=== PATIENT | male | born 1955 | race Caucasian/White ===

== ENCOUNTER → 2019-11-05 10:25 | Outpatient (CLI) | payer BC, SELFPAY ==
--- NOTE | 2019-11-05 | DI.US.S_ITS ---
PROCEDURE: US RENAL COMPLETE INDICATIONS: CALCULUS OF URETER TECHNIQUE: Real-time scanning was performed of the kidneys and bladder, with image documentation. COMPARISON: Outside Film, CT, CT ABDOMEN WITH/WITHOUT CONTRAST, 09/11/2019, 12:56. FINDINGS: Kidneys: Kidneys are normal in size. Right kidney measures 13.3 cm long; left kidney measures 14.7 cm long. Right renal cortical thickness is 1.6 cm; left renal cortical thickness is 1.4 cm. Renal cortical echotexture is normal. No hydronephrosis or nephrolithiasis. No suspicious solid mass lesions. The right-sided urolithiasis seen on the recent CT is not sonographically identifiable. Bladder: Pre-void bladder volume is 279 mL. Post-void residual is 75 mL. Pre-void images demonstrate no intraluminal masses or stones. On pre-void images, both of the ureteral jets are noted with color Doppler interrogation. (Of note, ureteral jets may not be detectable in up to 25% of cases due to insufficient differences in specific gravity between ureteral and bladder urine). Miscellaneous: No free pelvic fluid. IMPRESSION: No sonographically detectable renal calculi. Suboptimal study sensitivity due to patient body habitus No evidence of urinary obstruction 75 mL post void residual Dictated by: Gilbert Gould M.D. on 11/05/2019 at 15:56 Approved by: Gilbert Gould M.D. on 11/05/2019 at 15:58
== END ==
PROVIDERS: PCP Family Medicine; Referring Provider Urology; Visit Provider Urology
DX: N20.1 Calculus of ureter (principal)
CPT/HCPCS: 76770

== ENCOUNTER → 2020-06-29 09:28 | Outpatient (CLI) | payer BC, SELFPAY ==
--- NOTE | 2020-06-29 09:29 | DI.RAD.S_ITS ---
PROCEDURE: XR CHEST 2V INDICATIONS: dyspnea TECHNIQUE: 2 views of the chest were acquired. COMPARISON: [facility], , CHEST 2 VIEW, 09/05/2013, 11:25. FINDINGS: Surgical changes and devices: None. Lungs and pleura: Lungs are abnormal with a new finding on the right of asymmetric pleural thickening seen posteriorly to measure up to 4.4 cm in thickness and extending over a craniocaudad length of approximately 16.4 cm. On the frontal view increased radiodensity is now present over the right mid and lower lung and right lateral pleural thickening is also present, measuring up to 1.7 cm in thickness. No pleural effusions or pneumothorax. Mediastinum: Mediastinal contours are normal. Heart size is normal. Bones and chest wall: No suspicious bony abnormalities. Soft tissues appear unremarkable. IMPRESSION: There is an abnormal finding within much of the posterior and posterolateral right hemithorax which appears comprised of either a pleural mass with thickening or a peripheral atypical pneumonia appearance abutting the posterior and posterolateral pleural surface. CT scanning is recommended with contrast. Empyema could be present. Malignant neoplasm is considered less likely but potentially present. Dictated by: Jose Reno M.D. on 06/29/2020 at 9:57 Approved by: Jose Reno M.D. on 06/29/2020 at 10:01
[2020-06-29 10:34] LABS: Hemoglobin A1C% w Est Avg Glu 6.8 % (4.0-6.0)
[2020-06-29 10:48] LABS: Add Manual Diff / Slide Review NO; Basophils Absolute Auto 100 /uL (0-100); Basophils Percent Auto 1.2 % (0-2); Eosinophils Absolute Auto 200 /uL (0-450); Eosinophils Percent Auto 2.2 % (2-4); Hematocrit 24.9 % (41-53); Hemoglobin 7.2 g/dL (13.5-17.5); Lymphocytes Absolute Auto 1500 /uL (1100-4500); Lymphocytes Percent Auto 13.7 % (25-40); Monocytes Absolute Auto 1000 /uL (0-900); Monocytes Percent Auto 9.1 % (3-14); Neutrophils Absolute Auto 8000 /uL (1500-7000); Neutrophils Percent Auto 73.8 % (50-75); Platelet Count 310 X10^3/uL (150-400); Red Blood Cell Count 4.02 X10^6/uL (4.5-5.9); Red Cell Distribution Width 19.8 % (11.6-14.8); White Blood Cell Count 10.8 X10^3/uL (4.5-11.0)
[2020-06-29 11:03] LABS: Alanine Aminotransferase 25 IU/L (<50); Albumin Globulin Ratio 1.2 (1.0-2.8); Alkaline Phosphatase 81 U/L (38-126); Aspartate Aminotransferase 31 IU/L (17-59); BUN Creatinine Ratio 28.9 (6-22); Bilirubin Total 0.3 mg/dL (0.2-1.3); Blood Urea Nitrogen 22 mg/dL (9-20); Calcium 9.1 mg/dL (8.4-10.2); Carbon Dioxide 30 mmol/L (22-32); Chloride 102 mmol/L (98-107); Estimated Glomerular Filt Rate > 60.0 mL/min (>60); Globulin 3.4 g/dL (1.7-4.1); Glucose 118 mg/dL (80-110); HEMOLYSIS < 15 (0-50); Potassium 4.4 mmol/L (3.4-5.1); Sodium 142 mmol/L (137-145); Total Protein 7.4 g/dL (6.3-8.2)
[2020-06-29 11:04] LABS: HEMOLYSIS < 15 (0-50); Iron 26 ug/dL (49-181)
[2020-06-29 11:17] LABS: Percent Iron Saturation 5 % (20-50); Total Iron Binding Capacity 478 ug/dL (261-462); Transferrin 392 mg/dL (206-381)
[2020-06-29 11:38] LABS: TSH w/ Reflex to FT4 2.05 uIU/mL (0.47-4.68)
[2020-06-29 11:42] LABS: Anisocytosis 2+; Hypochromasia 3+; Microcytosis 3+; Ovalocytes 2+
[2020-06-29 12:10] LABS: Vitamin B12 545 pg/mL (239-931)
== END ==
PROVIDERS: PCP Internal Medicine; Referring Provider Internal Medicine; Visit Provider Internal Medicine
DX: E11.9 Type 2 diabetes mellitus without complications (principal); E66.01 Morbid (severe) obesity due to excess calories; E78.2 Mixed hyperlipidemia; I10 Essential (primary) hypertension; D64.9 Anemia, unspecified; R06.00 Dyspnea, unspecified
CPT/HCPCS: 36415; 71046; 80053; 82607; 82746; 83036; 83540; 83550; 84443; 85025

== ENCOUNTER → 2020-07-07 09:55 | Outpatient (CLI) | payer BC, SELFPAY ==
[2020-07-07 12:07] LABS: COVID19 -Nasal RAPID Negative (Negative)
== END ==
PROVIDERS: Physician Assistant; PCP Internal Medicine; Visit Provider Internal Medicine
DX: Z11.59 Encounter for screening for other viral diseases (principal)
CPT/HCPCS: 87635

== ENCOUNTER → 2020-07-08 06:35 | Outpatient (CLI) | payer BC, SELFPAY ==
--- NOTE | 2020-07-14 09:23 | PM.PFT.1 ---
Pulmonary Function Test Referral & Results Date Patient Seen: 07/08/20 Requesting provider: Tyler Khan Indication: COPD Results: The spirometry demonstrates an FVC of 2.57 L which is 56% of predicted. The FEV1 was measured at 1.33 L which is 39% of predicted. The FEV1/FVC ratio was 52 which is 68% of predicted. Following the administration of bronchodilator there was a 23% improvement in FEV1 as well as 81% improvement in FEF 25-75%. Lung volumes show an SVC of 2.97 L which is 65% of predicted. The diffusing capacity was measured at 18.01 which is 58% of predicted. No hemoglobin value was provided, so no correction for potential anemia could be made, if appropriate. The maximum voluntary ventilation was reduced Interpretation: This study demonstrates moderately severe obstructive lung disease based on reduction FEV1 as well as FEV1/FVC ratio. There is evidence of significant benefit following bronchodilator as above There is also mild restrictive lung disease present based on reduction SVC There is also [id number] reduction diffusing capacity suggesting disease at the capillary alveolar level Altogether this is consistent with a diagnosis of COPD. Clinical correlation is suggested
== END ==
PROVIDERS: PCP Internal Medicine; Referring Provider Internal Medicine; Visit Provider Internal Medicine
DX: J44.9 Chronic obstructive pulmonary disease, unspecified (principal); Z87.891 Personal history of nicotine dependence
CPT/HCPCS: 94060; 94726; 94729

== ENCOUNTER → 2020-07-15 16:24 | Outpatient (CLI) | payer BC, SELFPAY ==
[2020-07-15 17:11] LABS: BUN Creatinine Ratio 31.3 (6-22); Blood Urea Nitrogen 21 mg/dL (9-20); Estimated Glomerular Filt Rate > 60.0 mL/min (>60)
== END ==
PROVIDERS: PCP Internal Medicine; Referring Provider Internal Medicine; Visit Provider Internal Medicine
DX: Z01.812 Encounter for preprocedural laboratory examination (principal)
CPT/HCPCS: 36415; 82565; 84520

== ENCOUNTER → 2020-07-16 12:21 | Outpatient (CLI) | payer BC, SELFPAY ==
--- NOTE | 2020-07-16 12:24 | DI.CT.S_ITS ---
PROCEDURE: CT CHEST W CON INDICATIONS: Dyspnea, extreme fatigue TECHNIQUE: After the administration of intravenous contrast, 5 mm thick sections acquired from the pulmonary apices to the posterior costophrenic angles. 1 mm axial lung, 5 mm thick coronal and sagittal reformats and 7 mm axial MIP were acquired. For radiation dose reduction, the following was used: automated exposure control, adjustment of mA and/or kV according to patient size. COMPARISON: Outside Film, CT, CT ABDOMEN WITH/WITHOUT CONTRAST, 09/11/2019, 12:56. FINDINGS: Image quality: Excellent. Small right pleural effusion with adjacent atelectasis. There is pleural enhancement suggestive of exudative etiology. This is stable to slightly decreased in size since the prior study. Scattered subsegmental atelectasis and/or scarring. No focal consolidation. Airway thickening in keeping with nonspecific bronchitis and/or reactive airways disease. Mediastinum: Heart size is normal. Coronary artery calcifications are present. No pericardial effusion. No mediastinal or hilar adenopathy by size criteria. Thoracic aorta and central pulmonary arteries are normal in size. Esophagus is normal in caliber. No hiatal hernia. Bones and chest wall: No suspicious bony lesions. No vertebral body compression fractures. No axillary or supraclavicular adenopathy by size criteria. Thyroid gland negative . Abdomen: Partially visualized left nephrolithiasis measuring approximately 3 mm. Cystic lesion involving the upper pole the right kidney is only partially visualized. IMPRESSION: Small right pleural effusion, as detailed above. This is stable to slightly decreased in size since 09/11/19. Adjacent right basilar atelectasis. Airway thickening in keeping with nonspecific bronchitis and/or reactive airways disease. Coronary artery disease. Dictated by: Gilbert Gould M.D. on 07/16/2020 at 12:49 Approved by: Gilbert Gould M.D. on 07/16/2020 at 12:54
== END ==
PROVIDERS: PCP Internal Medicine; Referring Provider Internal Medicine; Visit Provider Internal Medicine
DX: R06.00 Dyspnea, unspecified (principal); R93.89 Abnormal findings on diagnostic imaging of other specified body structures; I25.10 Atherosclerotic heart disease of native coronary artery without angina pectoris; J90 Pleural effusion, not elsewhere classified; R53.83 Other fatigue
CPT/HCPCS: 71260; Q9967

== ENCOUNTER → 2020-07-20 17:06 | Outpatient (CLI) | payer BC, SELFPAY ==
[2020-07-20 17:28] LABS: Add Manual Diff / Slide Review NO; Basophils Absolute Auto 100 /uL (0-100); Basophils Percent Auto 0.8 % (0-2); Eosinophils Absolute Auto 200 /uL (0-450); Eosinophils Percent Auto 2.3 % (2-4); Hematocrit 32.1 % (41-53); Hemoglobin 9.8 g/dL (13.5-17.5); Lymphocytes Absolute Auto 1200 /uL (1100-4500); Lymphocytes Percent Auto 11.8 % (25-40); Mean Corpuscular HGB Conc 30.4 % (30-36); Mean Corpuscular Hemoglobin 21.7 PG (26-34); Mean Corpuscular Volume 71.2 fL (80-100); Monocytes Absolute Auto 800 /uL (0-900); Monocytes Percent Auto 8.1 % (3-14); Neutrophils Absolute Auto 7500 /uL (1500-7000); Platelet Count 336 X10^3/uL (150-400); Red Cell Distribution Width 31.9 % (11.6-14.8); White Blood Cell Count 9.8 X10^3/uL (4.5-11.0)
[2020-07-20 17:50] LABS: HEMOLYSIS < 15 (0-50); Iron 45 ug/dL (49-181)
[2020-07-20 17:54] LABS: C-Reactive Protein Quant 2.9 mg/dL (<1.0)
[2020-07-20 17:56] LABS: Erythrocyte Sedimentation Rate 69 MM/HR (0-15)
[2020-07-20 18:01] LABS: Percent Iron Saturation 10 % (20-50); Total Iron Binding Capacity 450 ug/dL (261-462); Transferrin 361 mg/dL (206-381)
[2020-07-20 18:27] LABS: Anisocytosis 4+; Ovalocytes 2+; Poikilocytosis 2+; Schistocytes 1+
[2020-07-20 18:28] LABS: Hypochromasia 2+; Polychromasia 1+
[2020-07-20 18:29] LABS: Microcytosis 2+
== END ==
PROVIDERS: PCP Internal Medicine; Referring Provider Internal Medicine; Visit Provider Internal Medicine
DX: D64.9 Anemia, unspecified (principal)
CPT/HCPCS: 36415; 83540; 83550; 85025; 85651; 86140

== ENCOUNTER → 2020-07-29 13:57 | Outpatient (CLI) | payer BC, SELFPAY | PROVIDERS: Family Provider Internal Medicine; PCP Internal Medicine; Referring Provider Internal Medicine; Visit Provider Family Medicine | DX: R21 Rash and other nonspecific skin eruption (principal); E66.01 Morbid (severe) obesity due to excess calories; D50.9 Iron deficiency anemia, unspecified | CPT/HCPCS: 87070; 87075; 87077; 87186; 87205; 99203; 99214 ==

== ENCOUNTER → 2020-08-10 15:16 | Outpatient (CLI) | payer BC, SELFPAY | PROVIDERS: Family Provider Internal Medicine; PCP Internal Medicine; Referring Provider Internal Medicine; Visit Provider Family Medicine | DX: R21 Rash and other nonspecific skin eruption (principal); E66.01 Morbid (severe) obesity due to excess calories; R73.03 Prediabetes | CPT/HCPCS: 99213 ==

== ENCOUNTER → 2020-08-18 15:28 | Outpatient (CLI) | payer BC, SELFPAY ==
[2020-08-18 16:02] LABS: Add Manual Diff / Slide Review NO; Basophils Absolute Auto 100 /uL (0-100); Basophils Percent Auto 0.9 % (0-2); Eosinophils Absolute Auto 200 /uL (0-450); Eosinophils Percent Auto 2.1 % (2-4); Hematocrit 33.1 % (41-53); Hemoglobin 10.6 g/dL (13.5-17.5); Lymphocytes Absolute Auto 1000 /uL (1100-4500); Lymphocytes Percent Auto 11.7 % (25-40); Mean Corpuscular HGB Conc 31.9 % (30-36); Mean Corpuscular Volume 75.2 fL (80-100); Monocytes Absolute Auto 800 /uL (0-900); Monocytes Percent Auto 8.8 % (3-14); Neutrophils Absolute Auto 6700 /uL (1500-7000); Neutrophils Percent Auto 76.5 % (50-75); Platelet Count 337 X10^3/uL (150-400); Red Cell Distribution Width 26.3 % (11.6-14.8); White Blood Cell Count 8.8 X10^3/uL (4.5-11.0)
[2020-08-18 16:15] LABS: BUN Creatinine Ratio 29.3 (6-22); Blood Urea Nitrogen 24 mg/dL (9-20); Calcium 9.1 mg/dL (8.4-10.2); Carbon Dioxide 31 mmol/L (22-32); Chloride 103 mmol/L (98-107); Estimated Glomerular Filt Rate > 60.0 mL/min (>60); Glucose 126 mg/dL (80-110); HEMOLYSIS < 15 (0-50); Potassium 4.3 mmol/L (3.4-5.1); Sodium 141 mmol/L (137-145)
[2020-08-18 18:23] LABS: HEMOLYSIS < 15 (0-50); Total Iron Binding Capacity 418 ug/dL (261-462); Transferrin 336 mg/dL (206-381)
[2020-08-18 18:36] LABS: Iron 21 ug/dL (49-181); Percent Iron Saturation 5 % (20-50)
[2020-08-18 19:54] LABS: Anisocytosis 3+; Hypochromasia 1+; Microcytosis 2+; Ovalocytes 2+; Platelet Estimate Adequate on smear
--- NOTE | 2020-08-25 13:05 | ONC.MSW ---
Description: Initial Referral Navigation Reason for Referral: Iron Deficiency Anemia Activity: Reviewed referral for acuity, medical status, and immediate needs. Forwarded to scheduling for next available consult time.
== END ==
PROVIDERS: Family Provider Internal Medicine; PCP Internal Medicine; Referring Provider Internal Medicine; Visit Provider Internal Medicine
DX: D50.0 Iron deficiency anemia secondary to blood loss (chronic) (principal)
CPT/HCPCS: 36415; 80048; 83540; 83550; 85025

== ENCOUNTER → 2020-10-07 08:13 | Outpatient (CLI) | payer BC, SELFPAY ==
--- NOTE | 2020-10-07 09:58 | DI.CT.S_ITS ---
PROCEDURE: CT ABDOMEN PELVIS W CON INDICATIONS: Looking for source of GI blood loss; F/U kidney mass TECHNIQUE: After the administration of oral and intravenous contrast, 5 mm thick sections acquired from the diaphragms to the symphysis. 5 mm thick coronal and sagittal reformats were performed. For radiation dose reduction, the following was used: automated exposure control, adjustment of mA and/or kV according to patient size. COMPARISON: [facility], CT, CT CHEST W CON, 07/16/2020, 12:25. Outside Film, CT, CT ABDOMEN WITH/WITHOUT CONTRAST, 09/11/2019, 12:56. FINDINGS: Image quality: Excellent. ABDOMEN: Lung bases: There is a small, loculated appearing right pleural effusion, as before, with overlying scarring within the right lung base. Heart size is normal. Solid organs: Liver enlarged and demonstrates normal enhancement. Gallbladder is within normal limits. Biliary system is non-dilated. Pancreas enhances normally. Spleen is normal in size and enhancement. No adrenal nodules. There is a cystic focus within the superior pole right kidney which is predominantly exophytic, measuring 25 mm diameter, which is slightly increased compared to 09/11/2019. There is a nonobstructing 4 mm calculus within the inferior pole right kidney, as before. Kidneys are otherwise normal in size and enhancement, without hydronephrosis. Peritoneum and bowel: Stomach, small bowel, and colon loops are normal in caliber and wall thickness. Moderate diffuse colonic stool. No free fluid or air. Nodes and vessels: No retroperitoneal or mesenteric adenopathy. Aorta and inferior vena cava are normal in caliber. Miscellaneous: No ventral hernias. PELVIS: Genitourinary: Bladder wall thickness is normal. Miscellaneous: No inguinal hernias or adenopathy. Bones: No suspicious bony lesions. No vertebral body compression fractures. IMPRESSION: 1. No change in small loculated right pleural effusion. 2. Slight increase in size of right superior pole renal cyst compared to 09/11/2019. 3. Nonobstructing right inferior pole renal calculus. 4. Hepatic steatosis. Dictated by: Minerva Keane M.D. on 10/07/2020 at 10:34 Approved by: Minerva Keane M.D. on 10/07/2020 at 10:38
== END ==
PROVIDERS: Family Provider Internal Medicine; PCP Internal Medicine; Referring Provider Internal Medicine; Visit Provider Internal Medicine
DX: D50.9 Iron deficiency anemia, unspecified (principal); N28.89 Other specified disorders of kidney and ureter; J90 Pleural effusion, not elsewhere classified; N28.1 Cyst of kidney, acquired; N20.0 Calculus of kidney; K76.0 Fatty (change of) liver, not elsewhere classified
CPT/HCPCS: 74177; Q9967

== ENCOUNTER → 2020-11-01 10:47 | Outpatient (CLI) | payer BC, SELFPAY ==
--- NOTE | 2020-11-01 10:48 | DI.CT.S_ITS ---
PROCEDURE: CT ABDOMEN WO/W CON INDICATIONS: Renal protocol to evaluate enlarging renal mass TECHNIQUE: Optional 5 mm thick noncontrast images acquired from the diaphragm to the iliac crests. After the administration of intravenous contrast, 5 mm thick images again acquired from the diaphragm to the iliac crests in the arterial and urographic phases. 5 mm thick coronal and sagittal reformats were then acquired. For radiation dose reduction, the following was used: automated exposure control, adjustment of mA and/or kV according to patient size. COMPARISON: [facility], US, US RENAL COMPLETE, 11/05/2019, 11:09. Outside Film, CT, CT ABDOMEN WITH/WITHOUT CONTRAST, 09/11/2019, 12:56. [facility], CT, CT ABDOMEN PELVIS W CON, 10/07/2020, 9:54. FINDINGS: Image quality: Excellent. Lung bases: The right lung has basilar atelectasis, otherwise the lung bases are clear. Heart size is normal. Genitourinary: The right kidney has a 2.5 x 2.5 x 3.2 cm hypodensity in the mid/superior pole which demonstrates -15 Hounsfield unit density. This mass has no arterial enhancement. The size is unchanged compared to the prior CT on 10/07/2020. Other solid organs: Liver is normal in size and enhancement. The gallbladder has no gallstones, pericholecystic fluid, gallbladder wall thickening, or surrounding inflammatory change. Biliary system is non dilated. Pancreas enhances normally. Spleen is normal in size and enhancement. No adrenal nodules. Peritoneum and bowel: Unenhanced bowel loops are normal in wall thickness and caliber. No free fluid or air. Nodes and vessels: No retroperitoneal or mesenteric adenopathy by size criteria. Aorta and inferior vena cava are normal in caliber. Bones: Degenerative changes with no focal abnormality. No suspicious bony lesions. No vertebral body compression fractures. Miscellaneous: There is rectus diastasis. No hernia. IMPRESSION: Right renal mass is hypodense and demonstrates no arterial enhancement and is therefore likely benign. However given apparent growth over the last year recommend ultrasound in 6 months to ensure stability. Dictated by: Jareth Tellez M.D. on 11/01/2020 at 11:40 Approved by: Jareth Tellez M.D. on 11/01/2020 at 11:52
== END ==
PROVIDERS: Family Provider Internal Medicine; PCP Internal Medicine; Referring Provider Internal Medicine; Visit Provider Internal Medicine
DX: N28.89 Other specified disorders of kidney and ureter (principal)
CPT/HCPCS: 74170

== ENCOUNTER → 2020-12-07 08:18 | Outpatient (CLI) | payer BC, SELFPAY ==
[2020-12-07] MEDS: COVID-19 VACC #1, MRNA(MOD) 100 MCG/0.5 ML VIAL IM (08:26)
== END ==
PROVIDERS: Family Provider Internal Medicine; PCP Internal Medicine; Visit Provider Internal Medicine
DX: Z23 Encounter for immunization (principal)
CPT/HCPCS: 0011A; 91301

== ENCOUNTER → 2020-12-17 14:11 | Outpatient (CLI) | payer BC, SELFPAY | PROVIDERS: Family Provider Internal Medicine; PCP Internal Medicine; Referring Provider Internal Medicine; Visit Provider Nurse Practitioner Family | DX: E11.628 Type 2 diabetes mellitus with other skin complications (principal); L08.9 Local infection of the skin and subcutaneous tissue, unspecified; M79.3 Panniculitis, unspecified; Z87.891 Personal history of nicotine dependence; E66.01 Morbid (severe) obesity due to excess calories; Z68.43 Body mass index [BMI] 50.0-59.9, adult | CPT/HCPCS: 87070; 87075; 87077; 87147; 87186; 87205; 99214 ==

== ENCOUNTER → 2021-01-05 07:40 | Outpatient (CLI) | payer BC, SELFPAY ==
[2021-01-05] MEDS: COVID-19 VACC #2, MRNA(MOD) 100 MCG/0.5 ML VIAL IM (07:55)
== END ==
PROVIDERS: PCP Internal Medicine; Visit Provider Internal Medicine
DX: Z23 Encounter for immunization (principal)
CPT/HCPCS: 0012A; 91301

== ENCOUNTER 2022-06-28 08:35 | Emergency (ER) | payer BC, SELFPAY ==
[2022-06-28] VITALS (7 sets, daily range): BP systolic 104–153; BP diastolic 59–81; PULSE 88–119; RESP 18; TEMP 36.3; O2SAT 91–94; BMI 58.3
--- NOTE | 2022-06-28 09:37 | ED_ITS ---
HPI - Skin/Abscess/Foreign Bdy General Chief complaint: Skin/Abscess/Foreign Body Stated complaint: boil or cyst on right upper leg Time Seen by Provider: 06/28/22 09:29 Source: patient Mode of arrival: Ambulatory Limitations: no limitations History of Present Illness HPI narrative: The patient is morbidly obese, he has greatly enlarged lower extremities. He has extensive varicose veins. In the right posterior thigh region. In years past he is undergone 2 vascular surgeries at this site. He is here now due to a sudden increase in size and dilatation in the area. There is no bleeding. The areas are ecchymotic, consistent with large varicose veins. Fortunately has no bleeding with the sudden increase in size and dilatation. He denies URI symptoms, chest discomfort, cough or dyspnea. He has no fever or chills. He is not anticoagulated. Related Data Home Medications Medication Instructions Recorded Confirmed acetaminophen 500 mg capsule 500 - 1,000 mg PO Q6H PRN Pain 06/29/20 04/13/22 (Scale Score 1-3) buprenorphine 8 mg-naloxone 2 mg 1 tab sublingual DAILY 06/29/20 04/13/22 sublingual tablet ibuprofen 200 mg capsule 200 - 400 mg PO Q6H PRN Pain 06/29/20 04/13/22 (Scale Score 1-3) multivitamin 1 tab PO DAILY 06/29/20 04/13/22 Previous Rx's Medication Instructions Recorded budesonide-formoterol HFA 160 2 inh inhalation BID #10.2 grams 10/28/21 mcg-4.5 mcg/actuation aerosol inhaler tamsulosin 0.4 mg capsule 0.4 mg PO DAILY #90 caps 04/03/22 hydrochlorothiazide 25 mg tablet 25 mg PO DAILY #90 tabs 05/16/22 lisinopril 40 mg tablet 40 mg PO DAILY #90 tabs 06/16/22 pravastatin 20 mg tablet 20 mg PO DAILY #90 tabs 06/16/22 Allergies Allergy/AdvReac Type Severity Reaction Status Date / Time No Known Drug Allergies Allergy Verified 06/28/22 09:08 Review of Systems Constitutional Constitutional: Denies body ache(s), Denies chills, Denies fever(s), Denies headache(s) and Denies weakness Comments: No acute illness ENT Ears, Nose, Mouth, and Throat: Denies headache(s), Denies sinus pressure and Denies sore throat Cardiovascular Cardiovascular: Denies chest pain and Denies dyspnea Respiratory Respiratory: Denies cough and Denies dyspnea Gastrointestinal Gastrointestinal: Denies abdominal pain and Denies nausea Musculoskeletal Comments: Right posterior leg pain. Integumentary/Breasts Comments: Swelling and ecchymosis to the right posterior leg. Neurologic Neurologic: Denies headache(s) and Denies weakness Hematologic/Lymphatic On Anticoagulants: No Patient History Medical History BPH w urinary obs/LUTS Calculus of right kidney Chronic back pain Constipation Diabetes type 2, controlled Enlarged prostate Essential hypertension (~1994) H/O adenomatous polyp of colon Hemorrhoid (~1999) History of bladder stone History of nephrolithiasis (~1999) Iron deficiency anemia Microscopic hematuria Mixed hyperlipidemia Morbid obesity Renal cyst, right Rib fractures (~1974) Sleep apnea Type 2 diabetes mellitus with hyperglycemia Surgical History Anesthesia Bladder stones (~2016) History of knee surgery (~1979) Family History Mother Cancer Father Myocardial infarct Brother Cancer Social History Smoking Status: Former smoker Smoking Status: Former smoker alcohol intake frequency: holidays/special occasions only Substance Use Type: does not use Exam Initial Vital Signs Initial Vital Signs: Vital Signs Temperature 97.3 F L 06/28/22 09:02 Pulse Rate 119 H 06/28/22 09:02 Respiratory Rate 18 06/28/22 09:02 Blood Pressure 153/81 H 06/28/22 09:02 Pulse Oximetry 91 06/28/22 09:02 Oxygen Delivery Method 06/28/22 09:02 Const General: cooperative, No acute distress and other (Uncomfortable) HENMT Head: normocephalic and occipital foramen tenderness Resp Auscultation: clear to auscultation bilaterally Cardio Rate: regular rate Rhythm: regular rhythm Heart Sounds: S1 normal, S2 normal and no murmurs Skin Other: Massive varicose veins on the right posterior, proximal thigh. Significant varicosities on the left leg also. The varicose veins are up to 1 cm in diameter. There is marked protuberant area where the vein is dilated about 2 cm, the site is soft, the skin appears to be quite thin. There is no erythema, no warmth. Neuro General: patient alert, patient awake and patient oriented x3 Extrem General: full ROM and no calf tenderness Other: Varicose veins as discussed above Psych Appearance: grossly normal Course Course Course Narrative: The patient has varicose vein ruptured while here in the ER. There was immediate heavy bleeding, the blood was old, black. There was a significant clot that was expelled. Bleeding persisted until pressure was applied. Initial bandage were soaked. Bleeding eventually minimized. Dr. Novoa, general surgery was consulted. He was not immediately available. Bleeding has ceased. He evaluated the situation, feeling there was no immediate surgical intervention that would benefit the patient. He concurs with my intent to consult with vascular surgery. CT angio was obtained. There are no acute arterial lesions. I discussed the situation with the radiologist. There were no AV malformations associated with the hemorrhage sites. The case was discussed briefly with vascular surgery on-call with [facility]. Patient was given an appointment in 2 days with his partner in clinic. Bandages were changed. Patient is stable at time of discharge. Orders Ordered: ED Orders 06/28/22 09:40 CT angio abd aorta runoff Stat 06/28/22 11:40 BMP [Basic Metabolic Panel] Stat CBC with manual diff [Complete Blood Count MAN DIFF] Stat Prothrombin Time INR Stat 06/28/22 13:45 COVID19 -Nasal RAPID/Pre-Proc Stat Vital Signs Vital signs: Vital Signs - 8 hr 06/28/22 12:23 06/28/22 12:25 06/28/22 12:25 Pulse Rate 99 H 98 H Respiratory Rate Blood Pressure 130/67 Pulse Oximetry 94 93 Oxygen Delivery Method 06/28/22 12:30 06/28/22 12:30 06/28/22 13:38 Pulse Rate 96 H Respiratory Rate Blood Pressure 113/61 113/59 L Pulse Oximetry 91 Oxygen Delivery Method 06/28/22 13:38 06/28/22 14:00 06/28/22 15:46 Pulse Rate 91 H 88 100 H Respiratory Rate 18 Blood Pressure 104/62 Pulse Oximetry 92 94 94 Oxygen Delivery Method Room Air MDM - Skin/Abscess/Foreign Bdy Lab Data Result diagrams: 06/28/22 11:40 06/28/22 11:40 Labs: Lab Results 06/28/22 06/28/22 06/28/22 Range/Units 11:40 11:40 11:40 WBC 12.0 H (4.5-11.0) X10^3/uL RBC 4.08 L (4.5-5.9) X10^6/uL Hgb 11.4 L (13.5-17.5) g/dL Hct 35.4 L (41-53) % MCV 86.9 (80-100) fL MCH 28.0 (26-34) PG MCHC 32.2 (30-36) % RDW 15.5 H (11.6-14.8) % Plt Count 249 (150-400) X10^3/uL Total Counted 100 Seg Neutrophils % 77.0 H (38-70) % Lymphocytes % (Manual) 9.0 L (25-45) % Atypical Lymphs % 5.0 H ( - 0) % Monocytes % (Manual) 9.0 (2-11) % Neutrophils # (Manual) 9240 H (7897-5159) /uL RBC Morphology Not Reportable Anisocytosis 1+ H PT 15.9 H (10.1-12.7) SECONDS INR 1.4 H (0.9-1.3) Sodium 137 (137-145) mmol/L Potassium 4.3 (3.4-5.1) mmol/L Chloride 99 (98-107) mmol/L Carbon Dioxide 29 (22-32) mmol/L BUN 20 (9-20) mg/dL Creatinine 0.73 (0.66-1.25) mg/dL Estimated GFR > 60 (>60) mL/min BUN/Creatinine Ratio 27.4 H (6-22) Glucose 127 H (80-110) mg/dL Calcium 8.7 (8.4-10.2) mg/dL SARS-CoV-2 (PCR) (Negative) 06/28/22 Range/Units 13:45 WBC (4.5-11.0) X10^3/uL RBC (4.5-5.9) X10^6/uL Hgb (13.5-17.5) g/dL Hct (41-53) % MCV (80-100) fL MCH (26-34) PG MCHC (30-36) % RDW (11.6-14.8) % Plt Count (150-400) X10^3/uL Total Counted Seg Neutrophils % (38-70) % Lymphocytes % (Manual) (25-45) % Atypical Lymphs % ( - 0) % Monocytes % (Manual) (2-11) % Neutrophils # (Manual) (9549-0299) /uL RBC Morphology Anisocytosis PT (10.1-12.7) SECONDS INR (0.9-1.3) Sodium (137-145) mmol/L Potassium (3.4-5.1) mmol/L Chloride (98-107) mmol/L Carbon Dioxide (22-32) mmol/L BUN (9-20) mg/dL Creatinine (0.66-1.25) mg/dL Estimated GFR (>60) mL/min BUN/Creatinine Ratio (6-22) Glucose (80-110) mg/dL Calcium (8.4-10.2) mg/dL SARS-CoV-2 (PCR) Negative (Negative) Imaging Data CT angio with runoff.: Radiologist's Impression: 1. Cellulitis involving the posterior medial upper right thigh subcutaneous fat. ? 2. There is mild atherosclerotic disease involving the aorta and runoff.? There is no hemodynamically significant stenosis identified.? There is 3 runoff vessels bilaterally. ? 3. Ventral hernia containing nonobstructed small bowel. ? 4. Small right pleural effusion and associated right basilar atelectasis. ? 5. Hepatomegaly, hepatic steatosis. ? 6. Nephrolithiasis. ? 7. Bladder stones.? ? Discharge Plan Departure Patient Disposition: Home Clinical Impression: Ruptured varicose vein Instructions: DI for Varicocele Activity Restrictions/Additional Instructions: Expect the site who is small amounts of old, black blood. There may be occasional trickles of bright red blood If he develops significant bleeding of bright red blood he should be seen imm ediately. Change bandages as needed. You have an appointment with Dr. Uribe 3:00 pm, SundayJune 30, vascular surgery with [facility] in [place], [place]. Prescriptions: No Action budesonide-formoterol 160-4.5 mcg/actuation HFA aerosol inhaler 2 inh inhalation BID Qty: 10.2 4RF tamsulosin 0.4 mg capsule 0.4 mg PO DAILY Qty: 90 0RF Rx Instructions: APPT DUE W/PCP PRIOR TO END OF RX/FUTURE FILLS. PLEASE CALL TO SCHEDULE APPT. THANK YOU 04/03/22. hydrochlorothiazide 25 mg tablet 25 mg PO DAILY Qty: 90 0RF Rx Instructions: PT WILL NEED TO BE SEEN BEFORE NEXT FILL 05/16/22 pravastatin 20 mg tablet 20 mg PO DAILY Qty: 90 0RF Rx Instructions: APPT DUE NOW/BEFORE ANY FUTURE FILLS. PLEASE CALL TO SCHEDULE APPT. THANK YOU 06/16/22. lisinopril 40 mg tablet 40 mg PO DAILY Qty: 90 0RF Rx Instructions: APPT DUE NOW/BEFORE ANY FUTURE FILLS. PLEASE CALL TO SCHEDULE APPT. THANK YOU 06/16/22. multivitamin Tablet 1 tab PO DAILY buprenorphine-naloxone 8-2 mg tablet, sublingual 1 tab SL DAILY ibuprofen 200 mg capsule 200 - 400 mg PO Q6H PRN (Reason: Pain (Scale Score 1-3)) Label Comments: States he takes more due to being in pain acetaminophen 500 mg capsule 500 - 1,000 mg PO Q6H PRN (Reason: Pain (Scale Score 1-3)) Label Comments: For pain Referrals: Tyler Khan MD [Primary Care Provider] - Visit Report Forms: Patient Portal/API
--- NOTE | 2022-06-28 09:40 | DI.CT.S_ITS ---
PROCEDURE: CT ANGIO ABD AORTA RUNOFF INDICATIONS: Extensive vascular abnormalities, right leg. TECHNIQUE: After the administration of intravenous contrast, 2.5 mm sections acquired from T12 to the feet, with optional delayed image acquisition from the knees to the feet. 3-dimensional maximum intensity projection (MIP) coronal and sagittal reformats, and/or 3-dimensional volume rendering reformatting was then performed. For radiation dose reduction, the following was used: automated exposure control. COMPARISON: None. FINDINGS: Image quality: Excellent. Extravascular tissues: Small right pleural effusion and associated right basilar atelectasis. Heart size is normal. Hepatomegaly. Diffuse hepatic steatosis. Gallbladder is unremarkable without calcified stones. Biliary system is non dilated. Pancreas enhances normally. Spleen is normal in size and enhancement. No adrenal nodules. Kidneys are normal in size and enhancement, without hydronephrosis. There are bilateral small nonobstructing renal stones. Non opacified bowel loops demonstrate normal wall thickness and enhancement. No free fluid or air. No retroperitoneal or mesenteric adenopathy. Periumbilical hernia containing nondilated small bowel. Bladder wall thickness is normal. There are 2 calcified bladder stones. There is mild enlargement of the prostate. No inguinal hernias or adenopathy. No suspicious bony lesions. No vertebral body compression fractures. There is cellulitis involving the upper posterior medial right thigh subcutaneous tissues. Abdominal aorta: Normal caliber. Mild calcifications. Incidental note is made of independent origins of the common hepatic artery and splenic artery off of the abdominal aorta. These vessels are patent, as are the SMA, bilateral renal arteries, and [place]. Right lower extremity: Common iliac, external iliac, a common femoral are widely patent. Mild SFA stenotic disease. Popliteal is patent. The 3 runoff vessels appear to be continuous. Left lower extremity: Common iliac, external iliac, a common femoral are widely patent. Mild SFA stenotic disease. Popliteal is patent. The 3 runoff vessels appear to be continuous. IMPRESSION: 1. Cellulitis involving the posterior medial upper right thigh subcutaneous fat. 2. There is mild atherosclerotic disease involving the aorta and runoff. There is no hemodynamically significant stenosis identified. There is 3 runoff vessels bilaterally. 3. Ventral hernia containing nonobstructed small bowel. 4. Small right pleural effusion and associated right basilar atelectasis. 5. Hepatomegaly, hepatic steatosis. 6. Nephrolithiasis. 7. Bladder stones. Dictated by: Fran Castro M.D. on 06/28/2022 at 13:12 Approved by: Fran Castro M.D. on 06/28/2022 at 13:22
[2022-06-28 12:07] LABS: Hematocrit 35.4 % (41-53); Hemoglobin 11.4 g/dL (13.5-17.5); Mean Corpuscular HGB Conc 32.2 % (30-36); Mean Corpuscular Volume 86.9 fL (80-100); Platelet Count 249 X10^3/uL (150-400); Red Blood Cell Count 4.08 X10^6/uL (4.5-5.9); Red Cell Distribution Width 15.5 % (11.6-14.8)
[2022-06-28 12:17] LABS: INR 1.4 (0.9-1.3); Neutrophils Absolute Manual 9240 /uL (3000-5900); Prothrombin Time 15.9 SECONDS (10.1-12.7); Total Cells Counted 100
[2022-06-28 12:18] LABS: Anisocytosis 1+
[2022-06-28 12:22] LABS: BUN Creatinine Ratio 27.4 (6-22); Blood Urea Nitrogen 20 mg/dL (9-20); Calcium 8.7 mg/dL (8.4-10.2); Carbon Dioxide 29 mmol/L (22-32); Chloride 99 mmol/L (98-107); Estimated Glomerular Filt Rate > 60 mL/min (>60); Glucose 127 mg/dL (80-110); HEMOLYSIS < 15 (0-50); Potassium 4.3 mmol/L (3.4-5.1); Sodium 137 mmol/L (137-145)
[2022-06-28 14:15] LABS: COVID19 -Nasal RAPID Negative (Negative)
--- NOTE | 2022-06-28 14:22 | PC.NURSE ---
Pt has very large varicose veins on his bottom, both butt cheeks and down the inside of his thighs. Pt is obese. Bottom, inner thighs and back of legs are dark purplish in color and very tender to palpate. One of the varicose veins ruptured when he stood up this morning in ED. Pt was lined/labs and went to CT. Physician at the bedside moments after the varicose vein ruptured. Pt has difficulty urinating due to obesity, urine sprays all over the floor and legs of the patient.
== END 2022-06-28 15:49 | disposition home or self-care (01) ==
PROVIDERS: Emergency Provider Emergency Medicine; PCP Internal Medicine
DX: I83.891 Varicose veins of right lower extremity with other complications (principal); Z20.822 Contact with and (suspected) exposure to COVID-19
CPT/HCPCS: 36415; 75635; 80048; 85025; 85610; 87635; 99283; 99284; C9803

== ENCOUNTER → 2022-10-04 08:30 | Outpatient (CLI) | payer BC, OTHER, SELFPAY ==
[2022-10-04 09:33] LABS: Add Manual Diff / Slide Review NO; Basophils Absolute Auto 100 /uL (0-100); Basophils Percent Auto 0.6 % (0-2); Eosinophils Absolute Auto 100 /uL (0-450); Eosinophils Percent Auto 1.6 % (2-4); Hematocrit 34.6 % (41-53); Lymphocytes Absolute Auto 1000 /uL (1100-4500); Lymphocytes Percent Auto 11.9 % (25-40); Mean Corpuscular HGB Conc 31.8 % (30-36); Mean Corpuscular Hemoglobin 27.2 PG (26-34); Mean Corpuscular Volume 85.5 fL (80-100); Monocytes Absolute Auto 700 /uL (0-900); Monocytes Percent Auto 8.2 % (3-14); Neutrophils Absolute Auto 6600 /uL (1500-7000); Neutrophils Percent Auto 77.7 % (50-75); Platelet Count 271 X10^3/uL (150-400); Red Blood Cell Count 4.05 X10^6/uL (4.5-5.9); Red Cell Distribution Width 17.8 % (11.6-14.8); White Blood Cell Count 8.5 X10^3/uL (4.5-11.0)
[2022-10-04 09:41] LABS: Hemoglobin A1C% w Est Avg Glu 5.9 % (4.0-6.0)
[2022-10-04 09:45] LABS: HEMOLYSIS < 15 (0-50); Iron 49 ug/dL (49-181)
[2022-10-04 09:56] LABS: Alanine Aminotransferase 30 IU/L (<50); Albumin 4.1 g/dL (3.5-5.0); Albumin Globulin Ratio 1.1 (1.0-2.8); Alkaline Phosphatase 72 U/L (38-126); Aspartate Aminotransferase 37 IU/L (17-59); Bilirubin Total 0.5 mg/dL (0.2-1.3); Blood Urea Nitrogen 20 mg/dL (9-20); Calcium 8.9 mg/dL (8.4-10.2); Carbon Dioxide 31 mmol/L (22-32); Chloride 100 mmol/L (98-107); Cholesterol 146 mg/dL (140-199); Estimated Glomerular Filt Rate > 60 mL/min (>60); Globulin 3.8 g/dL (1.7-4.1); Glucose 109 mg/dL (80-110); HDL Cholesterol 35 mg/dL (40-60); HEMOLYSIS < 15 (0-50); LDL Cholesterol Calculated 90 mg/dL (<100); Percent Iron Saturation 13 % (20-50); Potassium 4.2 mmol/L (3.4-5.1); Sodium 141 mmol/L (137-145); Total Iron Binding Capacity 374 ug/dL (261-462); Total Protein 7.9 g/dL (6.3-8.2); Transferrin 290 mg/dL (206-381); Triglycerides 106 mg/dL (35-150)
[2022-10-04 10:28] LABS: Ferritin 57 ng/mL (18-464)
== END ==
PROVIDERS: PCP Internal Medicine; Referring Provider Internal Medicine; Visit Provider Internal Medicine
DX: D50.9 Iron deficiency anemia, unspecified (principal); E11.9 Type 2 diabetes mellitus without complications; E78.2 Mixed hyperlipidemia; I10 Essential (primary) hypertension
CPT/HCPCS: 36415; 80053; 80061; 82728; 83036; 83540; 83550; 85025

== ENCOUNTER 2023-05-18 23:25 | Inpatient (IN) | payer BC, OTHER, MEDICARE, SELFPAY ==
[2023-05-18 23:30] VITALS: BP 167/75; PULSE 97; O2SAT 93
--- NOTE | 2023-05-18 23:32 | DI.RAD.S_ITS ---
PROCEDURE: XR CHEST 1V INDICATIONS: Shortness of breath. TECHNIQUE: One view of the chest was acquired. COMPARISON: [facility], CR, XR CHEST 2V, 06/29/2020, 9:46. FINDINGS: Surgical changes and devices: None. Lungs and pleura: There are confluent right perihilar opacities. No pleural effusions or pneumothorax. Mediastinum: Mediastinal contours appear normal. Heart size is normal. Bones and chest wall: No suspicious bony lesions. Overlying soft tissues appear unremarkable. IMPRESSION: 1. Confluent right perihilar opacities consistent with atelectasis or consolidation. Dictated by: Markel Nicole M.D. on 05/19/2023 at 0:54 Approved by: Markel Nicole M.D. on 05/19/2023 at 0:55
--- NOTE | 2023-05-18 23:32 | DI.CT.S_ITS ---
PROCEDURE: CT ABDOMEN PELVIS W CON INDICATIONS: Abdominal pain; constipation. TECHNIQUE: After the administration of IV contrast, axial sections were acquired from the lung bases to the pubic symphysis. Coronal and sagittal reformats were performed. For radiation dose reduction, the following was used: automated exposure control, adjustment of mA and/or kV according to patient size. COMPARISON: CT, CT ABDOMEN WO/W CON, 11/01/2020, 10:55. [facility], CT, CT ABDOMEN PELVIS W CON, 10/07/2020, 9:54. FINDINGS: Image quality: Excellent. Lung bases: A small loculated chronic right pleural effusion is redemonstrated. Associated compressive atelectasis and scarring are again noted in the right lung base. Heart: Heart is normal in size. ABDOMEN: Liver: There is diffuse hypoattenuation of the liver consistent with fatty infiltration. Gallbladder: The gallbladder is distended without calcified gallstones or wall thickening. Biliary ducts: No biliary ductal dilatation. Pancreas: Unremarkable. Spleen: Normal in size. There is a nonspecific cyst within the spleen measuring up to 2.4 cm. Adrenal Glands: No adrenal nodules. Kidneys and Ureters: No hydronephrosis. There are bilateral renal cysts. There are nonobstructing right renal stones measuring up to 0.7 cm with attenuation values of approximately 600-700 Hounsfield units. Stomach and Bowel: There is segmental dilatation of multiple small bowel loops with associated small bowel fecalization extending to a herniated segment within an umbilical hernia. The small bowel is nondistended distal to the hernia. Findings are consistent with a small bowel obstruction. Peritoneum: No abnormal intraperitoneal fluid. No free air. Ventral Wall: As noted above, there is a small umbilical hernia containing a short herniated segment of small bowel. The hernia defect measures approximately 4.0 x 2.9 cm in dimension. There is associated small bowel obstruction upstream of the herniated segment. Mild bowel wall thickening is demonstrated within the hernia sac as well as a small amount of free fluid. The findings may reflect bowel strangulation and correlation is recommended clinically. Abdominal Nodes: No retroperitoneal or mesenteric adenopathy by size criteria. Vessels: Aorta and inferior vena cava are normal in size. PELVIS: Pelvic Organs: Unremarkable. Bladder: There are dependent calcified urinary stones within the right aspect of the bladder posteriorly. Pelvic Nodes: No enlarged lymph nodes. Miscellaneous: No inguinal hernias are seen. Bones: Visualized osseous structures demonstrate no suspicious focal lesions. IMPRESSION: 1. Small umbilical hernia containing a herniated segment of small bowel with associated upstream small bowel obstruction. Mild bowel wall thickening and fluid within the hernia sac may also reflect bowel strangulation and correlation is recommended clinically. Findings discussed with Dr. Chapman on 05/19/23 at 1:24 a.m.. Dictated by: Markel Nicole M.D. on 05/19/2023 at 1:21 Approved by: Markel Nicole M.D. on 05/19/2023 at 1:30
[2023-05-18 23:44] VITALS: BP 167/75; PULSE 93; RESP 22; TEMP 36.8; O2SAT 87; BMI 55.3
[2023-05-18 23:49] VITALS: BP 133/65; PULSE 93; RESP 27; O2SAT 92
[2023-05-18 23:49] LABS: Hematocrit 35.9 % (41-53); Hemoglobin 11.3 g/dL (13.5-17.5); Mean Corpuscular HGB Conc 31.6 % (30-36); Mean Corpuscular Hemoglobin 25.6 PG (26-34); Platelet Count 335 X10^3/uL (150-400); Red Blood Cell Count 4.43 X10^6/uL (4.5-5.9); White Blood Cell Count 16.4 X10^3/uL (4.5-11.0)
[2023-05-18 23:50] LABS: Add Manual Diff / Slide Review YES
[2023-05-18 23:57] LABS: INR 1.3 (0.9-1.3); Prothrombin Time 14.8 SECONDS (10.1-12.7)
[2023-05-18 23:59] LABS: PTT Partial Thromboplastin Tim 31 SECONDS (26-36)
[2023-05-19] VITALS (26 sets, daily range): BP systolic 96–149; BP diastolic 46–70; PULSE 32–90; RESP 17–31; TEMP 36.2–37; O2SAT 87–96; BMI 41.5
[2023-05-19 00:01] LABS: Alanine Aminotransferase 29 IU/L (<50); Albumin 4.1 g/dL (3.5-5.0); Alkaline Phosphatase 75 U/L (38-126); Aspartate Aminotransferase 34 IU/L (17-59); BUN Creatinine Ratio 30.6 (6-22); Bilirubin Total 0.6 mg/dL (0.2-1.3); Blood Urea Nitrogen 34 mg/dL (9-20); Calcium 9.1 mg/dL (8.4-10.2); Carbon Dioxide 36 mmol/L (22-32); Chloride 88 mmol/L (98-107); Creatine Kinase 79 U/L (55-170); Estimated Glomerular Filt Rate > 60 mL/min (>60); Glucose 161 mg/dL (80-110); HEMOLYSIS < 15 (0-50); Lipase 26 U/L (23-300); Potassium 4.1 mmol/L (3.4-5.1); Sodium 135 mmol/L (137-145); Total Protein 8.1 g/dL (6.3-8.2)
[2023-05-19 00:12] LABS: Lactate (Lactic Acid) 2.3 mmol/L (0.7-2.1)
[2023-05-19 00:13] LABS: NT-proBNP (BNP-Adult 18+) 291 pg/mL (<125); Troponin I 0.087 ng/mL (0.01-0.034)
[2023-05-19 00:48] LABS: Total Cells Counted 100
[2023-05-19 00:49] LABS: Anisocytosis 2+; Neutrophils Absolute Manual 14268 /uL (3000-5900)
[2023-05-19 00:50] LABS: Influenza A - CEPHEID Flu A NEGATIVE (NEGATIVE); Influenza B - CEPHEID Flu B NEGATIVE (NEGATIVE); Respiratory Syncytial Virus Negative (Negative)
[2023-05-19 00:51] LABS: COVID-19 CEPHEID 4-PLEX PCR Negative (Negative)
--- NOTE | 2023-05-19 01:28 | ED.ABDPAIN ---
HPI - Abdominal Pain General Chief Complaint: Abdominal Pain Stated Complaint: constipation bleeding avm Time Seen by Provider: 05/18/23 23:32 Source: patient and EMS Mode of arrival: EMS History of Present Illness HPI narrative: Patient is a 67-year-old male history of morbid obesity COPD chronically on 4 L of oxygen, type 2 diabetes hypertension hyperlipidemia anemia multiple skin AVMs presenting today with a variety of complaints. He has had increasing abdominal pain over the last 4-5 days. He reports that he is not had a bowel movement since then. He is not nauseous or vomiting but has had decreased appetite because he is not having bowel movements. He denies any chest pain palpitations or shortness of breath. EMS did not put him on his 4 L of oxygen for the 30 minute transport ride but they report they were able to coax him and have him take deep breaths which would bring his O2 into the 90s. However upon arrival his oxygen is in the high 70s on room air. 1 placed on his 4 L of oxygen it comes up to 93. He denies any fever or chills. He also reports that he has a subcutaneous AVM on the back of his right thigh which has been bleeding off and on. He is not on any antiplatelet or anticoagulation medications. Related Data Home Medications Medication Instructions Recorded Confirmed acetaminophen 500 mg capsule 500 - 1,000 mg PO Q6H PRN Pain 06/29/20 11/02/22 (Scale Score 1-3) buprenorphine 8 mg-naloxone 2 mg 1 tab sublingual DAILY 06/29/20 11/02/22 sublingual tablet ibuprofen 200 mg capsule 200 - 400 mg PO Q6H PRN Pain 06/29/20 11/02/22 (Scale Score 1-3) multivitamin 1 tab PO DAILY 06/29/20 11/02/22 Previous Rx's Medication Instructions Recorded budesonide-formoterol HFA 160 2 inh inhalation BID #10.2 grams 10/02/22 mcg-4.5 mcg/actuation aerosol inhaler hydrochlorothiazide 25 mg tablet 25 mg PO DAILY #90 tabs 10/02/22 lisinopril 40 mg tablet 40 mg PO DAILY #90 tabs 10/02/22 pravastatin 20 mg tablet 20 mg PO DAILY #90 tabs 10/02/22 tamsulosin 0.4 mg capsule 0.4 mg PO DAILY #90 caps 10/02/22 Allergies Allergy/AdvReac Type Severity Reaction Status Date / Time No Known Drug Allergies Allergy Verified 10/02/22 11:36 Review of Systems Review of Systems ROS Unobtainable: All systems reviewed & are unremarkable except as noted in HPI and below Patient History Medical History (Updated 05/19/23 @ 05:56 by Alley Chapman DO) BPH w urinary obs/LUTS Calculus of right kidney Chronic back pain Constipation Diabetes type 2, controlled Enlarged prostate Essential hypertension (~1994) H/O adenomatous polyp of colon Hemorrhoid (~1999) History of bladder stone History of nephrolithiasis (~1999) Iron deficiency anemia Microscopic hematuria Mixed hyperlipidemia Morbid obesity Renal cyst, right Rib fractures (~1974) Sleep apnea Surgical History Anesthesia Bladder stones (~2016) History of knee surgery (~1979) Family History Mother Cancer Father Myocardial infarct Brother Cancer Social History Smoking Status: Former smoker Smoking Status: Former smoker alcohol intake frequency: holidays/special occasions only Substance Use Type: does not use Exam Initial Vital Signs Initial Vital Signs: Vital Signs Pulse Rate 97 H 05/18/23 23:30 Blood Pressure 167/75 H 05/18/23 23:30 Pulse Oximetry 93 05/18/23 23:30 Oxygen Delivery Method Nasal Cannula 05/18/23 23:30 Oxygen Flow Rate 4 05/18/23 23:30 GENERAL: Obese 67-year-old male appears chronically ill and uncomfortable and in no acute distress. HEENT: Head atraumatic,EOMI, pupils reactive, face symmetric, moist mucous membranes CARDIOVASCULAR: Regular rate and rhythm without murmurs, rubs or gallops. RESPIRATORY: Breath sounds equal bilaterally, no wheezes rales or rhonchi. ABDOMEN: Obese tender periumbilical and epigastric area to very soft touch. : No CVA tenderness EXTREMITIES: Normal range of motion, no clubbing or edema. Neurovascularly intact NEUROLOGICAL: Alert and oriented x4.Normal gait and speech. SKIN: Right posterior thigh contusion and AVF noted no active bleeding at this time but he is dried blood on his leg Course Orders Ordered: ED Orders 05/18/23 23:32 CT abdomen pelvis w con Stat XR chest 1V Stat EKG-12 Lead Stat 05/18/23 23:35 Complete Blood Count AUTO DIFF Stat Comprehensive Metabolic Panel Stat Lactate (Lactic Acid) Stat Lipase Stat NT-proBNP (BNP-Adult 18+) Stat PTT Partial Thromboplastin Damian Stat Prothrombin Time INR Stat Troponin & CK Cardiac Panel Stat 05/18/23 23:42 Blood Culture Stat 05/18/23 23:52 Covid-19 + FLU A/B + RSV - PCR Stat 05/19/23 01:58 Troponin & CK Cardiac Panel Stat 05/19/23 03:55 Trop I [Troponin I] Stat 05/19/23 04:21 Consult to General Surgery Stat Acetaminophen (Acetaminophen 325 Mg Tablet) 650 mg PO Q6HR PRN PRN Reason: Fever/Mild Pain (1-3) Sodium Chloride (Normal Saline 0.9%) 1,000 mls @ 150 mls/hr IV CONT [facility] Last Admin: 05/19/23 01:38 Dose: 150 mls/hr Documented By: ES Sodium Chloride (Normal Saline 0.9%) 1,000 mls @ 125 mls/hr IV CONT [facility] Last Admin: 05/19/23 05:38 Dose: Not Given Documented By: SPF Morphine Sulfate (Morphine 2 Mg/Ml Inj) 4 mg IV Q4HR PRN PRN Reason: Pain, Moderate (4-6) Last Admin: 05/19/23 05:36 Dose: 4 mg Documented By: SPF Ondansetron HCl (Ondansetron 4 Mg/2 Ml Inj) 4 mg IV Q4HR PRN PRN Reason: Nausea And Vomiting Discontinued Medications Hydromorphone HCl (Hydromorphone 1 Mg Inj) 1 mg IV NOW ONE Stop: 05/19/23 01:33 Last Admin: 05/19/23 01:38 Dose: 1 mg Documented By: ES Hydromorphone HCl (Hydromorphone 1 Mg Inj) 1 mg IV NOW ONE Stop: 05/19/23 02:28 Last Admin: 05/19/23 02:35 Dose: 1 mg Documented By: ES Hydromorphone HCl (Hydromorphone 1 Mg Inj) 1 mg IV NOW ONE Stop: 05/19/23 03:54 Last Admin: 05/19/23 04:14 Dose: 1 mg Documented By: GC Piperacillin Sod/Tazobactam (Sod 4.5 gm/ Sodium Chloride) 100 mls @ 200 mls/hr IV NOW ONE Stop: 05/19/23 04:24 Last Infusion: 05/19/23 05:29 Dose: 0 mls/hr Documented By: Admin: 05/19/23 04:51 Dose: 200 mls/hr Documented By: DEL Morphine Sulfate (Morphine 4 Mg/Ml Inj) 4 mg IV NOW ONE Stop: 05/19/23 05:21 Last Admin: 05/19/23 06:36 Dose: Not Given Documented By: [email or web address] Pantoprazole Sodium (Pantoprazole 40 Mg Vial) 40 mg IV NOW ONE Stop: 05/19/23 01:33 Last Admin: 05/19/23 01:39 Dose: 40 mg Documented By: DEL Vital Signs Vital signs: Vital Signs - 8 hr 05/18/23 23:44 05/18/23 23:30 05/18/23 23:30 Temperature 98.2 F Pulse Rate 93 H 97 H Respiratory Rate 22 Blood Pressure 167/75 H 167/75 H Pulse Oximetry 87 L 93 Oxygen Delivery Method Nasal Cannula Nasal Cannula Oxygen Flow Rate 4 4 05/18/23 23:49 05/18/23 23:49 05/19/23 00:00 Temperature Pulse Rate 93 H Respiratory Rate 27 H Blood Pressure 133/65 136/59 L Pulse Oximetry 92 Oxygen Delivery Method Oxygen Flow Rate 05/19/23 00:00 05/19/23 00:30 05/19/23 01:00 Temperature Pulse Rate 86 86 79 Respiratory Rate 22 23 22 Blood Pressure Pulse Oximetry 94 94 93 Oxygen Delivery Method Oxygen Flow Rate 05/19/23 01:30 05/19/23 01:58 05/19/23 01:58 Temperature Pulse Rate 80 71 Respiratory Rate 28 H 19 Blood Pressure 125/60 Pulse Oximetry 95 93 Oxygen Delivery Method Oxygen Flow Rate 05/19/23 02:00 05/19/23 02:00 05/19/23 02:15 Temperature Pulse Rate 75 82 Respiratory Rate 17 24 Blood Pressure 122/57 L Pulse Oximetry 91 92 Oxygen Delivery Method Oxygen Flow Rate 05/19/23 02:15 05/19/23 02:30 05/19/23 02:30 Temperature Pulse Rate 77 Respiratory Rate 26 H Blood Pressure 119/57 L 125/57 L Pulse Oximetry 94 Oxygen Delivery Method Oxygen Flow Rate 05/19/23 02:45 05/19/23 02:45 05/19/23 03:00 Temperature Pulse Rate 73 Respiratory Rate 20 Blood Pressure 124/60 116/64 Pulse Oximetry 95 Oxygen Delivery Method Oxygen Flow Rate 05/19/23 03:00 05/19/23 03:15 05/19/23 03:15 Temperature Pulse Rate 86 86 Respiratory Rate 28 H 30 H Blood Pressure 128/66 Pulse Oximetry 93 92 Oxygen Delivery Method Oxygen Flow Rate 05/19/23 03:38 05/19/23 04:00 05/19/23 04:30 Temperature Pulse Rate 32 L 87 80 Respiratory Rate 31 H 25 H Blood Pressure Pulse Oximetry 87 L 94 93 Oxygen Delivery Method Nasal Cannula Oxygen Flow Rate 4 05/19/23 05:25 05/19/23 05:15 05/19/23 05:15 Temperature Pulse Rate 72 81 Respiratory Rate 18 26 H Blood Pressure 144/63 H 144/63 H Pulse Oximetry 94 91 Oxygen Delivery Method Nasal Cannula Oxygen Flow Rate 5 MDM - Abdominal Pain Lab Data 05/18/23 23:35 05/18/23 23:35 Labs: Lab Results 05/18/23 05/18/23 05/18/23 Range/Units 23:35 23:35 23:35 WBC 16.4 H (4.5-11.0) X10^3/uL RBC 4.43 L (4.5-5.9) X10^6/uL Hgb 11.3 L (13.5-17.5) g/dL Hct 35.9 L (41-53) % MCV 81.0 (80-100) fL MCH 25.6 L (26-34) PG MCHC 31.6 (30-36) % RDW 18.0 H (11.6-14.8) % Plt Count 335 (150-400) X10^3/uL Neut % (Auto) Not Reportable Lymph % (Auto) Not Reportable [place] % (Auto) Not Reportable Eos % (Auto) Not Reportable Baso % (Auto) Not Reportable Lymph # (Auto) Not Reportable [place] # (Auto) Not Reportable Baso # (Auto) Not Reportable Total Counted 100 Seg Neutrophils % 85.0 H (38-70) % Band Neutrophils % 2.0 L (3-7) % Lymphocytes % (Manual) 6.0 L (25-45) % Monocytes % (Manual) 6.0 (2-11) % Metamyelocytes % 1.0 H (-0) % Neutrophils # (Manual) 92515 H (3319-8714) /uL RBC Morphology See below Anisocytosis 2+ H PT 14.8 H (10.1-12.7) SECONDS INR 1.3 (0.9-1.3) APTT 31 (26-36) SECONDS Sodium 135 L (137-145) mmol/L Potassium 4.1 (3.4-5.1) mmol/L Chloride 88 L (98-107) mmol/L Carbon Dioxide 36 H (22-32) mmol/L BUN 34 H (9-20) mg/dL Creatinine 1.11 (0.66-1.25) mg/dL Estimated GFR > 60 (>60) mL/min BUN/Creatinine Ratio 30.6 H (6-22) Glucose 161 H (80-110) mg/dL Lactate (0.7-2.1) mmol/L Calcium 9.1 (8.4-10.2) mg/dL Total Bilirubin 0.6 (0.2-1.3) mg/dL AST 34 (17-59) IU/L ALT 29 (<50) IU/L Alkaline Phosphatase 75 (38-126) U/L Total Creatine Kinase 79 (55-170) U/L Troponin I 0.087 H (0.01-0.034) ng/mL NT-Pro-B Natriuret Pep 291 H (<125) pg/mL Total Protein 8.1 (6.3-8.2) g/dL Albumin 4.1 (3.5-5.0) g/dL Globulin 4.0 (1.7-4.1) g/dL Albumin/Globulin Ratio 1.0 (1.0-2.8) Lipase 26 (23-300) U/L SARS-CoV-2 (PCR) (Negative) Influenza A (RT-PCR) (NEGATIVE) Influenza B (RT-PCR) (NEGATIVE) RSV (PCR) (Negative) 05/18/23 05/18/23 05/19/23 Range/Units 23:35 23:52 01:38 WBC (4.5-11.0) X10^3/uL RBC (4.5-5.9) X10^6/uL Hgb (13.5-17.5) g/dL Hct (41-53) % MCV (80-100) fL MCH (26-34) PG MCHC (30-36) % RDW (11.6-14.8) % Plt Count (150-400) X10^3/uL Neut % (Auto) Lymph % (Auto) [place] % (Auto) Eos % (Auto) Baso % (Auto) Lymph # (Auto) [place] # (Auto) Baso # (Auto) Total Counted Seg Neutrophils % (38-70) % Band Neutrophils % (3-7) % Lymphocytes % (Manual) (25-45) % Monocytes % (Manual) (2-11) % Metamyelocytes % (-0) % Neutrophils # (Manual) (6021-0906) /uL RBC Morphology Anisocytosis PT (10.1-12.7) SECONDS INR (0.9-1.3) APTT (26-36) SECONDS Sodium (137-145) mmol/L Potassium (3.4-5.1) mmol/L Chloride (98-107) mmol/L Carbon Dioxide (22-32) mmol/L BUN (9-20) mg/dL Creatinine (0.66-1.25) mg/dL Estimated GFR (>60) mL/min BUN/Creatinine Ratio (6-22) Glucose (80-110) mg/dL Lactate 2.3 H 1.0 (0.7-2.1) mmol/L Calcium (8.4-10.2) mg/dL Total Bilirubin (0.2-1.3) mg/dL AST (17-59) IU/L ALT (<50) IU/L Alkaline Phosphatase (38-126) U/L Total Creatine Kinase (55-170) U/L Troponin I (0.01-0.034) ng/mL NT-Pro-B Natriuret Pep (<125) pg/mL Total Protein (6.3-8.2) g/dL Albumin (3.5-5.0) g/dL Globulin (1.7-4.1) g/dL Albumin/Globulin Ratio (1.0-2.8) Lipase (23-300) U/L SARS-CoV-2 (PCR) Negative (Negative) Influenza A (RT-PCR) Flu a negative (NEGATIVE) Influenza B (RT-PCR) Flu b negative (NEGATIVE) RSV (PCR) Negative (Negative) 05/19/23 05/19/23 Range/Units 01:58 03:55 WBC (4.5-11.0) X10^3/uL RBC (4.5-5.9) X10^6/uL Hgb (13.5-17.5) g/dL Hct (41-53) % MCV (80-100) fL MCH (26-34) PG MCHC (30-36) % RDW (11.6-14.8) % Plt Count (150-400) X10^3/uL Neut % (Auto) Lymph % (Auto) [place] % (Auto) Eos % (Auto) Baso % (Auto) Lymph # (Auto) [place] # (Auto) Baso # (Auto) Total Counted Seg Neutrophils % (38-70) % Band Neutrophils % (3-7) % Lymphocytes % (Manual) (25-45) % Monocytes % (Manual) (2-11) % Metamyelocytes % (-0) % Neutrophils # (Manual) (8366-5878) /uL RBC Morphology Anisocytosis PT (10.1-12.7) SECONDS INR (0.9-1.3) APTT (26-36) SECONDS Sodium (137-145) mmol/L Potassium (3.4-5.1) mmol/L Chloride (98-107) mmol/L Carbon Dioxide (22-32) mmol/L BUN (9-20) mg/dL Creatinine (0.66-1.25) mg/dL Estimated GFR (>60) mL/min BUN/Creatinine Ratio (6-22) Glucose (80-110) mg/dL Lactate (0.7-2.1) mmol/L Calcium (8.4-10.2) mg/dL Total Bilirubin (0.2-1.3) mg/dL AST (17-59) IU/L ALT (<50) IU/L Alkaline Phosphatase (38-126) U/L Total Creatine Kinase 76 (55-170) U/L Troponin I 0.093 H 0.089 H (0.01-0.034) ng/mL NT-Pro-B Natriuret Pep (<125) pg/mL Total Protein (6.3-8.2) g/dL Albumin (3.5-5.0) g/dL Globulin (1.7-4.1) g/dL Albumin/Globulin Ratio (1.0-2.8) Lipase (23-300) U/L SARS-CoV-2 (PCR) (Negative) Influenza A (RT-PCR) (NEGATIVE) Influenza B (RT-PCR) (NEGATIVE) RSV (PCR) (Negative) Imaging Data CT scan - abdomen/pelvis: Radiologist's Impression: PROCEDURE:? CT ABDOMEN PELVIS W CON ? INDICATIONS:? Abdominal pain; constipation. ? TECHNIQUE:? After the administration of IV contrast, axial sections were acquired from the lung bases to the pubic symphysis.? Coronal and sagittal reformats were performed.? For radiation dose reduction, the following was used:? automated exposure control, adjustment of mA and/or kV according to patient size. ? COMPARISON:? CT, CT ABDOMEN WO/W CON, 11/01/2020, 10:55.? [facility], CT, CT ABDOMEN PELVIS W CON, 10/07/2020, 9:54. ? FINDINGS:? Image quality:? Excellent.? ? Lung bases:? A small loculated chronic right pleural effusion is redemonstrated.? Associated compressive atelectasis and scarring are again noted in the right lung base. ? ? Heart:? Heart is normal in size. ? ? ABDOMEN: Liver:? There is diffuse hypoattenuation of the liver consistent with fatty infiltration. Gallbladder:? The gallbladder is distended without calcified gallstones or wall thickening. Biliary ducts:? No biliary ductal dilatation.? ? Pancreas:? Unremarkable.? ? Spleen:? Normal in size.? There is a nonspecific cyst within the spleen measuring up to 2.4 cm. ? Adrenal Glands:? No adrenal nodules.? ? Kidneys and Ureters:? No hydronephrosis.? There are bilateral renal cysts.? There are nonobstructing right renal stones measuring up to 0.7 cm with attenuation values of approximately 600-700 Hounsfield units.? ? Stomach and Bowel:? There is segmental dilatation of multiple small bowel loops with associated small bowel fecalization extending to a herniated segment within an umbilical hernia.? The small bowel is nondistended distal to the hernia.? Findings are consistent with a small bowel obstruction. Peritoneum:? No abnormal intraperitoneal fluid.? No free air.? ? Ventral Wall: ? As noted above, there is a small umbilical hernia containing a short herniated segment of small bowel.? The hernia defect measures approximately 4.0 x 2.9 cm in dimension.? There is associated small bowel obstruction upstream of the herniated segment.? Mild bowel wall thickening is demonstrated within the hernia sac as well as a small amount of free fluid.? The findings may reflect bowel strangulation and correlation is recommended clinically. Abdominal Nodes:? No retroperitoneal or mesenteric adenopathy by size criteria.? Vessels:? Aorta and inferior vena cava are normal in size.? ? PELVIS: Pelvic Organs:? Unremarkable.? ? Bladder:? There are dependent calcified urinary stones within the right aspect of the bladder posteriorly.? Pelvic Nodes: No enlarged lymph nodes.? Miscellaneous: No inguinal hernias are seen. ? ? ? Bones:? Visualized osseous structures demonstrate no suspicious focal lesions. ? IMPRESSION:? ? 1. Small umbilical hernia containing a herniated segment of small bowel with associated upstream small bowel obstruction.? Mild bowel wall thickening and fluid within the hernia sac may also reflect bowel strangulation and correlation is recommended clinically. ? Findings discussed with Dr. Chapman? on 05/19/23 at 1:24 a.m..? ? ? Dictated by: Markel Nicole M.D. on 05/19/2023 at 1:21 ? ? Chest x-ray: Radiologist's Impression: PROCEDURE:? XR CHEST 1V ? INDICATIONS:? Shortness of breath. ? TECHNIQUE:? One view of the chest was acquired.? ? COMPARISON:? [facility], , XR CHEST 2V, 06/29/2020, 9:46. ? FINDINGS:? ? Surgical changes and devices:? None.? ? Lungs and pleura:? There are confluent right perihilar opacities.? No pleural effusions or pneumothorax.? ? Mediastinum:? Mediastinal contours appear normal.? Heart size is normal.? ? Bones and chest wall:? No suspicious bony lesions.? Overlying soft tissues appear unremarkable.? ? ? IMPRESSION:? ? 1. Confluent right perihilar opacities consistent with atelectasis or consolidation.? ? ? Dictated by: Markel Nicole M.D. on 05/19/2023 at 0:54 ? ? Approved by: Markel Nicole M.D. on 05/19/2023 at 0:55 ? ECG Data Interpretation: Sinus rhythm rate 86 NJ interval 176 QRS 72 QTC [address] changes MDM Narrative Medical decision making narrative: Patient morbidly obese 67-year-old male presenting with ready of complaints and abdominal pain under the last 5 days. He is had decreased appetite without nausea or vomiting. Abdomen is quite tender. CT shows small bowel obstruction with a small umbilical hernia possibility of strangulation. We will have leukocytosis and elevated lactate as well. 0145 Dr. Novoa updated patient's symptoms test results CT is read to him. Waiting for repeat troponin at this time recommends admit to medicine. Pain control no need for NG. He is aware of AVMs should not be a complication Vasular note from 05/09/23 reviewed he has recurrent bleeding from large right posterior thigh AVM now 2 weeks status post coil embolization Patient has 3 troponins which are not positive indeterminate and trending downward. He is abdominal pain. Lactate improves food 2.3-1.0. He does have leukocytosis of 16 given [address] Carrasco updated patient's symptoms test results and accepts patient Discharge Plan Departure Patient Disposition: Admitted As Inpatient Clinical Impression: Small bowel obstruction Admit Date/Time: 05/19/23 05:25 Admit Provider: Gilmar Carrasco
[2023-05-19] MEDS: HYDROMORPHONE 1 MG INJ IV ×3 (01:38→04:14)
[2023-05-19] MEDS: SODIUM CHLORIDE 0.9% 1,000 ML 150 ML IV (01:38)
[2023-05-19] MEDS: PANTOPRAZOLE 40 MG VIAL IV (01:39)
[2023-05-19 01:40] LABS: Reflexed Lactate in 2 Hours Y
[2023-05-19 02:15] LABS: Creatine Kinase 76 U/L (55-170)
[2023-05-19 02:28] LABS: Troponin I 0.093 ng/mL (0.01-0.034)
[2023-05-19] MEDS: PIPERACILLIN/TAZO 4.5 GM in SODIUM CHLORIDE 0.9% 100 ML IV (04:51)
[2023-05-19 05:13] LABS: Troponin I 0.089 ng/mL (0.01-0.034)
[2023-05-19] MEDS: MORPHINE 2 MG/ML INJ 4 MG IV ×4 (05:36→21:19)
--- NOTE | 2023-05-19 06:25 | PC.NURSE ---
Pt's states he has not been diagnosed with MERVIN and had a pulmonary function test scheduled last week that they had to cancel. Pt chronically on 4L NC at home, desats to 80's while sleeping. When prompted to take deep breathes patient increases to 95% on 5L NC at rest.
[2023-05-19] MEDS: SODIUM CHLORIDE 0.9% 1,000 ML 125 ML IV ×2 (08:17→11:42)
--- NOTE | 2023-05-19 09:26 | PM.CN ---
History of Present Illness Consult details Date Patient Seen: 05/19/23 Time Patient Seen: 09:26 Chief complaint: constipation bleeding avm Narrative: Kofi is a 67-year-old man who presented to the emergency department overnight because of increasing abdominal discomfort inability to have a bowel movement for the past 4-5 days. He reports that he has been straining to have a bowel movement during this time. He has passed gas. He has been nauseous but has not vomited. A CT scan was performed in the ER which showed an umbilical hernia containing a loop of small bowel. There was fecalization within the loop of small bowel including a segment distal to the hernia. He was unaware he had an umbilical hernia. Meds Home Medications and Allergies Home Medications Medication Instructions Recorded Confirmed Type acetaminophen 500 mg capsule 500 - 1,000 mg PO Q6H PRN Pain 06/29/20 11/02/22 History (Scale Score 1-3) buprenorphine 8 mg-naloxone 2 mg 1 tab sublingual DAILY 06/29/20 11/02/22 History sublingual tablet ibuprofen 200 mg capsule 200 - 400 mg PO Q6H PRN Pain 06/29/20 11/02/22 History (Scale Score 1-3) multivitamin 1 tab PO DAILY 06/29/20 11/02/22 History budesonide-formoterol HFA 160 2 inh inhalation BID #10.2 grams 10/02/22 11/02/22 Rx mcg-4.5 mcg/actuation aerosol inhaler hydrochlorothiazide 25 mg tablet 25 mg PO DAILY #90 tabs 10/02/22 11/02/22 Rx lisinopril 40 mg tablet 40 mg PO DAILY #90 tabs 10/02/22 11/02/22 Rx pravastatin 20 mg tablet 20 mg PO DAILY #90 tabs 10/02/22 11/02/22 Rx tamsulosin 0.4 mg capsule 0.4 mg PO DAILY #90 caps 10/02/22 11/02/22 Rx Allergies Allergy/AdvReac Type Severity Reaction Status Date / Time No Known Drug Allergies Allergy Verified 10/02/22 11:36 Exam Vital Signs (past 8 hours): - 05/19/23 01:30 05/19/23 01:58 05/19/23 01:58 Temperature Pulse Rate 80 71 Respiratory Rate 28 H 19 Blood Pressure 125/60 Pulse Oximetry 95 93 Oxygen Delivery Method Oxygen Flow Rate 05/19/23 02:00 05/19/23 02:00 05/19/23 02:15 Temperature Pulse Rate 75 82 Respiratory Rate 17 24 Blood Pressure 122/57 L Pulse Oximetry 91 92 Oxygen Delivery Method Oxygen Flow Rate 05/19/23 02:15 05/19/23 02:30 05/19/23 02:30 Temperature Pulse Rate 77 Respiratory Rate 26 H Blood Pressure 119/57 L 125/57 L Pulse Oximetry 94 Oxygen Delivery Method Oxygen Flow Rate 05/19/23 02:45 05/19/23 02:45 05/19/23 03:00 Temperature Pulse Rate 73 Respiratory Rate 20 Blood Pressure 124/60 116/64 Pulse Oximetry 95 Oxygen Delivery Method Oxygen Flow Rate 05/19/23 03:00 05/19/23 03:15 05/19/23 03:15 Temperature Pulse Rate 86 86 Respiratory Rate 28 H 30 H Blood Pressure 128/66 Pulse Oximetry 93 92 Oxygen Delivery Method Oxygen Flow Rate 05/19/23 03:38 05/19/23 04:00 05/19/23 04:30 Temperature Pulse Rate 32 L 87 80 Respiratory Rate 31 H 25 H Blood Pressure Pulse Oximetry 87 L 94 93 Oxygen Delivery Method Nasal Cannula Oxygen Flow Rate 4 05/19/23 05:25 05/19/23 05:15 05/19/23 05:15 Temperature Pulse Rate 72 81 Respiratory Rate 18 26 H Blood Pressure 144/63 H 144/63 H Pulse Oximetry 94 91 Oxygen Delivery Method Nasal Cannula Oxygen Flow Rate 5 05/19/23 05:30 05/19/23 05:30 05/19/23 05:45 Temperature Pulse Rate 79 80 Respiratory Rate 26 H 23 Blood Pressure 149/70 H Pulse Oximetry 92 93 Oxygen Delivery Method Nasal Cannula Nasal Cannula Oxygen Flow Rate 5 5 05/19/23 05:45 05/19/23 06:00 05/19/23 06:00 Temperature Pulse Rate 84 Respiratory Rate 22 Blood Pressure 137/57 L 126/59 L Pulse Oximetry 95 Oxygen Delivery Method Nasal Cannula Oxygen Flow Rate 5 05/19/23 06:15 05/19/23 06:15 05/19/23 07:03 Temperature 98.6 F Pulse Rate 67 90 Respiratory Rate 18 20 Blood Pressure 139/63 149/57 H Pulse Oximetry 96 Oxygen Delivery Method Oxygen Flow Rate 5 05/19/23 08:44 Temperature Pulse Rate Respiratory Rate Blood Pressure Pulse Oximetry 95 Oxygen Delivery Method Nasal Cannula Oxygen Flow Rate 5 Oxygen Delivery Method Nasal Cannula Oxygen Flow Rate 5 Narrative Exam Narrative: Obese There is a reducible umbilical hernia No peritoneal findings Objective Labs 05/18/23 23:35 05/18/23 23:35 Labs: Laboratory Results - last 24 hr 05/18/23 05/18/23 05/18/23 23:35 23:35 23:35 WBC 16.4 H RBC 4.43 L Hgb 11.3 L Hct 35.9 L MCV 81.0 MCH 25.6 L MCHC 31.6 RDW 18.0 H Plt Count 335 Neut % (Auto) Not Reportable Lymph % (Auto) Not Reportable [place] % (Auto) Not Reportable Eos % (Auto) Not Reportable Baso % (Auto) Not Reportable Lymph # (Auto) Not Reportable [place] # (Auto) Not Reportable Baso # (Auto) Not Reportable Total Counted 100 Seg Neutrophils % 85.0 H Band Neutrophils % 2.0 L Lymphocytes % (Manual) 6.0 L Monocytes % (Manual) 6.0 Metamyelocytes % 1.0 H Neutrophils # (Manual) 49250 H RBC Morphology See below Anisocytosis 2+ H PT 14.8 H INR 1.3 APTT 31 Sodium 135 L Potassium 4.1 Chloride 88 L Carbon Dioxide 36 H BUN 34 H Creatinine 1.11 Estimated GFR > 60 BUN/Creatinine Ratio 30.6 H Glucose 161 H Lactate Calcium 9.1 Total Bilirubin 0.6 AST 34 ALT 29 Alkaline Phosphatase 75 Total Creatine Kinase 79 Troponin I 0.087 H NT-Pro-B Natriuret Pep 291 H Total Protein 8.1 Albumin 4.1 Globulin 4.0 Albumin/Globulin Ratio 1.0 Lipase 26 SARS-CoV-2 (PCR) Influenza A (RT-PCR) Influenza B (RT-PCR) RSV (PCR) 05/18/23 05/18/23 05/19/23 23:35 23:52 01:38 WBC RBC Hgb Hct MCV MCH MCHC RDW Plt Count Neut % (Auto) Lymph % (Auto) [place] % (Auto) Eos % (Auto) Baso % (Auto) Lymph # (Auto) [place] # (Auto) Baso # (Auto) Total Counted Seg Neutrophils % Band Neutrophils % Lymphocytes % (Manual) Monocytes % (Manual) Metamyelocytes % Neutrophils # (Manual) RBC Morphology Anisocytosis PT INR APTT Sodium Potassium Chloride Carbon Dioxide BUN Creatinine Estimated GFR BUN/Creatinine Ratio Glucose Lactate 2.3 H 1.0 Calcium Total Bilirubin AST ALT Alkaline Phosphatase Total Creatine Kinase Troponin I NT-Pro-B Natriuret Pep Total Protein Albumin Globulin Albumin/Globulin Ratio Lipase SARS-CoV-2 (PCR) Negative Influenza A (RT-PCR) Flu a negative Influenza B (RT-PCR) Flu b negative RSV (PCR) Negative 05/19/23 05/19/23 01:58 03:55 WBC RBC Hgb Hct MCV MCH MCHC RDW Plt Count Neut % (Auto) Lymph % (Auto) [place] % (Auto) Eos % (Auto) Baso % (Auto) Lymph # (Auto) [place] # (Auto) Baso # (Auto) Total Counted Seg Neutrophils % Band Neutrophils % Lymphocytes % (Manual) Monocytes % (Manual) Metamyelocytes % Neutrophils # (Manual) RBC Morphology Anisocytosis PT INR APTT Sodium Potassium Chloride Carbon Dioxide BUN Creatinine Estimated GFR BUN/Creatinine Ratio Glucose Lactate Calcium Total Bilirubin AST ALT Alkaline Phosphatase Total Creatine Kinase 76 Troponin I 0.093 H 0.089 H NT-Pro-B Natriuret Pep Total Protein Albumin Globulin Albumin/Globulin Ratio Lipase SARS-CoV-2 (PCR) Influenza A (RT-PCR) Influenza B (RT-PCR) RSV (PCR) [facility] Medical History (Updated 05/19/23 @ 05:56 by Alley Chapman DO) BPH w urinary obs/LUTS Calculus of right kidney Chronic back pain Constipation Diabetes type 2, controlled Enlarged prostate Essential hypertension (~1994) H/O adenomatous polyp of colon Hemorrhoid (~1999) History of bladder stone History of nephrolithiasis (~1999) Iron deficiency anemia Microscopic hematuria Mixed hyperlipidemia Morbid obesity Renal cyst, right Rib fractures (~1974) Sleep apnea Surgical History Anesthesia Bladder stones (~2016) History of knee surgery (~1979) Family History Mother Cancer Father Myocardial infarct Brother Cancer Tobacco & Substance Use Smoking Status: Former smoker Assessment & Plan Assessment and plan (1) Small bowel obstruction: Status: Acute Plan Since the hernia is soft and reducible is unlikely to be the cause of an acute bowel obstruction. It is possible he is simply constipated. Recommend enemas and observation. If he starts to vomit he should receive an NG tube.
--- NOTE | 2023-05-19 10:13 | PM.HP.1 ---
History of Present Illness History of Present Illness Date Patient Seen: 05/19/23 Time Patient Seen: 10:16 Date of Onset of Symptoms: 05/13/23 Chief complaint: constipation bleeding avm Narrative: Patient is a 67-year-old male patient of Dr. Khan with history of multiple medical problems including hypertension obesity type 2 diabetes and respiratory failure chronic etiology somewhat unclear. Otherwise patient was feeling in his usual state of health until Sunday of last week until patient started having difficulty with bowel movements. Over the course of the week he was having increasing abdominal pain and tried some magnesium citrate which maybe made things worse yesterday. He was having increasing abdominal pain and was brought to the emergency room. He is had no vomiting he is not nauseated. He otherwise feels as if things are going and have been going well. He is had no fevers no chills no cough no shortness a breath. Patient is chronically on oxygen secondary to when he was in surgery for his AVM in March. No definitive diagnosis was given. He apparently has had some inhalers but otherwise has not been treated for this other than oxygen. Does not know exactly why this happened. He otherwise has no other significant change. He is had no blood in his stool no urinary complaints. It is diffuse abdominal pain. He did not know he had an umbilical hernia and is feeling about the same this morning. He has no other significant new changes or complaints. No headaches no visual symptoms numbness tingling or other changes. He is had no chest pain or increase in his shortness of breath. [facility] Medical History (Updated 05/19/23 @ 05:56 by Alley Chapman DO) BPH w urinary obs/LUTS Calculus of right kidney Chronic back pain Constipation Diabetes type 2, controlled Enlarged prostate Essential hypertension (~1994) H/O adenomatous polyp of colon Hemorrhoid (~1999) History of bladder stone History of nephrolithiasis (~1999) Iron deficiency anemia Microscopic hematuria Mixed hyperlipidemia Morbid obesity Renal cyst, right Rib fractures (~1974) Sleep apnea Surgical History Anesthesia Bladder stones (~2016) History of knee surgery (~1979) Family History Mother Cancer Father Myocardial infarct Brother Cancer Social History Smoking Status: Former smoker Meds Home Medications and Allergies Home Medications Medication Instructions Recorded Confirmed Type acetaminophen 500 mg capsule 500 - 1,000 mg PO Q6H PRN Pain 06/29/20 11/02/22 History (Scale Score 1-3) buprenorphine 8 mg-naloxone 2 mg 1 tab sublingual DAILY 06/29/20 11/02/22 History sublingual tablet ibuprofen 200 mg capsule 200 - 400 mg PO Q6H PRN Pain 06/29/20 11/02/22 History (Scale Score 1-3) multivitamin 1 tab PO DAILY 06/29/20 11/02/22 History budesonide-formoterol HFA 160 2 inh inhalation BID #10.2 grams 10/02/22 11/02/22 Rx mcg-4.5 mcg/actuation aerosol inhaler hydrochlorothiazide 25 mg tablet 25 mg PO DAILY #90 tabs 10/02/22 11/02/22 Rx lisinopril 40 mg tablet 40 mg PO DAILY #90 tabs 10/02/22 11/02/22 Rx pravastatin 20 mg tablet 20 mg PO DAILY #90 tabs 10/02/22 11/02/22 Rx tamsulosin 0.4 mg capsule 0.4 mg PO DAILY #90 caps 10/02/22 11/02/22 Rx Allergies Allergy/AdvReac Type Severity Reaction Status Date / Time No Known Drug Allergies Allergy Verified 10/02/22 11:36 Review of Systems Review of Systems Narrative: See history and physical. Exam Vital Signs (past 8 hours): - 05/19/23 02:15 05/19/23 02:15 05/19/23 02:30 Temperature Pulse Rate 82 Respiratory Rate 24 Blood Pressure 119/57 L 125/57 L Pulse Oximetry 92 Oxygen Delivery Method Oxygen Flow Rate 05/19/23 02:30 05/19/23 02:45 05/19/23 02:45 Temperature Pulse Rate 77 73 Respiratory Rate 26 H 20 Blood Pressure 124/60 Pulse Oximetry 94 95 Oxygen Delivery Method Oxygen Flow Rate 05/19/23 03:00 05/19/23 03:00 05/19/23 03:15 Temperature Pulse Rate 86 Respiratory Rate 28 H Blood Pressure 116/64 128/66 Pulse Oximetry 93 Oxygen Delivery Method Oxygen Flow Rate 05/19/23 03:15 05/19/23 03:38 05/19/23 04:00 Temperature Pulse Rate 86 32 L 87 Respiratory Rate 30 H 31 H Blood Pressure Pulse Oximetry 92 87 L 94 Oxygen Delivery Method Oxygen Flow Rate 05/19/23 04:30 05/19/23 05:25 05/19/23 05:15 Temperature Pulse Rate 80 72 81 Respiratory Rate 25 H 18 26 H Blood Pressure 144/63 H Pulse Oximetry 93 94 91 Oxygen Delivery Method Nasal Cannula Nasal Cannula Oxygen Flow Rate 4 5 05/19/23 05:15 05/19/23 05:30 05/19/23 05:30 Temperature Pulse Rate 79 Respiratory Rate 26 H Blood Pressure 144/63 H 149/70 H Pulse Oximetry 92 Oxygen Delivery Method Nasal Cannula Oxygen Flow Rate 5 05/19/23 05:45 05/19/23 05:45 05/19/23 06:00 Temperature Pulse Rate 80 Respiratory Rate 23 Blood Pressure 137/57 L 126/59 L Pulse Oximetry 93 Oxygen Delivery Method Nasal Cannula Oxygen Flow Rate 5 05/19/23 06:00 05/19/23 06:15 05/19/23 06:15 Temperature Pulse Rate 84 67 Respiratory Rate 22 18 Blood Pressure 139/63 Pulse Oximetry 95 Oxygen Delivery Method Nasal Cannula Oxygen Flow Rate 5 05/19/23 07:03 05/19/23 08:44 Temperature 98.6 F Pulse Rate 90 Respiratory Rate 20 Blood Pressure 149/57 H Pulse Oximetry 96 95 Oxygen Delivery Method Nasal Cannula Oxygen Flow Rate 5 5 Oxygen Delivery Method Nasal Cannula Oxygen Flow Rate 5 Narrative Exam Narrative: Alert obese male lying in bed in no obvious distress. Tympanic membranes are normal conjunctivae are clear mucous membranes moist neck supple without adenopathy JVD or bruits lungs are clear heart is regular rate and rhythm without murmurs clicks rubs or gallops abdomen is obese mildly distended soft moderate tenderness he does have more central tenderness does not appear to have rebound or guarding. Extremities without cyanosis clubbing or edema neurologic exam unremarkable Objective Labs 05/18/23 23:35 05/18/23 23:35 Labs: Laboratory Results - last 24 hr 05/18/23 05/18/23 05/18/23 23:35 23:35 23:35 WBC 16.4 H RBC 4.43 L Hgb 11.3 L Hct 35.9 L MCV 81.0 MCH 25.6 L MCHC 31.6 RDW 18.0 H Plt Count 335 Neut % (Auto) Not Reportable Lymph % (Auto) Not Reportable [place] % (Auto) Not Reportable Eos % (Auto) Not Reportable Baso % (Auto) Not Reportable Lymph # (Auto) Not Reportable [place] # (Auto) Not Reportable Baso # (Auto) Not Reportable Total Counted 100 Seg Neutrophils % 85.0 H Band Neutrophils % 2.0 L Lymphocytes % (Manual) 6.0 L Monocytes % (Manual) 6.0 Metamyelocytes % 1.0 H Neutrophils # (Manual) 40269 H RBC Morphology See below Anisocytosis 2+ H PT 14.8 H INR 1.3 APTT 31 Sodium 135 L Potassium 4.1 Chloride 88 L Carbon Dioxide 36 H BUN 34 H Creatinine 1.11 Estimated GFR > 60 BUN/Creatinine Ratio 30.6 H Glucose 161 H Lactate Calcium 9.1 Total Bilirubin 0.6 AST 34 ALT 29 Alkaline Phosphatase 75 Total Creatine Kinase 79 Troponin I 0.087 H NT-Pro-B Natriuret Pep 291 H Total Protein 8.1 Albumin 4.1 Globulin 4.0 Albumin/Globulin Ratio 1.0 Lipase 26 SARS-CoV-2 (PCR) Influenza A (RT-PCR) Influenza B (RT-PCR) RSV (PCR) 05/18/23 05/18/23 05/19/23 23:35 23:52 01:38 WBC RBC Hgb Hct MCV MCH MCHC RDW Plt Count Neut % (Auto) Lymph % (Auto) [place] % (Auto) Eos % (Auto) Baso % (Auto) Lymph # (Auto) [place] # (Auto) Baso # (Auto) Total Counted Seg Neutrophils % Band Neutrophils % Lymphocytes % (Manual) Monocytes % (Manual) Metamyelocytes % Neutrophils # (Manual) RBC Morphology Anisocytosis PT INR APTT Sodium Potassium Chloride Carbon Dioxide BUN Creatinine Estimated GFR BUN/Creatinine Ratio Glucose Lactate 2.3 H 1.0 Calcium Total Bilirubin AST ALT Alkaline Phosphatase Total Creatine Kinase Troponin I NT-Pro-B Natriuret Pep Total Protein Albumin Globulin Albumin/Globulin Ratio Lipase SARS-CoV-2 (PCR) Negative Influenza A (RT-PCR) Flu a negative Influenza B (RT-PCR) Flu b negative RSV (PCR) Negative 05/19/23 05/19/23 01:58 03:55 WBC RBC Hgb Hct MCV MCH MCHC RDW Plt Count Neut % (Auto) Lymph % (Auto) [place] % (Auto) Eos % (Auto) Baso % (Auto) Lymph # (Auto) [place] # (Auto) Baso # (Auto) Total Counted Seg Neutrophils % Band Neutrophils % Lymphocytes % (Manual) Monocytes % (Manual) Metamyelocytes % Neutrophils # (Manual) RBC Morphology Anisocytosis PT INR APTT Sodium Potassium Chloride Carbon Dioxide BUN Creatinine Estimated GFR BUN/Creatinine Ratio Glucose Lactate Calcium Total Bilirubin AST ALT Alkaline Phosphatase Total Creatine Kinase 76 Troponin I 0.093 H 0.089 H NT-Pro-B Natriuret Pep Total Protein Albumin Globulin Albumin/Globulin Ratio Lipase SARS-CoV-2 (PCR) Influenza A (RT-PCR) Influenza B (RT-PCR) RSV (PCR) Assessment & Plan Assessment & Plan narrative: Abdominal pain. Appreciate surgeons evaluation. Currently surgeon feels as if this is secondary to constipation. Does not feel he has not acute abdomen. Feels as if constipation is causing small-bowel obstruction and the hernias is reducible. We discussed this extensively together his plan is for enemas until we see how he does. Will watch clinical exam and white count and will follow. Any change or worsening will need operative therapy. Patient understands Constipation. Probable cause of abdominal pain. Fleets enema and will follow. Small-bowel obstruction. Patient overall seems to be stable question is whether or not CT scan showing possible incarceration is present surgeon feels this is reducible hernia and not requiring at this time surgical intervention but will be followed. Will follow white count. Fever and exam. If improving after bowel movements and stool reduction will continue to follow if not may need to consider surgical intervention Dr. Kaye comfortable with that and will follow along with us. Dehydration. Mild. Will continue fluid hydration and follow. Oral clear liquids at this time. Do not want advanced to far until we know that his abdominal situation is improved and surgically will not be required. Patient understands. BPH. Seems to be tolerating well. Will follow. Hypoxia. Stable at this time. Etiology is unclear. Maybe restrictive disease secondary to his obesity. I do not see any other definitive cause through chart evaluation by do not have [facility] information. Will continue to follow usual meds proceed from there. Type 2 diabetes. Not on current medication. Will follow. Blood sugar mildly elevated today. Will place on sliding scale History of iron-deficiency anemia. Secondary to AVM. Bleeding seems to be improved. Certainly hematocrit looks good today. Will recheck and follow. Watch closely but no other change History of AVM. It seems to be improved status post arterial treatment. Still has venous treatment to evaluate but we will follow from there. No treatment at this time. Will not use Ras hose. Code status full. GI prophylaxis will hold treatment at this time but follow. DVT prophylaxis. On Lovenox. Will have to watch for bleeding discontinue if any develop. Disposition. Unclear at this time. Will have to see how he does there is some risk that he is with small-bowel obstruction from alternative source and constipation and will just have to follow exam. Hope 24 hours but would guess 48. 80 minutes spent with the patient, consultants, nursing, chart review, orders.
--- NOTE | 2023-05-19 10:49 | CM.DANOTE ---
Initial DCP Assessment Note Pt is a 67 yo male, resident of [place], presents with pain and constipation. Surgery consulted, patient will receive enemas today for constipation and will be observed, no surgery scheduled at this time. PCP: Tyler Khan Payer: [facility] Reviewed chart, met w/patient and his Kristine, introduced self and role. Patient is indp at baseline, states he is retiring next week. 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 No barriers identified at this time to patient's safe discharge home w/family to assist; close outpatient f/u recommended. CM team will plan to follow closely in case any DC needs or concerns arise. 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 No History Provided By Patient,Significant Other Prior Living Arrangements House Household Members spouse Type of transporation used prior to Drives own vehicle admit Independent with ADL's Yes Is patient alert and oriented? Yes Barriers to Discharge No Comment Anticipate patient will discharge home w/spouse with close outpatient follow up Discharge Plan Home Transportation Arrangement Spouse Referrals Initiated None needed
[2023-05-19] MEDS: MAG HYDROX/ALUM/SIMETH 30 ML UDC PO ×2 (11:42→21:19)
[2023-05-19] MEDS: ENOXAPARIN 40 MG/0.4 ML SYRINGE SUBCUT ×2 (11:42→21:17)
[2023-05-19] MEDS: ONDANSETRON 4 MG/2 ML INJ IV ×2 (14:25→21:19)
[2023-05-19] MEDS: FLEETS ENEMA 1 EACH PR (18:33)
[2023-05-19] MEDS: ALBUTEROL 2.5 MG/3 ML NEB (ADULT) INH (20:53)
[2023-05-19] MEDS: BUDESONIDE 0.5 MG/2 ML NEB INH (20:57)
[2023-05-20] VITALS (7 sets, daily range): BP systolic 147–158; BP diastolic 76–83; PULSE 83–88; RESP 17–20; TEMP 36.2–36.4; O2SAT 92–96
--- NOTE | 2023-05-20 | DI.RAD.S_ITS ---
PROCEDURE: XR GASTROGRAFIN CHALLENGE COMPARISON: [facility], CT, CT ABDOMEN PELVIS W CON, 05/19/2023, 0:05. INDICATIONS: small bowel obstruction FINDINGS: Multiple views of the abdomen obtained 4 hours after the administration of oral contrast demonstrates passage of contrast through the small bowel into the colon. There is persistent distention of multiple small bowel loops. Residual oral contrast material demonstrated within the stomach and throughout the small bowel. IMPRESSION: 1. Passage of oral contrast material into the colon with persistent dilated small bowel loops. The findings are consistent with a partial small bowel obstruction. Dictated by: Markel Nicole M.D. on 05/21/2023 at 1:46 Approved by: Markel Nicole M.D. on 05/21/2023 at 1:48
[2023-05-20] MEDS: MORPHINE 2 MG/ML INJ 4 MG IV (03:29)
[2023-05-20] MEDS: ONDANSETRON 4 MG/2 ML INJ IV ×3 (03:30→14:24)
[2023-05-20] MEDS: SODIUM CHLORIDE 0.9% 1,000 ML 125 ML IV (06:23)
[2023-05-20 06:42] LABS: Add Manual Diff / Slide Review NO; Basophils Absolute Auto 100 /uL (0-100); Basophils Percent Auto 0.7 % (0-2); Eosinophils Absolute Auto 100 /uL (0-450); Eosinophils Percent Auto 0.9 % (2-4); Hematocrit 34.9 % (41-53); Lymphocytes Absolute Auto 1000 /uL (1100-4500); Lymphocytes Percent Auto 7.1 % (25-40); Mean Corpuscular HGB Conc 31.4 % (30-36); Mean Corpuscular Hemoglobin 25.7 PG (26-34); Mean Corpuscular Volume 81.9 fL (80-100); Monocytes Absolute Auto 1600 /uL (0-900); Monocytes Percent Auto 11.2 % (3-14); Neutrophils Absolute Auto 11200 /uL (1500-7000); Neutrophils Percent Auto 80.1 % (50-75); Platelet Count 282 X10^3/uL (150-400); Red Blood Cell Count 4.26 X10^6/uL (4.5-5.9); White Blood Cell Count 13.9 X10^3/uL (4.5-11.0)
[2023-05-20 07:06] LABS: Hemoglobin A1C% w Est Avg Glu 6.1 % (4.0-6.0)
[2023-05-20 07:07] LABS: Alanine Aminotransferase 34 IU/L (<50); Albumin 3.8 g/dL (3.5-5.0); Alkaline Phosphatase 67 U/L (38-126); Aspartate Aminotransferase 69 IU/L (17-59); BUN Creatinine Ratio 27.7 (6-22); Bilirubin Total 0.4 mg/dL (0.2-1.3); Blood Urea Nitrogen 23 mg/dL (9-20); Calcium 8.5 mg/dL (8.4-10.2); Carbon Dioxide 30 mmol/L (22-32); Chloride 96 mmol/L (98-107); Estimated Glomerular Filt Rate > 60 mL/min (>60); Globulin 3.7 g/dL (1.7-4.1); Glucose 114 mg/dL (80-110); HEMOLYSIS < 15 (0-50); Potassium 4.1 mmol/L (3.4-5.1); Sodium 135 mmol/L (137-145); Total Protein 7.5 g/dL (6.3-8.2)
[2023-05-20] MEDS: ENOXAPARIN 40 MG/0.4 ML SYRINGE SUBCUT (08:18)
[2023-05-20] MEDS: hydroCHLOROthiazide 25 MG TABLET PO (08:18)
[2023-05-20] MEDS: TAMSULOSIN 0.4 MG CAPSULE PO (08:18)
[2023-05-20] MEDS: MAG HYDROX/ALUM/SIMETH 30 ML UDC PO (08:18)
[2023-05-20] MEDS: lisinopriL 20 MG TABLET 40 MG PO (08:18)
--- NOTE | 2023-05-20 09:51 | PM.PN.1 ---
Subjective Subjective Date Patient Seen: 05/20/23 Time Patient Seen: 09:52 Interval history: Patient seen in follow-up small-bowel obstruction dehydration constipation abdominal pain. Otherwise no change. Patient with no response to enema last night. Did get some magnesium which has not helped. Has had no significant new change. Still having abdominal pain. Otherwise no change. Patient without fever or change no nausea or vomiting. Exam Vital Signs (past 8 hours): - 05/20/23 08:18 05/20/23 07:00 05/20/23 08:48 Temperature 97.6 F Pulse Rate 88 86 Respiratory Rate 18 Blood Pressure 147/76 H 147/76 H Pulse Oximetry 92 93 Oxygen Delivery Method Nasal Cannula Oxygen Flow Rate 4 4 05/20/23 07:00 Temperature Pulse Rate Respiratory Rate Blood Pressure Pulse Oximetry Oxygen Delivery Method Nasal Cannula Humidification Oxygen Flow Rate Oxygen Delivery Method Nasal Cannula Oxygen Flow Rate 4 Narrative Exam Narrative: Alert male sitting in chair no acute distress Lungs are clear heart is regular rate and rhythm abdomen obese soft still moderately to pretty impressively tender around the umbilical area. No redness or other change. Extremities normal. Objective Labs 05/20/23 05:35 05/20/23 05:35 Labs: Laboratory Results - last 24 hr 05/20/23 05/20/23 05/20/23 05:35 05:35 05:35 WBC 13.9 H RBC 4.26 L Hgb 11.0 L Hct 34.9 L MCV 81.9 MCH 25.7 L MCHC 31.4 RDW 18.0 H Plt Count 282 Neut % (Auto) 80.1 H Lymph % (Auto) 7.1 L [place] % (Auto) 11.2 Eos % (Auto) 0.9 L Baso % (Auto) 0.7 Neut # (Auto) 16314 H Lymph # (Auto) 1000 L [place] # (Auto) 1600 H Eos # (Auto) 100 Baso # (Auto) 100 Sodium 135 L Potassium 4.1 Chloride 96 L Carbon Dioxide 30 BUN 23 H Creatinine 0.83 Estimated GFR > 60 BUN/Creatinine Ratio 27.7 H Glucose 114 H Hemoglobin A1c 6.1 H Calcium 8.5 Total Bilirubin 0.4 AST 69 H ALT 34 Alkaline Phosphatase 67 Total Protein 7.5 Albumin 3.8 Globulin 3.7 Albumin/Globulin Ratio 1.0 [facility] Medical History (Updated 05/19/23 @ 05:56 by Alley Chapman DO) BPH w urinary obs/LUTS Calculus of right kidney Chronic back pain Constipation Diabetes type 2, controlled Enlarged prostate Essential hypertension (~1994) H/O adenomatous polyp of colon Hemorrhoid (~1999) History of bladder stone History of nephrolithiasis (~1999) Iron deficiency anemia Microscopic hematuria Mixed hyperlipidemia Morbid obesity Renal cyst, right Rib fractures (~1974) Sleep apnea Surgical History Anesthesia Bladder stones (~2016) History of knee surgery (~1979) Family History Mother Cancer Father Myocardial infarct Brother Cancer Social History household members: spouse Smoking Status: Former smoker Assessment & Plan Assessment & Plan narrative: Abdominal pain. Question whether small-bowel is a affected still has significant pain. Has not had a bowel movement. Discussed with surgeon. He is going to take to surgery tomorrow and fixed hernia make sure bowel is normal. We discussed Gastrografin he is reluctant to do that. We are not going to increase his diet. We will continue his current therapy and make NPO after midnight and will be in the OR tomorrow. With no other changes. Patient understands. Questions answered. Appreciate surgeon's input. Small-bowel obstruction. Still unclear. Will see what is found on surgery tomorrow. Continue on clear liquids today. Actually looks a little better today. Will see how things go and will follow from there. White count is slightly improved and at this point unclear whether is definitively infected but he is currently not on antibiotics and I think we continue to follow. Constipation. Question whether this is the cause of all his abdominal pain or whether or not this is related to small-bowel obstruction. This point will continue enemas with discussed with nursing increasing this but at this point we will just continue where we are. We have not improved but will see what surgery finds tomorrow and will go from there. Dehydration mild continue IV hydration until after surgery. BPH. Seems to be doing well. No change. Hypoxia. Stable. No requirement for increase O2 and seems to be doing well. There is no definitive cause that I can see in the chart and will assume it is restrictive disease but no treatment no evidence of pneumonia follow Type 2 diabetes. Continue sliding scale and meds. History of iron deficiency anemia. Seems to be stable. Having no other changes. Will continue to follow. History of AVM. Stable. Code status full. GI prophylaxis I do not think he needs treatment at this time. DVT prophylaxis on Lovenox. Disposition patient going to surgery tomorrow. Certainly not going to go home until at least Sunday or Sunday would be my guess. Hopefully we can be more aggressive with treatment once we know exactly what the issue is and surgery hopefully will figure that out with surgery tomorrow. Patient understands questions answered. 40 minutes spent with consults patient nursing dictation orders Quality VTE Deep Vein Thrombosis/Pulmonary Embolism Present on Admission: No
--- NOTE | 2023-05-20 10:05 | P.PN_ITS ---
Subjective Subjective Date Patient Seen: 05/20/23 Time Patient Seen: 10:05 Interval history: Kofi had some bowel movement after an enema but he continues to feel abdominal pain which seems to come on suddenly. No nausea/vomiting. He has tolerated a clear liquid diet. Exam Vital Signs (past 8 hours): - 05/20/23 08:18 05/20/23 07:00 05/20/23 08:48 Temperature 97.6 F Pulse Rate 88 86 Respiratory Rate 18 Blood Pressure 147/76 H 147/76 H Pulse Oximetry 92 93 Oxygen Delivery Method Nasal Cannula Oxygen Flow Rate 4 4 05/20/23 07:00 Temperature Pulse Rate Respiratory Rate Blood Pressure Pulse Oximetry Oxygen Delivery Method Nasal Cannula Humidification Oxygen Flow Rate Oxygen Delivery Method Nasal Cannula Oxygen Flow Rate 4 Narrative Exam Narrative: The umbilical hernia remains tender to palpation but it is still soft and reduc ible Objective Labs 05/20/23 05:35 05/20/23 05:35 Labs: Laboratory Results - last 24 hr 05/20/23 05/20/23 05/20/23 05:35 05:35 05:35 WBC 13.9 H RBC 4.26 L Hgb 11.0 L Hct 34.9 L MCV 81.9 MCH 25.7 L MCHC 31.4 RDW 18.0 H Plt Count 282 Neut % (Auto) 80.1 H Lymph % (Auto) 7.1 L [place] % (Auto) 11.2 Eos % (Auto) 0.9 L Baso % (Auto) 0.7 Neut # (Auto) 78665 H Lymph # (Auto) 1000 L [place] # (Auto) 1600 H Eos # (Auto) 100 Baso # (Auto) 100 Sodium 135 L Potassium 4.1 Chloride 96 L Carbon Dioxide 30 BUN 23 H Creatinine 0.83 Estimated GFR > 60 BUN/Creatinine Ratio 27.7 H Glucose 114 H Hemoglobin A1c 6.1 H Calcium 8.5 Total Bilirubin 0.4 AST 69 H ALT 34 Alkaline Phosphatase 67 Total Protein 7.5 Albumin 3.8 Globulin 3.7 Albumin/Globulin Ratio 1.0 [facility] Medical History (Updated 05/19/23 @ 05:56 by Alley Chapman DO) BPH w urinary obs/LUTS Calculus of right kidney Chronic back pain Constipation Diabetes type 2, controlled Enlarged prostate Essential hypertension (~1994) H/O adenomatous polyp of colon Hemorrhoid (~1999) History of bladder stone History of nephrolithiasis (~1999) Iron deficiency anemia Microscopic hematuria Mixed hyperlipidemia Morbid obesity Renal cyst, right Rib fractures (~1974) Sleep apnea Surgical History Anesthesia Bladder stones (~2016) History of knee surgery (~1979) Family History Mother Cancer Father Myocardial infarct Brother Cancer Social History household members: spouse Smoking Status: Former smoker Assessment & Plan Assessment and plan (1) Small bowel obstruction: Status: Acute Plan Will perform a gastrograffin challenge and if it does not push the solid adry mesa through his small bowel by tomorrow will proceed to the OR for umbilical hernia repair Quality VTE Deep Vein Thrombosis/Pulmonary Embolism Present on Admission: No
[2023-05-20] MEDS: MORPHINE 2 MG/ML INJ IV (10:42)
[2023-05-20] MEDS: MORPHINE 4 MG/ML INJ IV ×3 (12:18→21:31)
[2023-05-20] MEDS: LORazepam 2 MG/ML INJ 1 MG IV (18:09)
[2023-05-21] VITALS (7 sets, daily range): BP systolic 120–144; BP diastolic 50–70; PULSE 78–88; RESP 16–18; TEMP 36.4–37.1; O2SAT 92–95
[2023-05-21] MEDS: SODIUM CHLORIDE 0.9% 1,000 ML 125 ML IV ×2 (00:06→10:10)
[2023-05-21] MEDS: ONDANSETRON 4 MG/2 ML INJ IV ×2 (06:31→23:29)
[2023-05-21] MEDS: MORPHINE 4 MG/ML INJ IV ×2 (06:31→23:30)
--- NOTE | 2023-05-21 07:50 | PM.PN.1 ---
Subjective Subjective Date Patient Seen: 05/21/23 Time Patient Seen: 07:50 Interval history: 67-year-old patient whom I have only seen rarely, last in September of 2022. Significant issues include his morbid obesity (although his weight is down notably since he was last seen in the clinic), ongoing iron deficiency and bleeding from varicosities/AVMs being managed through the [facility]. Patient with an element of COPD and probably obesity hypoventilation with chronic hypoxia. Also he has type 2 diabetes although pretty adequately controlled. In any event he was admitted with symptoms and findings consistent with at least partial small-bowel obstruction perhaps related to umbilical hernia based on CT imaging. Thus far he is really failed to improve with conservative therapy. Gastrografin study done yesterday showed contrast moving into the colon as expected. Patient did have large bowel movement yesterday after the Gastrografin study. Following this patient reports he feels much, much, much, much better! Says his abdomen is no longer hard and firm soft. He passed a bit more stool just this morning before I see him. Blood sugars have been well controlled Patient with initial leukocytosis, somewhat improved after admission, not repeated today Exam Vital Signs (past 8 hours): - 05/21/23 00:00 05/21/23 06:00 05/21/23 07:15 Temperature 97.9 F 97.6 F Pulse Rate 78 88 Respiratory Rate 18 18 Blood Pressure 134/51 L 144/70 H Pulse Oximetry 94 92 92 Oxygen Delivery Method Nasal Cannula Oxygen Flow Rate 4 4 4 Fraction of Inspired Oxygen 36 Fraction of Inspired Oxygen 36 SaO2/FiO2 Ratio 255 Oxygen Delivery Method Nasal Cannula Oxygen Flow Rate 4 Narrative Exam Narrative: Obese male sitting at the edge of the bed HEENT unremarkable Abdomen-soft nontender nondistended no notable periumbilical hernia or discomfort. Very rare if any bowel tones Objective Labs 05/20/23 05:35 05/20/23 05:35 [facility] Medical History (Updated 05/19/23 @ 05:56 by Alley Chapman DO) BPH w urinary obs/LUTS Calculus of right kidney Chronic back pain Constipation Diabetes type 2, controlled Enlarged prostate Essential hypertension (~1994) H/O adenomatous polyp of colon Hemorrhoid (~1999) History of bladder stone History of nephrolithiasis (~1999) Iron deficiency anemia Microscopic hematuria Mixed hyperlipidemia Morbid obesity Renal cyst, right Rib fractures (~1974) Sleep apnea Surgical History Anesthesia Bladder stones (~2016) History of knee surgery (~1979) Family History Mother Cancer Father Myocardial infarct Brother Cancer Social History household members: spouse Smoking Status: Former smoker Assessment & Plan Assessment & Plan narrative: 1. Small-bowel obstruction-seemingly much better after Gastrografin study. Had large bowel movement etcetera. Difficult to know how much of his symptoms came from possible bowel obstruction verses severe obstipation. The obstipation part seems to have cleared and he is clinically much much improved. At this point given his relatively high risk surgical situation etcetera I would advise continued conservative management. I think he is better enough that we can re-feed him carefully with liquids assuming he does well advance his diet. If he continues to do well he can likely be discharged tomorrow 2. Diabetes type 2-adequate control of numbers. No concern at this time. No change in therapy 3. Hypoxia-chronic and longstanding likely multifactorial including his COPD and an element of obesity hypoventilation. Continue with oxygen replacement therapy which patient requires on ongoing basis at rest and with activity at home 4. Iron deficiency anemia-continue to monitor numbers for now not an active issue at this time. Patient reports he has an appointment with Hematology on the . Will try and obtain iron studies here before that appointment, assuming as above clinically he will be able to attend that appointment given his improvement 5. Lower extremity AVM/varicosities-definitive management as per [facility]. Not an active issue for this hospitalization 6. Disposition-likely in the hospital another 24 hours or so to verify resolution of his abdominal symptoms while re feeding him etcetera. Quality VTE Deep Vein Thrombosis/Pulmonary Embolism Present on Admission: No
[2023-05-21] MEDS: TAMSULOSIN 0.4 MG CAPSULE PO (08:38)
[2023-05-21] MEDS: lisinopriL 20 MG TABLET 40 MG PO (08:39)
[2023-05-21] MEDS: hydroCHLOROthiazide 25 MG TABLET PO (08:39)
--- NOTE | 2023-05-21 09:29 | P.PN_ITS ---
Subjective Subjective Date Patient Seen: 05/21/23 Time Patient Seen: 09:29 Interval history: Feeling much better today after Gastrografin challenge started to come through overnight. Exam Vital Signs (past 8 hours): - 05/21/23 06:00 05/21/23 07:15 05/21/23 08:39 Temperature 97.6 F Pulse Rate 88 88 Respiratory Rate 18 Blood Pressure 144/70 H 140/70 Pulse Oximetry 92 92 Oxygen Delivery Method Nasal Cannula Oxygen Flow Rate 4 4 Fraction of Inspired Oxygen 36 05/21/23 07:45 Temperature 98.2 F Pulse Rate Respiratory Rate 16 Blood Pressure Pulse Oximetry 94 Oxygen Delivery Method Oxygen Flow Rate 4 Fraction of Inspired Oxygen Fraction of Inspired Oxygen 36 SaO2/FiO2 Ratio 255 Oxygen Delivery Method Nasal Cannula Oxygen Flow Rate 4 Narrative Exam Narrative: Abdomen soft, nontender Objective Labs 05/20/23 05:35 05/20/23 05:35 [facility] Medical History (Updated 05/19/23 @ 05:56 by Alley Chapman DO) BPH w urinary obs/LUTS Calculus of right kidney Chronic back pain Constipation Diabetes type 2, controlled Enlarged prostate Essential hypertension (~1994) H/O adenomatous polyp of colon Hemorrhoid (~1999) History of bladder stone History of nephrolithiasis (~1999) Iron deficiency anemia Microscopic hematuria Mixed hyperlipidemia Morbid obesity Renal cyst, right Rib fractures (~1974) Sleep apnea Surgical History Anesthesia Bladder stones (~2016) History of knee surgery (~1979) Family History Mother Cancer Father Myocardial infarct Brother Cancer Social History household members: spouse Smoking Status: Former smoker Assessment & Plan Assessment and plan (1) Small bowel obstruction: Status: Acute Plan Recommend advance diet as tolerates. Recommend elective outpatient umbilical hernia repair once he has lost about 30 more lb. He can follow up at [facility] down the road to arrange for surgery. Quality VTE Deep Vein Thrombosis/Pulmonary Embolism Present on Admission: No
[2023-05-21 11:28] LABS: HEMOLYSIS < 15 (0-50); Iron 40 ug/dL (49-181)
[2023-05-21 11:39] LABS: Percent Iron Saturation 10 % (20-50); Total Iron Binding Capacity 407 ug/dL (261-462); Transferrin 314 mg/dL (206-381)
[2023-05-21] MEDS: MORPHINE 2 MG/ML INJ IV ×2 (13:51→20:56)
--- NOTE | 2023-05-21 14:34 | CM.DPC ---
DCP Cont: Per Surgeon, pt starting to have some bowel movement and recommendation of advance diet as tolerated and outpt hernia repair and no current surgical intervention needed at this time. Pt has been ambulating and could likely d/c home later today but MD might keep pt overnight to confirm he is tolerating diet. Pt remains OBS Status. Plan: SW to follow for d/c to home tomorrow if remains medically stable and outpt f/u after discharge. NOAH Estrada
[2023-05-21] MEDS: LORazepam 2 MG/ML INJ 1 MG IV (23:30)
[2023-05-22] VITALS (18 sets, daily range): BP systolic 114–170; BP diastolic 55–94; PULSE 70–101; RESP 16–22; TEMP 35.8–36.9; O2SAT 92–97; BMI 41.5
[2023-05-22] MEDS: MORPHINE 4 MG/ML INJ IV ×2 (04:17→18:46)
[2023-05-22] MEDS: LORazepam 2 MG/ML INJ 1 MG IV (04:18)
--- NOTE | 2023-05-22 08:10 | PM.PN.1 ---
Subjective Subjective Date Patient Seen: 05/22/23 Time Patient Seen: 08:10 Interval history: Patient was feeling fine doing fine until last evening after dinner. He thinks he ate maybe a third of what was serve to him. Then 45 minutes to an hour later developed severe abdominal discomfort felt like his abdomen got very firm and hard again. He was really quite miserable. Required lots of medication. Then began to have copious runny watery diarrhea that was basically uncontrolled. This persisted through much of the night This morning his abdomen feels better he does not have the pain or the cramping and he is not been up to the bathroom all that recently. Not really looking forward to eating but is hungry still Exam Vital Signs (past 8 hours): - 05/22/23 00:36 05/22/23 05:10 05/22/23 06:00 Temperature 96.5 F L Pulse Rate 94 H 84 75 Respiratory Rate 18 18 19 Blood Pressure 165/73 H 143/76 H Pulse Oximetry 95 Oxygen Flow Rate 6 Fraction of Inspired Oxygen 36 SaO2/FiO2 Ratio 255 Oxygen Delivery Method Room Air Oxygen Flow Rate 6 Narrative Exam Narrative: Abdomen-positive bowel tones that appear normal, no tenderness rebound or guarding. No periumbilical pain discomfort or tenderness, basically normal abdominal exam Objective Labs 05/20/23 05:35 05/20/23 05:35 Labs: Laboratory Results - last 24 hr 05/18/23 23:35 Iron 40 L TIBC 407 % Saturation 10 L Transferrin 314 PFSH Medical History (Updated 05/19/23 @ 05:56 by Alley Chapman DO) BPH w urinary obs/LUTS Calculus of right kidney Chronic back pain Constipation Diabetes type 2, controlled Enlarged prostate Essential hypertension (~1994) H/O adenomatous polyp of colon Hemorrhoid (~1999) History of bladder stone History of nephrolithiasis (~1999) Iron deficiency anemia Microscopic hematuria Mixed hyperlipidemia Morbid obesity Renal cyst, right Rib fractures (~1974) Sleep apnea Surgical History Anesthesia Bladder stones (~2016) History of knee surgery (~1979) Family History Mother Cancer Father Myocardial infarct Brother Cancer Social History household members: spouse Smoking Status: Former smoker Assessment & Plan Assessment & Plan narrative: 1. Small-bowel obstruction-still much better than he was upon admission. His exam this morning is benign. I think he had a bit of a post obstructive process maybe a bit of ?stunned? bowels still regaining full function. Maybe that he was re fed a bit too much bit too quickly. This morning he will try again and again limiting his oral intake a little bit. 2. Diabetes type 2-adequate control of numbers. No concern at this time. Patient requested to discontinue blood sugar checking an insulin yesterday and so I did that given his numbers were normal. 3. Hypoxia-chronic and longstanding likely multifactorial including his COPD and an element of obesity hypoventilation. Continue with oxygen replacement therapy which patient requires on ongoing basis at rest and with activity at home 4. Iron deficiency anemia-continue to monitor numbers for now not an active issue at this time. Plan to repeat numbers this morning 5. Lower extremity AVM/varicosities-definitive management as per [facility]. Not an active issue for this hospitalization 6. Disposition-likely in the hospital another 24 hours or so to verify resolution of his abdominal symptoms while re feeding him etcetera. I hope that he could be discharged today but that is certainly not at all clear that that makes sense today but hopefully by tomorrow if not today. Quality VTE Deep Vein Thrombosis/Pulmonary Embolism Present on Admission: No
[2023-05-22] MEDS: TAMSULOSIN 0.4 MG CAPSULE PO (08:52)
[2023-05-22] MEDS: lisinopriL 20 MG TABLET 40 MG PO (08:52)
[2023-05-22] MEDS: hydroCHLOROthiazide 25 MG TABLET PO (08:53)
[2023-05-22 09:00] LABS: Add Manual Diff / Slide Review NO; Basophils Absolute Auto 100 /uL (0-100); Basophils Percent Auto 0.9 % (0-2); Eosinophils Absolute Auto 100 /uL (0-450); Eosinophils Percent Auto 0.9 % (2-4); Hematocrit 34.4 % (41-53); Hemoglobin 10.9 g/dL (13.5-17.5); Lymphocytes Absolute Auto 1000 /uL (1100-4500); Lymphocytes Percent Auto 10.6 % (25-40); Mean Corpuscular HGB Conc 31.7 % (30-36); Mean Corpuscular Hemoglobin 25.8 PG (26-34); Mean Corpuscular Volume 81.6 fL (80-100); Monocytes Absolute Auto 1000 /uL (0-900); Monocytes Percent Auto 10.7 % (3-14); Neutrophils Absolute Auto 7500 /uL (1500-7000); Neutrophils Percent Auto 76.9 % (50-75); Platelet Count 257 X10^3/uL (150-400); Red Blood Cell Count 4.21 X10^6/uL (4.5-5.9); Red Cell Distribution Width 17.5 % (11.6-14.8); White Blood Cell Count 9.7 X10^3/uL (4.5-11.0)
[2023-05-22 09:04] LABS: HEMOLYSIS < 15 (0-50); Iron 32 ug/dL (49-181)
[2023-05-22 09:05] LABS: Blood Urea Nitrogen 17 mg/dL (9-20); Calcium 8.7 mg/dL (8.4-10.2); Carbon Dioxide 33 mmol/L (22-32); Chloride 97 mmol/L (98-107); Estimated Glomerular Filt Rate > 60 mL/min (>60); Glucose 124 mg/dL (80-110); HEMOLYSIS < 15 (0-50); Sodium 136 mmol/L (137-145)
[2023-05-22 09:15] LABS: Percent Iron Saturation 9 % (20-50); Total Iron Binding Capacity 366 ug/dL (261-462); Transferrin 260 mg/dL (206-381)
--- NOTE | 2023-05-22 09:24 | PM.PN.1 ---
Subjective Subjective Date Patient Seen: 05/22/23 Time Patient Seen: 09:24 Interval history: Kofi had nausea, vomiting and abdominal pain overnight. He has not eaten anything this morning. Exam Vital Signs (past 8 hours): - 05/22/23 05:10 05/22/23 06:00 05/22/23 08:11 Temperature 96.5 F L Pulse Rate 84 75 78 Respiratory Rate 18 19 Blood Pressure 143/76 H Pulse Oximetry 95 96 Oxygen Delivery Method Nasal Cannula Oxygen Flow Rate 6 6 Fraction of Inspired Oxygen 44 05/22/23 08:52 Temperature Pulse Rate 78 Respiratory Rate Blood Pressure 143/76 H Pulse Oximetry Oxygen Delivery Method Oxygen Flow Rate Fraction of Inspired Oxygen Fraction of Inspired Oxygen 44 SaO2/FiO2 Ratio 218 Oxygen Delivery Method Nasal Cannula Oxygen Flow Rate 6 Narrative Exam Narrative: Abdomen is tender to palpation with no peritoneal findings Objective Labs 05/22/23 08:35 05/22/23 08:35 Labs: Laboratory Results - last 24 hr 05/18/23 05/22/23 05/22/23 23:35 08:35 08:35 WBC 9.7 RBC 4.21 L Hgb 10.9 L Hct 34.4 L MCV 81.6 MCH 25.8 L MCHC 31.7 RDW 17.5 H Plt Count 257 Neut % (Auto) 76.9 H Lymph % (Auto) 10.6 L [place] % (Auto) 10.7 Eos % (Auto) 0.9 L Baso % (Auto) 0.9 Neut # (Auto) 7500 H Lymph # (Auto) 1000 L [place] # (Auto) 1000 H Eos # (Auto) 100 Baso # (Auto) 100 Sodium 136 L Potassium 4.0 Chloride 97 L Carbon Dioxide 33 H BUN 17 Creatinine 0.74 Estimated GFR > 60 BUN/Creatinine Ratio 23.0 H Glucose 124 H Calcium 8.7 Iron 40 L TIBC 407 % Saturation 10 L Transferrin 314 05/22/23 08:35 WBC RBC Hgb Hct MCV MCH MCHC RDW Plt Count Neut % (Auto) Lymph % (Auto) [place] % (Auto) Eos % (Auto) Baso % (Auto) Neut # (Auto) Lymph # (Auto) [place] # (Auto) Eos # (Auto) Baso # (Auto) Sodium Potassium Chloride Carbon Dioxide BUN Creatinine Estimated GFR BUN/Creatinine Ratio Glucose Calcium Iron 32 L TIBC 366 % Saturation 9 L Transferrin 260 PFSH Medical History (Updated 05/19/23 @ 05:56 by Alley Chapman DO) BPH w urinary obs/LUTS Calculus of right kidney Chronic back pain Constipation Diabetes type 2, controlled Enlarged prostate Essential hypertension (~1994) H/O adenomatous polyp of colon Hemorrhoid (~1999) History of bladder stone History of nephrolithiasis (~1999) Iron deficiency anemia Microscopic hematuria Mixed hyperlipidemia Morbid obesity Renal cyst, right Rib fractures (~1974) Sleep apnea Surgical History Anesthesia Bladder stones (~2016) History of knee surgery (~1979) Family History Mother Cancer Father Myocardial infarct Brother Cancer Social History household members: spouse Smoking Status: Former smoker Assessment & Plan Assessment and plan (1) Small bowel obstruction: Status: Acute Plan It seems that Kofi is having intermittent obstruction due to the loop bowel in the hernia. We will proceed with an umbilical hernia repair with or without mesh today. He will remain NPO until surgery. Quality VTE Deep Vein Thrombosis/Pulmonary Embolism Present on Admission: No
--- NOTE | 2023-05-22 15:37 | SUR.OPER ---
Supine on padded OR bed, head on pillow, arms secured on padded arm boards at <90 degrees abduction, legs uncrossed, safety belt at thigh, tape over blanket over lower legs.
--- NOTE | 2023-05-22 15:49 | PM.PREOP ---
Pre-operative Note COVID-19 COVID-19 status: Not tested Interval Note History & Physical reviewed/Exam performed by Physician: Yes Changes to H&P: No ASA Class (for procedural sedation): III
[2023-05-22] MEDS: PIPERACILLIN/TAZO 4.5 GM in SODIUM CHLORIDE 0.9% 100 ML IV (16:20)
--- NOTE | 2023-05-22 16:43 | CM.DPC ---
DCP Continued: CORE DRILL OPERATOR reviewed EMR. Per [place], surg for hernia scheduled at 1600 today. CORE DRILL OPERATOR unable to meet with patient due to triaging needs. Plan remains home with spouse when stable. Plan: likely home with spouse when stable. CM team will continue to follow closely. NOAH Burks
[2023-05-22] MEDS: BUPIVACAINE 0.5% (PF) 30 ML, EPINEPHrine 0.15 MG INJ (16:56)
--- NOTE | 2023-05-22 17:09 | P.OP_ITS ---
Operative Date/Time/Diagnoses Date of procedure: 05/22/23 Time of procedure: 17:09 Pre-op diagnosis: Umbilical hernia Post-op diagnosis: same Procedure & Clinicians Procedure: Open umbilical hernia repair with mesh Same procedure as scheduled: Yes Surgeon: Conrad Kaye Museum Attendant: Marcio Snell Anesthesia Type: General Operative Notes Procedure in detail: Zosyn was administered. The patient was brought to the operating room, placed on the table in the supine position and general endotracheal anesthesia was induced. The abdomen was prepped and draped in the usual fashion. A time-out was performed. A 7 cm periumbilical midline incision was made deflecting to the left of the umbilicus. The hernia sac was dissected off of the umbilical skin and from the surrounding subcutaneous adipose tissue. The sac was dissected off the umbilical stalk using a combination of cautery, sharp and blunt dissection. The hernia contents were easily reducible and there was no hard tissue that could be palpated and there was no fluid. The hernia sac was dissected free from the fascial ring and allowed to drop back down into the abdomen. The sac was not opened. The fascia was then closed transversely with multiple interrupted 0 Ethibond sutures. The subcutaneous adipose tissue was cleared off of the anterior sheath circumferentially about 2 cm in each direction. A piece of polypropylene mesh was trimmed to fit over the fascial closure and secured with Tisseel. Once the Tisseel was dried the umbilical skin was tacked down to the mesh with a single 3-0 Vicryl stitch. The skin was closed with multiple interrupted 3-0 Vicryl dermal sutures followed by a running 4 Monocryl subcuticular closure. Steri-Strips were applied and an abdominal binder was applied. Post-operative Condition: stable Disposition: PACU
[2023-05-22] MEDS: ACETAMINOPHEN 325 MG TABLET 650 MG PO (17:40)
[2023-05-23] VITALS (9 sets, daily range): BP systolic 124–171; BP diastolic 55–79; PULSE 68–95; RESP 18–23; TEMP 36.1–36.8; O2SAT 93–98
[2023-05-23] MEDS: MORPHINE 4 MG/ML INJ IV (01:09)
[2023-05-23] MEDS: MORPHINE 2 MG/ML INJ IV (04:48)
[2023-05-23] MEDS: HYDROCODONE/ACET 5/325 TABLET 1 TAB PO (07:57)
[2023-05-23] MEDS: lisinopriL 20 MG TABLET 40 MG PO (08:00)
[2023-05-23] MEDS: TAMSULOSIN 0.4 MG CAPSULE PO (08:01)
[2023-05-23] MEDS: hydroCHLOROthiazide 25 MG TABLET PO (08:08)
--- NOTE | 2023-05-23 08:09 | P.PN_ITS ---
Subjective Subjective Date Patient Seen: 05/23/23 Time Patient Seen: 08:10 Interval history: Patient went for operative repair of his umbilical hernia last evening. Appeared to be relatively straight forward procedure, given his size and comorbidities. Has done okay overnight. Little bit of hypertension Lab work done yesterday demonstrated stability with his labs although his iron is again low probably would benefit from parental iron again Patient this morning is very hungry looking to have breakfast. A bit apprehensive about that. Having some sachi umbilical pain related to his surgical site Exam Vital Signs (past 8 hours): - 05/23/23 04:45 05/23/23 08:00 Temperature 97.4 F L Pulse Rate 95 H 68 Respiratory Rate 18 Blood Pressure 171/79 H 163/64 H Pulse Oximetry 96 Oxygen Flow Rate 4 Fraction of Inspired Oxygen 44 SaO2/FiO2 Ratio 218 Oxygen Delivery Method Nasal Cannula Oxygen Flow Rate 4 Objective Labs 05/22/23 08:35 05/22/23 08:35 Labs: Laboratory Results - last 24 hr 05/22/23 05/22/23 05/22/23 08:35 08:35 08:35 WBC 9.7 RBC 4.21 L Hgb 10.9 L Hct 34.4 L MCV 81.6 MCH 25.8 L MCHC 31.7 RDW 17.5 H Plt Count 257 Neut % (Auto) 76.9 H Lymph % (Auto) 10.6 L [place] % (Auto) 10.7 Eos % (Auto) 0.9 L Baso % (Auto) 0.9 Neut # (Auto) 7500 H Lymph # (Auto) 1000 L [place] # (Auto) 1000 H Eos # (Auto) 100 Baso # (Auto) 100 Sodium 136 L Potassium 4.0 Chloride 97 L Carbon Dioxide 33 H BUN 17 Creatinine 0.74 Estimated GFR > 60 BUN/Creatinine Ratio 23.0 H Glucose 124 H Calcium 8.7 Iron 32 L TIBC 366 % Saturation 9 L Transferrin 260 PFSH Medical History (Updated 05/19/23 @ 05:56 by Alley Chapman DO) BPH w urinary obs/LUTS Calculus of right kidney Chronic back pain Constipation Diabetes type 2, controlled Enlarged prostate Essential hypertension (~1994) H/O adenomatous polyp of colon Hemorrhoid (~1999) History of bladder stone History of nephrolithiasis (~1999) Iron deficiency anemia Microscopic hematuria Mixed hyperlipidemia Morbid obesity Renal cyst, right Rib fractures (~1974) Sleep apnea Surgical History Anesthesia Bladder stones (~2016) History of knee surgery (~1979) Family History Mother Cancer Father Myocardial infarct Brother Cancer Social History household members: spouse Smoking Status: Former smoker Assessment & Plan Assessment & Plan narrative: 1. Small-bowel obstruction-now status post repair of umbilical hernia. Repair was simple and hernia sac fell immediately back into the abdomen. Should be able to eat without any difficulty. Patient will need to demonstrate that before he can be discharged however. 2. Postop day 1 status post umbilical hernia repair-patient with some mild sachi-incisional pain discomfort. Patient has found that oxycodone works better for him and so I switched his pain med to that. I have added some Metamucil in effort to prevent any degree of constipation and straining which has been an issue for patient in the past even without the narcotics 3. Diabetes type 2-adequate control of numbers. No concern at this time. Patient requested to discontinue blood sugar checking an insulin yesterday and so I did that given his numbers were normal. 4. Hypoxia-chronic and longstanding likely multifactorial including his COPD and an element of obesity hypoventilation. Continue with oxygen replacement therapy which patient requires on ongoing basis at rest and with activity at home 5. Iron deficiency anemia-continue to monitor numbers for now not an active issue at this time. Patient not anemic but iron continues to be low. Due for repeat series parental iron infusions as per Oncology. Patient actually had an appointment with his oncologist today which he will miss of course. Will go ahead and give him an initial infusion today and plan for that to happen weekly x5 total, future doses per Hematology 6. Lower extremity AVM/varicosities-definitive management as per [facility]. Not an active issue for this hospitalization 7. Disposition-likely in the hospital another 24 hours or so to verify resolution of his abdominal symptoms while re feeding him etcetera. Quality VTE Deep Vein Thrombosis/Pulmonary Embolism Present on Admission: No
[2023-05-23] MEDS: IRON SUCROSE 200 MG in SODIUM CHLORIDE 0.9% 100 ML 220 MG IV (09:41)
[2023-05-23] MEDS: OXYCODONE/ACETAMINOPHEN 5/325 TABLET 1 TAB PO (10:59)
[2023-05-23] MEDS: PSYLLIUM HUSK 1 PACKET PO (10:59)
[2023-05-23] MEDS: OXYCODONE/ACETAMINOPHEN 5/325 TABLET 2 TAB PO ×3 (14:48→23:58)
--- NOTE | 2023-05-23 15:35 | CM.DPC ---
DCP Continued: BORDER GUARD reviewed EMR. Per Erin note, Erin would like to keep patient another 24 hours to confirm diet is tolerated. Likely d/c in morning. BORDER GUARD entered room and introduced self and role. Patient resting in bed. Patient confirms plan is home with who can transport. Patient reports his diet is currently being tolerated. Confirms no needs. Plan: d/c home when medically stable with in POV. No needs identified at this time. Cm team will continue to follow as needed. NOAH Burks
[2023-05-24] MEDS: OXYCODONE/ACETAMINOPHEN 5/325 TABLET 2 TAB PO ×3 (05:10→13:14)
[2023-05-24 05:12] VITALS: BP 141/88; PULSE 87; RESP 20; TEMP 37.2; O2SAT 94
[2023-05-24 07:00] VITALS: BP 138/82; PULSE 80; RESP 18; TEMP 36.2; O2SAT 96
--- NOTE | 2023-05-24 07:38 | P.PN_ITS ---
Subjective Subjective Date Patient Seen: 05/24/23 Time Patient Seen: 07:38 Interval history: Patient more successful eating yesterday. Also had large bowel movements. Currently this morning he is having some diarrhea Has some sachi-incisional/periumbilical pain discomfort controlled with oxycodone Anxious to go home, feels like indeed he is much better Exam Vital Signs (past 8 hours): - 05/24/23 05:12 05/24/23 07:00 Temperature 99 F 97.2 F L Pulse Rate 87 80 Respiratory Rate 20 18 Blood Pressure 141/88 H 138/82 Pulse Oximetry 94 96 Oxygen Flow Rate 4 Fraction of Inspired Oxygen 44 SaO2/FiO2 Ratio 218 Oxygen Delivery Method Nasal Cannula Oxygen Flow Rate 4 Objective Labs 05/22/23 08:35 05/22/23 08:35 [facility] Medical History (Updated 05/19/23 @ 05:56 by Alley Chapman DO) BPH w urinary obs/LUTS Calculus of right kidney Chronic back pain Constipation Diabetes type 2, controlled Enlarged prostate Essential hypertension (~1994) H/O adenomatous polyp of colon Hemorrhoid (~1999) History of bladder stone History of nephrolithiasis (~1999) Iron deficiency anemia Microscopic hematuria Mixed hyperlipidemia Morbid obesity Renal cyst, right Rib fractures (~1974) Sleep apnea Surgical History Anesthesia Bladder stones (~2016) History of knee surgery (~1979) Family History Mother Cancer Father Myocardial infarct Brother Cancer Social History household members: spouse Smoking Status: Former smoker Assessment & Plan Assessment & Plan narrative: 1. Small-bowel obstruction-now status post repair of umbilical hernia. Repair w as simple and hernia sac fell immediately back into the abdomen. Successfully eating without difficulty. I believe we have solve his bowel obstructive problem with the surgical intervention as per Dr. Kaye. 2. Postop day 2, status post umbilical hernia repair-patient with some mild sachi-incisional pain discomfort. 3. Diabetes type 2-adequate control of numbers. Per patient we have discont inued monitoring 4. Hypoxia-chronic and longstanding likely multifactorial including his COPD and an element of obesity hypoventilation. Continue with oxygen replacement therapy which patient requires on ongoing basis at rest and with activity at home. Patient has refused basically all inhalation therapies including his steroid and albuterol. I have discontinued these for the remainder of his hospitalization as well 5. Iron deficiency anemia-received 1 dose of iron sucrose parenterally. Plan to continue this via Hematology weekly for a total of 5 doses 6. Lower extremity AVM/varicosities-definitive management as per [facility]. Not an active issue for this hospitalization. Planning for upcoming procedure in [place] which will likely be delayed to some degree unfortunately because of his umbilical hernia repair 7. Disposition-probably ready for discharge pending evaluation by General surgery. He appears to be medically ready for discharge in my opinion. Quality VTE Deep Vein Thrombosis/Pulmonary Embolism Present on Admission: No
[2023-05-24 09:03] VITALS: BP 138/82; PULSE 80
[2023-05-24] MEDS: hydroCHLOROthiazide 25 MG TABLET PO (09:03)
[2023-05-24] MEDS: lisinopriL 20 MG TABLET 40 MG PO (09:03)
[2023-05-24] MEDS: TAMSULOSIN 0.4 MG CAPSULE PO (09:04)
[2023-05-24] MEDS: PSYLLIUM HUSK 1 PACKET PO (09:04)
[2023-05-24 11:00] VITALS: BP 148/76; PULSE 72; RESP 16; TEMP 36.4; O2SAT 96
--- NOTE | 2023-05-24 13:34 | PM.DS.1 ---
History of Present Illness History of Present Illness Date Patient Seen: 05/24/23 Time Patient Seen: 13:34 Chief complaint: constipation bleeding avm Narrative: Patient is a 67-year-old male patient of Dr. Khan with history of multiple medical problems including hypertension obesity type 2 diabetes and respiratory failure chronic etiology somewhat unclear.? Otherwise patient was feeling in his usual state of health until Sunday of last week until patient started having difficulty with bowel movements.? Over the course of the week he was having increasing abdominal pain and tried some magnesium citrate which maybe made things worse yesterday.? He was having increasing abdominal pain and was brought to the emergency room.? He is had no vomiting he is not nauseated.? He otherwise feels as if things are going and have been going well.? He is had no fevers no chills no cough no shortness a breath.? Patient is chronically on oxygen secondary to when he was in surgery for his AVM in March.? No definitive diagnosis was given.? He apparently has had some inhalers but otherwise has not been treated for this other than oxygen.? Does not know exactly why this happened.? He otherwise has no other significant change.? He is had no blood in his stool no urinary complaints.? It is diffuse abdominal pain.? He did not know he had an umbilical hernia and is feeling about the same this morning.? He has no other significant new changes or complaints.? No headaches no visual symptoms numbness tingling or other changes.? He is had no chest pain or increase in his shortness of breath. {from Dr. Carrasco's H&P} Discharge Providers Provider Date of admission: 05/22/23 13:44 Discharge Date: 05/24/23 Primary care physician: Tyler Khan MD Discharge provider: Tyler Khan MD Summary Hospital Course Discharge Diagnosis: 1. Umbilical hernia with intermittent bowel obstruction 2. Intermittent small-bowel obstruction secondary to umbilical hernia 3. Morbid obesity 4. Type 2 diabetes not on insulin 5. Mixed hyperlipidemia 6. Iron deficiency 7. Iron deficiency anemia 8. Varicose vein of lower extremity 9. Obesity hypoventilation syndrome 10. Sleep apnea, obstructive 11. Chronic back pain Hospital Course: Patient was admitted to the hospital as above with symptoms of a bowel obstruction and findings on CT suggestive of bowel within an umbilical hernia. Patient's symptoms resolved with conservative therapy. He then was re fed and had recurrent intermittent symptoms. Symptoms resolved and then came back again. Upon evaluation it was felt as though his umbilical hernia was causing intermittent obstruction and needs to be repaired. Given patient's comorbidities including his size initial repair was not felt to be appropriate but given lack of improvement over time he eventually did go to the OR for repair of his umbilical hernia. Repair is very simple and following that patient had no additional symptoms. He had some periumbilical sachi-incisional pain. Had some postobstructive kind of diarrhea prior to discharge Patient was able to be up and eating without difficulty Patient also had his iron levels checked and found to be low again was given a dose of parental iron as per Hematology. He will be receiving more parental iron as an outpatient via Hematology Patient's diabetes was very well controlled during this hospitalization least up until patient declined any further fingersticks Patient's other medical problems including his chronic hypoxia as well as his hypoventilation syndrome were stable. Patient will follow up with General surgery in 2 weeks as well as myself in about 2 weeks' time Patient also was thought to have a possible abnormality within the posterior pharynx upon intubation for his surgical procedure and will likely need ENT follow-up as well Exam Vital Signs (past 8 hours): - 05/24/23 07:00 05/24/23 09:03 05/24/23 08:44 Temperature 97.2 F L Pulse Rate 80 80 Respiratory Rate 18 Blood Pressure 138/82 138/82 Pulse Oximetry 96 Oxygen Delivery Method Nasal Cannula Oxygen Flow Rate 4 4 Fraction of Inspired Oxygen 36 05/24/23 11:00 05/24/23 07:00 05/24/23 11:00 Temperature 97.5 F L Pulse Rate 72 Respiratory Rate 16 Blood Pressure 148/76 H Pulse Oximetry 96 96 Oxygen Delivery Method Nasal Cannula Nasal Cannula Oxygen Flow Rate 4 4 Fraction of Inspired Oxygen Fraction of Inspired Oxygen 36 SaO2/FiO2 Ratio 218 Oxygen Delivery Method Nasal Cannula Oxygen Flow Rate 4 Objective Labs 05/22/23 08:35 05/22/23 08:35 REPLACED BY [facility] Medical History BPH w urinary obs/LUTS Calculus of right kidney Chronic back pain Constipation Diabetes type 2, controlled Enlarged prostate Essential hypertension (~1994) H/O adenomatous polyp of colon Hemorrhoid (~1999) History of bladder stone History of nephrolithiasis (~1999) Iron deficiency anemia Microscopic hematuria Mixed hyperlipidemia Morbid obesity Renal cyst, right Rib fractures (~1974) Sleep apnea Surgical History Anesthesia Bladder stones (~2016) History of knee surgery (~1979) Family History Mother Cancer Father Myocardial infarct Brother Cancer Social History household members: spouse Smoking Status: Former smoker Discharge Plan Discharge Plan Patient Disposition: Home Discharge orders & Medications Prescriptions: New oxycodone-acetaminophen 5-325 mg tablet 1 - 2 tab PO Q4-6H PRN (Reason: pain) Qty: 25 0RF Continued buprenorphine-naloxone 8-2 mg tablet, sublingual 1 tab SL DAILY ibuprofen 200 mg capsule 200 - 400 mg PO Q6H PRN (Reason: Pain (Scale Score 1-3)) Patient Comments: States he takes more due to being in pain acetaminophen 500 mg capsule 500 - 1,000 mg PO Q6H PRN (Reason: Pain (Scale Score 1-3)) Patient Comments: For pain lisinopril 40 mg tablet 40 mg PO DAILY Qty: 90 3RF pravastatin 20 mg tablet 20 mg PO DAILY Qty: 90 3RF budesonide-formoterol 160-4.5 mcg/actuation HFA aerosol inhaler 2 inh inhalation BID Qty: 10.2 7RF hydrochlorothiazide 25 mg tablet 25 mg PO DAILY Qty: 90 3RF tamsulosin 0.4 mg capsule 0.4 mg PO DAILY Qty: 90 3RF Medication counseling provided by Pharmacist: Yes Pharmacist Comment: Counseled by pharmacy laboratory technician Guzman Vo Follow up/Referrals: Conrad Kaye MD [Physician] - 06/06/23 2:30 pm (Appt:06/06 check in 2:[address] Kaye ) Tyler Khan MD [Primary Care Provider] - 06/11/23 10:30 am (Appt:06/11 @ 10:30 w/Dr Khan ) Discharge Health Status Multidrug resistant organism: No MDRO Diet/Activity/Treatments Diet: Diet as Tolerated and Carb-consistent/Diabetic Skin/Wound/Dressing Care Report to your healthcare provider any signs of infection, such as:: increased pain Visit Report/Discharge Packet Instructions: DI for Hernia Repair, DI for Prescription Opioid Use, [facility]: Wound Care Stand Alone Forms: Patient Portal/API, Stroke Signs & Symptoms, Surgery Discharge Discharge Data Primary Care Provider: Tyler Khan VTE Deep Vein Thrombosis/Pulmonary Embolism Present on Admission: No
--- NOTE | 2023-05-24 14:34 | PC.NURSE ---
Patient A&OX4, VSS, afebrile. Patient reports x3 soft BM's. Abdomen Soft and tender over surgical site. Dressing c/d/i. MD Kaye notified for discharge clearance. Follow up appointment scheduled. Patient verbalizes understanding of medications, site care, activity limitations as well as follow up appointment and s/sx of infection.
== END 2023-05-24 14:50 | disposition home or self-care (01) | DRG 354 ==
LOC: ED 05-19 04:39 → AC 05-19 05:56
PROVIDERS: Surgery; Admitting Provider Family Medicine; Emergency Provider Emergency Medicine; PCP Internal Medicine; Referring Provider Emergency Medicine; Visit Provider Internal Medicine
PROC: 0WUF0JZ Supplement Abdominal Wall with Synthetic Substitute, Open Approach (ICD-10-PCS; principal; 2023-05-22 16:00)
DX: K42.0 Umbilical hernia with obstruction, without gangrene (principal); E66.2 Morbid (severe) obesity with alveolar hypoventilation; Z68.41 Body mass index [BMI] 40.0-44.9, adult; K59.00 Constipation, unspecified; E86.0 Dehydration; E11.9 Type 2 diabetes mellitus without complications; J44.9 Chronic obstructive pulmonary disease, unspecified; D50.9 Iron deficiency anemia, unspecified; Q27.32 Arteriovenous malformation of vessel of lower limb; E78.2 Mixed hyperlipidemia; G89.29 Other chronic pain; M54.9 Dorsalgia, unspecified; N40.0 Benign prostatic hyperplasia without lower urinary tract symptoms; Z99.81 Dependence on supplemental oxygen; Z87.891 Personal history of nicotine dependence
CPT/HCPCS: 0241U; 36415; 71045; 74018; 74177; 80048; 80053; 82550; 82962; 83036; 83540; 83550; 83605; 83690; 83880; 84484; 85007; 85025; 85610; 85730; 87040; 93005; 94640; 94760; 94762; 96365; 96375; 96376; 99232; 99238; 99285; G0378; C1781; C9113; J0171; J1170; J1650; J1756; J2060; J2270; J2405; J2543; J2704; J3010; J3490; J7613; Q9967

== ENCOUNTER 2023-09-24 06:51 | Inpatient (IN) | payer OTHER, MEDICARE, SELFPAY ==
[2023-05-19 07:00] VITALS: BMI 41.5
[2023-09-24] VITALS (21 sets, daily range): BP systolic 115–159; BP diastolic 56–92; PULSE 86–106; RESP 14–43; TEMP 35.8–37.1; O2SAT 88–95; BMI 56.7
--- NOTE | 2023-09-24 07:01 | DI.RAD.S_ITS ---
PROCEDURE: XR CHEST 1V INDICATIONS: chest pain TECHNIQUE: One view of the chest was acquired. COMPARISON: [facility], CT, CT ABDOMEN PELVIS W CON, 05/19/2023, 0:05. [facility], CR, XR CHEST 1V, 05/18/2023, 23:39. [facility], CR, XR CHEST 2V, 06/29/2020, 9:46. FINDINGS: Surgical changes and devices: None. Lungs and pleura: Mild scattered patchy opacity bilaterally. No silhouetting. Possible persistent right pleural effusion or thickening. No pneumothorax. Mediastinum: Mediastinal contours appear unchanged. Heart size is normal. Bones and chest wall: No suspicious bony lesions. Overlying soft tissues appear unremarkable. IMPRESSION: Mild scattered patchy opacity bilaterally. This could represent infectious/inflammatory etiology. Probable persistent right pleural effusion or thickening. CT chest could be considered for further evaluation. Dictated by: Gabriel Mcdonough M.D. on 09/24/2023 at 8:33 Approved by: Gabriel Mcdonough M.D. on 09/24/2023 at 8:35
--- NOTE | 2023-09-24 07:15 | ED_ITS ---
HPI - Fall General Chief Complaint: Fall Stated Complaint: GLF w/ bleeding on lower back Time Seen by Provider: 09/24/23 07:00 Source: patient, family (), EMS, RN notes reviewed and old records reviewed Mode of arrival: EMS Limitations: no limitations History of Present Illness HPI Narrative: 67-year-old male with history of morbid obesity, COPD chronically on 4 L O2, hypertension, dyslipidemia, anemia, multiple skin AVMs with interventions. Patient presents today with complaint of increasing generalized weakness although he does note left more than right. Twitching and involuntary movement of his upper extremities, slurred speech that has been present for the last day to 2 days. Patient states he started to notice some changes on Sunday the 22 of September. He did have a fall on Sunday out of his recliner which lifts. He has been unable to walk for the last day. He does have some chronic pain in his left hip and had stopped ibuprofen which is the most helpful which he states is probably contributing but also notes he is just generally weak. Patient denies headache, denies fevers or chills. No cold cough or congestion symptoms. Denies any chest pain, no shortness of breath. Notes he has been using his oxygen more regularly since it was started in the last couple months. Denies any nausea or vomiting. Denies diarrhea or constipation. Denies any urinary issues such as dysuria, urgency or frequency. States no new paresthesias. Patient has a subcutaneous AVF on the back of his right thigh which had intervention around the 11 of September. He states he has had occasional bleeding but nothing new or atypical. He does not take any form of anticoagulation. Presents today as he had a fall and they were unable to get him off the ground. Related Data Home Medications Medication Instructions Recorded Confirmed acetaminophen 500 mg capsule 500 - 1,000 mg PO Q6H PRN Pain 06/29/20 09/24/23 (Scale Score 1-3) buprenorphine 8 mg-naloxone 2 mg 2 tab sublingual DAILY 06/29/20 09/24/23 sublingual tablet Previous Rx's Medication Instructions Recorded hydrochlorothiazide 25 mg tablet 25 mg PO DAILY #90 tabs 10/02/22 lisinopril 40 mg tablet 40 mg PO DAILY #90 tabs 10/02/22 pravastatin 20 mg tablet 20 mg PO DAILY #90 tabs 02/06/23 tamsulosin 0.4 mg capsule 0.4 mg PO DAILY #90 caps 10/02/22 budesonide-formoterol HFA 160 2 inh inhalation BID #10.2 grams 07/27/23 mcg-4.5 mcg/actuation aerosol inhaler Allergies Allergy/AdvReac Type Severity Reaction Status Date / Time No Known Drug Allergies Allergy Verified 06/11/23 10:26 Review of Systems Review of Systems ROS Unobtainable: All systems reviewed & are unremarkable except as noted in HPI and below Patient History Medical History Microscopic hematuria BPH w urinary obs/LUTS History of bladder stone Renal cyst, right Calculus of right kidney Iron deficiency anemia Sleep apnea Rib fractures (~1974) Chronic back pain Enlarged prostate Constipation Hemorrhoid (~1999) Morbid obesity Diabetes type 2, controlled H/O adenomatous polyp of colon History of nephrolithiasis (~1999) Mixed hyperlipidemia Essential hypertension (~1994) Surgical History H/O umbilical hernia repair Anesthesia Bladder stones (~2016) History of knee surgery (~1979) Family History Mother Cancer Father Myocardial infarct Brother Cancer Social History household members: spouse Smoking Status: Former smoker Smoking Status: Former smoker alcohol intake frequency: holidays/special occasions only Substance Use Type: does not use Exam Narrative Exam Narrative: GEN: Obese male, alert and oriented x 3, patient appears to be in mild distress. HEENT: Atraumatic, pupils are equal round reactive to light, extraocular movements are intact, nares are clear, there is no conjunctival pallor. Throat is clear without any exudates, erythema, tonsillar enlargement or uvular deviation, no obvious facial droop but patient does have dysarthria. HEART: Regular rate and rhythm without murmur, clicks, rubs. Pulses are equal in upper and lower extremities LUNGS:Lungs clear to auscultation, no wheezes, rales, crackles, chest moves symmetrically, no tachypnea or accessory muscle use patient 4 L nasal cannula ABD:bowel sounds normal, soft, non-tender, no guarding, rebound, rigidity, no masses noted, no hepatosplenomegaly :No CVA tenderness MSCL: Non-tender, no muscle atrophy, muscles strength 5/5 upper and lower extremities, full range of motion. NEURO:CN 2-12 intact, sensation normal. Patient does have what appears to be some involuntary twitching of his hands upper extremities. Does appear to be occasionally in his lower extremities as well. No obvious clonus. Dysarthria but no aphasia. Patient has appear she she 4 extremities SKIN: Patient has several wounds on his right posterior thigh that are less than 0.5 cm in size tracking in a line. [place] granulation tissue is present no active bleeding at this time. There is some scant amount of dried blood on the sheets. Initial Vital Signs Initial Vital Signs: Vital Signs Temperature 98.8 F 09/24/23 06:50 Pulse Rate 106 H 09/24/23 06:50 Respiratory Rate 20 09/24/23 06:50 Blood Pressure 140/72 09/24/23 06:50 Pulse Oximetry 95 09/24/23 06:50 Oxygen Delivery Method Nasal Cannula 09/24/23 06:50 Oxygen Flow Rate 4 09/24/23 06:50 Course Orders Ordered: Acetaminophen (Acetaminophen 325 Mg Tablet) 650 mg PO Q6H PRN PRN Reason: Pain (Scale Score 1-3) Albuterol (Albuterol 2.5 Mg/3 Ml Neb (Adult)) 2.5 mg INH Q4HRWA [facility] Albuterol (Albuterol 2.5 Mg/3 Ml Neb (Adult)) 2.5 mg INH Q2H PRN PRN Reason: Shortness Of Breath Budesonide (Budesonide 0.5 Mg/2 Ml Neb) 0.5 mg INH RTBID [facility] Buprenorphine/Naloxone (Buprenorphine/Naloxone 8mg/2mg 1 Tab) 2 tab SL DAILY [facility] Last Admin: 09/24/23 14:02 Dose: 2 tab Documented By: KIA Enoxaparin Sodium (Enoxaparin 40 Mg/0.4 Ml Syringe) 40 mg SUBCUT DAILY [facility] Hydrochlorothiazide (Hydrochlorothiazide 25 Mg Tablet) 25 mg PO DAILY [facility] Last Admin: 09/24/23 14:01 Dose: 25 mg Documented By: KIA Ceftriaxone Sodium 1,000 mg/ (Sodium Chloride) 100 mls @ 200 mls/hr IV Q24H [facility] Azithromycin 500 mg/ Dextrose 250 mls @ 250 mls/hr IV Q24H [facility] Lisinopril (Lisinopril 20 Mg Tablet) 40 mg PO DAILY [facility] Last Admin: 09/24/23 14:01 Dose: 40 mg Documented By: KIA Naloxone HCl (Naloxone 0.4 Mg/Ml Vial) 0.2 mg IV Q2MIN PRN PRN Reason: Opiate Reversal Pravastatin Sodium (Pravastatin 20 Mg Tablet) 20 mg PO DAILY [facility] Tamsulosin HCl (Tamsulosin 0.4 Mg Capsule) 0.4 mg PO DAILY [facility] Last Admin: 09/24/23 14:01 Dose: 0.4 mg Documented By: KIA Discontinued Medications Ceftriaxone Sodium 2,000 mg/ (Sodium Chloride) 100 mls @ 200 mls/hr IV NOW ONE Stop: 09/24/23 10:27 Last Infusion: 09/24/23 12:05 Dose: Infused Documented By: Admin: 09/24/23 11:25 Dose: 200 mls/hr Documented By: [email or web address] Azithromycin 500 mg/ Dextrose 250 mls @ 250 mls/hr IV NOW ONE Stop: 09/24/23 10:27 Last Admin: 09/24/23 14:17 Dose: Not Given Documented By: DEAN Vital Signs Vital signs: Vital Signs - 8 hr 09/24/23 06:50 09/24/23 07:11 09/24/23 07:30 Temperature 98.8 F Pulse Rate 106 H 105 H 98 H Respiratory Rate 20 37 H Blood Pressure 140/72 Pulse Oximetry 95 88 L 92 Oxygen Delivery Method Nasal Cannula Nasal Cannula Nasal Cannula Oxygen Flow Rate 4 4 4 09/24/23 07:32 09/24/23 07:32 09/24/23 07:47 Temperature Pulse Rate 100 H 95 H Respiratory Rate 41 H Blood Pressure 145/80 H Pulse Oximetry 93 92 Oxygen Delivery Method Nasal Cannula Nasal Cannula Oxygen Flow Rate 4 4 09/24/23 08:06 09/24/23 08:07 09/24/23 08:07 Temperature Pulse Rate 98 H 97 H Respiratory Rate 14 Blood Pressure 137/67 Pulse Oximetry 91 90 L Oxygen Delivery Method Nasal Cannula Oxygen Flow Rate 4 09/24/23 08:30 09/24/23 08:30 09/24/23 09:00 Temperature Pulse Rate 96 H Respiratory Rate 24 Blood Pressure 133/69 136/69 Pulse Oximetry 92 Oxygen Delivery Method Nasal Cannula Oxygen Flow Rate 4 09/24/23 09:00 09/24/23 09:44 09/24/23 09:45 Temperature Pulse Rate 99 H 97 H Respiratory Rate Blood Pressure 131/68 Pulse Oximetry 92 Oxygen Delivery Method Oxygen Flow Rate 09/24/23 09:45 09/24/23 09:59 09/24/23 10:00 Temperature Pulse Rate 98 H 97 H Respiratory Rate 40 H 24 Blood Pressure 125/56 L Pulse Oximetry 88 L 89 L 91 Oxygen Delivery Method Nasal Cannula Nasal Cannula Nasal Cannula Oxygen Flow Rate 4 4 4 - Fall Lab Data 09/24/23 07:35 09/24/23 07:35 Labs: Lab Results 09/24/23 09/24/23 09/24/23 Range/Units 07:15 07:15 07:20 WBC (4.5-11.0) X10^3/uL RBC (4.5-5.9) X10^6/uL Hgb (13.5-17.5) g/dL Hct (41-53) % MCV (80-100) fL MCH (26-34) PG MCHC (30-36) % RDW (11.6-14.8) % Plt Count (150-400) X10^3/uL Neut % (Auto) (50-75) % Lymph % (Auto) (25-40) % [place] % (Auto) (3-14) % Eos % (Auto) (2-4) % Baso % (Auto) (0-2) % Neut # (Auto) (9974-4784) /uL Lymph # (Auto) (5857-5670) /uL [place] # (Auto) (0-900) /uL Eos # (Auto) (0-450) /uL Baso # (Auto) (0-100) /uL ABG Sample Site ABG pH (7.35-7.45) ABG pCO2 (35-45) mmHg ABG pO2 (80-100) mmHg ABG HCO3 (23-27) mmol/L ABG Total CO2 (23-27) mmol/L ABG O2 Saturation (95-100) % ABG Base Excess (-2-3) mmol/L FiO2 Sodium (137-145) mmol/L Potassium (3.4-5.1) mmol/L Chloride (98-107) mmol/L Carbon Dioxide (22-32) mmol/L BUN (9-20) mg/dL Creatinine (0.66-1.25) mg/dL Estimated GFR (>60) mL/min BUN/Creatinine Ratio (6-22) Glucose (80-110) mg/dL Lactate (0.7-2.1) mmol/L Calcium (8.4-10.2) mg/dL Magnesium (1.6-2.3) mg/dL Total Bilirubin (0.2-1.3) mg/dL AST (17-59) IU/L ALT (<50) IU/L Alkaline Phosphatase (38-126) U/L Total Creatine Kinase (55-170) U/L Troponin I (0.01-0.034) ng/mL NT-Pro-B Natriuret Pep 226 H (<125) pg/mL Total Protein (6.3-8.2) g/dL Albumin (3.5-5.0) g/dL Globulin (1.7-4.1) g/dL Albumin/Globulin Ratio (1.0-2.8) Lipase (23-300) U/L Urine Color Yellow Urine Appearance Clear Urine pH 5.5 Normal (4.5-8.0) Ur Specific [place] >=1.030 H (1.000-1.035) Urine Protein Trace H (Negative) Urine Glucose (UA) Negative (Negative) g/dL Urine Ketones Negative (NEGATIVE) Urine Occult Blood Negative (Negative) Urine Nitrate Negative (Negative) Urine Bilirubin Negative (NEGATIVE) Urine Urobilinogen 1.0 (0.2) E.U./dL Ur Leukocyte Esterase Negative (NEGATIVE) Urine RBC 0-1/hpf (0-5/HPF) Urine WBC 0-1/hpf (0-5/HPF) Ur Squamous Epith Cells 0-1 /hpf (0-5/HPF) Urine Bacteria Occasional (0-1) (None) Urine Mucus 2+ H (Negative) Ur Culture Indicated? Cult not indicated Vol Urine Centrifuged 10ml (spun) U Opiates 300ng/mL cut Negative (Negative) Ur Oxycodone Screen Negative (Negative) Urine Methadone Screen Negative (Negative) Ur Barbiturates Screen Negative (Negative) U Tricyclic Antidepress Negative (Negative) Ur Phencyclidine Scrn Negative (Negative) Ur Amphetamines Screen Negative (Negative) U Methamphetamines Scrn Negative (Negative) Ur MDMA Scrn (Ecstasy) Negative (Negative) U Benzodiazepines Scrn Negative (Negative) Urine Cocaine Screen Negative (Negative) U Marijuana (THC) Screen Negative (Negative) Urine Specific [place] Normal (Normal) Ur Creatinine Normal (Normal) SARS-CoV-2 (PCR) Negative (Negative) Influenza A (RT-PCR) Flu a negative (NEGATIVE) Influenza B (RT-PCR) Flu b negative (NEGATIVE) RSV (PCR) Negative (Negative) 09/24/23 09/24/23 09/24/23 Range/Units 07:35 07:45 09:15 WBC 8.4 (4.5-11.0) X10^3/uL RBC 3.55 L (4.5-5.9) X10^6/uL Hgb 8.2 L (13.5-17.5) g/dL Hct 27.3 L (41-53) % MCV 76.9 L (80-100) fL MCH 23.2 L (26-34) PG MCHC 30.1 (30-36) % RDW 18.8 H (11.6-14.8) % Plt Count 229 (150-400) X10^3/uL Neut % (Auto) 84.3 H (50-75) % Lymph % (Auto) 6.3 L (25-40) % [place] % (Auto) 8.0 (3-14) % Eos % (Auto) 0.7 L (2-4) % Baso % (Auto) 0.7 (0-2) % Neut # (Auto) 7100 H (3438-6800) /uL Lymph # (Auto) 500 L (2202-5687) /uL [place] # (Auto) 700 (0-900) /uL Eos # (Auto) 100 (0-450) /uL Baso # (Auto) 100 (0-100) /uL ABG Sample Site Right brachial ABG pH 7.36 (7.35-7.45) ABG pCO2 56.5 H (35-45) mmHg ABG pO2 68 L (80-100) mmHg ABG HCO3 32 H (23-27) mmol/L ABG Total CO2 34 H (23-27) mmol/L ABG O2 Saturation 92 L (95-100) % ABG Base Excess 7.0 H (-2-3) mmol/L FiO2 36 Sodium 139 (137-145) mmol/L Potassium 4.5 (3.4-5.1) mmol/L Chloride 100 (98-107) mmol/L Carbon Dioxide 38 H (22-32) mmol/L BUN 22 H (9-20) mg/dL Creatinine 0.65 L (0.66-1.25) mg/dL Estimated GFR > 60 (>60) mL/min BUN/Creatinine Ratio 33.8 H (6-22) Glucose 141 H (80-110) mg/dL Lactate 1.5 (0.7-2.1) mmol/L Calcium 8.9 (8.4-10.2) mg/dL Magnesium 1.8 (1.6-2.3) mg/dL Total Bilirubin 0.5 (0.2-1.3) mg/dL AST 30 (17-59) IU/L ALT 26 (<50) IU/L Alkaline Phosphatase 73 (38-126) U/L Total Creatine Kinase 26 L (55-170) U/L Troponin I 0.014 (0.01-0.034) ng/mL NT-Pro-B Natriuret Pep (<125) pg/mL Total Protein 7.7 (6.3-8.2) g/dL Albumin 3.6 (3.5-5.0) g/dL Globulin 4.1 (1.7-4.1) g/dL Albumin/Globulin Ratio 0.9 L (1.0-2.8) Lipase 26 (23-300) U/L Urine Color Urine Appearance Urine pH (4.5-8.0) Ur Specific [place] (1.000-1.035) Urine Protein (Negative) Urine Glucose (UA) (Negative) g/dL Urine Ketones (NEGATIVE) Urine Occult Blood (Negative) Urine Nitrate (Negative) Urine Bilirubin (NEGATIVE) Urine Urobilinogen (0.2) E.U./dL Ur Leukocyte Esterase (NEGATIVE) Urine RBC (0-5/HPF) Urine WBC (0-5/HPF) Ur Squamous Epith Cells (0-5/HPF) Urine Bacteria (None) Urine Mucus (Negative) Ur Culture Indicated? Vol Urine Centrifuged U Opiates 300ng/mL cut (Negative) Ur Oxycodone Screen (Negative) Urine Methadone Screen (Negative) Ur Barbiturates Screen (Negative) U Tricyclic Antidepress (Negative) Ur Phencyclidine Scrn (Negative) Ur Amphetamines Screen (Negative) U Methamphetamines Scrn (Negative) Ur MDMA Scrn (Ecstasy) (Negative) U Benzodiazepines Scrn (Negative) Urine Cocaine Screen (Negative) U Marijuana (THC) Screen (Negative) Urine Specific [place] (Normal) Ur Creatinine (Normal) SARS-CoV-2 (PCR) (Negative) Influenza A (RT-PCR) (NEGATIVE) Influenza B (RT-PCR) (NEGATIVE) RSV (PCR) (Negative) Imaging Data Chest x-ray: Radiologist's Impression: [address] [address] XRay Report Signed Patient: Kofi Vang MR#: [id number] : 1955 Acct:[id number] Age/Sex: 67 / M Date of Service: 09/24/23 Loc: ED Accession Number: [id number] Procedure: XR chest 1V Ordering Provider: Alley Chapman D.O. PROCEDURE: XR CHEST 1V INDICATIONS: chest pain TECHNIQUE: One view of the chest was acquired. COMPARISON: [facility], CT, CT ABDOMEN PELVIS W CON, 05/19/2023, 0:05. [facility], CR, XR CHEST 1V, 05/18/2023, 23:39. [facility], CR, XR CHEST 2V, 06/29/2020, 9:46. FINDINGS: Surgical changes and devices: None. Lungs and pleura: Mild scattered patchy opacity bilaterally. No silhouetting. Possible persistent right pleural effusion or thickening. No pneumothorax. Mediastinum: Mediastinal contours appear unchanged. Heart size is normal. Bones and chest wall: No suspicious bony lesions. Overlying soft tissues appear unremarkable. IMPRESSION: Mild scattered patchy opacity bilaterally. This could represent infectious/inflammatory etiology. Probable persistent right pleural effusion or thickening. CT chest could be considered for further evaluation. Dictated by: Gabriel Mcdonough M.D. on 09/24/2023 at 8:33 Approved by: Gabriel Mcdonough M.D. on 09/24/2023 at 8:35 CT scan - head: Radiologist's Impression: Noemí Hsieh? 73? F? 08/12/1950 ? ?? Allergy/Adv: No Known Drug Allergies [address] [place] [address] XRay Report? Signed Patient: Noemí Hsieh MR#: [id number] : 08/12/1950 Acct:[id number] Age/Sex: 73 / F Date of Service: 09/24/23 Loc: ED Accession Number: [id number]? ? Procedure: XR chest 1V Ordering Provider: Briana Rabago D.O. PROCEDURE:? XR CHEST 1V ? INDICATIONS:? chest pain ? TECHNIQUE:? One view of the chest was acquired.?? ? COMPARISON:? None. ? FINDINGS:?? ? Surgical changes and devices:? None.?? ? Lungs and pleura:? Lungs are clear.? No pleural effusions or pneumothorax.?? ? Mediastinum:? Mediastinal contours appear normal.? Heart size is normal.?? ? Bones and chest wall:? No suspicious bony lesions.? Overlying soft tissues appear? unremarkable.? IMPRESSION:?? ? No acute cardiopulmonary abnormality is seen.? Dictated by: Gabriel Mcdonough M.D. on 09/24/2023 at 7:59? ? ? Approved by: Gabriel Mcdonough M.D. on 09/24/2023 at 8:00? ? CT scan - chest: Radiologist's Impression: Close Chest CTA (Signed) Minerva Keane - 09/24/23 Head/Neck CTA (Signed) Minerva Keane - 09/24/[address] (Signed) Kendra Strauss - 09/24/23 Chest X-Ray (Signed) Gabriel Mcdonough - 09/24/23 Launch?[address] [address] [address] Scan Report Signed Patient: Kofi Vang MR#: [id number] : 1955 Acct:[id number] Age/Sex: 67 / M Date of Service: 09/24/23 Loc: ED Accession Number: [id number] Procedure: CT angio chest PE protocol Ordering Provider: Briana Rabago D.O. PROCEDURE: CT ANGIO CHEST PE PROTOCOL INDICATIONS: ?pna vs pe TECHNIQUE: After the administration of intravenous contrast, 2 mm thick sections acquired from the pulmonary apices to the posterior costophrenic angles. 3-dimensional maximum intensity projection (MIP) coronal and sagittal reformats were then acquired through the thorax. For radiation dose reduction, the following was used: automated exposure control, adjustment of mA and/or kV according to patient size. COMPARISON: [facility], CR, XR CHEST 1V, 09/24/2023, 7:34. FINDINGS: Image quality: There is suboptimal opacification of the pulmonary vasculature. Pulmonary arteries: Pulmonary arteries are normal in size, and demonstrate no definite intraluminal filling defects to suggest central pulmonary embolism. Lower Neck: No enlarged lymph nodes. Thyroid: No thyroid nodules which require sonographic follow up, per consensus guidelines. Axillae: No enlarged lymph nodes. Chest Wall: Unremarkable. Bones: Unremarkable. Lungs and Pleura: No pneumothorax or pleural effusions. There is moderate patchy airspace opacity at the right lung base. Heart: Heart size is enlarged. There is calcification of the coronary vasculature. No pericardial effusion. Thoracic Vessels: No aortic aneurysm. Mediastinum and [place]: No enlarged lymph nodes. Esophagus: No wall thickening. There is moderate patchy airspace opacity within the right lung base. hiatal hernia. Upper Abdomen: Visualized upper abdomen solid organs and bowel loops appear normal. IMPRESSION: 1. Limited examination demonstrating no definite pulmonary embolus. 2. Right basilar pneumonia. 3. Cardiomegaly. Coronary artery disease. Dictated by: Minerva Keane M.D. on 09/24/2023 at 10:08 Approved by: Minerva Keane M.D. on 09/24/2023 at 10:15 CTA - brain/neck: Radiologist's Impression: Kofi Vang??67??M??1955 ? Allergy/Adv: No Known Drug Allergies Close Head/Neck CTA (Signed) Minerva Keane - 09/24/23 Chest CTA (Signed) Minerva Keane - 09/24/[address] (Signed) Kendra Strauss - 09/24/23 Chest X-Ray (Signed) Gabriel Mcdonough - 09/24/23 Telemetry Strips 05/22/23 Gastrografin Study (Signed) NicoleMarkel rader - 05/20/23 Chest X-Ray (Signed) Nicole,Markel - 05/18/23 Abdomen/Pelvis CT (Signed) Nicole,Markel - 05/18/23 Aorta w/Runoff CTA (Signed) Fran Castro - 06/28/[address] (Signed) Jareth Tellez - 11/01/20 Abdomen/Pelvis CT (Signed) Minerva Keane - 10/07/[address] (Signed) Ladarius Gouldie - 07/16/20 PFT Result 07/08/20 Chest X-Ray (Signed) Jose Reno - 06/29/20 Renal Ultrasound (Signed) Gilbert Gould - 11/05/19 Outside DI 05/03/18 Outside DI 04/12/18 Launch?[place] [address] CT Scan Report Signed Patient: Kofi Vang MR#: [id number] : 1955 Acct:[id number] Age/Sex: 67 / M Date of Service: 09/24/23 Loc: ED Accession Number: [id number] Procedure: CT angio head and neck Ordering Provider: Briana Rabago D.O. PROCEDURE: CT ANGIO HEAD AND NECK INDICATIONS: weakness, twitching, dysarthria, increased O2 use at home. TECHNIQUE: After the administration of intravenous contrast, 1 mm thick sections acquired from the aortic arch through the [place]. 3-dimensional kwtidsk-zhdbdhjub-jkoquoqcgd (MIP) and/or volume rendering reformats were acquired of the central intracranial vasculature and neck separately. For radiation dose reduction, the following was used: automated exposure control, adjustment of mA and/or kV according to patient size. COMPARISON: None. FINDINGS: Image quality: Degraded by metallic artifact and contrast bolus timing. BRAIN: CSF spaces: Ventricles are normal in size and shape. Basal cisterns are patent. No extra-axial fluid collections. Brain: No significant abnormality of the brain can be seen. Skull and face: Calvarium and facial bones appear intact, without suspicious lesions. Orbits appear normal. Sinuses: Sinuses and mastoids are clear. HEAD CT ANGIOGRAPHY: Anterior circulation: Mild calcific stenosis of the cavernous segments of the internal carotid arteries bilaterally. The flow within the paired anterior cerebral arteries is normal and symmetric. The flow within the middle cerebral arteries is normal and symmetric. The anterior communicating artery is seen. No aneurysms are seen. Posterior circulation: Visualized portions of the vertebral arteries demonstrate normal caliber, and join to form a normal appearing basilar artery. Flow within the posterior cerebral arteries is normal and symmetric. No aneurysms are seen. NECK CT ANGIOGRAPHY: Carotid system: The great vessels demonstrate a conventional anatomy as they arise from the aortic arch. The origins of the common carotid arteries appear patent. The common carotid arteries demonstrate normal caliber and courses. Roughly 10% calcific origin stenosis of the bilateral internal carotid arteries. Suboptimal visualization of the mid/distal internal carotid arteries secondary to dental artifact. Posterior circulation: The origins of the vertebral arteries are not well seen. The more superior extracranial portions of both vertebral arteries are grossly patent but suboptimally opacified. Soft tissues: Visualized neck soft tissues demonstrate no suspicious abnormalities. Bones: No suspicious bony lesions. Visualized cervical spine appears normally aligned. IMPRESSION: 1. Limited examination demonstrating no definite acute process involving the arterial tree of the head and neck. Any quantitative measurements of stenosis were performed using NASCET criteria. Dictated by: Minerva Keane M.D. on 09/24/2023 at 9:47 Approved by: Minerva Keane M.D. on 09/24/2023 at 10:00 ECG Data Attestation: I personally reviewed and interpreted this ECG as follows: Interpretation: Sinus rhythm rate of 97, W[place] 162, QRS 82 QTC of 401. No acute ST elevation or depression noted. Patient has prior from 05/18/2023 which does have what appears to be some motion artifact but does not appear significantly changed from today's. [facility] Narrative Medical decision making narrative: 67-year-old male with complaint of weakness, dysarthria and involuntary movement of the particularly his upper extremities. Patient has been increasingly weak with falls. Denies headache, denies fevers, no infectious changes appreciated. Does have some speech changes suggesting possible neurologic source although electrolyte abnormality would also be included in differential. Plan for labs, EKG, imaging. Patient does have known AVM follows with [facility] Dr. Link and had intervention around September 11 2023, has a little bit of dried blood but they note has not been bleeding excessively compared to normal. Patient's has picture from before and does appear to have some improvement in terms of discoloration and now appears to have subcutaneous exposure but good pink granulation tissue. Does have known anemia secondary to this or believed to be secondary to this. He is started following with Oncology/Hematology with Dr. Toussaint at [facility]. Patient's labs show hemoglobin of 8.2 hematocrit of 27 was hemoglobin of 10 on 05/22/2023 and was reportedly 9 in the last week. Electrolytes overall are appropriate CO2 is 38 BUN is 22 with a creatinine of 0.65, glucose is 141, lactate is 1.5 with a calcium 8.9 and a Mag of 1.8 and a potassium of 4.5 along with a sodium of 139. Normal LFTs negative troponin. EKG does not show acute change. Head CT is negative for bleed, mass or acute change. Chest x-ray shows possible infection. Attempted to obtain MRI stroke protocol but patient's habitus prevents this. After discussion CT angio was ordered as patient does have AVF history. He does not have a headache today but with his speech changes and twitching felt appropriate. Chest x-ray does show some pneumonia type changes and will obtain CT angio of the chest as well. CT angio of the head and neck does not show any clear change, CT angio of the chest shows right basilar pneumonia, no pulmonary emboli, no obvious vascular changes. No edema. ABG shows CO2 of 56 with a pH of 7.36, PO2 of 68 and a pCO2 of 34. Appears to have little bit of respiratory acidosis secondary metabolic alkalosis. Discussed with Dr. Johnson who is covering for Dr. Khan. Would like to bring patient in for observation. Does not appear to be having acute or subacute stroke changes does have some slurred speech but twitching seems less likely. He is generalized weakness but not clear lateralizing weakness on examination. Unable to obtain MR but was able to obtain a CT angio of the head and neck as well as chest which does show a right basilar pneumonia does have little bit of CO2 retention. Patient has not had a lot of prior ABG so unclear if this is new or old. Discharge Plan Departure Patient Disposition: Admitted as Observation Clinical Impression: Pneumonia, Weakness, Falls Admit Date/Time: 09/24/23 10:35 Admit Provider: Ramya Johnson
--- NOTE | 2023-09-24 07:35 | PC.NURSE ---
Pt passed a stone while using the urinal, approximately 3-6mm in size, dark connors in color. Pt denies pain with this.
[2023-09-24 07:39] LABS: Appearance Urine UA CLEAR; Bilirubin Urine UA NEGATIVE (NEGATIVE); Color Urine UA YELLOW; Glucose Urine UA NEGATIVE (Negative); Ketones Urine UA NEGATIVE (NEGATIVE); Leukocyte Esterase Urine UA NEGATIVE (NEGATIVE); Nitrite Urine UA NEGATIVE (Negative); Occult Blood Urine UA NEGATIVE (Negative); Protein Urine UA TRACE (Negative); Specific Gravity Urine UA >=1.030 (1.000-1.035); pH Urine UA 5.5 (4.5-8.0)
[2023-09-24 07:41] LABS: Ur Creatinine Normal (Normal); Ur Specific Gravity Normal (Normal); Urine pH Normal (Normal)
[2023-09-24 07:42] LABS: UR Morphine/Opiate cutoff 300 Negative (Negative); Urine Amphetamines Negative (Negative); Urine Barbiturates Negative (Negative); Urine Benzodiazepines Negative (Negative); Urine Cocaine Negative (Negative); Urine MDMA Negative (Negative); Urine Methadone Negative (Negative); Urine Methamphetamines Negative (Negative); Urine Oxycodone Negative (Negative); Urine Phencyclidine Negative (Negative); Urine Tetrahydrocannabinol Negative (Negative); Urine Tricyclic Antidepressant Negative (Negative)
[2023-09-24 07:48] LABS: Bacteria Urine Occasional (0-1); Culture Indicated Urine Cult Not Indicated; Mucus Urine 2+ (Negative); RBC Urine 0-1/HPF (0-5/HPF); Squamous Epithelial Cell Urine 0-1 /HPF (0-5/HPF); Urine Volume 10mL (spun); WBC Urine 0-1/HPF (0-5/HPF)
--- NOTE | 2023-09-24 07:50 | PC.NURSE ---
Pt is denying any chest pain, increased SOB, dizziness or lightheaded. He reports feeling increased weakness the past week, sustaining a fall 2 days ago and then another fall this morning. Pt usually walks with a cane at home due to left hip pain. His is present at bedside and states pt has had mumbling for weeks which is normal. Pt describes being unable to cinnamon grinder onto things and dropping things from his hands, having difficulty getting out of bed. His pain feels better when he stands, but he states I cant stand!. Pt has had a chronic right, posterior thigh/calf AVM which is not worse and pt and are not concerned about it currently. There is mild drainage from the area they refer to as the volcano.
--- NOTE | 2023-09-24 07:50 | DI.CT.S_ITS ---
PROCEDURE: CT HEAD/BRAIN WO CON INDICATIONS: slurred speech, twitching, general weakness x 2 days TECHNIQUE: Noncontrast 4.5 mm thick angled axial sections acquired from the foramen magnum to the vertex, with coronal and sagittal reformats. For radiation dose reduction, the following was used: automated exposure control, adjustment of mA and/or kV according to patient size. COMPARISON: None. FINDINGS: Image quality: Dental amalgam resulting in streak artifact partially limits evaluation CSF spaces: Basal cisterns are patent. No extra-axial fluid collections. Ventricles are normal in size and shape. Brain: No midline shift. No intracranial masses or hemorrhage. Becerril-white matter interface is normal. Skull and face: Calvarium and visualized facial bones are intact, without suspicious lesions. Sinuses: Visualized sinuses and mastoids are clear. IMPRESSION: No acute intracranial pathology. Dictated by: Kendra Strauss M.D. on 09/24/2023 at 8:28 Approved by: Kendra Strauss M.D. on 09/24/2023 at 8:31
[2023-09-24 07:59] LABS: Add Manual Diff / Slide Review NO; Basophils Absolute Auto 100 /uL (0-100); Basophils Percent Auto 0.7 % (0-2); Eosinophils Absolute Auto 100 /uL (0-450); Eosinophils Percent Auto 0.7 % (2-4); Hematocrit 27.3 % (41-53); Hemoglobin 8.2 g/dL (13.5-17.5); Lymphocytes Absolute Auto 500 /uL (1100-4500); Lymphocytes Percent Auto 6.3 % (25-40); Mean Corpuscular HGB Conc 30.1 % (30-36); Mean Corpuscular Hemoglobin 23.2 PG (26-34); Mean Corpuscular Volume 76.9 fL (80-100); Monocytes Absolute Auto 700 /uL (0-900); Neutrophils Absolute Auto 7100 /uL (1500-7000); Neutrophils Percent Auto 84.3 % (50-75); Platelet Count 229 X10^3/uL (150-400); Red Blood Cell Count 3.55 X10^6/uL (4.5-5.9); Red Cell Distribution Width 18.8 % (11.6-14.8); White Blood Cell Count 8.4 X10^3/uL (4.5-11.0)
[2023-09-24 08:10] LABS: COVID-19 CEPHEID 4-PLEX PCR Negative (Negative); Influenza A - CEPHEID Flu A NEGATIVE (NEGATIVE); Influenza B - CEPHEID Flu B NEGATIVE (NEGATIVE); Respiratory Syncytial Virus Negative (Negative)
[2023-09-24 08:13] LABS: Alanine Aminotransferase 26 IU/L (<50); Albumin 3.6 g/dL (3.5-5.0); Albumin Globulin Ratio 0.9 (1.0-2.8); Alkaline Phosphatase 73 U/L (38-126); Aspartate Aminotransferase 30 IU/L (17-59); BUN Creatinine Ratio 33.8 (6-22); Bilirubin Total 0.5 mg/dL (0.2-1.3); Blood Urea Nitrogen 22 mg/dL (9-20); Calcium 8.9 mg/dL (8.4-10.2); Carbon Dioxide 38 mmol/L (22-32); Chloride 100 mmol/L (98-107); Creatine Kinase 26 U/L (55-170); Estimated Glomerular Filt Rate > 60 mL/min (>60); Globulin 4.1 g/dL (1.7-4.1); Glucose 141 mg/dL (80-110); HEMOLYSIS < 15 (0-50); Lipase 26 U/L (23-300); Potassium 4.5 mmol/L (3.4-5.1); Sodium 139 mmol/L (137-145); Total Protein 7.7 g/dL (6.3-8.2)
[2023-09-24 08:14] LABS: Magnesium 1.8 mg/dL (1.6-2.3)
[2023-09-24 08:24] LABS: Troponin I 0.014 ng/mL (0.01-0.034)
[2023-09-24 08:26] LABS: Lactate (Lactic Acid) 1.5 mmol/L (0.7-2.1)
[2023-09-24 08:34] LABS: NT-proBNP (BNP-Adult 18+) 226 pg/mL (<125)
--- NOTE | 2023-09-24 08:56 | DI.CT.S_ITS ---
PROCEDURE: CT ANGIO HEAD AND NECK INDICATIONS: weakness, twitching, dysarthria, increased O2 use at home. TECHNIQUE: After the administration of intravenous contrast, 1 mm thick sections acquired from the aortic arch through the [place]. 3-dimensional dsbtrem-odbfrtprf-pezivemzzp (MIP) and/or volume rendering reformats were acquired of the central intracranial vasculature and neck separately. For radiation dose reduction, the following was used: automated exposure control, adjustment of mA and/or kV according to patient size. COMPARISON: None. FINDINGS: Image quality: Degraded by metallic artifact and contrast bolus timing. BRAIN: CSF spaces: Ventricles are normal in size and shape. Basal cisterns are patent. No extra-axial fluid collections. Brain: No significant abnormality of the brain can be seen. Skull and face: Calvarium and facial bones appear intact, without suspicious lesions. Orbits appear normal. Sinuses: Sinuses and mastoids are clear. HEAD CT ANGIOGRAPHY: Anterior circulation: Mild calcific stenosis of the cavernous segments of the internal carotid arteries bilaterally. The flow within the paired anterior cerebral arteries is normal and symmetric. The flow within the middle cerebral arteries is normal and symmetric. The anterior communicating artery is seen. No aneurysms are seen. Posterior circulation: Visualized portions of the vertebral arteries demonstrate normal caliber, and join to form a normal appearing basilar artery. Flow within the posterior cerebral arteries is normal and symmetric. No aneurysms are seen. NECK CT ANGIOGRAPHY: Carotid system: The great vessels demonstrate a conventional anatomy as they arise from the aortic arch. The origins of the common carotid arteries appear patent. The common carotid arteries demonstrate normal caliber and courses. Roughly 10% calcific origin stenosis of the bilateral internal carotid arteries. Suboptimal visualization of the mid/distal internal carotid arteries secondary to dental artifact. Posterior circulation: The origins of the vertebral arteries are not well seen. The more superior extracranial portions of both vertebral arteries are grossly patent but suboptimally opacified. Soft tissues: Visualized neck soft tissues demonstrate no suspicious abnormalities. Bones: No suspicious bony lesions. Visualized cervical spine appears normally aligned. IMPRESSION: 1. Limited examination demonstrating no definite acute process involving the arterial tree of the head and neck. Any quantitative measurements of stenosis were performed using NASCET criteria. Dictated by: Minerva Keane M.D. on 09/24/2023 at 9:47 Approved by: Minerva Keane M.D. on 09/24/2023 at 10:00
--- NOTE | 2023-09-24 08:56 | DI.CT.S_ITS ---
PROCEDURE: CT ANGIO CHEST PE PROTOCOL INDICATIONS: ?pna vs pe TECHNIQUE: After the administration of intravenous contrast, 2 mm thick sections acquired from the pulmonary apices to the posterior costophrenic angles. 3-dimensional maximum intensity projection (MIP) coronal and sagittal reformats were then acquired through the thorax. For radiation dose reduction, the following was used: automated exposure control, adjustment of mA and/or kV according to patient size. COMPARISON: [facility], CR, XR CHEST 1V, 09/24/2023, 7:34. FINDINGS: Image quality: There is suboptimal opacification of the pulmonary vasculature. Pulmonary arteries: Pulmonary arteries are normal in size, and demonstrate no definite intraluminal filling defects to suggest central pulmonary embolism. Lower Neck: No enlarged lymph nodes. Thyroid: No thyroid nodules which require sonographic follow up, per consensus guidelines. Axillae: No enlarged lymph nodes. Chest Wall: Unremarkable. Bones: Unremarkable. Lungs and Pleura: No pneumothorax or pleural effusions. There is moderate patchy airspace opacity at the right lung base. Heart: Heart size is enlarged. There is calcification of the coronary vasculature. No pericardial effusion. Thoracic Vessels: No aortic aneurysm. Mediastinum and Kia: No enlarged lymph nodes. Esophagus: No wall thickening. There is moderate patchy airspace opacity within the right lung base. hiatal hernia. Upper Abdomen: Visualized upper abdomen solid organs and bowel loops appear normal. IMPRESSION: 1. Limited examination demonstrating no definite pulmonary embolus. 2. Right basilar pneumonia. 3. Cardiomegaly. Coronary artery disease. Dictated by: Minerva Keane M.D. on 09/24/2023 at 10:08 Approved by: Minerva Keane M.D. on 09/24/2023 at 10:15
[2023-09-24 09:27] LABS: Blood Gas Collection Site Right Brachial; Fractionated Inspired Oxygen 36; HCO3 ABG 32 mmol/L (23-27); Oxygen Saturation ABG 92 % (95-100); PCO2 ABG 56.5 mmHg (35-45); PO2 ABG 68 mmHg (80-100); TCO2 ABG 34 mmol/L (23-27); pH ABG 7.36 (7.35-7.45)
[2023-09-24] MEDS: cefTRIAXone 2,000 MG in SODIUM CHLORIDE 0.9% 100 ML 200 MG IV (11:25)
--- NOTE | 2023-09-24 12:37 | P.HP_ITS ---
History of Present Illness <Ramya Johnson MD - Last Filed: 09/24/23 20:41> History of Present Illness Date Patient Seen: 09/24/23 Time Patient Seen: 13:00 Chief complaint: GLF w/ bleeding on lower back Narrative: Mr. Vang is a 67 y/o M w h/o iron deficiency anemia, morbid obesity, COPD, presenting with acute weakness and recurrent ground levels falls. Pt was in his usual state of health until last week. Around this time he began noticing some generalized body weakness and fatigue. He had never felt these symptoms before. 2-3 days ago pt also noticed that he just felt sick. He had vision changes as well as shaking, weakness, and myalgias that he had never experienced before. On Sunday morning states that he had an episode where he woke up in his recliner in a position that he could not get himself out of. After this he fell on to the floor and needed to call for help to get assistance getting back up again. states that she had been noticing some involuntary jerking movements in his sleep that had become more pronounced for the last few weeks leading up to the fall. Pt's also states that they decided to increase his at home oxygen from 4L to 6L due to worsening SOB. Pt then had another fall today (09/24/23) around 5 am. He was outside and was walking when his lets suddenly gave out from underneath him causing him to fall on to his sacrum. States that he just felt weak when suddenly his legs gave out. Denies hitting his head, LOC, dizziness, chest pain, dyspnea, or heart palpitations at this time. He was then taken to the emergency department at this time. His does note that his speech has been more slurred for several weeks now, which the pt confirms. Emergency department (full note 09/24/23): -Hemoglobin 8.2, hematocrit of 27. CO2 38, BUN 22 with a creatinine of 0.65, glucose 141, lactate 1.5. Normal LFTs negative troponin. -EKG showed no acute changes. -Head CT negative for bleed, mass or acute change. -Chest x-ray showed possible infection. <Randal Erazo - Last Filed: 09/24/23 14:45> History of Present Illness Narrative: Mr. Vang is a 67 y/o M w h/o BAR, morbid obesity, COPD, presenting with acute weakness and recurrent ground levels falls. Pt was in his usual state of health until last week. Around this time he began noticing some generalized body weakness and fatigue. He had never felt these symptoms before. 2-3 days ago pt also noticed that he just felt sick. He had vision changes as well as shaking, weakness, and myalgias that he had never experienced before. On Sunday morning states that he had an episode where he woke up in his recliner in a position that he could not get himself out of. After this he fell on to the floor and need to call for help to get assistance getting back up again. states that she had been noticing some involuntary jerking movements in his sleep that had become more pronounced for the last few weeks leading up to the fall. Pt's also states that they decided to increase his at home oxygen from Pt then had another fall today (09/24/23) around 5 am. He was outside and was walking when his lets suddenly gave out from underneath him causing him to fall on to his sacrum. States that he just felt weak when suddenly his legs gave out. Denies hitting his head, LOC, dizziness, chest pain, dyspnea, or heart palpitations at this time. He was then taken to the emergency department at this time. Emergency department (full note 09/24/23): -Hemoglobin 8.2, hematocrit of 27. CO2 38, BUN 22 with a creatinine of 0.65, glucose 141, lactate 1.5. Normal LFTs negative troponin. -EKG showed no acute changes. -Head CT negative for bleed, mass or acute change. -Chest x-ray showed possible infection. PFSH <Ramya Johnson MD - Last Filed: 09/24/23 20:41> Medical History Microscopic hematuria BPH w urinary obs/LUTS History of bladder stone Renal cyst, right Calculus of right kidney Iron deficiency anemia Sleep apnea Rib fractures (~1974) Chronic back pain Enlarged prostate Constipation Hemorrhoid (~1999) Morbid obesity Diabetes type 2, controlled H/O adenomatous polyp of colon History of nephrolithiasis (~1999) Mixed hyperlipidemia Essential hypertension (~1994) Surgical History H/O umbilical hernia repair Anesthesia Bladder stones (~2016) History of knee surgery (~1979) Family History Mother Cancer Father Myocardial infarct Brother Cancer Social History household members: spouse Smoking Status: Former smoker Meds <Ramya Johnson MD - Last Filed: 09/24/23 20:41> Home Medications and Allergies Home Medications Medication Instructions Recorded Confirmed Type acetaminophen 500 mg capsule 500 - 1,000 mg PO Q6H PRN Pain 06/29/20 09/24/23 History (Scale Score 1-3) buprenorphine 8 mg-naloxone 2 mg 2 tab sublingual DAILY 06/29/20 09/24/23 History sublingual tablet hydrochlorothiazide 25 mg tablet 25 mg PO DAILY #90 tabs 10/02/22 09/24/23 Rx lisinopril 40 mg tablet 40 mg PO DAILY #90 tabs 10/02/22 09/24/23 Rx pravastatin 20 mg tablet 20 mg PO DAILY #90 tabs 10/02/22 09/24/23 Rx tamsulosin 0.4 mg capsule 0.4 mg PO DAILY #90 caps 10/02/22 09/24/23 Rx budesonide-formoterol HFA 160 2 inh inhalation BID #10.2 grams 07/27/23 09/24/23 Rx mcg-4.5 mcg/actuation aerosol inhaler Allergies Allergy/AdvReac Type Severity Reaction Status Date / Time No Known Drug Allergies Allergy Verified 06/11/23 10:26 Review of Systems <Randal Erazo - Last Filed: 09/24/23 14:45> Review of Systems Narrative: negative unless mentioned in HPI Exam <Ramya Johnson MD - Last Filed: 09/24/23 20:41> Vital Signs (past 8 hours): - 09/24/23 06:50 09/24/23 07:11 09/24/23 07:30 Temperature 98.8 F Pulse Rate 106 H 105 H 98 H Respiratory Rate 20 37 H Blood Pressure 140/72 Pulse Oximetry 95 88 L 92 Oxygen Delivery Method Nasal Cannula Nasal Cannula Nasal Cannula Oxygen Flow Rate 4 4 4 01/29/24 07:32 09/24/23 07:32 09/24/23 07:47 Temperature Pulse Rate 100 H 95 H Respiratory Rate 41 H Blood Pressure 145/80 H Pulse Oximetry 93 92 Oxygen Delivery Method Nasal Cannula Nasal Cannula Oxygen Flow Rate 4 4 09/24/23 08:06 09/24/23 08:07 09/24/23 08:07 Temperature Pulse Rate 98 H 97 H Respiratory Rate 14 Blood Pressure 137/67 Pulse Oximetry 91 90 L Oxygen Delivery Method Nasal Cannula Oxygen Flow Rate 4 09/24/23 08:30 09/24/23 08:30 09/24/23 09:00 Temperature Pulse Rate 96 H Respiratory Rate 24 Blood Pressure 133/69 136/69 Pulse Oximetry 92 Oxygen Delivery Method Nasal Cannula Oxygen Flow Rate 4 09/24/23 09:00 09/24/23 09:44 09/24/23 09:45 Temperature Pulse Rate 99 H 97 H Respiratory Rate Blood Pressure 131/68 Pulse Oximetry 92 Oxygen Delivery Method Oxygen Flow Rate 09/24/23 09:45 09/24/23 09:59 09/24/23 10:00 Temperature Pulse Rate 98 H 97 H Respiratory Rate 40 H 24 Blood Pressure 125/56 L Pulse Oximetry 88 L 89 L 91 Oxygen Delivery Method Nasal Cannula Nasal Cannula Nasal Cannula Oxygen Flow Rate 4 4 4 09/24/23 10:00 09/24/23 10:30 09/24/23 10:30 Temperature Pulse Rate 97 H 95 H Respiratory Rate 37 H 33 H Blood Pressure 126/67 Pulse Oximetry Oxygen Delivery Method Oxygen Flow Rate 09/24/23 11:00 09/24/23 11:00 09/24/23 11:30 Temperature Pulse Rate 98 H 92 H Respiratory Rate 43 H 30 H Blood Pressure 129/67 Pulse Oximetry 92 93 Oxygen Delivery Method Nasal Cannula Oxygen Flow Rate 3.5 09/24/23 11:30 09/24/23 12:00 09/24/23 12:00 Temperature Pulse Rate 86 Respiratory Rate 30 H Blood Pressure 127/60 115/63 Pulse Oximetry 93 Oxygen Delivery Method Nasal Cannula Oxygen Flow Rate 3.5 Oxygen Delivery Method Nasal Cannula Oxygen Flow Rate 3.5 Narrative Exam Narrative: General: Fatigued appearing. HEENT: Moist mucous membranes, no conjunctival injection Neck: enlarged due to body haitus, no LAD, no JVD Respiratory: clear to auscultation bilaterally Chest: No significant point tenderness. Cardiac: Regular rate and rhythm no murmurs no bruits Abdomen: Soft, nontender, no flank pain Skin: Warm and dry, bilateral discoloration on ankles. 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 Neurologic: bilateral hand tremor at rest, 5/5 strength UE and LE, CN II-CXII intact, finger to nose with some finding that appears to be due to muscle jerks/myoclonus Speech: dysarthric, no aphasia Extremities: 2+ pitting edema with chronic venous stasis changes, well perfused Psych: Cooperative, appropriate insight and affect <Randal Cure - Last Filed: 09/24/23 14:45> Narrative Exam Narrative: General: Fatigued appearing. HEENT: Moist mucous membranes, no conjunctival injection Neck: enlarged due to body haitus Respiratory: clear to auscultation bilaterally Chest: No significant point tenderness. Cardiac: Regular rate and rhythm no murmurs no bruits Abdomen: Soft, nontender, no flank pain Skin: Warm and dry, bilateral discoloration on ankles. 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 Neurologic: bilateral hand tremor at rest. Speech: dysarthric, no aphasia Extremities: trace edema, well perfused Psych: Cooperative, appropriate insight and affect Objective <Ramya Johnson MD - Last Filed: 09/24/23 20:41> Labs 09/24/23 07:35 09/24/23 07:35 Labs: Laboratory Results - last 24 hr 09/24/23 09/24/23 09/24/23 07:15 07:15 07:20 WBC RBC Hgb Hct MCV MCH MCHC RDW Plt Count Neut % (Auto) Lymph % (Auto) [place] % (Auto) Eos % (Auto) Baso % (Auto) Neut # (Auto) Lymph # (Auto) [place] # (Auto) Eos # (Auto) Baso # (Auto) ABG Sample Site ABG pH ABG pCO2 ABG pO2 ABG HCO3 ABG Total CO2 ABG O2 Saturation ABG Base Excess FiO2 Sodium Potassium Chloride Carbon Dioxide BUN Creatinine Estimated GFR BUN/Creatinine Ratio Glucose Lactate Calcium Magnesium Total Bilirubin AST ALT Alkaline Phosphatase Total Creatine Kinase Troponin I NT-Pro-B Natriuret Pep 226 H Total Protein Albumin Globulin Albumin/Globulin Ratio Lipase Urine Color Yellow Urine Appearance Clear Urine pH 5.5 Normal Ur Specific [place] >=1.030 H Urine Protein Trace H Urine Glucose (UA) Negative Urine Ketones Negative Urine Occult Blood Negative Urine Nitrate Negative Urine Bilirubin Negative Urine Urobilinogen 1.0 Ur Leukocyte Esterase Negative Urine RBC 0-1/hpf Urine WBC 0-1/hpf Ur Squamous Epith Cells 0-1 /hpf Urine Bacteria Occasional (0-1) Urine Mucus 2+ H Ur Culture Indicated? Cult not indicated Vol Urine Centrifuged 10ml (spun) U Opiates 300ng/mL cut Negative Ur Oxycodone Screen Negative Urine Methadone Screen Negative Ur Barbiturates Screen Negative U Tricyclic Antidepress Negative Ur Phencyclidine Scrn Negative Ur Amphetamines Screen Negative U Methamphetamines Scrn Negative Ur MDMA Scrn (Ecstasy) Negative U Benzodiazepines Scrn Negative Urine Cocaine Screen Negative U Marijuana (THC) Screen Negative Urine Specific [place] Normal Ur Creatinine Normal SARS-CoV-2 (PCR) Negative Influenza A (RT-PCR) Flu a negative Influenza B (RT-PCR) Flu b negative RSV (PCR) Negative 09/24/23 09/24/23 09/24/23 07:35 07:45 09:15 WBC 8.4 RBC 3.55 L Hgb 8.2 L Hct 27.3 L MCV 76.9 L MCH 23.2 L MCHC 30.1 RDW 18.8 H Plt Count 229 Neut % (Auto) 84.3 H Lymph % (Auto) 6.3 L [place] % (Auto) 8.0 Eos % (Auto) 0.7 L Baso % (Auto) 0.7 Neut # (Auto) 7100 H Lymph # (Auto) 500 L [place] # (Auto) 700 Eos # (Auto) 100 Baso # (Auto) 100 ABG Sample Site Right brachial ABG pH 7.36 ABG pCO2 56.5 H ABG pO2 68 L ABG HCO3 32 H ABG Total CO2 34 H ABG O2 Saturation 92 L ABG Base Excess 7.0 H FiO2 36 Sodium 139 Potassium 4.5 Chloride 100 Carbon Dioxide 38 H BUN 22 H Creatinine 0.65 L Estimated GFR > 60 BUN/Creatinine Ratio 33.8 H Glucose 141 H Lactate 1.5 Calcium 8.9 Magnesium 1.8 Total Bilirubin 0.5 AST 30 ALT 26 Alkaline Phosphatase 73 Total Creatine Kinase 26 L Troponin I 0.014 NT-Pro-B Natriuret Pep Total Protein 7.7 Albumin 3.6 Globulin 4.1 Albumin/Globulin Ratio 0.9 L Lipase 26 Urine Color Urine Appearance Urine pH Ur Specific [place] Urine Protein Urine Glucose (UA) Urine Ketones Urine Occult Blood Urine Nitrate Urine Bilirubin Urine Urobilinogen Ur Leukocyte Esterase Urine RBC Urine WBC Ur Squamous Epith Cells Urine Bacteria Urine Mucus Ur Culture Indicated? Vol Urine Centrifuged U Opiates 300ng/mL cut Ur Oxycodone Screen Urine Methadone Screen Ur Barbiturates Screen U Tricyclic Antidepress Ur Phencyclidine Scrn Ur Amphetamines Screen U Methamphetamines Scrn Ur MDMA Scrn (Ecstasy) U Benzodiazepines Scrn Urine Cocaine Screen U Marijuana (THC) Screen Urine Specific [place] Ur Creatinine SARS-CoV-2 (PCR) Influenza A (RT-PCR) Influenza B (RT-PCR) RSV (PCR) Assessment & Plan <Ramya Johnson MD - Last Filed: 09/24/23 20:41> Assessment and plan (1) Falls: Qualifiers: Encounter type: initial encounter Qualified Code(s): W19.XXXA - Unspecified fall, initial encounter Status: Acute (2) Weakness: Status: Acute (3) Pneumonia: Qualifiers: Laterality: bilateral Lung location: lower lobe of lung Pneumonia type: due to unspecified organism Qualified Code(s): J18.9 - Pneumonia, unspecified organism Status: Acute (4) Morbid obesity: Status: Chronic (5) Iron deficiency anemia: Qualifiers: Iron deficiency anemia type: unspecified iron deficiency Qualified Code(s): D50.9 - Iron deficiency anemia, unspecified Status: Chronic Assessment & Plan narrative: Mr. Vang is a 67 y/o M w h/o iron deficiency anemia, morbid obesity, COPD, DM diet controlled presenting with acute weakness and recurrent ground levels falls, noted to have frequent myoclonic jerking motions particularly in his upper extremities, and mildly slurred speech as well. 1) Pneumonia: Weakness likely related to underlying pneumonia in setting of abnormal CXR and chest CT, increased SOB at home (requiring increased oxygen), and extreme fatigue. Currently stable on 3-4L oxygen. No elevation in WBC Count. - Continue Ceftriaxone and Azithromycin - Oxygen support ongoing, titrate as needed - RT consulted - Encourage IS regularly 2) Iron deficiency anemia: Acute on chronic. Pt with 1 point drop in Hgb since Oncologist appt last week. Has been thought to be due to AVM and continuous leaking. Likely also contributing to fatigue/weakness. - Continue to trend - Iron panel in the morning. Consider inpatient iron transfusion. Last received iron transfusion 08/17. Not meeting criteria for PRBC transfusion at this time. 3) Weakness: Relatively acute onset. Likely due to pneumonia and anemia as above. No localizing weakness/neurological symptoms. Pt does have newer onset of slurred speech, however. ED initial work-up for CVA negative. Pt unfortunately cannot have an MRI at this facility due to abdominal circumference. - Echocardiogram tomorrow to evaluate for potential cardiomyopathy/further work- up for potential CVA - Continue telemetry - PT/OT consulted 4) Myoclonus: New finding. Sporadic. Unclear etiology. Pt does not seizure history. No known exposures. - Labs ordered for the AM including thyroid, B12 - If persists will need outpatient MRI, consider Neurology consult 5) DM Type 2, Diet controlled: Historically with excellent control - Pt declines blood sugar checks FEN: General diet Code: Full DVT ppx: Lovenox Dispo: Pending stabilization of respiratory status, improvement in strength or evidence of gradual recovering requiring rehab facility. Pt desires discharge home. Anticipate at least 2 midnights. I verified the medical student?s documentation in the medical record. I personally performed a physical exam and medical decision making. I made appropriate changes to the documentation and the assessment and plan based on my verification, exam and medical decision making. <Randal Kacey - Last Filed: 09/24/23 14:45> Assessment and plan (1) Falls: (2) Weakness: (3) Pneumonia: (4) Morbid obesity: (5) Iron deficiency anemia: Assessment & Plan narrative: #weakness #fatigue #ground level fall Pt's condition likely related to underlying pneumonia in setting of abnormal CXR, increased SOB at home (requiring increased oxygen), and extreme fatigue. Weakness also likely due to to anemia as contributing etiology. Ground level fall less concerning for arrhythmia at this time but cannot be ruled out considering the sudden nature of dropping to the ground suddenly. Cannot entirely rule out cardiomyopathy at this time. -continue ceftriaxone and azithromycin for treatment of pneumonia -labs: continue to trend cbc, cmp, and iron panel -continuous telemetry -Q8 vitals -regular diet -respiratory therapy
[2023-09-24] MEDS: lisinopriL 20 MG TABLET 40 MG PO (14:01)
[2023-09-24] MEDS: TAMSULOSIN 0.4 MG CAPSULE PO (14:01)
[2023-09-24] MEDS: hydroCHLOROthiazide 25 MG TABLET PO (14:01)
[2023-09-24] MEDS: BUPRENORPHINE/NALOXONE 8MG/2MG 1 TAB 2 TAB SL (14:02)
--- NOTE | 2023-09-24 15:14 | OT.IP.EVAL ---
Past Medical History (Last Reviewed 09/24/23 @ 07:55 by Briana Rabago DO) BPH w urinary obs/LUTS Calculus of right kidney Chronic back pain Constipation Diabetes type 2, controlled Enlarged prostate Essential hypertension (~1994) H/O adenomatous polyp of colon Hemorrhoid (~1999) History of bladder stone History of nephrolithiasis (~1999) Iron deficiency anemia Microscopic hematuria Mixed hyperlipidemia Morbid obesity Renal cyst, right Rib fractures (~1974) Sleep apnea Surgical History (Last Reviewed 09/24/23 @ 07:55 by Briana Rabago DO) Anesthesia Bladder stones (~2016) H/O umbilical hernia repair History of knee surgery (~1979) Occupational Therapy Inpatient Evaluation/Re-Eval M1 PT/OT-IP Prior Functional Status Start: 09/24/23 15:09 Freq: NEEDED Status: Active Protocol: Document 09/24/23 15:52 CGR (Rec: 09/24/23 16:14 CGR [id number]) Medical Review Prior Functional Status Medical History Reviewed Yes Communication Pt is an effective verbal communicator, however, he does tend to have his words slur together at times. Mobility and Gait Pt used a SPC for his mobility (for a few years per ). Pt has had falls recently. Activities of Daily Living and IADL's Pt's assist with changing his dressing and often his clothing but pt states he can dress IND except socks. Pt's handles all of the shopping, cooking, cleaning, finances, and laundry. Social History Household Members spouse Living Arrangements House Number of Floors (Floors) One Floor Number of Stairs To Enter/Railing? 1 step to enter with R rail. Home Environment Standard Height Toilet,Walk in Shower,Tub/Shower Home Equipment Straight Cane,Lift Recliner Employment Status Retired Additional Social History Comment Pt sleeps in the lift recliner . 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 M2 OT-IP Current Condition Start: 09/24/23 15:52 Freq: Status: Active Protocol: Document 09/24/23 15:52 CGR (Rec: 09/24/23 16:14 CGR [id number]) Occupational Therapy Current Condition Current Condition Evaluation Date 09/24/23 Treatment Diagnosis GLF Diagnosis Onset Date 09/24/23 M3 OT- IP Subjective and Pain Start: 09/24/23 15:52 Freq: Status: Active Protocol: Document 09/24/23 15:52 CGR (Rec: 09/24/23 16:14 CGR [id number]) OT- Subjective Occupational Therapy Visit Type Type Initial Evaluation Visit Start Time 14:33 Visit Stop Time 15:14 Notes Pt's present throughout session. OT Pain Assessment Pain When Pain Assessed At Rest Pain Present Pain Present Pain Reported Location right posterior thigh/calf Scale Used did not rate Management Techniques Distraction,Elevation, Modification of Treatment M4 OT- IP ADL's Start: 09/24/23 15:52 Freq: Status: Active Protocol: Document 09/24/23 15:52 CGR (Rec: 09/24/23 16:14 CGR [id number]) OT [id number] Comments OT Self-Feeding Comments not meal time OT ADL-Grooming Comments OT Grooming Comments pt declined OT ADL-Oral Care Comments Oral Care Comments pt declined OT ADL-Dressing Comments OT Dressing Comments pt declined, pt wearing shirt but no pants and declined hospital gown stating that he gets tangled in it. OT ADL-Toileting Comments OT Toileting Comments Pt requested to use urinal but requested that this news writer leave the room. Unable to state how much assist he needed from his who was present in the room. OT ADL-Bathing Comments OT Bathing Comments not performed M5 OT- IP IADL's Start: 09/24/23 15:52 Freq: Status: Active Protocol: Document 09/24/23 15:52 CGR (Rec: 09/24/23 16:14 CGR [id number]) OT-Instrumental Activities of Daily Living Deficits IADL Deficits Identified Deficits Home Safety Awareness Awareness of Need for Assistance at Home Good Awareness Ability to Problem Solve Emergency Able to Problem Solve Situations Medication Management Medication Management Caregiver Administers Money Management Money Management Caregiver Provides Assistance Meal Preparation Meal Preparation Caregiver Provides Assist Production Line Operator Production Line Operator Caregiver Provides Assist Driving Driving Comments Pt states he has driven as recently as a few weeks ago. Pt's confirms. M6 OT- IP Functional Cognition Start: 09/24/23 15:52 Freq: Status: Active Protocol: Document 09/24/23 15:52 CGR (Rec: 09/24/23 16:14 CGR [id number]) Cognitive Factors Limiting Selfcare Function Cognitive Ability Level of Alertness Alert Patient Orientation Name,Age,Birthday,Month,Date, Year,Day of Week,Place, Situation Attention Span Ability Capable of Focused Attention, Capable of Sustained Attention Ability to Follow Commands Able to Follow One Step Commands with Increased Time, Able to Follow One Step Commands with Repetition OT- Vision and Hearing OT- Hearing Assessment OT- Hearing Assessment WFL OT- Vision Assessment Visual Acuity Glasses All The Time Visual Attentiveness WFL Occular Pursuits WFL Visual Convergence WFL Vision Assessment Comments Pt states he wears trifocals but they are very old. M7 OT- IP Mobility and Balance Start: 09/24/23 15:52 Freq: Status: Active Protocol: Document 09/24/23 15:52 CGR (Rec: 09/24/23 16:14 CGR [id number]) OT- Bed Mobility Assessment Supine to Sit Supine to Sit Assist Standby Assistance,Head of Bed Elevated,Bedrails Sit to Supine Sit to Supine Assist Standby Assistance,Head of Bed Elevated,Bedrails Scooting Scooting to Edge of Bed Standby Assistance,Head of Bed Elevated,Bedrails Scooting Up and Down in Bed Standby Assistance,Head of Bed Elevated,Bedrails OT-Transfer Assessment Comments Mobility Comments Pt declined to perform, stating that he was concerned about his legs giving out and falling again. OT- Gait Assessment Comments Gait Ability Comments not performed OT- Balance Assessment Sitting Balance and Reactions Static Sitting Balance Ability Normal Dynamic Sitting Balance Ability Normal M8 OT- IP Objective Assessments Start: 09/24/23 15:52 Freq: Status: Active Protocol: Document 09/24/23 15:52 CGR (Rec: 09/24/23 16:14 CGR [id number]) OT Gross Range of Motion Upper Extremity Range of Motion Assessment Within Functional Limits OT Strength Upper Extremity Strength Assessment Within Functional Limits Shoulder 3+/5 Elbow 5/5 Forearm 5/5 Wrist 5/5 Hand 5/5 OT- Coordination Assessment Upper Extremity Finger to Nose Test Within Functional Limits Finger Tapping Test Within Functional Limits OT-Muscle Tone Assessment Comments Muscle Tone Comments myoclonus in UE throughout session. OT Sensation Assessment Comments Summary Comments Pt states that he has numbness and tingling that come and go in BUE. Edema Edema Present Edema Comments Pt's hands both appear to be slightly edemisis M9 OT- IP Assessment and Plan Start: 09/24/23 15:52 Freq: Status: Active Protocol: Document 09/24/23 15:52 CGR (Rec: 09/24/23 16:14 CGR [id number]) OT Summary Assessment and Plan Potential Rehabilitation Potential Good Analytic Complexity at Evaluation Moderate Summary OT Impairments Pain,Strength,Coordination, Sensation,Functional Mobility, Grooming,Dressing,Toileting, Bathing,Toilet Transfers, Shower Transfers,Activity Tolerance Progress Towards Goals Slow Progress due to Medical Issues,Slow Progress due to Activity Tolerance Assessment Summary Pt presents as a moderate complexity evaluation s/p admit for GLF. Pt has noticed myoclonus and UE numbness and tingling that come and go in the last few weeks to months. Pt states that he thinks his legs just gave out and that is why he fell. Pt will benefit from continued therapy services. Pt states that he would like to go home when discharged. Goals Self-Feeding Goal Independent Grooming Goal Independent Dressing Goal Independent Toileting Goal Independent Bathing Goal Independent Toilet Transfer Goal Independent Shower Transfer Goal Independent Days to Meet Goals 15 Frequency of Treatment Frequency Of Treatment Once a Day Treatment Plan OT Treatment Plan ADL Training,Functional Mobility,Patient/Family Education,Discharge Planning Other Treatment Recommendations and Next out of bed assessment if Treatment Focus appropriate. Discharge Recommendations OT Discharge Recommendations Home vs SNF Transportation Needs at Discharge Wheelchair/Cabulance
--- NOTE | 2023-09-24 15:51 | PT-IP ANOTE ---
Received PT orders and completed chart review. Medical work up of anemia and myoclonus continues. Per discussion with attending physician and OT, PT to hold assessment today and follow up 09/25/23 as appropriate.
--- NOTE | 2023-09-24 16:24 | DI.ECHO.S_ITS ---
[place] [facility]---------+ [facility] +---------+ : : [address] : : : : [id number] : : : : Phone: [phone]+ Echocardiogram Report + + :Name: PURNIMA GONZALES Study Date: 09/24/2023 Height: 69 in : :[facility] ReadingLocation: Weight: 384 lb : : Gender: Male BSA: 2.7 m2 : :: 1955 Age: 67 yrs BP: 115/63 mmHg: :Reason For Study: MURMUR, CONCERN FOR CVA : :Ordering Physician: SARAI, : :DANIEL EDWARDS Performed By: Priyanka Biggs : :Referring: DANIEL MOON MD : + + Interpretation Summary Technically difficult study. Mild concentric left ventricular hypertrophy with ejection fraction 65-70%. No significant valvular abnormality. Procedure: A two-dimensional transthoracic echocardiogram with color flow and Doppler was performed. The study quality was technically difficult. There is no prior echocardiogram noted for this patient. A saline contrast injection was performed to assess for cardiac shunting. A contrast injection of Definity was performed to improve assessment of LV function. The patient was in sinus rhythm with heart rates between 85-95 bpm during the exam. Left Ventricle: The left ventricle is normal in size. There is mild concentric left ventricular hypertrophy. The ejection fraction is estimated to be 65-70%. There are no obvious focal wall motion abnormalities noted but poor endocardial definition reduces the sensitivity for the detection of such. Right Ventricle: The right ventricle is not well visualized. The right ventricular systolic function is normal. Atria: The left atrium grossly appears normal in size. Right atrial size is normal. There is no Doppler evidence for an interatrial shunt. Mitral Valve: The mitral valve is normal in structure and function. There is trace mitral regurgitation. Aortic Valve: The aortic valve is mildly calcified. The aortic valve is trileaflet. There is mild aortic valve sclerosis. There is no aortic valve stenosis. No aortic regurgitation is present. Tricuspid Valve: The tricuspid valve is normal in structure and function. There is trace tricuspid regurgitation. Pulmonary artery pressures cannot be estimated because of the lack of a measurable TR jet velocity. Pulmonic Valve: The pulmonic valve is not well seen, but is grossly normal. There is trace pulmonic regurgitation. Great Vessels: The aortic root is normal size. The dimensions of the ascending aorta are normal. The IVC is dilated (diameter is greater than 2.1 cm) yet it collapses greater than 50% with a sniff. This suggests a right atrial pressure of 8 mm Hg. Pericardium/ Pleura There is no pericardial effusion. There is no pleural effusion. MMode/2D Measurements & Calculations LVIDd: 5.8 cm LVOT diam: 2.0 cm LVIDs: 3.5 cm Ao root diam: 3.1 cm FS: 39.3 % asc Aorta Diam: 3.1 cm IVSd: 1.3 cm LVPWd: 1.1 cm LV davis. diameter/BSA (cm/m^2): 2.1 LV sys. diameter/BSA (cm/m^2): 1.3 LA A4 area: 25.5 cm2 RA long axis: 5.1 cm LA length (vol): 6.2 cm RA area: 23.3 cm2 RA vol: 90.4 ml RA : 33.2 ml/m2 IVC diam: 2.8 cm TAPSE: 3.2 cm Doppler Measurements & Calculations Ao V2 max: 175.0 cm/sec LVOT Max Richard: 103.6 cm/sec Ao V2 mean: 117.2 cm/sec LV V1 max P.3 mmHg Ao max P.2 mmHg LV V1 VTI: 22.0 cm Ao mean P.1 mmHg JOVAN(I,D): 2.1 cm2 Ao V2 VTI: 32.8 cm JOVAN(V,D): 1.8 cm2 sev ratio: 0.67 JOVAN indexed to BSA (cm^2/m^2): 0.75 MV E max richard: 108.1 cm/sec PA V2 max: 120.2 cm/sec MV A max richard: 95.8 cm/sec PA V2 mean: 86.6 cm/sec MV E/A: 1.1 PA mean P.3 mmHg Med Peak E' Richard: 10.6 cm/sec E/E' med: 10.2 Lat Peak E' Richard: 9.7 cm/sec E/E' lat: 11.1 E/e' average: 10.6 MV dec time: 0.24 sec MVA(VTI): 2.0 cm2 MV V2 mean: 84.1 cm/sec SV(LVOT): 67.3 ml MV mean P.0 mmHg MV V2 VTI: 33.9 cm Electronically signed by: Jake Zee on Reading Physician:09/24/2023 05:51 PM
--- NOTE | 2023-09-24 18:22 | PC.WOUNDPHOT ---
Chronic wound to back of right and left thighs, greater on right:
[2023-09-24] MEDS: ACETAMINOPHEN 325 MG TABLET 650 MG PO (20:10)
[2023-09-24] MEDS: ALBUTEROL 2.5 MG/3 ML NEB (ADULT) INH (21:14)
[2023-09-24] MEDS: BUDESONIDE 0.5 MG/2 ML NEB INH (21:15)
[2023-09-25] VITALS (12 sets, daily range): BP systolic 124–144; BP diastolic 55–78; PULSE 88–101; RESP 18–22; TEMP 35.7–36.1; O2SAT 91–98
--- NOTE | 2023-09-25 01:46 | PC.NURSE ---
Patient continues to take off nasal cannula or it falls off nose, switched to oximask. RT increased O2 to 6L. Patient continues to take off oximask in sleep, patient SaO2 will drop to 60% during this. Continuing to wake patient up, replace oximask on face, educate patient to take deep breaths when awake. SaO2 will increase to 90s after a few deep breaths with oxygen on. Patient falls back asleep during this. Continuous pulse ox on ear.
[2023-09-25 05:10] LABS: Add Manual Diff / Slide Review NO; Basophils Absolute Auto 100 /uL (0-100); Eosinophils Absolute Auto 100 /uL (0-450); Eosinophils Percent Auto 1.9 % (2-4); Hematocrit 27.1 % (41-53); Hemoglobin 8.2 g/dL (13.5-17.5); Lymphocytes Absolute Auto 700 /uL (1100-4500); Lymphocytes Percent Auto 11.3 % (25-40); Mean Corpuscular HGB Conc 30.3 % (30-36); Mean Corpuscular Hemoglobin 22.7 PG (26-34); Mean Corpuscular Volume 74.9 fL (80-100); Monocytes Absolute Auto 600 /uL (0-900); Monocytes Percent Auto 9.7 % (3-14); Neutrophils Absolute Auto 4900 /uL (1500-7000); Neutrophils Percent Auto 76.1 % (50-75); Platelet Count 197 X10^3/uL (150-400); Red Blood Cell Count 3.61 X10^6/uL (4.5-5.9); Red Cell Distribution Width 18.9 % (11.6-14.8); White Blood Cell Count 6.4 X10^3/uL (4.5-11.0)
[2023-09-25 05:27] LABS: Magnesium 1.9 mg/dL (1.6-2.3)
[2023-09-25 05:29] LABS: Alanine Aminotransferase 27 IU/L (<50); Albumin 3.4 g/dL (3.5-5.0); Albumin Globulin Ratio 0.9 (1.0-2.8); Alkaline Phosphatase 68 U/L (38-126); Aspartate Aminotransferase 37 IU/L (17-59); BUN Creatinine Ratio 36.4 (6-22); Bilirubin Total 0.5 mg/dL (0.2-1.3); Blood Urea Nitrogen 20 mg/dL (9-20); Calcium 8.7 mg/dL (8.4-10.2); Carbon Dioxide 38 mmol/L (22-32); Chloride 97 mmol/L (98-107); Estimated Glomerular Filt Rate > 60 mL/min (>60); Glucose 132 mg/dL (80-110); HEMOLYSIS < 15 (0-50); Potassium 3.9 mmol/L (3.4-5.1); Sodium 138 mmol/L (137-145); Total Protein 7.4 g/dL (6.3-8.2)
[2023-09-25 05:39] LABS: HEMOLYSIS < 15 (0-50); Iron 25 ug/dL (49-181)
[2023-09-25 05:50] LABS: Percent Iron Saturation 7 % (20-50); Total Iron Binding Capacity 351 ug/dL (261-462); Transferrin 308 mg/dL (206-381)
[2023-09-25 06:17] LABS: Vitamin B12 432 pg/mL (239-931)
[2023-09-25] MEDS: ACETAMINOPHEN 325 MG TABLET 650 MG PO (07:41)
[2023-09-25] MEDS: lisinopriL 20 MG TABLET 40 MG PO (08:21)
[2023-09-25] MEDS: PRAVASTATIN 20 MG TABLET PO (08:21)
[2023-09-25] MEDS: BUPRENORPHINE/NALOXONE 8MG/2MG 1 TAB 2 TAB SL (08:21)
[2023-09-25] MEDS: hydroCHLOROthiazide 25 MG TABLET PO (08:21)
[2023-09-25] MEDS: TAMSULOSIN 0.4 MG CAPSULE PO (08:22)
[2023-09-25] MEDS: ENOXAPARIN 40 MG/0.4 ML SYRINGE SUBCUT ×2 (08:22→21:39)
[2023-09-25] MEDS: cefTRIAXone 1,000 MG in SODIUM CHLORIDE 0.9% 100 ML 200 MG IV (10:33)
--- NOTE | 2023-09-25 10:55 | P.PN_ITS ---
Subjective <Ramya Johnson MD - Last Filed: 09/25/23 20:26> Subjective Interval history: Pt appears more fatigued and tired than yesterday. States that he had a poor night's rest with a lot of interruptions with staff coming in and waking him up. He had a difficult time keeping on his NC overnight, and it was transitioned to oxymask, which the pt continued to find challenges with. States that he is mostly concerned with his involuntary upper extremities jerking that he continues to experience. Reports that he does not feel overly short of breath and mostly just feels fatigued and weak. 24 hr events: -sat up a the side of the bed with OT. States that it felt good. -Iron was low this morning -SpO2 to mid 70s's during the night and at times during speech. -continues IV ceftriaxone and azithromycin -TTE pending <Randal Cure - Last Filed: 09/25/23 14:18> Subjective Date Patient Seen: 09/25/23 Time Patient Seen: 08:00 Interval history: Pt appears more fatigued and tired than yesterday. States that he had a poor night's rest with a lot of interruptions with staff coming in and waking him up. States that he is mostly concerned with his involuntary upper extremities jerking that he continues to experience. Reports that he does not feel overly short of breath and mostly just feels fatigued and weak. 24 hr events: -sat up a the side of the bed with OT. States that it felt good. -Iron was low this morning -SpO2 to mid 70s's during the night and at times during speech. -continues IV ceftriaxone and azithromycin -TTE pending Exam <Ramya Johnson MD - Last Filed: 09/25/23 20:26> Vital Signs (past 8 hours): - 09/25/23 04:20 09/25/23 08:00 09/25/23 08:21 Temperature 96.5 F L 97 F L Pulse Rate 89 88 Respiratory Rate 20 Blood Pressure 137/78 144/78 H Pulse Oximetry 97 92 Oxygen Delivery Method Oxygen Flow Rate 10 10 Fraction of Inspired Oxygen 09/25/23 09:44 Temperature Pulse Rate Respiratory Rate Blood Pressure Pulse Oximetry 94 Oxygen Delivery Method Nasal Cannula Oxygen Flow Rate 3.5 Fraction of Inspired Oxygen 34 Fraction of Inspired Oxygen 34 SaO2/FiO2 Ratio 276 Oxygen Delivery Method Nasal Cannula Oxygen Flow Rate 3.5 <Randal Kacey - Last Filed: 09/25/23 14:18> Narrative Exam Narrative: General: Fatigued appearing. HEENT: Moist mucous membranes, no conjunctival injection Neck: enlarged due to body haitus, no LAD, no JVD Respiratory: clear to auscultation bilaterally Chest: No significant point tenderness. Cardiac: Regular rate and rhythm no murmurs no bruits Abdomen: Soft, nontender, no flank pain Skin: Warm and dry, bilateral discoloration on ankles. 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 Neurologic: Only opens eyes when asked to. bilateral hand tremor at rest, 5/5 strength UE and LE, abnormal finger to nose findings due to muscle jerks/myoclonus Speech: dysarthric, no aphasia Extremities: 2+ pitting edema with chronic venous stasis changes, well perfused Psych: Cooperative, appropriate insight and affect Objective <Ramya Johnson MD - Last Filed: 09/25/23 20:26> Labs 09/25/23 04:51 09/25/23 04:51 Labs: Laboratory Results - last 24 hr 09/25/23 04:51 WBC 6.4 RBC 3.61 L Hgb 8.2 L Hct 27.1 L MCV 74.9 L MCH 22.7 L MCHC 30.3 RDW 18.9 H Plt Count 197 Neut % (Auto) 76.1 H Lymph % (Auto) 11.3 L [place] % (Auto) 9.7 Eos % (Auto) 1.9 L Baso % (Auto) 1.0 Neut # (Auto) 4900 Lymph # (Auto) 700 L [place] # (Auto) 600 Eos # (Auto) 100 Baso # (Auto) 100 Sodium 138 Potassium 3.9 Chloride 97 L Carbon Dioxide 38 H BUN 20 Creatinine 0.55 L Estimated GFR > 60 BUN/Creatinine Ratio 36.4 H Glucose 132 H Calcium 8.7 Magnesium 1.9 Iron 25 L TIBC 351 % Saturation 7 L Transferrin 308 Total Bilirubin 0.5 AST 37 ALT 27 Alkaline Phosphatase 68 Total Protein 7.4 Albumin 3.4 L Globulin 4.0 Albumin/Globulin Ratio 0.9 L Vitamin B12 432 TSH 0.570 PFSH <Ramya Johnson MD - Last Filed: 09/25/23 20:26> Medical History Microscopic hematuria BPH w urinary obs/LUTS History of bladder stone Renal cyst, right Calculus of right kidney Iron deficiency anemia Sleep apnea Rib fractures (~1974) Chronic back pain Enlarged prostate Constipation Hemorrhoid (~1999) Morbid obesity Diabetes type 2, controlled H/O adenomatous polyp of colon History of nephrolithiasis (~1999) Mixed hyperlipidemia Essential hypertension (~1994) Surgical History H/O umbilical hernia repair Anesthesia Bladder stones (~2016) History of knee surgery (~1979) Family History Mother Cancer Father Myocardial infarct Brother Cancer Social History household members: spouse Smoking Status: Former smoker Assessment & Plan <Ramya Johnson MD - Last Filed: 09/25/23 20:26> Assessment and plan (1) Falls: Qualifiers: Encounter type: initial encounter Qualified Code(s): W19.XXXA - Unspecified fall, initial encounter Status: Acute (2) Weakness: Status: Acute (3) Pneumonia: Qualifiers: Laterality: bilateral Lung location: lower lobe of lung Pneumonia type: due to unspecified organism Qualified Code(s): J18.9 - Pneumonia, unspecified organism Status: Acute (4) Morbid obesity: Status: Chronic (5) Iron deficiency anemia: Qualifiers: Iron deficiency anemia type: unspecified iron deficiency Qualified Code(s): D50.9 - Iron deficiency anemia, unspecified Status: Chronic Assessment & Plan narrative: Mr. Vang is a 67 y/o M w h/o iron deficiency anemia, morbid obesity, COPD, DM diet controlled, HTN, and chronic pain initially presenting with acute weakness and recurrent ground levels falls. Now noted to have frequent myoclonic jerking motions particularly in his upper extremities. #Pneumonia With acute on chronic respiratory failure. Pneumonia likely in setting of abnormal CXR and chest CT, increased SOB at home (requiring increased home O2), and extreme fatigue. Remains stable on 3-4L oxygen. - Continue Ceftriaxone and Azithromycin - Oxygen support ongoing, titrate as needed - RT consulted - Continue to encourage IS #BAR Iron panel showed low iron levels. - IV Iron infusion today - Continue to trend #weakness #myoclonus Acute onset of weakness likely due to pneumonia and BAR. Myoclonus remains a new finding with unclear etiology at this time. B12 and thyroid levels came back wnl today. Pt cannot have an MRI at this facility due to abdominal circumference. - Echocardiogram pending - Continue telemetry - PT/OT consulted - schedule outpatient MRI and neurology consult chronic/ongoing #T2DM Diet controlled. Historically with excellent control - Pt declines blood sugar checks #HTN BP overall in good range - Continue home antihypertensives #Chronic pain Stable - Continue home Suboxone FEN: General diet Code: Full DVT ppx: Lovenox Dispo: Pending stabilization of respiratory status, improvement in strength or evidence of gradual recovering requiring rehab facility. Pt desires discharge home. I verified the medical student?s documentation in the medical record. I personally performed a physical exam and medical decision making. I made appropriate changes to the documentation and the assessment and plan based on my verification, exam and medical decision making. <Randal Erazo - Last Filed: 09/25/23 14:18> Assessment and plan (1) Falls: (2) Weakness: (3) Pneumonia: (4) Morbid obesity: (5) Iron deficiency anemia: Assessment & Plan narrative: Mr. Vang is a 67 y/o M w h/o iron deficiency anemia, morbid obesity, COPD, DM diet controlled initially presenting with acute weakness and recurrent ground levels falls. Now noted to have frequent myoclonic jerking motions particularly in his upper extremities. #Pneumonia Pneumonia likely in setting of abnormal CXR and chest CT, increased SOB at home (requiring increased home O2), and extreme fatigue. Remains stable on 3-4L oxygen. - Continue Ceftriaxone and Azithromycin - Oxygen support ongoing, titrate as needed - RT consulted - Continue to encourage IS #BAR Iron panel showed low iron levels. - Start iron infusion - Continue to trend #weakness #myoclonus Acute onset of weakness likely due to pneumonia and BAR. Myoclonus remains a new finding with unclear etiology at this time. B12 and thyroid levels came back wnl today. Pt cannot have an MRI at this facility due to abdominal circumference. - Echocardiogram pending - Continue telemetry - PT/OT consulted -schedule outpatient MRI and neurology consult chronic/ongoing #T2DM Diet controlled. Historically with excellent control - Pt declines blood sugar checks FEN: General diet Code: Full DVT ppx: Lovenox Dispo: Pending stabilization of respiratory status, improvement in strength or evidence of gradual recovering requiring rehab facility. Pt desires discharge home. Anticipate at least 2 midnights.
--- NOTE | 2023-09-25 11:15 | PT.IIE ---
Current Diagnoses Iron deficiency anemia, unspecified (09/24/23) Morbid (severe) obesity due to excess calories (09/24/23) Pneumonia, unspecified organism (09/24/23) Weakness (09/24/23) Unspecified fall, initial encounter (09/24/23) Surgical History (Last Reviewed 09/24/23 @ 07:55 by Briana Rabago DO) Anesthesia Bladder stones (~2016) H/O umbilical hernia repair History of knee surgery (~1979) Medical History (Last Reviewed 09/24/23 @ 07:55 by Briana Rabago DO) BPH w urinary obs/LUTS Calculus of right kidney Chronic back pain Constipation Diabetes type 2, controlled Enlarged prostate Essential hypertension (~1994) H/O adenomatous polyp of colon Hemorrhoid (~1999) History of bladder stone History of nephrolithiasis (~1999) Iron deficiency anemia Microscopic hematuria Mixed hyperlipidemia Morbid obesity Renal cyst, right Rib fractures (~1974) Sleep apnea Physical Therapy Inpatient Evaluation/Re-Eval M1 PT/OT-IP Prior Functional Status Start: 09/24/23 15:09 Freq: NEEDED Status: Active Protocol: Document 09/24/23 15:52 CGR (Rec: 09/24/23 16:14 CGR [id number]) Medical Review Prior Functional Status Medical History Reviewed Yes Communication Pt is an effective verbal communicator, however, he does tend to have his words slur together at times. Mobility and Gait Pt used a SPC for his mobility (for a few years per ). Pt has had falls recently. Activities of Daily Living and IADL's Pt's assist with changing his dressing and often his clothing but pt states he can dress IND except socks. Pt's handles all of the shopping, cooking, cleaning, finances, and laundry. Social History Household Members spouse Living Arrangements House Number of Floors (Floors) One Floor Number of Stairs To Enter/Railing? 1 step to enter with R rail. Home Environment Standard Height Toilet,Walk in Shower,Tub/Shower Home Equipment Straight Cane,Lift Recliner Employment Status Retired Additional Social History Comment Pt sleeps in the lift recliner . 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 M1 PT/OT-IP Prior Functional Status Start: 09/24/23 15:52 Freq: NEEDED Status: Active Protocol: Document 09/25/23 11:15 AB (Rec: 09/25/23 13:20 AB [id number]) Medical Review Prior Functional Status Medical History Reviewed Yes Communication able to make needs known Mobility and Gait spouse provided PLOF and home set up: stated that pt was modified independent with all mobilities and ambulation using a SPC; pt has been sleeping on his lift chair and uses the lift chair to help him stand up; pt stated that he does not do much at home and the most walking is usually just walking to the toilet pt has 3 falls for this month Activities of Daily Living and IADL's per OT's note: Pt's assist with changing his dressing and often his clothing but pt states he can dress IND except socks. Pt's handles all of the shopping, cooking, cleaning, finances, and laundry. Social History Household Members spouse Living Arrangements House Number of Floors (Floors) One Floor Number of Stairs To Enter/Railing? 2 platform steps to enter the house Home Environment Standard Height Toilet,Walk in Shower,Tub/Shower Home Equipment Straight Cane,Lift Recliner Employment Status Retired Additional Social History Comment spouse stated that she works and will not be able to assist pt at home M2 PT-IP Current Condition Start: 09/24/23 15:09 Freq: NEEDED Status: Active Protocol: Document 09/25/23 11:15 AB (Rec: 09/25/23 13:20 AB [id number]) Physical Therapy Current Condition Current Condition Evaluation Date 09/25/23 Treatment Diagnosis PNA; difficulty in walking Onset Date 09/24/23 M3 PT-IP Subjective Start: 09/24/23 15:09 Freq: NEEDED Status: Active Protocol: Document 09/25/23 11:15 AB (Rec: 09/25/23 13:20 AB [id number]) Subjective Physical Therapy Visit Type Type Initial Evaluation Visit Start Time 11:15 Visit Stop Time 12:05 Number of QUILL MACHINE OPERATOR Visits 50 Physical Therapy Visit Comments Patient Comments agreeable to do PT M4 PT-IP Mobility and Gait Start: 09/24/23 15:09 Freq: NEEDED Status: Active Protocol: Document 09/25/23 11:15 AB (Rec: 09/25/23 13:20 AB [id number]) PT-Bed Mobility Assessment Supine to Sit Supine to Sit Standby Assistance,Head of Bed Elevated,Bedrails PT-Transfer Assessment Sit to and From Stand Sit to and from Stand Contact Guard Assistance,1 Person Assistance,Use of Upper Extremities Equipment Transfer Assistive Device Gait Belt,Front Wheeled Walker Orthotic/Prosthetic Devices or Brace: No Transfers Transfer Destination Toilet Transfer Technique ambulated Transfer Ability Level of Assist Minimal Assistance,1 Person Assistance,Use of Upper Extremities Comments Mobility Comments pt supine in bed asleep and spouse in room. obtained pt's PLOF and home set up from the spouse. pt woke up and agreed to do PT. completed supine to sit SBA with HOB elevated ~ 40 deg. with with O2 on 3 1/ 2L/min. O2 sat: 97%. pt requesting to use the toilet. completed is to stand CGA and ambulated using FWW to the toilet min A and cues for safety. Pt is impulsive. pt presents with shuffling gait with heavy UE lean onto the FWW for support. pt completed toileting CGA using fWW for support. ambulated out from the toilet using FWW min A and ambulated in room ~ 30 ft. pt agreed to sit up on the chair. (+) SOB and O2 sat: 93- 94%. call light and table placed within reach. educated pt regarding PLB and to do PLB in between activities and pt understood. Left pt with spouse in room. Gait Assessment Gait Gait Assistance Required: Minimum Assistance Distance (Feet) 30 Able to Maintain Weight Bearing Status Yes During Gait Assistive Devices Assistive Device Gait Belt,Front Wheeled Walker Gait Deviations General Gait Pattern Decreased Stride Length, Decreased Feet Clearance,Step- to Gait,Wide Based Gait Factors Limiting Gait Function Factors Limiting Gait Function Decreased Activity Tolerance, Decreased Strength,Limited Range of Motion,Pain,Poor Balance,Poor Safety Awareness, Respiratory Distress PT-Balance Assessment Sitting Balance and Reactions Static Sitting Balance Ability Good Dynamic Sitting Balance Ability Good Standing Balance and Reactions Static Standing Balance Ability Fair Dynamic Standing Balance Ability Fair Device Used FWW M5 PT-IP Objective Assessments Start: 09/24/23 15:09 Freq: NEEDED Status: Active Protocol: Document 09/25/23 11:15 AB (Rec: 09/25/23 13:20 AB [id number]) Orientation Orientation/Cognition Level of Alertness Alert Orientation Name,Situation Language Function Ability No Deficits Noted Safety Awareness Decreased Safety Awareness Memory Description No Deficits Noted Gross Range of Motion Lower Extremity ROM Assessment Within Functional Limits Strength Lower Extremity Strength Hip 4-/5 Knee 3+/5 Muscle Tone Muscle Tone WNL Yes M6 PT-IP Treatment Start: 09/24/23 15:09 Freq: NEEDED Status: Active Protocol: Document 09/25/23 11:15 AB (Rec: 09/25/23 13:20 AB [id number]) Physical Therapy Treatment Education Education Provided Safety M7 PT-IP Assessment and Plan Start: 09/24/23 15:09 Freq: NEEDED Status: Active Protocol: Document 09/25/23 11:15 AB (Rec: 09/25/23 13:20 AB [id number]) PT Summary Assessment and Plan Potential Rehabilitation Potential Fair Status of Condition at Evaluation Evolving Summary Impairments Pain,ROM,Strength,Balance, Coordination,Sensation,Tone, Cognition,Bed Mobility, Transfers,Gait,Activity Tolerance Assessment Summary pt is a 67 y/o M who presented to the ED due to falls and weakness and also has myoclonus. pt admitted for PNA. pt has COPD has has been using home O2. pt with 3 falls for the year and spouse stated that pt just feels weak on his legs. pt requiring min A with mobility using FWW with heavy UE use on FWW and pt is impulsive. Pt has been limited in mobility even prior to admission and pt stated that the most walking he does at home is when he has to use the toilet. pt will need assistance at home and spouse stated that she works and will not be able to provide assistance to pt while at work . d/c plan depending on progress: SNF vs home with assistance and HHPT. Goals Transfer Goal Independent,Front Wheeled Walker Gait Goal Independent,Front Wheel Walker Gait Distance 50 Other Goals improve transfers and ambulation using LRAD 150 ft mod I up/down 2 platform stteps using LRAD SBA Days to Meet Goals 10 Frequency of Treatment Frequency Of Treatment Once a Day Treatment Plan Physical Therapy Treatment Plan Bed Mobility Training,Transfer Training,Gait Training, Therapeutic Exercise,Balance Retraining,Discharge Planning, Hot or Cold Pack,Neuromuscular Re-ed,Coordination Retraining Precautions Other Precautions O2 sat; falls Recommendations To Nursing Amount of Assist Needed 1 Person Assist Discharge Recommendations PT Discharge Recommendations Home with 19/03 Assist Available,Home Health,Home vs SNF Transportation Needs at Discharge Private Vehicle,Wheelchair/ Cabulance
[2023-09-25] MEDS: ALBUTEROL 2.5 MG/3 ML NEB (ADULT) INH ×3 (11:56→20:18)
[2023-09-25] MEDS: AZITHROMYCIN 500 MG in DEXTROSE 5% IN WATER 250 ML 250 MG IV (12:03)
--- NOTE | 2023-09-25 12:58 | OT.IP.TRT ---
Current Diagnoses Iron deficiency anemia, unspecified (09/24/23) Morbid (severe) obesity due to excess calories (09/24/23) Pneumonia, unspecified organism (09/24/23) Weakness (09/24/23) Unspecified fall, initial encounter (09/24/23) Occupational Therapy Treatment Note M2 OT-IP Current Condition Start: 09/24/23 15:52 Freq: Status: Active Protocol: Document 09/24/23 15:52 CGR (Rec: 09/24/23 16:14 CGR [id number]) Occupational Therapy Current Condition Current Condition Evaluation Date 09/24/23 Treatment Diagnosis GLF Diagnosis Onset Date 09/24/23 M3 OT- IP Subjective and Pain Start: 09/24/23 15:52 Freq: Status: Active Protocol: Document 09/25/23 14:01 CCC (Rec: 09/25/23 14:08 [facility] [id number]) OT- Subjective Occupational Therapy Visit Type Type Treatment Note Visit Start Time 12:50 Visit Stop Time 12:58 Occupational Therapy Visit Comments Patient Comments Pt too tired to get up at this time but agreed to talk to OT along with his . Patient/Caregiver Goals TO get better M4 OT- IP ADL's Start: 09/24/23 15:52 Freq: Status: Active Protocol: Document 09/25/23 14:01 CCC (Rec: 09/25/23 14:08 [facility] [id number]) OT ADL-Bathing Comments OT Bathing Comments Suggested pt get a shower chair for home use. M5 OT- IP IADL's Start: 09/24/23 15:52 Freq: Status: Active Protocol: Document 09/24/23 15:52 CGR (Rec: 09/24/23 16:14 CGR [id number]) OT-Instrumental Activities of Daily Living Deficits IADL Deficits Identified Deficits Home Safety Awareness Awareness of Need for Assistance at Home Good Awareness Ability to Problem Solve Emergency Able to Problem Solve Situations Medication Management Medication Management Caregiver Administers Money Management Money Management Caregiver Provides Assistance Meal Preparation Meal Preparation Caregiver Provides Assist Turf And Grounds Supervisor Turf And Grounds Supervisor Caregiver Provides Assist Driving Driving Comments Pt states he has driven as recently as a few weeks ago. Pt's confirms. M6 OT- IP Functional Cognition Start: 09/24/23 15:52 Freq: Status: Active Protocol: Document 09/24/23 15:52 CGR (Rec: 09/24/23 16:14 CGR [id number]) Cognitive Factors Limiting Selfcare Function Cognitive Ability Level of Alertness Alert Patient Orientation Name,Age,Birthday,Month,Date, Year,Day of Week,Place, Situation Attention Span Ability Capable of Focused Attention, Capable of Sustained Attention Ability to Follow Commands Able to Follow One Step Commands with Increased Time, Able to Follow One Step Commands with Repetition OT- Vision and Hearing OT- Hearing Assessment OT- Hearing Assessment WFL OT- Vision Assessment Visual Acuity Glasses All The Time Visual Attentiveness WFL Occular Pursuits WFL Visual Convergence WFL Vision Assessment Comments Pt states he wears trifocals but they are very old. M9 OT- IP Assessment and Plan Start: 09/24/23 15:52 Freq: Status: Active Protocol: Document 09/25/23 14:01 [facility] (Rec: 09/25/23 14:08 [facility] [id number]) OT Summary Assessment and Plan Potential Rehabilitation Potential Good Analytic Complexity at Evaluation Moderate Summary OT Impairments Pain,Strength,Coordination, Sensation,Functional Mobility, Grooming,Dressing,Toileting, Bathing,Toilet Transfers, Shower Transfers,Activity Tolerance Progress Towards Goals Slow Progress due to Medical Issues,Slow Progress due to Activity Tolerance Assessment Summary Pt not wanting to get up as too tired and did not sleep well last night. Per pt still feeling weak. Pt's states she works and will not be able to help care for him if help is needed. Spoke to pt and his about skilled rehab and case management came into the room. At this time pt would benefit from short skilled rehab. Goals Self-Feeding Goal Independent Grooming Goal Independent Dressing Goal Independent Toileting Goal Independent Bathing Goal Independent Toilet Transfer Goal Independent Shower Transfer Goal Independent Days to Meet Goals 15 Frequency of Treatment Frequency Of Treatment Once a Day Treatment Plan OT Treatment Plan ADL Training,Functional Mobility,Patient/Family Education,Discharge Planning Discharge Recommendations OT Discharge Recommendations SNF Rehab,Home vs SNF Other Discharge Recommendations Home if doing much better and able to care for himself as his works. Transportation Needs at Discharge Wheelchair/Cabulance
[2023-09-25] MEDS: ferumoxytoL 1,020 MG in SODIUM CHLORIDE 0.9% 250 ML 568 MG IV (13:55)
--- NOTE | 2023-09-25 16:44 | CM.DANOTE ---
DCP Assessment Note Pt is a 67yo M here following GLF/SOB under INPT status and the care of Dr. Johnson. PCP Erin Payantony Goel and self pay [employer] reviewed EMR. Per provider note, likely here 2-3 days. Per chart review, O2 oscillates through the day from 3.5-10ltrs. Home O2 at baseline is 4ltrs but spouse had it up to 6ltrs prior to bringing him in. Per PT/OT, rec SNF vs home with 24/7 assistance. Per PT, would need bariatric walker if dc home from here. [employer] B[employer]ER entered room and introduced self and role. Pt accompanied by spouse Kristine ([phone]) at bedside. Pt lives with spouse in [place]. Pt uses a cane at baseline, 2 steps into home. Per Pt, open to SNF or HH. Pt/spouse preference is closest to [place] as possible for SNF placement. Pt/spouse spoke at length of issues with pt's secondary insurance ([employer]?) not being active? Unclear what that rehab benefit could be at this time. Spouse and pt agreeable to home if unable to find SNF placement. [employer]ER reviewed barriers to SNF placement, including finding a facility contracted with his insurance. Pt reports no preference for HH agency. Marco- Griselda reports does not take [facility]. Nelda Murphy reports they can only get one time agreement if there is no accepting facility within 60 miles. [facility]- contracted and Cathy agreed to review. ANGELITA Castle kindly agreed to email clinicals. Acceptance pending. Due to triaging needs, [employer] did not place HH referral today. Will continue with referral process tomorrow. Plan: 1) SNF placement, [facility] pending. Cathy agreed to start insurance auth if can accept. 2) Home with spouse and HH. referral needed. CM team will follow closely. NOAH Burks Discharge Planning/Care Management CM Discharge Assessment Start: 09/25/23 16:38 Freq: Status: Active Protocol: Document 09/25/23 16:38 SL (Rec: 09/25/23 16:44 SL [id number]) Discharge Planning Assessment Assigned Fluid Power Mechanic NOAH Veag DPOA/Assigned Designee Name Kristine Vang (spouse) Contact Information [phone] Advance Directives? No History Provided By Patient,Significant Other, Medical Record Prior Living Arrangements House Household Members spouse Independent with ADL's No Is patient alert and oriented? Yes Needs Assistance With Grooming,Meal Prep,Home Chores / Shopping Comment home O2 at baseline- 4ltrs DME Already Rented / Owned Cane Comment Per PT, need Bariatric walker if dc home Patient/Family Preference Residential Facility,Home with Home Health Comment Pt open to SNF placement. If unable, pt open to HH Barriers to Discharge Yes Comment Barrier: finding an accepting facility that takes his insurance that meets his needs Discharge Plan Residential Facility Referrals Initiated Residential If patient plan is SNF: Has PASSR been No completed? SNF/HH Preference Closest to [place] as possible Has Agency SNF been contacted Yes Comment [facility] cannot accept. [facility] could get single case agreement if no accepting facility within 60 miles. [facility] reviewing Whiteboard Updated in Patient Room with Yes name and ext. # of Fluid Power Mechanic Review Status In Process Next Review Type Continued Stay Review
[2023-09-25] MEDS: BUDESONIDE 0.5 MG/2 ML NEB INH (20:18)
[2023-09-26] VITALS (17 sets, daily range): BP systolic 129–158; BP diastolic 54–80; PULSE 75–101; RESP 18–22; TEMP 36.1–36.4; O2SAT 92–95
--- NOTE | 2023-09-26 00:22 | RT ---
Pt requested to be off Hospital CPAP at 0022 this morning and was placed on 4L oxygen via oxymask. Noting SpO2 WNLs while on 4L.
[2023-09-26] MEDS: LORazepam 2 MG/ML INJ 1 MG IV (01:07)
--- NOTE | 2023-09-26 02:00 | PC.NURSE ---
Patient verbalizing lots of anxiety and frustration. Patient's called this RN stating that patient texted [phone] come now. This RN had extensive phone call with explaining patients anxiety and frustrations, transferred phone call to patients room. This RN called dr. carrillo and received order for ativan. Patient agreeable to ativan. patient is continuously at Sa02 70% and needing to be woken up for deep breaths with oximask. Patient agreeable to CPAP being placed again for the night. RT shaved graff for better fit on CPAP. now on CPAP with 6L SaO2 90%.
--- NOTE | 2023-09-26 02:25 | RT ---
Pt back on Hospital CPAP unit with 6L O2 bleed in. SpO2 WNLs, device plugged into red outlet. RT discussed with the pt how to remove the mask if needed. Pt tolerating well. RN aware.
[2023-09-26 05:11] LABS: Add Manual Diff / Slide Review NO; Basophils Absolute Auto 100 /uL (0-100); Basophils Percent Auto 0.8 % (0-2); Eosinophils Absolute Auto 200 /uL (0-450); Eosinophils Percent Auto 2.3 % (2-4); Hematocrit 25.2 % (41-53); Hemoglobin 7.7 g/dL (13.5-17.5); Lymphocytes Absolute Auto 900 /uL (1100-4500); Lymphocytes Percent Auto 13.3 % (25-40); Mean Corpuscular HGB Conc 30.6 % (30-36); Mean Corpuscular Hemoglobin 22.7 PG (26-34); Mean Corpuscular Volume 74.2 fL (80-100); Monocytes Absolute Auto 800 /uL (0-900); Monocytes Percent Auto 11.2 % (3-14); Neutrophils Absolute Auto 4900 /uL (1500-7000); Neutrophils Percent Auto 72.4 % (50-75); Platelet Count 208 X10^3/uL (150-400); Red Blood Cell Count 3.39 X10^6/uL (4.5-5.9); Red Cell Distribution Width 19.1 % (11.6-14.8); White Blood Cell Count 6.7 X10^3/uL (4.5-11.0)
[2023-09-26 05:48] LABS: Blood Urea Nitrogen 21 mg/dL (9-20); Calcium 8.8 mg/dL (8.4-10.2); Carbon Dioxide 38 mmol/L (22-32); Chloride 97 mmol/L (98-107); Estimated Glomerular Filt Rate > 60 mL/min (>60); Glucose 104 mg/dL (80-110); HEMOLYSIS < 15 (0-50); Potassium 3.7 mmol/L (3.4-5.1); Sodium 137 mmol/L (137-145)
--- NOTE | 2023-09-26 08:37 | DI.RAD.S_ITS ---
PROCEDURE: XR CHEST 1V INDICATIONS: worsening hypoxia TECHNIQUE: One view of the chest was acquired. COMPARISON: [facility], CR, XR CHEST 1V, 09/24/2023, 7:34. [facility], CR, XR CHEST 1V, 05/18/2023, 23:39. [facility], CT, CT ANGIO CHEST PE PROTOCOL, 09/24/2023, 9:42. FINDINGS: Surgical changes and devices: None. Lungs and pleura: Low lung volumes. Bibasilar opacities again seen, particularly on the right. Mediastinum: Cardiomegaly. Bones and chest wall: Degenerative changes. IMPRESSION: Limited single view radiograph with low lung volumes. Bibasilar opacities, greater on the right, likely infection and atelectasis. Consider future imaging surveillance to assess for resolution. Cardiomegaly. Dictated by: Karson Burgos M.D. on 09/26/2023 at 10:58 Approved by: Karson Burgos M.D. on 09/26/2023 at 11:00
[2023-09-26] MEDS: BUPRENORPHINE/NALOXONE 8MG/2MG 1 TAB 2 TAB SL (09:01)
[2023-09-26] MEDS: lisinopriL 20 MG TABLET 40 MG PO (09:01)
[2023-09-26] MEDS: PRAVASTATIN 20 MG TABLET PO (09:01)
[2023-09-26] MEDS: hydroCHLOROthiazide 25 MG TABLET PO (09:01)
[2023-09-26] MEDS: ENOXAPARIN 40 MG/0.4 ML SYRINGE SUBCUT ×2 (09:01→20:30)
[2023-09-26] MEDS: TAMSULOSIN 0.4 MG CAPSULE PO (09:01)
[2023-09-26] MEDS: polyethylene glycoL 3350 17 GM POWD.PACK PO (09:02)
[2023-09-26] MEDS: cefTRIAXone 1,000 MG in SODIUM CHLORIDE 0.9% 100 ML 200 MG IV (09:09)
[2023-09-26] MEDS: ALBUTEROL 2.5 MG/3 ML NEB (ADULT) INH ×4 (09:26→20:37)
[2023-09-26] MEDS: BUDESONIDE 0.5 MG/2 ML NEB INH ×2 (09:26→20:37)
--- NOTE | 2023-09-26 10:14 | P.PN_ITS ---
Subjective <Randal Erazo - Last Filed: 09/26/23 13:29> Subjective Date Patient Seen: 09/26/23 Time Patient Seen: 08:00 Interval history: Pt again appears more fatigued and tired than yesterday and the day prior. States that he had another poor night's rest with a lot of interruptions with staff coming in and waking him up. Did require Ativan for some agitation during the night. Was unable to tolerate the CPAP. Again required increases in oxygen up to 10L with valve mask. States that he believes that his involuntary muscle jerking may be getting better. Reports that he is now feeling short of breath in addition to his worsening fatigue and weakness. 24 hr events: -Iron transfusion -TTE showed mild concentric left ventricular hypertrophy with EF 65-70%. No significant valvular abnormality. -Ativan given for agitation during the night -up with PT to commode in room -Could not tolerate CPAP -continues to increase oxygen needs now up to 10L -continues IV ceftriaxone and azithromycin Exam <Ramya Johnson MD - Last Filed: 09/26/23 14:16> Vital Signs (past 8 hours): - 09/26/23 03:26 09/26/23 08:10 09/26/23 08:10 Temperature 97.1 F L Pulse Rate 85 85 Respiratory Rate 20 22 Blood Pressure 129/66 158/80 H Pulse Oximetry 94 92 Oxygen Delivery Method Nasal Cannula Oxygen Flow Rate 7 09/26/23 09:01 09/26/23 09:27 Temperature Pulse Rate 85 87 Respiratory Rate 20 Blood Pressure 158/80 H Pulse Oximetry 92 Oxygen Delivery Method Oximask Oxygen Flow Rate 8 Fraction of Inspired Oxygen 36 SaO2/FiO2 Ratio 252 Oxygen Delivery Method Oximask Oxygen Flow Rate 8 <Randal Kacey - Last Filed: 09/26/23 13:29> Narrative Exam Narrative: General: Fatigued appearing. morbidly obese. HEENT: Moist mucous membranes, no conjunctival injection Neck: enlarged due to body haitus, no LAD, no JVD Respiratory: clear to auscultation bilaterally Chest: No significant point tenderness. Cardiac: Regular rate and rhythm no murmurs no bruits Abdomen: Soft, nontender, no flank pain Skin: Warm and dry, bilateral discoloration on ankles. 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 Neurologic: Often falls asleep mid conversation. Only opens eyes when asked to. bilateral hand tremor at rest, 5/5 strength UE and LE, abnormal finger to nose findings due to muscle jerks/myoclonus Speech: dysarthric, no aphasia Extremities: 2+ pitting edema with chronic venous stasis changes, well perfused Psych: Cooperative, appropriate insight and affect Objective <Ramya Johnson MD - Last Filed: 09/26/23 14:16> Labs 09/26/23 04:49 09/26/23 04:49 Labs: Laboratory Results - last 24 hr 09/26/23 04:49 WBC 6.7 RBC 3.39 L Hgb 7.7 L Hct 25.2 L MCV 74.2 L MCH 22.7 L MCHC 30.6 RDW 19.1 H Plt Count 208 Neut % (Auto) 72.4 Lymph % (Auto) 13.3 L [place] % (Auto) 11.2 Eos % (Auto) 2.3 Baso % (Auto) 0.8 Neut # (Auto) 4900 Lymph # (Auto) 900 L [place] # (Auto) 800 Eos # (Auto) 200 Baso # (Auto) 100 Sodium 137 Potassium 3.7 Chloride 97 L Carbon Dioxide 38 H BUN 21 H Creatinine 0.60 L Estimated GFR > 60 BUN/Creatinine Ratio 35.0 H Glucose 104 Calcium 8.8 PFSH <Ramya Johnson MD - Last Filed: 09/26/23 14:16> Medical History Microscopic hematuria BPH w urinary obs/LUTS History of bladder stone Renal cyst, right Calculus of right kidney Iron deficiency anemia Sleep apnea Rib fractures (~1974) Chronic back pain Enlarged prostate Constipation Hemorrhoid (~1999) Morbid obesity Diabetes type 2, controlled H/O adenomatous polyp of colon History of nephrolithiasis (~1999) Mixed hyperlipidemia Essential hypertension (~1994) Surgical History H/O umbilical hernia repair Anesthesia Bladder stones (~2016) History of knee surgery (~1979) Family History Mother Cancer Father Myocardial infarct Brother Cancer Social History household members: spouse Smoking Status: Former smoker Assessment & Plan <Ramya Johnson MD - Last Filed: 09/26/23 14:16> Assessment and plan (1) Falls: Qualifiers: Encounter type: initial encounter Qualified Code(s): W19.XXXA - Unspecified fall, initial encounter Status: Acute (2) Weakness: Status: Acute (3) Pneumonia: Qualifiers: Laterality: bilateral Lung location: lower lobe of lung Pneumonia type: due to unspecified organism Qualified Code(s): J18.9 - Pneumonia, unspecified organism Status: Acute (4) Morbid obesity: Status: Chronic (5) Iron deficiency anemia: Qualifiers: Iron deficiency anemia type: unspecified iron deficiency Qualified Code(s): D50.9 - Iron deficiency anemia, unspecified Status: Chronic Assessment & Plan narrative: Mr. Vang is a 67 y/o M w h/o iron deficiency anemia, morbid obesity, COPD, DM diet controlled, HTN, and chronic pain initially presenting with acute weakness and recurrent ground levels falls. Now noted to have frequent myoclonic jerking motions particularly in his upper extremities and new onset of SOB. #Pneumonia #SOB With acute on chronic respiratory failure. Pneumonia likely in setting of abnormal CXR and chest CT, increased SOB at home (requiring increased home O2), and extreme fatigue. New onset of SOB now requring 8-10L oxygen. - Repeat CXR this morning - Continue Ceftriaxone and Azithromycin - Oxygen support ongoing, titrate as needed - RT consulted - Continue to encourage IS #BAR Anemia worsened. Continued to trend down after iron transfusion. Now borderline for transfusion criteria. Consulted with pt's pest management supervisor/oncologist, Dr Toussaint. Appreciate recs below. - Transfuse 2 units of packed red blood cells - Continue to trend - Recommend eval for alternative causes of blood loss. Discussed with Dr Novoa, surgery. Due to pts pneumonia, as long as H/H stabilizes, will not pursue colonoscopy/endoscopy until outpatient - Start Pantoprazole IV #weakness #myoclonus Acute onset of weakness likely due to pneumonia and BAR. Myoclonus has moderately become more pronounced today and remains a new finding with unclear etiology at this time. Pt cannot have an MRI at this facility due to abdominal circumference. TTE results reassurance for non cardiac related etiology at this time. - Continue telemetry - PT/OT consulted - schedule outpatient MRI and neurology consult chronic/ongoing #T2DM Diet controlled. Historically with excellent control - Pt declines blood sugar checks #HTN BP overall in good range - Continue home antihypertensives #Chronic pain Stable - Continue home Suboxone FEN: General diet Code: Full DVT ppx: Lovenox Dispo: Pending stabilization of respiratory status, H/H stability, improvement in strength or evidence of gradual recovering requiring rehab facility. Pt desires discharge home. I verified the medical student?s documentation in the medical record. I personally performed a physical exam and medical decision making. I made appropriate changes to the documentation and the assessment and plan based on my verification, exam and medical decision making. <Randal Erazo - Last Filed: 09/26/23 13:29> Assessment and plan (1) Falls: (2) Weakness: (3) Pneumonia: (4) Morbid obesity: (5) Iron deficiency anemia: Assessment & Plan narrative: Mr. Vang is a 67 y/o M w h/o iron deficiency anemia, morbid obesity, COPD, DM diet controlled, HTN, and chronic pain initially presenting with acute weakness and recurrent ground levels falls. Now noted to have frequent myoclonic jerking motions particularly in his upper extremities and new onset of SOB. #Pneumonia #SOB With acute on chronic respiratory failure. Pneumonia likely in setting of abnormal CXR and chest CT, increased SOB at home (requiring increased home O2), and extreme fatigue. New onset of SOB now requring 8-10L oxygen. - Continue Ceftriaxone and Azithromycin - Oxygen support ongoing, titrate as needed - RT consulted - Continue to encourage IS #BAR Anemia worsened. Continued to trend down after iron transfusion. Now borderline for transfusion criteria. Consult with pt's oncologist. Appreciate recs below. - transfuse 2 units of packed red blood cells - Continue to trend #weakness #myoclonus Acute onset of weakness likely due to pneumonia and BAR. Myoclonus has moderately become more pronounced today and remains a new finding with unclear etiology at this time. Pt cannot have an MRI at this facility due to abdominal circumference. TTE results reassurance for non cardiac related etiology at this time. - Continue telemetry - PT/OT consulted - schedule outpatient MRI and neurology consult chronic/ongoing #T2DM Diet controlled. Historically with excellent control - Pt declines blood sugar checks #HTN BP overall in good range - Continue home antihypertensives #Chronic pain Stable - Continue home Suboxone FEN: General diet Code: Full DVT ppx: Lovenox Dispo: Pending stabilization of respiratory status, improvement in strength or evidence of gradual recovering requiring rehab facility. Pt desires discharge home.
[2023-09-26] MEDS: PANTOPRAZOLE 40 MG VIAL 20 MG IV (10:29)
[2023-09-26] MEDS: AZITHROMYCIN 500 MG in DEXTROSE 5% IN WATER 250 ML 250 MG IV (10:30)
[2023-09-26] MEDS: ACETAMINOPHEN 325 MG TABLET 650 MG PO ×2 (10:52→20:31)
--- NOTE | 2023-09-26 12:40 | OT.IPNOTE ---
Pt now on 8L of O2 and to be receiving more blood today. To check on pt later or tomorrow as medically appropriate.
--- NOTE | 2023-09-26 14:24 | PT-IP ANOTE ---
Pt receiving blood transfusion at this time. PT on hold. will f/u.
--- NOTE | 2023-09-26 16:49 | CM.DPNOTE ---
DCP Note HUNTER SKIN DIVER reviewed EMR. Per provider, pt not medically stable until likely Sunday/Sunday. Per chart review, pt on 7-8ltrs O2 today. HUNTER SKIN DIVER coordinated frequently with Cathy at [facility] throughout day. Cathy reports not currently having an appropriate nathalia. bed but working on getting appropriate equipment. Cathy reports being concerned about pt's Suboxone- Cathy will investigate exactly what she needs but essentially, the original prescriber would have to coordinate directly with their pharmacy. Cathy reports not starting [facility] auth at this time. Per provider, pt cannot switch to an alternative for Suboxone and she will coordinate with pt's primary care Erin to come up with plan for him to coordinate with [facility] pharmacy. HUNTER SKIN DIVER spoke with Veronica at [facility], agreed to review. Confirms pt would have wound care need due to chronic wound on back of thighs. ANGELITA Castle kindly agreed to email initial referral information. Acceptance pending. HUNTER SKIN DIVER met with pt and spouse in room. HUNTER SKIN DIVER reviewed the current barriers to SNF placement. Spouse reports pt's original Suboxone prescriber is someone from [facility] in [place], she said she would get name of person for this team tomorrow and understands it is needed to coordinate for SNF placement. Spouse reports hesitancy of caring for pt at home in his current state if SNF placement not able to be secured. DCP conversation interrupted by pt's blood infusion. Plan: 1) SNF placement, [facility] continues to review. Barriers: bariatric bed, suboxone, [facility] auth. 2) [facility], acceptance pending. CM team will continue to follow closely. NOAH Burks
[2023-09-26 21:17] LABS: Add Manual Diff / Slide Review NO; Basophils Absolute Auto 100 /uL (0-100); Eosinophils Absolute Auto 200 /uL (0-450); Eosinophils Percent Auto 3.3 % (2-4); Hematocrit 29.7 % (41-53); Hemoglobin 9.3 g/dL (13.5-17.5); Lymphocytes Absolute Auto 800 /uL (1100-4500); Lymphocytes Percent Auto 12.1 % (25-40); Mean Corpuscular HGB Conc 31.3 % (30-36); Mean Corpuscular Hemoglobin 23.5 PG (26-34); Mean Corpuscular Volume 74.9 fL (80-100); Monocytes Absolute Auto 600 /uL (0-900); Monocytes Percent Auto 9.2 % (3-14); Neutrophils Absolute Auto 5000 /uL (1500-7000); Neutrophils Percent Auto 74.4 % (50-75); Platelet Count 224 X10^3/uL (150-400); Red Blood Cell Count 3.96 X10^6/uL (4.5-5.9); White Blood Cell Count 6.7 X10^3/uL (4.5-11.0)
[2023-09-27] VITALS (10 sets, daily range): BP systolic 114–172; BP diastolic 44–77; PULSE 82–102; RESP 18–21; TEMP 35.9–36.6; O2SAT 92–96
[2023-09-27 05:09] LABS: Add Manual Diff / Slide Review NO; Basophils Absolute Auto 100 /uL (0-100); Basophils Percent Auto 1.3 % (0-2); Eosinophils Absolute Auto 200 /uL (0-450); Eosinophils Percent Auto 3.3 % (2-4); Hematocrit 30.3 % (41-53); Hemoglobin 9.4 g/dL (13.5-17.5); Lymphocytes Absolute Auto 800 /uL (1100-4500); Lymphocytes Percent Auto 11.6 % (25-40); Mean Corpuscular Hemoglobin 23.3 PG (26-34); Mean Corpuscular Volume 75.2 fL (80-100); Monocytes Absolute Auto 600 /uL (0-900); Monocytes Percent Auto 9.6 % (3-14); Neutrophils Absolute Auto 5000 /uL (1500-7000); Neutrophils Percent Auto 74.2 % (50-75); Platelet Count 231 X10^3/uL (150-400); Red Blood Cell Count 4.02 X10^6/uL (4.5-5.9); Red Cell Distribution Width 19.7 % (11.6-14.8); White Blood Cell Count 6.7 X10^3/uL (4.5-11.0)
[2023-09-27 05:20] LABS: BUN Creatinine Ratio 26.2 (6-22); Blood Urea Nitrogen 16 mg/dL (9-20); Carbon Dioxide 38 mmol/L (22-32); Chloride 98 mmol/L (98-107); Estimated Glomerular Filt Rate > 60 mL/min (>60); Glucose 109 mg/dL (80-110); HEMOLYSIS < 15 (0-50); Sodium 139 mmol/L (137-145)
--- NOTE | 2023-09-27 08:14 | PM.PN.1 ---
Subjective Subjective Date Patient Seen: 09/27/23 Time Patient Seen: 08:15 Interval history: Patient seen and evaluated this morning. Sitting up in the chair eating breakfast says last night was a little bit better he is feeling better after the blood transfusion strength is better. He is gaining anxious to get in the shower. Still requiring high levels of oxygen did tolerate CPAP for few hours last night. He is on oxygen at home supposed to use CPAP at home he does not use this. Myoclonic tremors much better. Overall he is improving.. Exam Vital Signs (past 8 hours): - 09/27/23 04:18 Temperature 98 F Pulse Rate 94 H Respiratory Rate 20 Blood Pressure 143/77 H Pulse Oximetry 94 Oxygen Flow Rate 6 Fraction of Inspired Oxygen 36 SaO2/FiO2 Ratio 252 Oxygen Delivery Method Humidification,Simple Mask Oxygen Flow Rate 6 Narrative Exam Narrative: Gen.: Alert good historian HEENT: Pupils equal round and reactive or mucosa is moist neck is supple Cardio: S1-S2 regular rate and rhythm heart sounds distant Respiratory: Lungs mild increased work of breathing. Some scant decreased breath sounds at the bases. Abdomen: Soft obese Extremities: Significant lower extremity edema with lower extremity chronic venous changes Objective Labs 09/27/23 04:48 09/27/23 04:48 Labs: Laboratory Results - last 24 hr 09/26/23 09/26/23 09/27/23 10:20 21:07 04:48 WBC 6.7 6.7 RBC 3.96 L 4.02 L Hgb 9.3 L 9.4 L Hct 29.7 L 30.3 L MCV 74.9 L 75.2 L MCH 23.5 L 23.3 L MCHC 31.3 31.0 RDW 19.0 H 19.7 H Plt Count 224 231 Neut % (Auto) 74.4 74.2 Lymph % (Auto) 12.1 L 11.6 L [place] % (Auto) 9.2 9.6 Eos % (Auto) 3.3 3.3 Baso % (Auto) 1.0 1.3 Neut # (Auto) 5000 5000 Lymph # (Auto) 800 L 800 L [place] # (Auto) 600 600 Eos # (Auto) 200 200 Baso # (Auto) 100 100 Sodium 139 Potassium 4.0 Chloride 98 Carbon Dioxide 38 H BUN 16 Creatinine 0.61 L Estimated GFR > 60 BUN/Creatinine Ratio 26.2 H Glucose 109 Calcium 9.0 Blood Type A Positive Antibody Screen Negative Crossmatch See Detail [facility] Medical History Microscopic hematuria BPH w urinary obs/LUTS History of bladder stone Renal cyst, right Calculus of right kidney Iron deficiency anemia Sleep apnea Rib fractures (~1974) Chronic back pain Enlarged prostate Constipation Hemorrhoid (~1999) Morbid obesity Diabetes type 2, controlled H/O adenomatous polyp of colon History of nephrolithiasis (~1999) Mixed hyperlipidemia Essential hypertension (~1994) Surgical History H/O umbilical hernia repair Anesthesia Bladder stones (~2016) History of knee surgery (~1979) Family History Mother Cancer Father Myocardial infarct Brother Cancer Social History household members: spouse Smoking Status: Former smoker Assessment & Plan Assessment and plan (1) Pneumonia: Qualifiers: Laterality: bilateral Lung location: lower lobe of lung Pneumonia type: due to unspecified organism Qualified Code(s): J18.9 - Pneumonia, unspecified organism Status: Acute Plan Pneumonia community-acquired antibiotic choices covering Gram-negative and g positives. Patient being treated with appropriate community acquired pneumonia antibiotics with ceftriaxone and Zithromax. White blood cell count is stable. Patient continues to improve from a standpoint of clinical symptoms no fever no elevation of white blood cell count no significant hypotension. Acute on chronic respiratory failure pneumonia based on chest x-ray and CT scan. Negative for PE. Patient on higher levels of oxygen at home and requiring CPAP. Continue with oxygen. Continue with RT support. Incentive spirometry ambulating today. Her respiratory distress symptoms alleviated somewhat with a blast transfusion yesterday. Obstructive sleep apnea. Patient has obstructive sleep apnea based on oxygen levels dropping significantly at night. Continue to work with him with CPAP. And encouraged CPAP use at home. Morbid obesity with BMI 56.7. Certainly compounding his care difficulty with nursing care sleep Iron deficiency anemia history of transfusions and iron. Acute decompensation of chronic anemia requiring blood transfusion of 2 units. Patient improved from a symptomatic standpoint. Hemoglobin hematocrit improved Comorbid condition of chronic blood loss. Thought due to AVMs and lower extremities. Discussion about ongoing GI evaluation for blood loss which can be done as outpatient. Diabetes type 2. History of this. Patient not on current medication watches his diet. Hypertension. Blood pressure stable at this point. Continue with the hydrochlorothiazide and lisinopril Hypercholesterolemia continue with pravastatin BPH use of Flomax this will be continued. Prophylaxis continue with Lovenox and proton pump inhibitor. Disposition plan. Additional another few days of IV antibiotics. Respiratory support ambulation.
[2023-09-27] MEDS: PANTOPRAZOLE 40 MG VIAL 20 MG IV (08:54)
[2023-09-27] MEDS: ENOXAPARIN 40 MG/0.4 ML SYRINGE SUBCUT ×2 (08:54→20:47)
[2023-09-27] MEDS: ACETAMINOPHEN 325 MG TABLET 650 MG PO ×2 (08:54→18:27)
[2023-09-27] MEDS: TAMSULOSIN 0.4 MG CAPSULE PO (08:55)
[2023-09-27] MEDS: hydroCHLOROthiazide 25 MG TABLET PO (08:55)
[2023-09-27] MEDS: lisinopriL 20 MG TABLET 40 MG PO (08:55)
[2023-09-27] MEDS: PRAVASTATIN 20 MG TABLET PO (08:56)
[2023-09-27] MEDS: cefTRIAXone 1,000 MG in SODIUM CHLORIDE 0.9% 100 ML 200 MG IV (09:02)
[2023-09-27] MEDS: BUPRENORPHINE/NALOXONE 8MG/2MG 1 TAB 2 TAB SL (09:13)
[2023-09-27] MEDS: ALBUTEROL 2.5 MG/3 ML NEB (ADULT) INH ×3 (09:38→20:21)
[2023-09-27] MEDS: BUDESONIDE 0.5 MG/2 ML NEB INH ×2 (09:39→20:21)
[2023-09-27] MEDS: AZITHROMYCIN 500 MG in DEXTROSE 5% IN WATER 250 ML 250 MG IV (10:20)
--- NOTE | 2023-09-27 11:29 | PT-IP ANOTE ---
PT clears with nsg who reports pt is doing better. Upon arrival, pt states that he really doesn't want to get up and he is supposed to keep his right arm straight. Checked in with nsg again and pt has IV running and best to keep arm straight for now. Will check back if able for mobility today. Pt states that he really wants to eat lunch. PT may be unable to check back again today, recommend ongoing OOB with nsg.
--- NOTE | 2023-09-27 13:53 | CM.DPNOTE ---
Addendum entered by NOAH Griffith 09/28/23 12:33: ADD: According to Dr Johnson, patient will likely be medically stable to discharge tomorrow w/ HH. Updated Veronica at [facility]. Dr Johnson connecting with RT re referral for [facility]. This CM team will plan to follow clinical course closely. Original Note: DCP Cont According to review of the chart, patient like has another 48 hrs before medical discharge. Met w/patient and spouse to review discharge plan. Patient explains he is feeling much better today and was able to shower with one person assist- stand by assist this morning. Patient feels he can safely discharge home in another few days and will be able to get to the , cook on his own with spouse not present. Spouse expresses hesitation, says she works and has a colonoscopy scheduled next week. Discussed alternative care options, patient and spouse agree to schedule friends and family for shifts to help assist and look after patient upon discharge. Patient will have HH services through [facility]. Updated Cathy at [facility] that patient will likely progress towards home. Cathy had not started the [facility] auth, still unsure if [facility] can accommodate patient's needs. Cathy agreed to keep this referral in case patient does not progress over the next 24-48 hrs towards home w/ HH services. Plan: Anticipate discharge home w/spouse, friends, [facility]. CM team following patient's clinical course closely. HERSON
--- NOTE | 2023-09-27 14:55 | OT.IP.TRT ---
Current Diagnoses Iron deficiency anemia, unspecified (09/24/23) Morbid (severe) obesity due to excess calories (09/24/23) Pneumonia, unspecified organism (09/24/23) Weakness (09/24/23) Unspecified fall, initial encounter (09/24/23) Occupational Therapy Treatment Note M2 OT-IP Current Condition Start: 09/24/23 15:52 Freq: Status: Active Protocol: Document 09/24/23 15:52 CGR (Rec: 09/24/23 16:14 CGR [id number]) Occupational Therapy Current Condition Current Condition Evaluation Date 09/24/23 Treatment Diagnosis GLF Diagnosis Onset Date 09/24/23 M3 OT- IP Subjective and Pain Start: 09/24/23 15:52 Freq: Status: Active Protocol: Document 09/27/23 14:57 CCC (Rec: 09/27/23 15:06 [facility] [id number]) OT- Subjective Occupational Therapy Visit Type Type Treatment Note Visit Start Time 14:25 Visit Stop Time 14:55 Occupational Therapy Visit Comments Patient Comments Pt wanting to use the bathroom . Patient/Caregiver Goals To go home. OT Pain Assessment Pain When Pain Assessed During Mobility Pain Present Pain Present Pain Reported M4 OT- IP ADL's Start: 09/24/23 15:52 Freq: Status: Active Protocol: Document 09/27/23 14:57 CCC (Rec: 09/27/23 15:06 CCC [id number]) OT [id number] Comments OT Self-Feeding Comments Not at meal time OT ADL-Grooming Comments OT Grooming Comments Not performed OT ADL-Oral Care Comments Oral Care Comments NOt performed OT ADL-Dressing General Eval Upper Body Dressing Ability Minimal Assistance Comments OT Dressing Comments Assist to help with gown management at this time. OT ADL-Toileting General Evaluation Toileting Ability Maximum Assistance Areas Needing Assistance Perform Perineal Hygiene Comments OT Toileting Comments Pt not able to appropriately reach to wipe and suggested pt get a bidet or toilet paper aid to use at home. Pt states at home just takes a shower after having a bowel movement. OT ADL-Bathing Comments OT Bathing Comments Nursing aid having to assist to help wash and dry perineal area while needing CGA to standards analyst the shower with use of the grab bar. M5 OT- IP IADL's Start: 09/24/23 15:52 Freq: Status: Active Protocol: Document 09/24/23 15:52 CGR (Rec: 09/24/23 16:14 CGR [id number]) OT-Instrumental Activities of Daily Living Deficits IADL Deficits Identified Deficits Home Safety Awareness Awareness of Need for Assistance at Home Good Awareness Ability to Problem Solve Emergency Able to Problem Solve Situations Medication Management Medication Management Caregiver Administers Money Management Money Management Caregiver Provides Assistance Meal Preparation Meal Preparation Caregiver Provides Assist Emergency Medical Technician/Driver Emergency Medical Technician/Driver Caregiver Provides Assist Driving Driving Comments Pt states he has driven as recently as a few weeks ago. Pt's confirms. M6 OT- IP Functional Cognition Start: 09/24/23 15:52 Freq: Status: Active Protocol: Document 09/27/23 14:57 CCC (Rec: 09/27/23 15:06 CCC [id number]) Cognitive Factors Limiting Selfcare Function Cognitive Comments Cognitive Assessment Comments Pt aware that he needs assist at home but insistent that his can assist. Pt does realize that he is weaker and would benefit to go to skilled rehab prior to going home. Pt is far from his baseline as prior did not use a FWW. M7 OT- IP Mobility and Balance Start: 09/24/23 15:52 Freq: Status: Active Protocol: Document 09/27/23 14:57 [facility] (Rec: 09/27/23 15:06 [facility] [id number]) OT- Bed Mobility Assessment Supine to Sit Supine to Sit Assist Contact Guard Assistance,Head of Bed Elevated Sit to Supine Sit to Supine Assist Standby Assistance,Head of Bed Elevated OT-Transfer Assessment Sit to and From Stand Sit to and from Stand Contact Guard Assistance Transfers Transfer Ability Contact Guard Assistance, Minimal Assistance Technique Transfer Destination Shower Stall,Toilet Transfer Technique Stand Pivot Devices Transfer Assistive Devices None Comments Mobility Comments SOPHY to help step over the threshold of the shower. Pt having difficulty with his depth perception and having loss of balance at times. OT- Balance Assessment Sitting Balance and Reactions Static Sitting Balance Ability Normal Dynamic Sitting Balance Ability Good Standing Balance and Reactions Static Standing Balance Ability Good Dynamic Standing Balance Ability Fair M8 OT- IP Objective Assessments Start: 09/24/23 15:52 Freq: Status: Active Protocol: M9 OT- IP Assessment and Plan Start: 09/24/23 15:52 Freq: Status: Active Protocol: Document 09/27/23 14:57 CCC (Rec: 09/27/23 15:06 [facility] [id number]) OT Summary Assessment and Plan Potential Rehabilitation Potential Good Analytic Complexity at Evaluation Moderate Summary OT Impairments Pain,Strength,Coordination, Sensation,Functional Mobility, Grooming,Dressing,Toileting, Bathing,Toilet Transfers, Shower Transfers,Activity Tolerance Progress Towards Goals Slow Progress due to Medical Issues,Slow Progress due to Activity Tolerance Assessment Summary Pt still on 6L of O2 and would benefit if going home to have 19/03 available assist and home health. Otherwise pt would benefit from skilled rehab to help increase his activity tolerance and safety for ADL and mobility needs. Pt prior did not use a FWW and now needing the FWW for mobility needs.Pt would benefit from hospital bed,toilet paper aid/bidet and shower chair for home use. Goals Self-Feeding Goal Independent Grooming Goal Independent Dressing Goal Independent Toileting Goal Independent Bathing Goal Independent Toilet Transfer Goal Independent Shower Transfer Goal Independent Days to Meet Goals 14 Frequency of Treatment Frequency Of Treatment Once a Day Treatment Plan OT Treatment Plan ADL Training,Functional Mobility,Patient/Family Education,Discharge Planning Discharge Recommendations OT Discharge Recommendations SNF Rehab,Home vs SNF Other Discharge Recommendations Home if doing much better and able to care for himself as his works. Transportation Needs at Discharge Wheelchair/Cabulance
[2023-09-28] VITALS (11 sets, daily range): BP systolic 129–154; BP diastolic 54–74; PULSE 62–94; RESP 17–22; TEMP 35.9–36.5; O2SAT 90–95
[2023-09-28] MEDS: PANTOPRAZOLE 40 MG VIAL 20 MG IV (09:04)
[2023-09-28] MEDS: BUPRENORPHINE/NALOXONE 8MG/2MG 1 TAB 2 TAB SL (09:05)
[2023-09-28] MEDS: polyethylene glycoL 3350 17 GM POWD.PACK PO (09:05)
[2023-09-28] MEDS: hydroCHLOROthiazide 25 MG TABLET PO (09:06)
[2023-09-28] MEDS: TAMSULOSIN 0.4 MG CAPSULE PO (09:06)
[2023-09-28] MEDS: PRAVASTATIN 20 MG TABLET PO (09:06)
[2023-09-28] MEDS: lisinopriL 20 MG TABLET 40 MG PO (09:06)
[2023-09-28] MEDS: AZITHROMYCIN 250 MG TABLET 500 MG PO (09:06)
[2023-09-28] MEDS: ENOXAPARIN 40 MG/0.4 ML SYRINGE SUBCUT ×2 (09:06→20:10)
[2023-09-28] MEDS: cefTRIAXone 1,000 MG in SODIUM CHLORIDE 0.9% 100 ML 200 MG IV (09:10)
--- NOTE | 2023-09-28 10:33 | PT.IPTN ---
Current Diagnoses Iron deficiency anemia, unspecified (09/24/23) Morbid (severe) obesity due to excess calories (09/24/23) Pneumonia, unspecified organism (09/24/23) Weakness (09/24/23) Unspecified fall, initial encounter (09/24/23) Physical Therapy Treatment Note M2 PT-IP Current Condition Start: 09/24/23 15:09 Freq: NEEDED Status: Active Protocol: Document 09/25/23 11:15 AB (Rec: 09/25/23 13:20 AB [id number]) Physical Therapy Current Condition Current Condition Evaluation Date 09/25/23 Treatment Diagnosis PNA; difficulty in walking Onset Date 09/24/23 M3 PT-IP Subjective Start: 09/24/23 15:09 Freq: NEEDED Status: Active Protocol: Document 09/28/23 11:37 ZF (Rec: 09/28/23 11:49 ZF [id number]) Subjective Physical Therapy Visit Type Type Treatment Note Visit Start Time 10:33 Visit Stop Time 11:10 Number of MINING SUPPORT WORKER Visits 1 Physical Therapy Visit Comments Patient Comments Pt agreeable to therapy. M4 PT-IP Mobility and Gait Start: 09/24/23 15:09 Freq: NEEDED Status: Active Protocol: Document 09/28/23 11:37 ZF (Rec: 09/28/23 11:49 ZF [id number]) PT-Transfer Assessment Sit to and From Stand Sit to and from Stand Contact Guard Assistance,1 Person Assistance,Use of Upper Extremities Equipment Transfer Assistive Device None Orthotic/Prosthetic Devices or Brace: No Transfers Transfer Destination Chair,Toilet Transfer Technique Ambulated Transfer Ability Level of Assist Contact Guard Assistance,1 Person Assistance,Use of Upper Extremities Comments Mobility Comments Pt up in WC when approached for therapy, just finishing with respiratory therapy. Pt on 4L sup O2. O 2sat monitored throughout session and remained above 92%. STS from recliner, window seat w/2ww, CGA. Pt amb x60' in room w/2ww , CGA including to and from toilet where he stands to urinate. Pt dems reduced step length, forward trunk flexion. Pt reports that he has one step to get into his house, and that he leans against the wall on the right and uses his cane on the left. Simulated this environment in his room and patient asc/leeanna x1 step, CGA, using his prefered method . Pt educated that this doesn' t look particularly safe, but he states that is how he does it. Gait Assessment Gait Gait Assistance Required: Contact Guard Assist Distance (Feet) 60 Able to Maintain Weight Bearing Status Yes During Gait Assistive Devices Assistive Device Gait Belt,Front Wheeled Walker Orthotic/Prosthetic Devices or Brace: No Gait Deviations General Gait Pattern Decreased Stride Length, Decreased Feet Clearance,Step- to Gait,Wide Based Gait Factors Limiting Gait Function Factors Limiting Gait Function Decreased Activity Tolerance, Decreased Strength,Limited Range of Motion,Pain,Poor Balance,Poor Safety Awareness, Respiratory Distress PT-Balance Assessment Sitting Balance and Reactions Static Sitting Balance Ability Good Dynamic Sitting Balance Ability Good Standing Balance and Reactions Static Standing Balance Ability Good Dynamic Standing Balance Ability Fair Device Used FWW M5 PT-IP Objective Assessments Start: 09/24/23 15:09 Freq: NEEDED Status: Active Protocol: Document 09/25/23 11:15 AB (Rec: 09/25/23 13:20 AB [id number]) Orientation Orientation/Cognition Level of Alertness Alert Orientation Name,Situation Language Function Ability No Deficits Noted Safety Awareness Decreased Safety Awareness Memory Description No Deficits Noted Gross Range of Motion Lower Extremity ROM Assessment Within Functional Limits Strength Lower Extremity Strength Hip 4-/5 Knee 3+/5 Muscle Tone Muscle Tone WNL Yes M6 PT-IP Treatment Start: 09/24/23 15:09 Freq: NEEDED Status: Active Protocol: Document 09/28/23 11:37 ZF (Rec: 09/28/23 11:49 [id number]) Physical Therapy Treatment Education Education Provided Safety M7 PT-IP Assessment and Plan Start: 09/24/23 15:09 Freq: NEEDED Status: Active Protocol: Document 09/28/23 11:37 ZF (Rec: 09/28/23 11:49 [id number]) PT Summary Assessment and Plan Potential Rehabilitation Potential Fair Summary Impairments Pain,ROM,Strength,Balance, Coordination,Sensation,Tone, Cognition,Bed Mobility, Transfers,Gait,Activity Tolerance Assessment Summary Pt able to participate in therapy today w/o significant SOB. He reports that the SOB was his main concern and now that is much better. Pt completes transfers and ambulates room distances, with extended standing periods, w/ CGA. provides his personal cane to use while stair training. Goals Transfer Goal Independent,Front Wheeled Walker Gait Goal Independent,Front Wheel Walker Gait Distance 50 Other Goals improve transfers and ambulation using LRAD 150 ft mod I up/down 2 platform stteps using LRAD SBA Days to Meet Goals 10 Frequency of Treatment Frequency Of Treatment Once a Day Treatment Plan Physical Therapy Treatment Plan Bed Mobility Training,Transfer Training,Gait Training, Therapeutic Exercise,Balance Retraining,Discharge Planning, Hot or Cold Pack,Neuromuscular Re-ed,Coordination Retraining Recommendations To Nursing Amount of Assist Needed Standby Assistance Discharge Recommendations PT Discharge Recommendations Home with 19/03 Assist Available,Home Health,Home vs SNF Transportation Needs at Discharge Private Vehicle,Wheelchair/ Cabulance
[2023-09-28] MEDS: ALBUTEROL 2.5 MG/3 ML NEB (ADULT) INH ×3 (10:37→17:29)
[2023-09-28] MEDS: BUDESONIDE 0.5 MG/2 ML NEB INH (10:37)
--- NOTE | 2023-09-28 11:43 | OT.IP.TRT ---
Current Diagnoses Iron deficiency anemia, unspecified (09/24/23) Morbid (severe) obesity due to excess calories (09/24/23) Pneumonia, unspecified organism (09/24/23) Weakness (09/24/23) Unspecified fall, initial encounter (09/24/23) Occupational Therapy Treatment Note M2 OT-IP Current Condition Start: 09/24/23 15:52 Freq: Status: Active Protocol: Document 09/24/23 15:52 CGR (Rec: 09/24/23 16:14 CGR [id number]) Occupational Therapy Current Condition Current Condition Evaluation Date 09/24/23 Treatment Diagnosis GLF Diagnosis Onset Date 09/24/23 M3 OT- IP Subjective and Pain Start: 09/24/23 15:52 Freq: Status: Active Protocol: Document 09/28/23 12:24 CCC (Rec: 09/28/23 12:49 CCC [id number]) OT- Subjective Occupational Therapy Visit Type Type Treatment Note Visit Start Time 11:05 Visit Stop Time 11:43 Occupational Therapy Visit Comments Patient Comments Pt's wanting pt to do cognitive assessments and also to go over OT needs. Patient/Caregiver Goals TO go home. OT Pain Assessment Pain When Pain Assessed At Rest Pain Present Pain Present Denied Pain M4 OT- IP ADL's Start: 09/24/23 15:52 Freq: Status: Active Protocol: Document 09/27/23 14:57 CCC (Rec: 09/27/23 15:06 [facility] [id number]) OT [id number] Comments OT Self-Feeding Comments Not at meal time OT ADL-Grooming Comments OT Grooming Comments Not performed OT ADL-Oral Care Comments Oral Care Comments NOt performed OT ADL-Dressing General Eval Upper Body Dressing Ability Minimal Assistance Comments OT Dressing Comments Assist to help with gown management at this time. OT ADL-Toileting General Evaluation Toileting Ability Maximum Assistance Areas Needing Assistance Perform Perineal Hygiene Comments OT Toileting Comments Pt not able to appropriately reach to wipe and suggested pt get a bidet or toilet paper aid to use at home. Pt states at home just takes a shower after having a bowel movement. OT ADL-Bathing Comments OT Bathing Comments Nursing aid having to assist to help wash and dry perineal area while needing CGA to stand up comedian the shower with use of the grab bar. M5 OT- IP IADL's Start: 09/24/23 15:52 Freq: Status: Active Protocol: Document 09/24/23 15:52 CGR (Rec: 09/24/23 16:14 CGR [id number]) OT-Instrumental Activities of Daily Living Deficits IADL Deficits Identified Deficits Home Safety Awareness Awareness of Need for Assistance at Home Good Awareness Ability to Problem Solve Emergency Able to Problem Solve Situations Medication Management Medication Management Caregiver Administers Money Management Money Management Caregiver Provides Assistance Meal Preparation Meal Preparation Caregiver Provides Assist Butcher Fish Butcher Fish Caregiver Provides Assist Driving Driving Comments Pt states he has driven as recently as a few weeks ago. Pt's confirms. M6 OT- IP Functional Cognition Start: 09/24/23 15:52 Freq: Status: Active Protocol: Document 09/28/23 12:24 [facility] (Rec: 09/28/23 12:49 [facility] [id number]) Cognitive Factors Limiting Selfcare Function Cognitive Ability Level of Alertness Alert Patient Orientation Name,Age,Birthday,Month,Date, Year,Day of Week,Place, Situation Attention Span Ability Capable of Focused Attention Ability to Follow Commands Able to Follow Multi-Step Commands Memory Description Short Term Impaired Cognitive Tests SLUMS Pt scored 26/30 and able to recall 3/5 objects after time passed and able to answer 3/4 questions right after paragraph read. Pt needing increased time to answer questions. Pt's score implies mild cognitive deficits. Cognitive Comments Cognitive Assessment Comments Pt agreed that he has not been able to think as well since he has been sick. Pt's and therapist encouraging pt to do brain games, read and work on his memory. Pt scored 112 seconds on [place] Making Part B which implies below 20 percentile for his age group. Pt score implies mild to moderate impairments for visual attention, speed of processing, mental flexibility , executive functioning, and task switching. Pt states will not be driving for now. M7 OT- IP Mobility and Balance Start: 09/24/23 15:52 Freq: Status: Active Protocol: Document 09/27/23 14:57 [facility] (Rec: 09/27/23 15:06 [facility] [id number]) OT- Bed Mobility Assessment Supine to Sit Supine to Sit Assist Contact Guard Assistance,Head of Bed Elevated Sit to Supine Sit to Supine Assist Standby Assistance,Head of Bed Elevated OT-Transfer Assessment Sit to and From Stand Sit to and from Stand Contact Guard Assistance Transfers Transfer Ability Contact Guard Assistance, Minimal Assistance Technique Transfer Destination Shower Stall,Toilet Transfer Technique Stand Pivot Devices Transfer Assistive Devices None Comments Mobility Comments SOPHY to help step over the threshold of the shower. Pt having difficulty with his depth perception and having loss of balance at times. OT- Balance Assessment Sitting Balance and Reactions Static Sitting Balance Ability Normal Dynamic Sitting Balance Ability Good Standing Balance and Reactions Static Standing Balance Ability Good Dynamic Standing Balance Ability Fair M8 OT- IP Objective Assessments Start: 09/24/23 15:52 Freq: Status: Active Protocol: Document 09/24/23 15:52 CGR (Rec: 09/24/23 16:14 CGR [id number]) OT Gross Range of Motion Upper Extremity Range of Motion Assessment Within Functional Limits OT Strength Upper Extremity Strength Assessment Within Functional Limits Shoulder 3+/5 Elbow 5/5 Forearm 5/5 Wrist 5/5 Hand 5/5 OT- Coordination Assessment Upper Extremity Finger to Nose Test Within Functional Limits Finger Tapping Test Within Functional Limits OT-Muscle Tone Assessment Comments Muscle Tone Comments myoclonus in UE throughout session. OT Sensation Assessment Comments Summary Comments Pt states that he has numbness and tingling that come and go in BUE. Edema Edema Present Edema Comments Pt's hands both appear to be slightly edemisis M9 OT- IP Assessment and Plan Start: 09/24/23 15:52 Freq: Status: Active Protocol: Document 09/28/23 12:24 [facility] (Rec: 09/28/23 12:49 [facility] [id number]) OT Summary Assessment and Plan Potential Rehabilitation Potential Good Analytic Complexity at Evaluation Moderate Summary OT Impairments Pain,Strength,Coordination, Sensation,Functional Mobility, Grooming,Dressing,Toileting, Bathing,Toilet Transfers, Shower Transfers,Activity Tolerance Progress Towards Goals Progressing Toward Goals Assessment Summary Pt now on 4L of O2 and agrees with his now best to go home with home health and supervision. Pt to look into getting shower chair with arms and hospital bed. Able to get an order for bariatric FWW for the pt. Goals Self-Feeding Goal Independent Grooming Goal Independent Dressing Goal Independent Toileting Goal Independent Bathing Goal Independent Toilet Transfer Goal Independent Shower Transfer Goal Independent Days to Meet Goals 10 Frequency of Treatment Frequency Of Treatment Once a Day Treatment Plan OT Treatment Plan ADL Training,Functional Mobility,Patient/Family Education,Discharge Planning Discharge Recommendations OT Discharge Recommendations Home with Assistance,Home Health Transportation Needs at Discharge Private Vehicle
--- NOTE | 2023-09-28 12:30 | P.PN_ITS ---
Subjective Subjective Date Patient Seen: 09/28/23 Interval history: The pt reports that he is feeling significantly improved today. He was able to work with PT and OT more than previously, and able to ambulate in the room more. He feels his SOB is dramatically improved. He denies any chest pain. He is looking forwarding to discharging soon. He is concerned about not having CPAP at home when discharging. He is interested in a Trilogy machine until he is able to see sleep medicine. The pt feels that the muscle jerking continues to improve, now primarily only present when the pt is in certain positions. Exam Vital Signs (past 8 hours): - 09/28/23 07:35 09/28/23 08:00 09/28/23 10:38 Temperature 96.6 F L Pulse Rate 62 84 Respiratory Rate 17 18 Blood Pressure 129/64 Pulse Oximetry 92 94 94 Oxygen Delivery Method Nasal Cannula Oximask Oxygen Flow Rate 4 4 4 09/28/23 12:00 Temperature Pulse Rate 94 H Respiratory Rate Blood Pressure 131/74 Pulse Oximetry Oxygen Delivery Method Oxygen Flow Rate Fraction of Inspired Oxygen 36 SaO2/FiO2 Ratio 252 Oxygen Delivery Method Oximask Oxygen Flow Rate 4 Narrative Exam Narrative: Gen: NAD, sitting comfortably in chair, speaking more easily in complete sentences, color improved CV: RRR, grade 3/6 systolic murmur Resp: clear to auscultation bilaterally, no significant wheezes or crackles, improved air movement Ext: 3+ pitting edema bilaterally, stable from prior Neuro: No significant myoclonus noted Objective Labs 09/27/23 04:48 09/27/23 04:48 [facility] Medical History Microscopic hematuria BPH w urinary obs/LUTS History of bladder stone Renal cyst, right Calculus of right kidney Iron deficiency anemia Sleep apnea Rib fractures (~1974) Chronic back pain Enlarged prostate Constipation Hemorrhoid (~1999) Morbid obesity Diabetes type 2, controlled H/O adenomatous polyp of colon History of nephrolithiasis (~1999) Mixed hyperlipidemia Essential hypertension (~1994) Surgical History H/O umbilical hernia repair Anesthesia Bladder stones (~2016) History of knee surgery (~1979) Family History Mother Cancer Father Myocardial infarct Brother Cancer Social History household members: spouse Smoking Status: Former smoker Assessment & Plan Assessment & Plan narrative: Mr. Vang is a 67 y/o M w h/o iron deficiency anemia, morbid obesity, COPD, DM diet controlled, HTN, and chronic pain initially presenting with acute weakness and recurrent ground levels falls. Now noted to have frequent myoclonic jerking motions particularly in his upper extremities and new onset of SOB. #Pneumonia, Community-acquired #SOB With acute on chronic respiratory failure. Pneumonia likely in setting of abnormal CXR and chest CT, increased SOB at home (requiring increased home O2), and extreme fatigue. New onset of SOB now requiring up to 8-10L oxygen. Hypoxia now improving, back to baseline 4L O2. - Continue Ceftriaxone and Azithromycin - Oxygen support ongoing, titrate as needed - RT consulted - Continue to encourage IS - Will work on getting Trilogy unit for home. Agree appropriate with likely delay in getting CPAP established with sleep therapy, pts significant oxygen requirement, and ongoing increased oxygen need due to frequent desaturations at night #BAR Stable yesterday, awaiting today's level. s/p 2 units PRBCs. - Continue to trend #weakness #myoclonus Acute onset of weakness likely due to pneumonia and BAR. Myoclonus has moderately become more pronounced today and remains a new finding with unclear etiology at this time. Pt cannot have an MRI at this facility due to abdominal circumference. TTE results reassurance for non cardiac related etiology at this time. Improving significantly. - Continue telemetry - PT/OT consulted - schedule outpatient MRI and neurology consult if not continuing to resolve #MERVIN Untreated at home - Outpatient sleep referral - Trilogy unit as above #T2DM Diet controlled. Historically with excellent control - Pt declines blood sugar checks #HTN BP overall in good range - Continue home antihypertensives #Chronic pain Stable - Continue home Suboxone #Morbid obesity Complicating ongoing care, nursing care, etc #Hypercholesterolemia - Continue Pravastatin #BPH - Continue home Flomax FEN: General diet Code: Full DVT ppx: Lovenox Dispo: Pending stabilization of respiratory status, improvement in strength or evidence of gradual recovering requiring rehab facility. Pt desires discharge home.
[2023-09-28 14:18] LABS: Add Manual Diff / Slide Review NO; Basophils Absolute Auto 100 /uL (0-100); Basophils Percent Auto 0.9 % (0-2); Eosinophils Absolute Auto 100 /uL (0-450); Eosinophils Percent Auto 1.8 % (2-4); Hematocrit 31.3 % (41-53); Hemoglobin 9.7 g/dL (13.5-17.5); Lymphocytes Absolute Auto 700 /uL (1100-4500); Lymphocytes Percent Auto 8.1 % (25-40); Mean Corpuscular HGB Conc 30.9 % (30-36); Mean Corpuscular Hemoglobin 23.6 PG (26-34); Mean Corpuscular Volume 76.5 fL (80-100); Monocytes Absolute Auto 800 /uL (0-900); Monocytes Percent Auto 9.6 % (3-14); Neutrophils Absolute Auto 6500 /uL (1500-7000); Neutrophils Percent Auto 79.6 % (50-75); Platelet Count 251 X10^3/uL (150-400); Red Cell Distribution Width 19.4 % (11.6-14.8); White Blood Cell Count 8.1 X10^3/uL (4.5-11.0)
--- NOTE | 2023-09-28 16:51 | PC.NURSE ---
Resp: Pt reports he is doing better today. At rest RR 18, P 82. Sat on 4L is 92-94%. Moving from the bed to the chair, breathing became quite labored, using accessory muscles, RR up to 32-36 P 108 Sat on 4L is down to 84%. Does have a soft audible wheezy heard. It took patient 7-10 mins to fully recover at his baseline parameters. SSee, it's not so bad. Lungs are very diminished but can hear them, does have soft wheeze in the rt upper lung field, exp. Has an occ cough. Once he got into the chair, recovered, he was puttering around, likes to be indep.
[2023-09-28] MEDS: ACETAMINOPHEN 325 MG TABLET 650 MG PO (17:03)
[2023-09-29 00:21] VITALS: BP 144/77; PULSE 78; RESP 16; TEMP 36; O2SAT 94
[2023-09-29 03:50] VITALS: BP 135/75; PULSE 91; RESP 20; TEMP 36.1; O2SAT 93
[2023-09-29] MEDS: ACETAMINOPHEN 325 MG TABLET 650 MG PO ×2 (04:03→09:38)
[2023-09-29 04:56] LABS: Add Manual Diff / Slide Review NO; Basophils Absolute Auto 100 /uL (0-100); Eosinophils Absolute Auto 200 /uL (0-450); Eosinophils Percent Auto 3.1 % (2-4); Hematocrit 30.5 % (41-53); Hemoglobin 9.4 g/dL (13.5-17.5); Lymphocytes Absolute Auto 800 /uL (1100-4500); Lymphocytes Percent Auto 10.9 % (25-40); Mean Corpuscular HGB Conc 30.6 % (30-36); Mean Corpuscular Hemoglobin 23.5 PG (26-34); Mean Corpuscular Volume 76.8 fL (80-100); Monocytes Absolute Auto 800 /uL (0-900); Neutrophils Absolute Auto 5200 /uL (1500-7000); Platelet Count 240 X10^3/uL (150-400); Red Blood Cell Count 3.98 X10^6/uL (4.5-5.9); Red Cell Distribution Width 19.8 % (11.6-14.8)
[2023-09-29 05:03] LABS: BUN Creatinine Ratio 26.2 (6-22); Blood Urea Nitrogen 16 mg/dL (9-20); Calcium 8.8 mg/dL (8.4-10.2); Chloride 98 mmol/L (98-107); Estimated Glomerular Filt Rate > 60 mL/min (>60); Glucose 115 mg/dL (80-110); HEMOLYSIS < 15 (0-50); Potassium 3.9 mmol/L (3.4-5.1); Sodium 138 mmol/L (137-145)
[2023-09-29 05:10] LABS: Carbon Dioxide 37 mmol/L (22-32)
[2023-09-29 08:00] VITALS: BP 129/59; PULSE 77; RESP 18; TEMP 35.9; O2SAT 91
[2023-09-29 09:11] VITALS: PULSE 84; RESP 18; O2SAT 94
[2023-09-29] MEDS: ALBUTEROL 2.5 MG/3 ML NEB (ADULT) INH (09:11)
[2023-09-29] MEDS: BUDESONIDE 0.5 MG/2 ML NEB INH (09:12)
[2023-09-29] MEDS: cefTRIAXone 1,000 MG in SODIUM CHLORIDE 0.9% 100 ML 200 MG IV (09:38)
[2023-09-29] MEDS: PANTOPRAZOLE 40 MG VIAL 20 MG IV (09:38)
[2023-09-29] MEDS: polyethylene glycoL 3350 17 GM POWD.PACK PO (09:38)
[2023-09-29] MEDS: lisinopriL 20 MG TABLET 40 MG PO (09:39)
[2023-09-29] MEDS: TAMSULOSIN 0.4 MG CAPSULE PO (09:39)
[2023-09-29] MEDS: ENOXAPARIN 40 MG/0.4 ML SYRINGE SUBCUT (09:39)
[2023-09-29] MEDS: AZITHROMYCIN 250 MG TABLET 500 MG PO (09:39)
[2023-09-29] MEDS: PRAVASTATIN 20 MG TABLET PO (09:39)
[2023-09-29] MEDS: BUPRENORPHINE/NALOXONE 8MG/2MG 1 TAB 2 TAB SL (09:39)
[2023-09-29] MEDS: hydroCHLOROthiazide 25 MG TABLET PO (09:39)
--- NOTE | 2023-09-29 09:45 | PT.IPTN ---
Current Diagnoses Iron deficiency anemia, unspecified (09/24/23) Morbid (severe) obesity due to excess calories (09/24/23) Pneumonia, unspecified organism (09/24/23) Weakness (09/24/23) Unspecified fall, initial encounter (09/24/23) Physical Therapy Treatment Note M2 PT-IP Current Condition Start: 09/24/23 15:09 Freq: NEEDED Status: Active Protocol: Document 09/25/23 11:15 AB (Rec: 09/25/23 13:20 AB [id number]) Physical Therapy Current Condition Current Condition Evaluation Date 09/25/23 Treatment Diagnosis PNA; difficulty in walking Onset Date 09/24/23 M3 PT-IP Subjective Start: 09/24/23 15:09 Freq: NEEDED Status: Active Protocol: Document 09/29/23 11:20 ZF (Rec: 09/29/23 11:31 ZF [id number]) Subjective Physical Therapy Visit Type Type Treatment Note Visit Start Time 09:45 Visit Stop Time 10:13 Number of WARP DRESSER Visits 2 Physical Therapy Visit Comments Patient Comments Pt agreeable to therapy. M4 PT-IP Mobility and Gait Start: 09/24/23 15:09 Freq: NEEDED Status: Active Protocol: Document 09/29/23 11:20 ZF (Rec: 09/29/23 11:31 ZF [id number]) PT-Transfer Assessment Sit to and From Stand Sit to and from Stand Contact Guard Assistance,1 Person Assistance,Use of Upper Extremities Equipment Transfer Assistive Device Gait Belt,Front Wheeled Walker Orthotic/Prosthetic Devices or Brace: No Transfers Transfer Destination Chair Transfer Technique Ambulated Transfer Ability Level of Assist Contact Guard Assistance,1 Person Assistance,Use of Upper Extremities Comments Mobility Comments Pt up in recliner when approached for therapy. present. Issued pt barriatric walker for home use. Adjusted for pt's height. STS from recliner and window seat requires CGA. Pt amb in room x50' w/FWW, SBA/CGA. Pt on 4 L sup O2, O 2sat remains above 93% w/activity. Gait Assessment Gait Gait Assistance Required: Contact Guard Assist Distance (Feet) 50 Able to Maintain Weight Bearing Status Yes During Gait Assistive Devices Assistive Device Gait Belt,Front Wheeled Walker Gait Deviations General Gait Pattern Decreased Stride Length, Decreased Feet Clearance,Step- to Gait,Wide Based Gait Factors Limiting Gait Function Factors Limiting Gait Function Decreased Activity Tolerance, Decreased Strength,Limited Range of Motion,Pain,Poor Balance,Poor Safety Awareness Comments Gait Comments See mobility comments. M5 PT-IP Objective Assessments Start: 09/24/23 15:09 Freq: NEEDED Status: Active Protocol: Document 09/25/23 11:15 AB (Rec: 09/25/23 13:20 AB [id number]) Orientation Orientation/Cognition Level of Alertness Alert Orientation Name,Situation Language Function Ability No Deficits Noted Safety Awareness Decreased Safety Awareness Memory Description No Deficits Noted Gross Range of Motion Lower Extremity ROM Assessment Within Functional Limits Strength Lower Extremity Strength Hip 4-/5 Knee 3+/5 Muscle Tone Muscle Tone WNL Yes M6 PT-IP Treatment Start: 09/24/23 15:09 Freq: NEEDED Status: Active Protocol: Document 09/29/23 11:20 ZF (Rec: 09/29/23 11:31 ZF [id number]) Physical Therapy Treatment Education Education Provided Safety M7 PT-IP Assessment and Plan Start: 09/24/23 15:09 Freq: NEEDED Status: Active Protocol: Document 09/29/23 11:20 ZF (Rec: 09/29/23 11:31 ZF [id number]) PT Summary Assessment and Plan Potential Rehabilitation Potential Fair Summary Impairments Pain,ROM,Strength,Balance, Coordination,Sensation,Tone, Cognition,Bed Mobility, Transfers,Gait,Activity Tolerance Assessment Summary Pt able to amb in room w/o significant SOB. Reports feeling much better, and states he's ready to go home. present and in agreement. Pt issued barriatric walker for home use. Discussed importance of activity at home to increase strength and tolerance for activity. Encouraged standing every hour , using FWW, to improve strength. Recommending DC home with assist and HHPT. Goals Transfer Goal Independent,Front Wheeled Walker Gait Goal Independent,Front Wheel Walker Gait Distance 50 Other Goals improve transfers and ambulation using LRAD 150 ft mod I up/down 2 platform stteps using LRAD SBA Days to Meet Goals 10 Frequency of Treatment Frequency Of Treatment Once a Day Treatment Plan Physical Therapy Treatment Plan Bed Mobility Training,Transfer Training,Gait Training, Therapeutic Exercise,Balance Retraining,Discharge Planning, Hot or Cold Pack,Neuromuscular Re-ed,Coordination Retraining Precautions Other Precautions O2 sat; falls Recommendations To Nursing Amount of Assist Needed Standby Assistance Discharge Recommendations PT Discharge Recommendations Home with Assistance,Home Health Transportation Needs at Discharge Private Vehicle
--- NOTE | 2023-09-29 11:04 | PM.DS.1 ---
History of Present Illness History of Present Illness Date Patient Seen: 09/29/23 Chief complaint: GLF w/ bleeding on lower back Narrative: Mr. Vang is a 67 y/o M w h/o iron deficiency anemia, morbid obesity, COPD, presenting with acute weakness and recurrent ground levels falls. Pt was in his usual state of health until last week. Around this time he began noticing some generalized body weakness and fatigue. He had never felt these symptoms before. 2-3 days ago pt also noticed that he just felt sick. He had vision changes as well as shaking, weakness, and myalgias that he had never experienced before. On Sunday morning states that he had an episode where he woke up in his recliner in a position that he could not get himself out of. After this he fell on to the floor and needed to call for help to get assistance getting back up again. states that she had been noticing some involuntary jerking movements in his sleep that had become more pronounced for the last few weeks leading up to the fall. Pt's also states that they decided to increase his at home oxygen from 4L to 6L due to worsening SOB. Pt then had another fall today (09/24/23) around 5 am. He was outside and was walking when his lets suddenly gave out from underneath him causing him to fall on to his sacrum. States that he just felt weak when suddenly his legs gave out. Denies hitting his head, LOC, dizziness, chest pain, dyspnea, or heart palpitations at this time. He was then taken to the emergency department at this time. His does note that his speech has been more slurred for several weeks now, which the pt confirms. Emergency department (full note 09/24/23): -Hemoglobin 8.2, hematocrit of 27. CO2 38, BUN 22 with a creatinine of 0.65, glucose 141, lactate 1.5. Normal LFTs negative troponin. -EKG showed no acute changes. -Head CT negative for bleed, mass or acute change. -Chest x-ray showed possible infection. Discharge Providers Provider Date of admission: 09/24/23 10:35 Discharge Date: 09/29/23 Primary care physician: Tyler Khan MD Consults: 09/24/23 13:37 Consult to Occupational Therapy Evaluate & Treat Comment: Physician Instructions: Evaluate and treat Consult to Physical Therapy Evaluate & Treat Comment: Physician Instructions: Evaluate and Treat 09/28/23 11:44 Consult to Physical Therapy Evaluate & Treat Comment: Physician Instructions: Bariatric FWW for home use 09/28/23 12:39 Consult to Home Health Routine Comment: Reason For Exam: Home health services upon discharge Discharge provider: Ramya Johnson MD Summary Hospital Course Discharge Diagnosis: Pneumonia, Community-acquired Acute on chronic respiratory failure Iron deficiency anemia Myoclonus Obstructive sleep apnea DM Type 2 HTN Chronic pain Morbid obesity Hypercholesterolemia BPH Hospital Course: The pt presented with SOB and evidence of community-acquired pneumonia with acute respiratory failure, worsening anemia, and new myoclonus. He continued on Ceftriaxone and Azithromycin throughout his hospitalization. His oxygen requirement reached 10L at the highest, but was weaned back to his normal baseline of 4L at the time of discharge. The pt was noted to have recurrent hypoxic episodes at night, and will need an outpatient sleep study to evaluate further. He is willing to use CPAP at home now. The pts H/H was noted to be trending down, despite IV iron transfusion. Oncology was consulted, and recommended PRBC transfusion, and the pt received 2 units. They also recommended evaluation for potential alternative cause of his anemia. Surgery was consulted, who recommended outpatient scopes. The pt was placed on IV Pantoprazole in the hospital, and will continue with Omeprazole as an outpatient. His H/H remained stable after transfusion. The pt was noted to have significant myoclonus at admission. This gradually improved throughout his hospitalization. The pt now notes it is only present with particular motions/positions. This can be worked-up as an outpatient further. The pt could not have an MRI while at this facility due to body habitus. Status at Discharge Cognitive/behavioral status at discharge: oriented Functional status at discharge: uses cane/walker Overall status at discharge: patient is progressing back to baseline Exam Vital Signs (past 8 hours): - 09/29/23 03:50 09/29/23 07:40 09/29/23 08:00 Temperature 96.9 F L 96.7 F L Pulse Rate 91 H 77 Respiratory Rate 20 18 Blood Pressure 135/75 129/59 L Pulse Oximetry 93 91 Oxygen Delivery Method Nasal Cannula Oxygen Flow Rate 4 09/29/23 09:11 Temperature Pulse Rate 84 Respiratory Rate 18 Blood Pressure Pulse Oximetry 94 Oxygen Delivery Method Oximask Oxygen Flow Rate 5 Fraction of Inspired Oxygen 36 SaO2/FiO2 Ratio 252 Oxygen Delivery Method Oximask Oxygen Flow Rate 5 Narrative Exam Narrative: Gen: NAD, sitting comfortably in chair CV: RRR, grade 3/6 systolic murmur Resp: clear to auscultation bilaterally, no significant wheezes or crackles Ext: 3+ pitting edema bilaterally, stable from prior Neuro: No significant myoclonus noted Objective Labs 09/29/23 04:35 09/29/23 04:35 Labs: Laboratory Results - last 24 hr 09/28/23 09/29/23 14:11 04:35 WBC 8.1 7.0 RBC 4.10 L 3.98 L Hgb 9.7 L 9.4 L Hct 31.3 L 30.5 L MCV 76.5 L 76.8 L MCH 23.6 L 23.5 L MCHC 30.9 30.6 RDW 19.4 H 19.8 H Plt Count 251 240 Neut % (Auto) 79.6 H 74.0 Lymph % (Auto) 8.1 L 10.9 L [place] % (Auto) 9.6 11.0 Eos % (Auto) 1.8 L 3.1 Baso % (Auto) 0.9 1.0 Neut # (Auto) 6500 5200 Lymph # (Auto) 700 L 800 L [place] # (Auto) 800 800 Eos # (Auto) 100 200 Baso # (Auto) 100 100 Sodium 138 Potassium 3.9 Chloride 98 Carbon Dioxide 37 H BUN 16 Creatinine 0.61 L Estimated GFR > 60 BUN/Creatinine Ratio 26.2 H Glucose 115 H Calcium 8.8 PFSH Medical History Microscopic hematuria BPH w urinary obs/LUTS History of bladder stone Renal cyst, right Calculus of right kidney Iron deficiency anemia Sleep apnea Rib fractures (~1974) Chronic back pain Enlarged prostate Constipation Hemorrhoid (~1999) Morbid obesity Diabetes type 2, controlled H/O adenomatous polyp of colon History of nephrolithiasis (~1999) Mixed hyperlipidemia Essential hypertension (~1994) Surgical History H/O umbilical hernia repair Anesthesia Bladder stones (~2016) History of knee surgery (~1979) Family History Mother Cancer Father Myocardial infarct Brother Cancer Social History household members: spouse Smoking Status: Former smoker Discharge Plan Discharge Plan Patient Disposition: Home Discharge orders & Medications Prescriptions: New omeprazole 20 mg capsule,delayed release(DR/EC) 20 mg PO DAILY Qty: 30 0RF cefpodoxime 200 mg tablet 200 mg PO BID Qty: 18 0RF Rx Instructions: must administer with a meal/food Continued budesonide-formoterol 160-4.5 mcg/actuation HFA aerosol inhaler 2 inh inhalation BID Qty: 10.2 7RF Rx Instructions: DO NOT DISPENSE BRAND NAME, NOT COVERED BY INSURANCE buprenorphine-naloxone 8-2 mg tablet, sublingual 2 tab SL DAILY acetaminophen 500 mg capsule 500 - 1,000 mg PO Q6H PRN (Reason: Pain (Scale Score 1-3)) Patient Comments: For pain lisinopril 40 mg tablet 40 mg PO DAILY Qty: 90 3RF pravastatin 20 mg tablet 20 mg PO DAILY Qty: 90 3RF hydrochlorothiazide 25 mg tablet 25 mg PO DAILY Qty: 90 3RF tamsulosin 0.4 mg capsule 0.4 mg PO DAILY Qty: 90 3RF Follow up/Referrals: Tyler Khan MD [Primary Care Provider] - 2 Weeks Diet/Activity/Treatments Diet: Diet as Tolerated and Regular Skin/Wound/Dressing Care Report to your healthcare provider any signs of infection, such as:: chills, fever Visit Report/Discharge Packet Instructions: DI for Pneumonia -- Adult, How to Measure Oxygen Saturation via Pulse Oximetry, How to Perform Oxygen Therapy via Mask, How to Prevent Falls, DI for Muscle Weakness, Traveling When You Need Oxygen Therapy Stand Alone Forms: Patient Portal/API, Stroke Signs & Symptoms Discharge Data Primary Care Provider: Tyler Khan
--- NOTE | 2023-09-29 13:38 | CM.DPNOTE ---
DC Note Discharge home today w/spouse to assist, updated [facility] of patient's discharge. IMM provided at 0900. Brochure for [facility] provided. plan: Discharge home w/spouse, YAKELIN dorado, close outpatient follow up recommended - sleep study etc, spouse to transport. HERSON
--- NOTE | 2023-09-29 15:39 | PC.NURSE ---
Discharge: Pt feels he is ready to d/c to home. Dr. Marks here and she spoke with patient and RT for a long time. Pt needs a sleep study to have a cpap provided under insurance. reviewed information with pt and his spouse. They had many questions. They are to call the office on sunday to make an appt w/Dr. Khan and make him aware they need a sleep study. He maybe willing to start the referral process since the patient is a residential client. Pt given extra face max and his O2 supplies used at hospital until he can get his own. Pt does have home O2 supplies at home but they are for a NC, not the mask. Reviewed discharge packet. Questions answered. Seen by RT/PT and they all gave d/c instructions. Pt d/c to home via auto w/spouse. No concerns voiced.
== END 2023-09-29 15:20 | disposition home health service (06) | DRG 193 ==
LOC: ED 08:48 → AC 10:35
PROVIDERS: Emergency Medicine; Admitting Provider Family Medicine; Emergency Provider Emergency Medicine; PCP Internal Medicine; Visit Provider Family Medicine
DX: J18.9 Pneumonia, unspecified organism (principal); J96.21 Acute and chronic respiratory failure with hypoxia; Z68.43 Body mass index [BMI] 50.0-59.9, adult; J44.0 Chronic obstructive pulmonary disease with (acute) lower respiratory infection; E66.01 Morbid (severe) obesity due to excess calories; D50.9 Iron deficiency anemia, unspecified; R47.81 Slurred speech; G25.3 Myoclonus; E11.9 Type 2 diabetes mellitus without complications; I10 Essential (primary) hypertension; G89.29 Other chronic pain; G47.33 Obstructive sleep apnea (adult) (pediatric); E78.00 Pure hypercholesterolemia, unspecified; R29.6 Repeated falls; N40.0 Benign prostatic hyperplasia without lower urinary tract symptoms; Z99.81 Dependence on supplemental oxygen; Z87.891 Personal history of nicotine dependence
CPT/HCPCS: 0241U; 36415; 36430; 36600; 70450; 70496; 70498; 71045; 71275; 80048; 80053; 80305; 81001; 82550; 82607; 82805; 83540; 83550; 83605; 83690; 83735; 83880; 84443; 84484; 85025; 86850; 86900; 86901; 87040; 93005; 94640; 94660; 94760; 94762; 96365; 97116; 97129; 97130; 97162; 97166; 97530; 97535; 99223; 99232; 99233; 99238; 99285; P9016; C8929; C9113; J0696; J1650; J2060; J7613; Q0138; Q9957; Q9967

== ENCOUNTER → 2023-10-08 11:42 | Outpatient (CLI) | payer OTHER, SELFPAY ==
[2023-09-24 10:38] VITALS: BMI 56.7
[2023-10-08 13:46] LABS: Add Manual Diff / Slide Review NO; Basophils Absolute Auto 100 /uL (0-100); Basophils Percent Auto 0.8 % (0-2); Eosinophils Absolute Auto 100 /uL (0-450); Eosinophils Percent Auto 1.4 % (2-4); Hematocrit 33.2 % (41-53); Hemoglobin 10.5 g/dL (13.5-17.5); Lymphocytes Absolute Auto 800 /uL (1100-4500); Lymphocytes Percent Auto 8.4 % (25-40); Mean Corpuscular HGB Conc 31.6 % (30-36); Mean Corpuscular Volume 79.1 fL (80-100); Monocytes Absolute Auto 900 /uL (0-900); Monocytes Percent Auto 9.7 % (3-14); Neutrophils Absolute Auto 7200 /uL (1500-7000); Neutrophils Percent Auto 79.7 % (50-75); Platelet Count 274 X10^3/uL (150-400); Red Blood Cell Count 4.19 X10^6/uL (4.5-5.9); Red Cell Distribution Width 23.2 % (11.6-14.8); White Blood Cell Count 9.1 X10^3/uL (4.5-11.0)
[2023-10-08 14:13] LABS: Anisocytosis 3+
[2023-10-08 14:14] LABS: Erythrocyte Sedimentation Rate 76 MM/HR (0-15)
[2023-10-08 14:24] LABS: HEMOLYSIS < 15 (0-50); Iron 47 ug/dL (49-181)
[2023-10-08 14:28] LABS: Alanine Aminotransferase 26 IU/L (<50); Albumin 3.8 g/dL (3.5-5.0); Alkaline Phosphatase 75 U/L (38-126); Aspartate Aminotransferase 31 IU/L (17-59); BUN Creatinine Ratio 35.7 (6-22); Bilirubin Total 0.4 mg/dL (0.2-1.3); Blood Urea Nitrogen 25 mg/dL (9-20); C-Reactive Protein Quant 3.5 mg/dL (<1.0); Carbon Dioxide 35 mmol/L (22-32); Chloride 97 mmol/L (98-107); Creatine Kinase 25 U/L (55-170); Estimated Glomerular Filt Rate > 60 mL/min (>60); Glucose 117 mg/dL (80-110); HEMOLYSIS < 15 (0-50); Potassium 4.1 mmol/L (3.4-5.1); Sodium 139 mmol/L (137-145); Total Protein 7.8 g/dL (6.3-8.2)
[2023-10-08 14:35] LABS: Percent Iron Saturation 15 % (20-50); Total Iron Binding Capacity 319 ug/dL (261-462); Transferrin 255 mg/dL (206-381)
[2023-10-08 14:41] LABS: Free T4, Direct Thyroxine 1.31 ng/dL (0.78-2.19)
[2023-10-08 14:55] LABS: Thyroid Stimulating Hormone 1.22 uIU/mL (0.47-4.68)
[2023-10-09 06:20] LABS: x Labcorp Estim. Avg Glu (eAG) 126 mg/dL (.)
== END ==
LOC: LAB 11:44
PROVIDERS: PCP Internal Medicine; Referring Provider Internal Medicine; Visit Provider Internal Medicine
DX: E66.01 Morbid (severe) obesity due to excess calories (principal); I10 Essential (primary) hypertension; E78.2 Mixed hyperlipidemia; M79.10 Myalgia, unspecified site; J44.9 Chronic obstructive pulmonary disease, unspecified; D50.9 Iron deficiency anemia, unspecified
CPT/HCPCS: 36415; 80053; 82550; 83036; 83540; 83550; 84439; 84443; 85025; 85651; 86140

== ENCOUNTER → 2024-04-04 12:39 | Outpatient (CLI) | payer OTHER, SELFPAY ==
[2023-09-24 10:38] VITALS: BMI 56.7
== END ==
LOC: WC 12:41
PROVIDERS: PCP Internal Medicine; Visit Provider Physician Assistant
DX: L89.893 Pressure ulcer of other site, stage 3 (principal); E11.628 Type 2 diabetes mellitus with other skin complications; I10 Essential (primary) hypertension; D64.9 Anemia, unspecified; E66.01 Morbid (severe) obesity due to excess calories; Z99.3 Dependence on wheelchair; Z68.43 Body mass index [BMI] 50.0-59.9, adult; M79.651 Pain in right thigh; M79.652 Pain in left thigh
CPT/HCPCS: 11042; 87070; 87075; 87077; 87147; 87186; 87205; 99204; 99213

== ENCOUNTER → 2024-04-11 14:38 | Outpatient (CLI) | payer OTHER, SELFPAY ==
[2023-09-24 10:38] VITALS: BMI 56.7
== END ==
LOC: WC 14:38
PROVIDERS: PCP Internal Medicine; Referring Provider Surgery Vascular Surgery; Visit Provider Physician Assistant
DX: Q27.32 Arteriovenous malformation of vessel of lower limb (principal); L89.893 Pressure ulcer of other site, stage 3; E66.01 Morbid (severe) obesity due to excess calories; Z68.43 Body mass index [BMI] 50.0-59.9, adult
CPT/HCPCS: 11042; 99213

== ENCOUNTER → 2024-04-25 08:05 | Outpatient (CLI) | payer OTHER, SELFPAY ==
[2023-09-24 10:38] VITALS: BMI 56.7
== END ==
PROVIDERS: PCP Internal Medicine; Referring Provider Surgery Vascular Surgery; Visit Provider Physician Assistant
DX: L89.893 Pressure ulcer of other site, stage 3 (principal); E11.628 Type 2 diabetes mellitus with other skin complications; I10 Essential (primary) hypertension; D64.9 Anemia, unspecified; Q27.32 Arteriovenous malformation of vessel of lower limb; E66.01 Morbid (severe) obesity due to excess calories; Z68.43 Body mass index [BMI] 50.0-59.9, adult
CPT/HCPCS: 11042; 99214

== ENCOUNTER → 2024-05-09 13:47 | Outpatient (CLI) | payer OTHER, SELFPAY ==
[2023-09-24 10:38] VITALS: BMI 56.7
== END ==
LOC: WC 13:47
PROVIDERS: PCP Internal Medicine; Referring Provider Surgery Vascular Surgery; Visit Provider Physician Assistant
DX: L89.893 Pressure ulcer of other site, stage 3 (principal); E11.628 Type 2 diabetes mellitus with other skin complications; Q27.32 Arteriovenous malformation of vessel of lower limb; E66.01 Morbid (severe) obesity due to excess calories; Z68.43 Body mass index [BMI] 50.0-59.9, adult; Z99.3 Dependence on wheelchair
CPT/HCPCS: 11042; 99213

== ENCOUNTER → 2024-05-26 13:24 | Outpatient (CLI) | payer OTHER, SELFPAY ==
[2023-09-24 10:38] VITALS: BMI 56.7
== END ==
LOC: WC 13:25
PROVIDERS: PCP Internal Medicine; Referring Provider Surgery Vascular Surgery; Visit Provider Surgery
DX: E11.621 Type 2 diabetes mellitus with foot ulcer (principal); L97.512 Non-pressure chronic ulcer of other part of right foot with fat layer exposed; E11.622 Type 2 diabetes mellitus with other skin ulcer; L97.822 Non-pressure chronic ulcer of other part of left lower leg with fat layer exposed; R60.0 Localized edema; I73.9 Peripheral vascular disease, unspecified; N18.6 End stage renal disease; Z99.2 Dependence on renal dialysis; I25.10 Atherosclerotic heart disease of native coronary artery without angina pectoris
CPT/HCPCS: 11042; 99213

== ENCOUNTER → 2024-06-20 13:37 | Outpatient (CLI) | payer OTHER, SELFPAY ==
[2023-09-24 10:38] VITALS: BMI 56.7
== END ==
LOC: WC 13:38
PROVIDERS: PCP Internal Medicine; Referring Provider Surgery Vascular Surgery; Visit Provider Physician Assistant
DX: L89.893 Pressure ulcer of other site, stage 3 (principal); R60.0 Localized edema; E11.628 Type 2 diabetes mellitus with other skin complications; D64.9 Anemia, unspecified; I10 Essential (primary) hypertension; E78.5 Hyperlipidemia, unspecified; Q27.32 Arteriovenous malformation of vessel of lower limb
CPT/HCPCS: 87070; 87075; 87077; 87147; 87186; 87205; 97597; 99214

== ENCOUNTER 2024-06-25 01:36 | Inpatient (IN) | payer OTHER, MEDICARE, SELFPAY ==
[2023-09-24 10:38] VITALS: BMI 56.7
[2024-06-25] VITALS (20 sets, daily range): BP systolic 94–127; BP diastolic 51–74; PULSE 70–105; RESP 17–32; TEMP 36.1–36.7; O2SAT 90–94; BMI 53.1
--- NOTE | 2024-06-25 01:55 | DI.RAD.S_ITS ---
PROCEDURE: XR CHEST 1V INDICATIONS: Eval for pneumonia TECHNIQUE: One view of the chest was acquired. COMPARISON: [facility], CR, XR CHEST 1V, 09/26/2023, 8:42. FINDINGS: Surgical changes and devices: None. Lungs and pleura: Ill-defined airspace opacities are seen scattered in bilateral perihilar and infrahilar regions . Blunting of right costophrenic angle is also noted concerning for small right pleural effusion. No pneumothorax. Mediastinum: Mediastinal contours appear normal. Heart size is normal. Bones and chest wall: No suspicious bony lesions. Overlying soft tissues appear unremarkable. IMPRESSION: Suggestion of bilateral patchy infiltrates in mid to lower lung christie and small right pleural effusion versus thickening. No pneumothorax. No significant discrepancies from preliminary reading. Dictated by: Prieto Quintana M.D. on 06/25/2024 at 8:52 Approved by: Prieto Quintana M.D. on 06/25/2024 at 8:54
--- NOTE | 2024-06-25 01:56 | EKG_ITS ---
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
[2024-06-25 02:06] LABS: Add Manual Diff / Slide Review NO; Basophils Absolute Auto 0 /uL (0-100); Basophils Percent Auto 0.4 % (0-2); Eosinophils Absolute Auto 100 /uL (0-450); Eosinophils Percent Auto 1.6 % (2-4); Hematocrit 32.1 % (41-53); Hemoglobin 9.7 g/dL (13.5-17.5); Lymphocytes Absolute Auto 700 /uL (1100-4500); Lymphocytes Percent Auto 7.4 % (25-40); Mean Corpuscular HGB Conc 30.3 % (30-36); Mean Corpuscular Hemoglobin 24.2 PG (26-34); Mean Corpuscular Volume 79.7 fL (80-100); Monocytes Absolute Auto 700 /uL (0-900); Monocytes Percent Auto 7.7 % (3-14); Neutrophils Absolute Auto 7700 /uL (1500-7000); Neutrophils Percent Auto 82.9 % (50-75); Platelet Count 222 X10^3/uL (150-400); Red Blood Cell Count 4.03 X10^6/uL (4.5-5.9); Red Cell Distribution Width 17.2 % (11.6-14.8); White Blood Cell Count 9.2 X10^3/uL (4.5-11.0)
--- NOTE | 2024-06-25 02:06 | PC.NURSE ---
Patient states he has a CPAP at home but does not use it.
[2024-06-25 02:12] LABS: Creatine Kinase 27 U/L (55-170)
[2024-06-25 02:13] LABS: Alanine Aminotransferase 17 IU/L (<50); Albumin 3.7 g/dL (3.5-5.0); Albumin Globulin Ratio 1.1 (1.0-2.8); Alkaline Phosphatase 69 U/L (38-126); Aspartate Aminotransferase 21 IU/L (17-59); BUN Creatinine Ratio 30.3 (6-22); Bilirubin Total 0.4 mg/dL (0.2-1.3); Blood Urea Nitrogen 20 mg/dL (9-20); Calcium 8.6 mg/dL (8.4-10.2); Chloride 88 mmol/L (98-107); Estimated Glomerular Filt Rate > 60 mL/min (>60); Ethanol (ETOH) < 10 mg/dL; Globulin 3.5 g/dL (1.7-4.1); Glucose 120 mg/dL (80-110); HEMOLYSIS < 15 (0-50); Lactate (Lactic Acid) 1.1 mmol/L (0.7-2.1); Lipase 22 U/L (23-300); Magnesium 1.8 mg/dL (1.6-2.3); Potassium 4.3 mmol/L (3.4-5.1); Sodium 135 mmol/L (137-145); Total Protein 7.2 g/dL (6.3-8.2)
[2024-06-25 02:20] LABS: Carbon Dioxide 43 mmol/L (22-32)
[2024-06-25 02:21] LABS: NT-proBNP (BNP-Adult 18+) 79 pg/mL (<125)
[2024-06-25 02:25] LABS: Troponin I < 0.012 ng/mL (0.01-0.034)
[2024-06-25 02:29] LABS: Procalcitonin 0.167 ng/mL (<0.5)
[2024-06-25 02:31] LABS: Allen Test for ABG Passed? Positive; Base Excess ABG 15.7 mmol/L (-2-3); Blood Gas Collection Site Left Radial; Delivery System Cannula; HCO3 ABG 44 mmol/L (23-27); Oxygen Saturation ABG 94 % (95-100); PCO2 ABG 78.5 mmHg (35-45); PO2 ABG 77 mmHg (80-100); TCO2 ABG 46 mmol/L (23-27); pH ABG 7.36 (7.35-7.45)
--- NOTE | 2024-06-25 02:32 | DI.CT.S_ITS ---
PROCEDURE: CT HEAD/BRAIN WO CON INDICATIONS: Confusion, hallucinations TECHNIQUE: Noncontrast 4.5 mm thick angled axial sections acquired from the foramen magnum to the vertex, with coronal and sagittal reformats. For radiation dose reduction, the following was used: automated exposure control, adjustment of mA and/or kV according to patient size. COMPARISON: [facility], CT, CT HEAD/BRAIN WO CON, 09/24/2023, 8:00. FINDINGS: Image quality: Diagnostic. CSF spaces: Basal cisterns are patent. No extra-axial fluid collections. The ventricles are symmetric in size and shape. Brain: No intracranial bleeds or masses. There is cerebral volume loss for age, with resultant ventricular and sulcal prominence. There are periventricular and deep white matter chronic small vessel ischemic changes. There is intracranial internal carotid artery atherosclerosis. Skull and face: Calvarium and visualized facial bones appear intact, without suspicious lesions. Sinuses: Visualized sinuses and mastoids are clear. IMPRESSION: No evidence acute intracranial process. Comment: Final report is concordant with preliminary interpretation provided by [facility]. Dictated by: Fran Castro M.D. on 06/25/2024 at 7:53 Approved by: Fran Castro M.D. on 06/25/2024 at 7:54
--- NOTE | 2024-06-25 02:32 | ED.GENADULT ---
HPI - General Adult General Chief complaint: Weakness Stated complaint: weakness Time Seen by Provider: 06/25/24 01:53 Source: patient, family and EMS Mode of arrival: EMS Limitations: no limitations History of Present Illness HPI narrative: Patient is a 68-year-old male who with a history of COPD. Is on home oxygen normally at 2-3 L. also has a history of hypertension, hyperlipidemia, iron deficiency anemia who is here for evaluation of weakness, involuntary movements of his upper extremities, hallucinations, shortness of breath, cough. Patient is here with his . He states he was really had symptoms for the past month but things seemed to get very worse over the past couple days. They have had to increase his oxygen use at home at times up to 6 L. he did have a productive cough yesterday but nothing today. Denies chest pain. He states that he was having involuntary movements of his upper extremities. He states that sometimes specifically in the morning he seems to see things that are not actually there. His seems to think that this is just related to him waking up. She stated that he does seem to be somewhat more confused and somnolent at home. No change in bowel habits. No fevers. states this is how he acted earlier this year when he was diagnosed with pneumonia. Related Data Home Medications Medication Instructions Recorded Confirmed acetaminophen 500 mg capsule 500 - 1,000 mg PO Q6H PRN Pain 06/29/20 01/18/24 (Scale Score 1-3) buprenorphine 8 mg-naloxone 2 mg 2 film buccal Q24H 10/08/23 01/18/24 sublingual film Previous Rx's Medication Instructions Recorded fluticasone 500 mcg-salmeterol 50 1 inh inhalation BID #60 ea 10/01/23 mcg/dose blistr powdr for inhalation ([facility]) Disabled Parking #1 ea 10/08/23 tamsulosin 0.4 mg capsule 0.4 mg PO DAILY #90 caps 10/11/23 hydrochlorothiazide 25 mg tablet 25 mg PO DAILY #90 tabs 10/15/23 lisinopril 40 mg tablet 40 mg PO DAILY #90 tabs 10/15/23 pravastatin 20 mg tablet 20 mg PO DAILY #90 tabs 10/22/23 semaglutide 0.25 mg or 0.5 mg (2 0.25 mg (0.368 mL) SUBCUT QWEEK #3 01/28/24 mg/3 mL) subcutaneous pen injector mL Allergies Allergy/AdvReac Type Severity Reaction Status Date / Time No Known Drug Allergies Allergy Verified 01/18/24 11:42 Review of Systems Review of Systems ROS Unobtainable: All systems reviewed & are unremarkable except as noted in HPI and below Patient History Medical History Microscopic hematuria BPH w urinary obs/LUTS History of bladder stone Renal cyst, right Calculus of right kidney Iron deficiency anemia Sleep apnea Rib fractures (~1974) Chronic back pain Enlarged prostate Constipation Hemorrhoid (~1999) Morbid obesity Diabetes type 2, controlled H/O adenomatous polyp of colon History of nephrolithiasis (~1999) Mixed hyperlipidemia Essential hypertension (~1994) Surgical History H/O umbilical hernia repair Anesthesia Bladder stones (~2016) History of knee surgery (~1979) Family History Mother Cancer Father Myocardial infarct Brother Cancer Social History household members: spouse Smoking Status: Former smoker Smoking Status: Former smoker alcohol intake frequency: holidays/special occasions only Substance Use Type: does not use Exam Initial Vital Signs Initial Vital Signs: Vital Signs Pulse Rate 105 H 06/25/24 01:40 Blood Pressure 115/58 L 06/25/24 01:40 Pulse Oximetry 93 06/25/24 01:40 Oxygen Delivery Method Nasal Cannula 06/25/24 01:40 Oxygen Flow Rate 4 06/25/24 01:40 Const General: ill appearing (Chronically ill-appearing) HENMT Head: normal to inspection and normocephalic Resp Effort & Inspection: cough, not labored, no retractions and tachypneic Auscultation: rhonchi Cardio Rate: tachycardic Rhythm: regular rhythm GI Inspection: normal to inspection Neuro General: patient alert, patient awake, patient oriented x3 and moves all extremities Extrem General: edema Scores GCS [place] coma scale eye opening: Spontaneous [place] coma scale verbal response: Orientated [place] coma scale motor response: Obey commands [place] coma scale total score: 15 Course Orders Ordered: ED Orders 06/25/24 01:48 BNP [NT-proBNP (BNP-Adult 18+)] Stat Complete Blood Count AUTO DIFF Stat Comprehensive Metabolic Panel Stat Ethanol (ETOH) Stat Lactate (Lactic Acid) Stat Lipase Stat Magnesium Stat Procalcitonin Stat Troponin & CK Cardiac Panel Stat 06/25/24 01:55 XR chest 1V Stat 06/25/24 01:56 EKG-12 Lead Stat 06/25/24 01:58 ABG [Arterial Blood Gas] STAT 06/25/24 02:00 Covid-19 + FLU A/B + RSV - PCR Stat 06/25/24 02:32 CT head/brain wo con Stat 06/25/24 03:00 Blood Culture Stat 06/25/24 03:25 Urine Culture Stat Urine Drug Screen, Rapid Stat Urine Microscopic Stat 06/25/24 04:08 Consult to Physician Stat 06/25/24 04:10 Consult to Physician Stat Morphine Sulfate (Morphine 2 Mg/Ml Inj) 2 mg IV Q4HR PRN PRN Reason: Pain, Moderate (4-6) Ondansetron HCl (Ondansetron 4 Mg/2 Ml Inj) 4 mg IV Q4HR PRN PRN Reason: Nausea And Vomiting Discontinued Medications Ceftriaxone Sodium 1,000 mg/ (Sodium Chloride) 100 mls @ 200 mls/hr IV NOW ONE Stop: 06/25/24 02:33 Last Infusion: 06/25/24 03:46 Dose: Infused Documented By: Admin: 06/25/24 03:11 Dose: 200 mls/hr Documented By: ALCON Azithromycin 500 mg/ Dextrose 250 mls @ 250 mls/hr IV NOW ONE Stop: 06/25/24 04:08 Vital Signs Vital signs: Vital Signs - 8 hr 06/25/24 01:40 06/25/24 01:40 06/25/24 01:45 Temperature 97.9 F Pulse Rate 105 H 102 H Respiratory Rate 22 Blood Pressure 115/58 L 115/58 L Pulse Oximetry 93 91 Oxygen Delivery Method Nasal Cannula Nasal Cannula Oxygen Flow Rate 4 4 06/25/24 02:00 06/25/24 02:00 06/25/24 02:30 Temperature Pulse Rate 103 H 95 H Respiratory Rate 30 H 26 H Blood Pressure 127/62 Pulse Oximetry 92 94 Oxygen Delivery Method Nasal Cannula Nasal Cannula Oxygen Flow Rate 4 4 06/25/24 02:31 06/25/24 02:31 06/25/24 02:58 Temperature Pulse Rate 96 H Respiratory Rate 24 24 Blood Pressure 120/61 105/74 Pulse Oximetry 94 Oxygen Delivery Method Nasal Cannula Oxygen Flow Rate 4 06/25/24 02:58 06/25/24 03:00 Temperature Pulse Rate 101 H 102 H Respiratory Rate 23 Blood Pressure Pulse Oximetry 92 93 Oxygen Delivery Method Nasal Cannula Nasal Cannula Oxygen Flow Rate 4 4 Medical Decision Making Medical Records Medical records reviewed: Yes I reviewed the patient's medical records. Lab Data Lab results reviewed: Yes I reviewed the patient's lab results. 06/25/24 01:48 06/25/24 01:48 Labs: Lab Results 06/25/24 06/25/24 06/25/24 Range/Units 01:48 02:00 02:19 WBC 9.2 (4.5-11.0) X10^3/uL RBC 4.03 L (4.5-5.9) X10^6/uL Hgb 9.7 L (13.5-17.5) g/dL Hct 32.1 L (41-53) % MCV 79.7 L (80-100) fL MCH 24.2 L (26-34) PG MCHC 30.3 (30-36) % RDW 17.2 H (11.6-14.8) % Plt Count 222 (150-400) X10^3/uL Neut % (Auto) 82.9 H (50-75) % Lymph % (Auto) 7.4 L (25-40) % [place] % (Auto) 7.7 (3-14) % Eos % (Auto) 1.6 L (2-4) % Baso % (Auto) 0.4 (0-2) % Neut # (Auto) 7700 H (9376-7399) /uL Lymph # (Auto) 700 L (8155-7460) /uL [place] # (Auto) 700 (0-900) /uL Eos # (Auto) 100 (0-450) /uL Baso # (Auto) 0 (0-100) /uL ABG Sample Site Left radial ABG pH 7.36 (7.35-7.45) ABG pCO2 78.5 H* (35-45) mmHg ABG pO2 77 L (80-100) mmHg ABG HCO3 44 H (23-27) mmol/L ABG Total CO2 46 H (23-27) mmol/L ABG O2 Saturation 94 L (95-100) % ABG Base Excess 15.7 H (-2-3) mmol/L Rangel Test Positive O2 Delivery Device Cannula Sodium 135 L (137-145) mmol/L Potassium 4.3 (3.4-5.1) mmol/L Chloride 88 L (98-107) mmol/L Carbon Dioxide 43 H* (22-32) mmol/L BUN 20 (9-20) mg/dL Creatinine 0.66 (0.66-1.25) mg/dL Estimated GFR > 60 (>60) mL/min BUN/Creatinine Ratio 30.3 H (6-22) Glucose 120 H (80-110) mg/dL Lactate 1.1 (0.7-2.1) mmol/L Calcium 8.6 (8.4-10.2) mg/dL Magnesium 1.8 (1.6-2.3) mg/dL Total Bilirubin 0.4 (0.2-1.3) mg/dL AST 21 (17-59) IU/L ALT 17 (<50) IU/L Alkaline Phosphatase 69 (38-126) U/L Total Creatine Kinase 27 L (55-170) U/L Troponin I < 0.012 (0.01-0.034) ng/mL NT-Pro-B Natriuret Pep 79 (<125) pg/mL Total Protein 7.2 (6.3-8.2) g/dL Albumin 3.7 (3.5-5.0) g/dL Globulin 3.5 (1.7-4.1) g/dL Albumin/Globulin Ratio 1.1 (1.0-2.8) Lipase 22 L (23-300) U/L Procalcitonin 0.167 (<0.5) ng/mL Urine RBC (0-5/HPF) Urine WBC (0-5/HPF) Ur Squamous Epith Cells (0-5/HPF) Urine Bacteria (None) Hyaline Casts (None) Urine Mucus (Negative) Vol Urine Centrifuged U Opiates 300ng/mL cut (Negative) Ur Oxycodone Screen (Negative) Urine Methadone Screen (Negative) Ur Barbiturates Screen (Negative) U Tricyclic Antidepress (Negative) Ur Phencyclidine Scrn (Negative) Ur Amphetamines Screen (Negative) U Methamphetamines Scrn (Negative) Ur MDMA Scrn (Ecstasy) (Negative) U Benzodiazepines Scrn (Negative) Urine Cocaine Screen (Negative) U Marijuana (THC) Screen (Negative) Urine pH (Normal) Urine Specific [place] (Normal) Ethyl Alcohol < 10 ( - 10) mg/dL Ur Creatinine (Normal) SARS-CoV-2 (PCR) Negative (Negative) Influenza A (RT-PCR) Flu a negative (NEGATIVE) Influenza B (RT-PCR) Flu b negative (NEGATIVE) RSV (PCR) Negative (Negative) 06/25/24 Range/Units 03:25 WBC (4.5-11.0) X10^3/uL RBC (4.5-5.9) X10^6/uL Hgb (13.5-17.5) g/dL Hct (41-53) % MCV (80-100) fL MCH (26-34) PG MCHC (30-36) % RDW (11.6-14.8) % Plt Count (150-400) X10^3/uL Neut % (Auto) (50-75) % Lymph % (Auto) (25-40) % [place] % (Auto) (3-14) % Eos % (Auto) (2-4) % Baso % (Auto) (0-2) % Neut # (Auto) (7555-1945) /uL Lymph # (Auto) (6637-4894) /uL [place] # (Auto) (0-900) /uL Eos # (Auto) (0-450) /uL Baso # (Auto) (0-100) /uL ABG Sample Site ABG pH (7.35-7.45) ABG pCO2 (35-45) mmHg ABG pO2 (80-100) mmHg ABG HCO3 (23-27) mmol/L ABG Total CO2 (23-27) mmol/L ABG O2 Saturation (95-100) % ABG Base Excess (-2-3) mmol/L Rangel Test O2 Delivery Device Sodium (137-145) mmol/L Potassium (3.4-5.1) mmol/L Chloride (98-107) mmol/L Carbon Dioxide (22-32) mmol/L BUN (9-20) mg/dL Creatinine (0.66-1.25) mg/dL Estimated GFR (>60) mL/min BUN/Creatinine Ratio (6-22) Glucose (80-110) mg/dL Lactate (0.7-2.1) mmol/L Calcium (8.4-10.2) mg/dL Magnesium (1.6-2.3) mg/dL Total Bilirubin (0.2-1.3) mg/dL AST (17-59) IU/L ALT (<50) IU/L Alkaline Phosphatase (38-126) U/L Total Creatine Kinase (55-170) U/L Troponin I (0.01-0.034) ng/mL NT-Pro-B Natriuret Pep (<125) pg/mL Total Protein (6.3-8.2) g/dL Albumin (3.5-5.0) g/dL Globulin (1.7-4.1) g/dL Albumin/Globulin Ratio (1.0-2.8) Lipase (23-300) U/L Procalcitonin (<0.5) ng/mL Urine RBC 0-1/hpf (0-5/HPF) Urine WBC 0-1/hpf (0-5/HPF) Ur Squamous Epith Cells 0-1 /hpf (0-5/HPF) Urine Bacteria None seen (None) Hyaline Casts 0-1/lpf (None) Urine Mucus 2+ H (Negative) Vol Urine Centrifuged 10ml (spun) U Opiates 300ng/mL cut Negative (Negative) Ur Oxycodone Screen Negative (Negative) Urine Methadone Screen Negative (Negative) Ur Barbiturates Screen Negative (Negative) U Tricyclic Antidepress Negative (Negative) Ur Phencyclidine Scrn Negative (Negative) Ur Amphetamines Screen Negative (Negative) U Methamphetamines Scrn Negative (Negative) Ur MDMA Scrn (Ecstasy) Negative (Negative) U Benzodiazepines Scrn Negative (Negative) Urine Cocaine Screen Negative (Negative) U Marijuana (THC) Screen Negative (Negative) Urine pH Normal (Normal) Urine Specific [place] Normal (Normal) Ethyl Alcohol ( - 10) mg/dL Ur Creatinine Normal (Normal) SARS-CoV-2 (PCR) (Negative) Influenza A (RT-PCR) (NEGATIVE) Influenza B (RT-PCR) (NEGATIVE) RSV (PCR) (Negative) Urine Dip Bedside Urine Glucose Negative Bedside Urine Bilirubin - Negative Bedside Urine Ketone - Negative Urine Specific [place] 1.025 Bedside Urine Occult Blood - Negative Bedside Urine pH 6.0 Bedside Urine Protein - Negative Bedside Urine Urobilinogen - Negative Bedside Urine Nitrite - Negative Bedside Urine Leukocytes - Negative Esterase Point of care testing: Urine Dip Bedside Urine Glucose Negative Bedside Urine Bilirubin - Negative Bedside Urine Ketone - Negative Urine Specific [place] 1.025 Bedside Urine Occult Blood - Negative Bedside Urine pH 6.0 Bedside Urine Protein - Negative Bedside Urine Urobilinogen - Negative Bedside Urine Nitrite - Negative Bedside Urine Leukocytes - Negative Esterase Imaging Data Chest x-ray: Radiologist's Impression: Multifocal bilateral pulmonary infiltrates. CT scan - head: Radiologist's Impression: No acute intracranial process Subcortical periventricular white matter hypoattenuation statistically representing changes of chronic microvascular ischemia ECG Data Attestation: I personally reviewed and interpreted this ECG as follows: Interpretation: Sinus tachycardia Ventricular rate 103 Occasional PVC Normal QRS No ST T wave changes MDM Narrative Medical decision making narrative: Patient has a history of COPD and is on oxygen at home. He was coarse breath sounds. Afebrile. Is tachycardic. No leukocytosis. Chest x-ray has multifocal pneumonia. COVID and flu test negative. Was given Rocephin and azithromycin. Blood cultures were obtained. Lactate unremarkable. Not hypotensive. Head CT is unremarkable. He was alert and oriented x3 but does seem to be slow at answering questions. He was had to increase his oxygen use at home. Physical exam is consistent with pneumonia. Patient is hypercarbic with a CO2 of 78. He had a CO2 of 56 when he was here earlier this year. He was a hard time tolerating CPAP/BiPAP because of claustrophobia issues although he does report feeling somewhat better when he uses these devices in the past. I did discuss the case with Dr. Lew hospitalist on-call for the patient's primary doctor who will admit. Discussed the need for admission with the patient. He expressed understanding and agreement with plan. Discharge Plan Departure Patient Disposition: Admitted As Inpatient Clinical Impression: COPD (chronic obstructive pulmonary disease), Pneumonia Admit Date/Time: 06/25/24 04:11 Admit Provider: Tyler Khan
[2024-06-25 02:44] LABS: Influenza A - CEPHEID Flu A NEGATIVE (NEGATIVE); Influenza B - CEPHEID Flu B NEGATIVE (NEGATIVE); Respiratory Syncytial Virus Negative (Negative)
[2024-06-25 02:49] LABS: COVID-19 CEPHEID 4-PLEX PCR Negative (Negative)
[2024-06-25] MEDS: cefTRIAXone 1,000 MG in SODIUM CHLORIDE 0.9% 100 ML 200 MG IV (03:11)
[2024-06-25 03:44] LABS: Ur Creatinine Normal (Normal); Ur Specific Gravity Normal (Normal); Urine Amphetamines Negative (Negative); Urine Barbiturates Negative (Negative); Urine Benzodiazepines Negative (Negative); Urine Cocaine Negative (Negative); Urine MDMA Negative (Negative); Urine Methadone Negative (Negative); Urine Methamphetamines Negative (Negative); Urine Opiates Negative (Negative); Urine Oxycodone Negative (Negative); Urine Phencyclidine Negative (Negative); Urine THC Negative (Negative); Urine Tricyclic Antidepressant Negative (Negative); Urine pH Normal (Normal)
[2024-06-25 03:46] LABS: Bacteria Urine None Seen; RBC Urine 0-1/HPF (0-5/HPF); Squamous Epithelial Cell Urine 0-1 /HPF (0-5/HPF); Urine Volume 10mL (spun); WBC Urine 0-1/HPF (0-5/HPF)
[2024-06-25 03:47] LABS: Hyaline Casts Urine 0-1/LPF; Mucus Urine 2+ (Negative)
[2024-06-25] MEDS: AZITHROMYCIN 500 MG in DEXTROSE 5% IN WATER 250 ML 250 MG IV (04:25)
--- NOTE | 2024-06-25 05:30 | PC.NURSE ---
Addendum entered by Adri Negron R.N. 06/25/24 07:05: Pt reported visual hallucinations, described seeing a sonya standing over by the sink in a nurse's uniform that was not visible to this RN. Pt expressed that he is sometimes aware that a hallucination is not real, but sometimes they are very vivid and it is hard to tell. Original Note: NOC: Assumed care of patient @ 0500, pt A&Ox4, VS WNL, LS diminished throughout w/crackles in lower posterior bases BL, 4L O2 NC, 500mg azithromycin infusing. Call light within reach, bed low/locked, care continues.
--- NOTE | 2024-06-25 05:44 | PC.WOUNDPHOT ---
1) buttocks 2) mid back, L side 3) R inner thigh
--- NOTE | 2024-06-25 07:47 | P.HP_ITS ---
History of Present Illness History of Present Illness Date Patient Seen: 06/25/24 Time Patient Seen: 07:48 Chief complaint: weakness Narrative: 68-year-old morbidly obese male well known to me although he was canceled or failed to show for his last for appointments in the clinic he was admitted via emergency department with pneumonia Patient normally has oxygen requirement at home but has been noticing his need to increase his oxygen level to maintain oxygen saturation over the last several days/weeks including at times up to 6 liters/minute. Had a bit of a cough day before admission. Having some increased shortness of breath and cough often on for several weeks prior to this. Spouse thinks patient has been more somnolent and confused at times off and on. Denies any fevers. Overall brought to the ER because this is how he has presented with pneumonia in the past, spouse. In the ER found to be somewhat more hypoxic than usual, somewhat more hypercapnic than usual (clearly he is chronically hypercapnic based on his ABG), and a multifocal pneumonia on portable chest x-ray imaging in the emergency department. He had a normal white count and essentially normal chemistries except for the elevation of his bicarbonate related to his acute and chronic respiratory acidosis He was given a dose of ceftriaxone and azithromycin in the emergency department and admitted [facility] Medical History (Updated 06/25/24 @ 07:55 by Tyler Khan MD) Vascular malformation of lower extremity Microscopic hematuria BPH w urinary obs/LUTS History of bladder stone Renal cyst, right Calculus of right kidney Iron deficiency anemia Sleep apnea Rib fractures (~1974) Chronic back pain Enlarged prostate Constipation Hemorrhoid (~1999) Morbid obesity Diabetes type 2, controlled H/O adenomatous polyp of colon History of nephrolithiasis (~1999) Mixed hyperlipidemia Essential hypertension (~1994) Surgical History H/O umbilical hernia repair Anesthesia Bladder stones (~2016) History of knee surgery (~1979) Family History Mother Cancer Father Myocardial infarct Brother Cancer Social History household members: spouse Smoking Status: Former smoker alcohol intake: former Meds Home Medications and Allergies Home Medications Medication Instructions Recorded Confirmed Type acetaminophen 500 mg capsule 500 - 1,000 mg PO Q6H PRN Pain 06/29/20 06/25/24 History (Scale Score 1-3) fluticasone 500 mcg-salmeterol 50 1 inh inhalation BID #60 ea 10/01/23 06/25/24 Rx mcg/dose blistr powdr for inhalation ([facility]) Disabled Parking #1 ea 10/08/23 06/25/24 Rx buprenorphine 8 mg-naloxone 2 mg 2 film buccal Q24H 10/08/23 06/25/24 History sublingual film tamsulosin 0.4 mg capsule 0.4 mg PO DAILY #90 caps 10/11/23 06/25/24 Rx hydrochlorothiazide 25 mg tablet 25 mg PO DAILY #90 tabs 10/15/23 06/25/24 Rx lisinopril 40 mg tablet 40 mg PO DAILY #90 tabs 10/15/23 06/25/24 Rx pravastatin 20 mg tablet 20 mg PO DAILY #90 tabs 10/22/23 06/25/24 Rx semaglutide 0.25 mg or 0.5 mg (2 0.25 mg (0.368 mL) SUBCUT QWEEK #3 01/28/24 06/25/24 Rx mg/3 mL) subcutaneous pen injector mL Allergies Allergy/AdvReac Type Severity Reaction Status Date / Time No Known Drug Allergies Allergy Verified 01/18/24 11:42 Review of Systems Review of Systems ROS: Yes All systems reviewed with the patient and are negative except as otherwise documented Exam Vital Signs (past 8 hours): - 06/25/24 01:40 06/25/24 01:40 06/25/24 01:45 Temperature 97.9 F Pulse Rate 105 H 102 H Respiratory Rate 22 Blood Pressure 115/58 L 115/58 L Pulse Oximetry 93 91 Oxygen Delivery Method Nasal Cannula Nasal Cannula Oxygen Flow Rate 4 4 06/25/24 02:00 06/25/24 02:00 06/25/24 02:30 Temperature Pulse Rate 103 H 95 H Respiratory Rate 30 H 26 H Blood Pressure 127/62 Pulse Oximetry 92 94 Oxygen Delivery Method Nasal Cannula Nasal Cannula Oxygen Flow Rate 4 4 06/25/24 02:31 06/25/24 02:31 06/25/24 02:58 Temperature Pulse Rate 96 H Respiratory Rate 24 24 Blood Pressure 120/61 105/74 Pulse Oximetry 94 Oxygen Delivery Method Nasal Cannula Oxygen Flow Rate 4 06/25/24 02:58 06/25/24 03:00 06/25/24 03:30 Temperature Pulse Rate 101 H 102 H 91 H Respiratory Rate 23 28 H Blood Pressure Pulse Oximetry 92 93 93 Oxygen Delivery Method Nasal Cannula Nasal Cannula Nasal Cannula Oxygen Flow Rate 4 4 4 06/25/24 03:31 06/25/24 03:31 06/25/24 04:00 Temperature Pulse Rate 92 H 97 H Respiratory Rate 25 H 32 H Blood Pressure 126/69 Pulse Oximetry 92 92 Oxygen Delivery Method Nasal Cannula Nasal Cannula Oxygen Flow Rate 4 4 06/25/24 04:01 06/25/24 04:01 06/25/24 04:22 Temperature Pulse Rate 98 H Respiratory Rate 25 H Blood Pressure 94/51 L Pulse Oximetry 93 Oxygen Delivery Method Nasal Cannula Nasal Cannula Oxygen Flow Rate 4 06/25/24 04:30 06/25/24 04:32 06/25/24 04:32 Temperature Pulse Rate 96 H 94 H Respiratory Rate 25 H 26 H Blood Pressure 108/56 L Pulse Oximetry 92 91 Oxygen Delivery Method Nasal Cannula Nasal Cannula Oxygen Flow Rate 4 4 06/25/24 05:00 Temperature 97.5 F L Pulse Rate 97 H Respiratory Rate 24 Blood Pressure 108/69 Pulse Oximetry 93 Oxygen Delivery Method Oxygen Flow Rate 4 Oxygen Delivery Method Nasal Cannula Oxygen Flow Rate 4 Narrative Exam Narrative: Middle-aged male in no obvious distress who is somewhat somnolent but easily arousable. Does slur his words at times as he is falling asleep as we tried to interact HEENT-unremarkable Lungs-diminished breath sounds throughout, but I can not hear any wheezes or crackles Heart-regular rate and rhythm pansystolic murmur across the entire precordium without particular radiation Abdomen-obese but positive bowel tones Extremities-no cyanosis clubbing and does have appearance of chronic edema Objective Labs 06/26/24 05:05 06/26/24 05:05 Labs: Laboratory Results - last 24 hr 06/25/24 06/25/24 06/25/24 01:48 02:00 02:19 WBC 9.2 RBC 4.03 L Hgb 9.7 L Hct 32.1 L MCV 79.7 L MCH 24.2 L MCHC 30.3 RDW 17.2 H Plt Count 222 Neut % (Auto) 82.9 H Lymph % (Auto) 7.4 L [place] % (Auto) 7.7 Eos % (Auto) 1.6 L Baso % (Auto) 0.4 Neut # (Auto) 7700 H Lymph # (Auto) 700 L [place] # (Auto) 700 Eos # (Auto) 100 Baso # (Auto) 0 ABG Sample Site Left radial ABG pH 7.36 ABG pCO2 78.5 H* ABG pO2 77 L ABG HCO3 44 H ABG Total CO2 46 H ABG O2 Saturation 94 L ABG Base Excess 15.7 H Rangel Test Positive O2 Delivery Device Cannula Sodium 135 L Potassium 4.3 Chloride 88 L Carbon Dioxide 43 H* BUN 20 Creatinine 0.66 Estimated GFR > 60 BUN/Creatinine Ratio 30.3 H Glucose 120 H Lactate 1.1 Calcium 8.6 Magnesium 1.8 Total Bilirubin 0.4 AST 21 ALT 17 Alkaline Phosphatase 69 Total Creatine Kinase 27 L Troponin I < 0.012 NT-Pro-B Natriuret Pep 79 Total Protein 7.2 Albumin 3.7 Globulin 3.5 Albumin/Globulin Ratio 1.1 Lipase 22 L Procalcitonin 0.167 Urine RBC Urine WBC Ur Squamous Epith Cells Urine Bacteria Hyaline Casts Urine Mucus Vol Urine Centrifuged U Opiates 300ng/mL cut Ur Oxycodone Screen Urine Methadone Screen Ur Barbiturates Screen U Tricyclic Antidepress Ur Phencyclidine Scrn Ur Amphetamines Screen U Methamphetamines Scrn Ur MDMA Scrn (Ecstasy) U Benzodiazepines Scrn Urine Cocaine Screen U Marijuana (THC) Screen Urine pH Urine Specific [place] Ethyl Alcohol < 10 Ur Creatinine SARS-CoV-2 (PCR) Negative Influenza A (RT-PCR) Flu a negative Influenza B (RT-PCR) Flu b negative RSV (PCR) Negative 06/25/24 03:25 WBC RBC Hgb Hct MCV MCH MCHC RDW Plt Count Neut % (Auto) Lymph % (Auto) [place] % (Auto) Eos % (Auto) Baso % (Auto) Neut # (Auto) Lymph # (Auto) [place] # (Auto) Eos # (Auto) Baso # (Auto) ABG Sample Site ABG pH ABG pCO2 ABG pO2 ABG HCO3 ABG Total CO2 ABG O2 Saturation ABG Base Excess [place]angel Test O2 Delivery Device Sodium Potassium Chloride Carbon Dioxide BUN Creatinine Estimated GFR BUN/Creatinine Ratio Glucose Lactate Calcium Magnesium Total Bilirubin AST ALT Alkaline Phosphatase Total Creatine Kinase Troponin I NT-Pro-B Natriuret Pep Total Protein Albumin Globulin Albumin/Globulin Ratio Lipase Procalcitonin Urine RBC 0-1/hpf Urine WBC 0-1/hpf Ur Squamous Epith Cells 0-1 /hpf Urine Bacteria None seen Hyaline Casts 0-1/lpf Urine Mucus 2+ H Vol Urine Centrifuged 10ml (spun) U Opiates 300ng/mL cut Negative Ur Oxycodone Screen Negative Urine Methadone Screen Negative Ur Barbiturates Screen Negative U Tricyclic Antidepress Negative Ur Phencyclidine Scrn Negative Ur Amphetamines Screen Negative U Methamphetamines Scrn Negative Ur MDMA Scrn (Ecstasy) Negative U Benzodiazepines Scrn Negative Urine Cocaine Screen Negative U Marijuana (THC) Screen Negative Urine pH Normal Urine Specific [place] Normal Ethyl Alcohol Ur Creatinine Normal SARS-CoV-2 (PCR) Influenza A (RT-PCR) Influenza B (RT-PCR) RSV (PCR) Assessment & Plan Assessment & Plan narrative: 1. Acute on chronic respiratory failure with hypoxia-will treat underlying conditions as noted below. Continue with cautious oxygen supplementation and encourage patient to use BiPAP/CPAP overnight, which apparently is not occurring on a regular basis. Patient with chronic respiratory failure as demonstrated by relatively normal pH despite significantly elevated pCO2 on arterial blood gas as well as elevated bicarbonate level over time on his basic chemistries (BMP). Patient at risk for respiratory failure if his oxygenation is too high given his chronic hypercapnia. Etiology of his hypercapnia is likely related to his morbid obesity more than anything else was an element of obesity hypoventilation but patient also has an underlying history of COPD has a contributing factor. 2. Multifocal pneumonia-patient with presumably a community-acquired pneumonia. Will treat with azithromycin and ceftriaxone given the serious nature of his illness. 3. Arterial venous malformation lower extremity-patient has had multiple bloody procedures which is resulted in some open wounds. Also he was had chronic bleeding which he was resulting in iron-deficiency anemia. Will ask for wound care evaluation here. Patient has been getting his care mostly at the [facility], most recently it appears reviewing their records. 4. COPD-continue patient's usual inhaler add albuterol. I am also going to give him some IV corticosteroids in an effort to improve his respiratory function in the setting of the acute pneumonia 5. Diabetes-patient was type 2 diabetes normally well controlled with diet. However he will be on steroids will need to monitor his numbers and give him insulin coverage as necessary. I suspect he will have a modestly high insulin requirement given his obesity 6. Hyperlipidemia-continue patient's usual medications 7. Morbid obesity-this is a contributing factor to his presentation resulting in of course as above the chronic respiratory failure. In addition he was basically wheelchair bound because of his size which is limited his activity maybe a contributing factor to the pneumonia overall. It will certainly complicate our ability to care for him here in the hospital due to his size etcetera. Patient had recently been prescribed semaglutide in effort to assist with weight loss as his goal is to lose enough weight to be eligible for hip replacement surgery. However he failed to follow-up with his weight loss management physician and status of his semaglutide is unknown 8. VTE prophylaxis-given patient's ongoing issues with bleeding from his lower extremities anticoagulation with Lovenox is contraindicated. Limited SCDs as appropriate 9. Code status-patient requests full code in the event of a sudden cardiac or respiratory arrest, which he was not anticipated at this time 10. BPH with lower urinary tract symptoms-continue patient's home medication. Monitor for issues and place Cerda catheter if necessary given his relative immobility and hypoxia as above 11. Sleep apnea-patient should have CPAP at night as noted above 12. Uncomplicated opiate dependency-patient chronically on Suboxone. Will prescribe here in the hospital his usual dose. 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 13. Murmur-patient with a [place] systolic murmur heard across the entire precordium probably more of a functional murmur than anything else. However I can not see that this has been heard before. Patient did have an echo done in August 27 of the indications for the echo was murmur and no abnormality of valve function or left ventricular function was noted at that time. However given his acute illness I think we need to repeat echocardiography at this time Time-Based Coding :: [TOTAL MINUTES] spent with patient and on the chart (including review of chart, obtaining history, exam, reviewing outside data, placing orders, documenting exam and treatment plan, and counseling patient) on [DATE]. PROFEE Charge Codes Initial inpatient/observation care: 00288
[2024-06-25] MEDS: BUPRENORPHINE/NALOXONE 8MG/2MG 1 TAB 2 TAB SL (08:38)
[2024-06-25] MEDS: TAMSULOSIN 0.4 MG CAPSULE PO (08:39)
[2024-06-25] MEDS: PRAVASTATIN 20 MG TABLET PO (08:39)
[2024-06-25] MEDS: lisinopriL 20 MG TABLET 40 MG PO (08:39)
[2024-06-25] MEDS: methylPREDNISolone 125 MG/2 ML VIAL 60 MG IV ×2 (08:41→21:05)
--- NOTE | 2024-06-25 08:49 | DI.ECHO.S_ITS ---
[facility] : : [address] : : [place] : : [address] : : Phone: [phone] Echocardiogram Report + + :Name: PURNIMA GONZALES Study Date: 06/26/2024 Height: 69 in : :[facility] ReadingLocation: Weight: 360 lb : : Gender: Male BSA: 2.7 m2 : :: 1955 Age: 68 yrs BP: 160/78 mmHg: :Reason For Study: PANSYSTOLIC MURMUR, SHORTNESS OF BREATH : :Ordering Physician: ASHUTOSH, : :NATHANAEL Lazo Performed By: Priyanka Biggs : :Referring: NATHANAEL BOYKIN : + + Interpretation Summary Normal sinus rhythm. Normal LV size and wall thickness; normal wall motion and LV systolic function. EF is 60-65%. Stage I diastolic dysfunction. Mildly dilated RV; otherwise normal chamber sizes. Mild aortic stenosis; otherwise no significant valvular abnormalities. Unable to estimate PA systolic pressure due to lack of significant TR jet. Compared to prior echo 09/24/2023 aortic stenosis progressed from sclerosis only to mild aortic stenosis. Procedure: A two-dimensional transthoracic echocardiogram with color flow and Doppler was performed. The study quality was technically difficult. A contrast injection of Definity was performed to improve assessment of LV function. Comparison is made with the echocardiogram of 09/24/2023. The patient was in sinus rhythm with heart rates between 62-80 bpm during the exam. Left Ventricle: The left ventricle is normal in size and wall thickness. The ejection fraction is estimated to be 60-65%. Right Ventricle: The right ventricle is mildly dilated. The right ventricular systolic function is normal. Atria: The left atrial size is normal. Right atrial size is normal. There is no Doppler evidence for an interatrial shunt. Mitral Valve: The mitral valve is normal in structure and function. There is mild mitral regurgitation. Aortic Valve: The aortic valve is mildly calcified. The aortic valve is trileaflet. There is mildly reduced leaflet mobility. There is mild aortic stenosis. The peak aortic velocity is 2.4 m/sec. The aortic valve mean gradient is 13 mmHg. The calculated aortic valve area is 1.9 cm2. Tricuspid Valve: The tricuspid valve is normal in structure and function. There is trace tricuspid regurgitation. Pulmonary artery pressures cannot be estimated because of the lack of a measurable TR jet velocity. Pulmonic Valve: The pulmonic valve is not well seen, but is grossly normal. There is no pulmonic valvular regurgitation. Great Vessels: The aortic root is normal size. The ascending aorta could not be visualized. The IVC is dilated (diameter is greater than 2.1 cm) and it collapses less than 50% with a sniff. This suggests a high right atrial pressure of 15 mm Hg. Pericardium/ Pleura There is no pericardial effusion. There is no pleural effusion. MMode/2D Measurements & Calculations LVIDd: 4.8 cm LVOT diam: 2.5 cm LVIDs: 3.5 cm Ao root diam: 3.1 cm FS: 26.0 % asc Aorta Diam: 3.4 cm EPSS: 0.82 cm IVSd: 0.89 cm LVPWd: 1.1 cm LV davis. diameter/BSA (cm/m^2): 1.8 LV sys. diameter/BSA (cm/m^2): 1.3 LA A2 area: 19.4 cm2 RA long axis: 5.6 cm LA A4 area: 28.3 cm2 RA area: 22.1 cm2 LA length (vol): 6.4 cm RA vol: 74.1 ml LA vol: 73.0 ml RA : 28.0 ml/m2 LA vol index: 27.5 ml/m2 IVC diam: 3.1 cm RVD1 (basal): 4.2 cm RVD2 (mid): 3.3 cm TAPSE: 2.1 cm Doppler Measurements & Calculations Ao V2 max: 237.0 cm/sec LVOT Max Richard: 96.5 cm/sec Ao V2 mean: 169.6 cm/sec LV V1 max P.7 mmHg Ao max P.2 mmHg LV V1 VTI: 23.2 cm Ao mean P.1 mmHg JOVAN(I,D): 2.0 cm2 Ao V2 VTI: 54.9 cm JOVAN(V,D): 1.9 cm2 sev ratio: 0.42 JOVAN indexed to BSA (cm^2/m^2): 0.76 MV E max richard: 89.9 cm/sec PA V2 max: 104.0 cm/sec MV A max richard: 98.9 cm/sec PA V2 mean: 72.9 cm/sec MV E/A: 0.91 PA mean P.3 mmHg Med Peak E' Richard: 6.9 cm/sec PA pr(Accel): 43.0 mmHg E/E' med: 13.1 Lat Peak E' Richard: 8.3 cm/sec E/E' lat: 10.8 E/e' average: 11.9 MV dec time: 0.19 sec SV(LVOT): 110.4 ml Electronically signed by: Ghada Holguin M.D. on [facility] Physician:06/26/2024 07:14 PM
--- NOTE | 2024-06-25 10:49 | DIET.CONS ---
Dietary Consultation Note Admission Date: 06/25/2024 04:11 Assessment: 68 y M presenting to ED for eval of weakness, found to have pneumonia. RD consulted for weight loss. Met w/ pt at bedside who reports started taking medication for weight loss. PCP note reviewed - in December pt was Rx mike for weight loss to be able to have left hip replaced. PMH of DM, A1c of 6.0 on 10/08/23. No nutritional interventions needed at this time. Will monitor PO intakes (pt stated he thinks he had breakfast this morning and was eating sudanese yogurt and applesauce at visit). Outpatient dietitian visits available as desired by pt regarding medical nutrition therapy for intentional weight loss. Ht: 175.26 cm Wt: 163.5 kg BMI: 53.1 UBW: 168.736 kg on 01/18/24 (-3% loss in 5 months, non-severe) Last BM: 06/23/24 (06/25/24 04:22) MNA: 9 Toby Score: 16 Diet: 06/25/24 Breakfast Carbohydrate Consistent Diet Diet Modifications: Carbohydrate level: Medium (3 CHO) Bedtime snack: No Reflex DM orders: No Food Texture: Level 7 - Regular Liquid Consistency: Level 0 - Thin Labs: RBC 4.03 X10^6/uL (4.5-5.9) L 06/25/24 01:48 Hgb 9.7 g/dL (13.5-17.5) L 06/25/24 01:48 Hct 32.1 % (41-53) L 06/25/24 01:48 Creatinine 0.66 mg/dL (0.66-1.25) 06/25/24 01:48 Lactate 1.1 mmol/L (0.7-2.1) 06/25/24 01:48 NT-Pro-B Natriuret Pep 79 pg/mL (<125) 06/25/24 01:48 Electronically Signed by: Khushbu Diehl 06/25/24 10:49 [address] [id number]
--- NOTE | 2024-06-25 11:45 | PT.IIE ---
Surgical History (Last Reviewed 09/24/23 @ 07:55 by Briana Rabago DO) Anesthesia Bladder stones (~2016) H/O umbilical hernia repair History of knee surgery (~1979) Medical History (Last Updated 06/25/24 @ 07:55 by Tyler Khan MD) BPH w urinary obs/LUTS Calculus of right kidney Chronic back pain Constipation Diabetes type 2, controlled Enlarged prostate Essential hypertension (~1994) H/O adenomatous polyp of colon Hemorrhoid (~1999) History of bladder stone History of nephrolithiasis (~1999) Iron deficiency anemia Microscopic hematuria Mixed hyperlipidemia Morbid obesity Renal cyst, right Rib fractures (~1974) Sleep apnea Vascular malformation of lower extremity Physical Therapy Inpatient Evaluation/Re-Eval M1 PT/OT-IP Prior Functional Status Start: 06/25/24 12:59 Freq: NEEDED Status: Active Protocol: Document 06/25/24 11:45 AB (Rec: 06/25/24 13:19 AB [id number]) Medical Review Prior Functional Status Medical History Reviewed Yes Communication able to answer question but occasionally with incoherent speech Mobility and Gait pt stated that he has not walked for at least 2 months and spends most of his time on his lift chair where he sleeps; uses the urinal for toileting needs; stated that spouse assists him with everything; pt stated that he sits on a 4WW and spouse pushes him when he has to go out of the house Social History Household Members spouse Living Arrangements House Number of Floors (Floors) One Floor Number of Stairs To Enter/Railing? 2 steps R rail to enter Home Environment High Toilet,Walk in Shower Home Equipment Front Wheel Walker,Four Wheel Walker,Straight Cane M2 PT-IP Current Condition Start: 06/25/24 12:59 Freq: NEEDED Status: Active Protocol: Document 06/25/24 11:45 AB (Rec: 06/25/24 13:19 AB [id number]) Physical Therapy Current Condition Current Condition Evaluation Date 06/25/24 Treatment Diagnosis COPD; PNA; difficulty in walking Onset Date 06/25/24 M3 PT-IP Subjective Start: 06/25/24 12:59 Freq: NEEDED Status: Active Protocol: Document 06/25/24 11:45 AB (Rec: 06/25/24 13:19 AB [id number]) Subjective Physical Therapy Visit Type Type Initial Evaluation Visit Start Time 11:45 Visit Stop Time 12:[address] TESTER Visits 0 Physical Therapy Visit Comments Patient Comments initially refusing but after educating, agreed to get up Therapy Pain Assessment Pain When Pain Assessed At Rest Location Buttock Scale Used pain scale not stated Pain Management Techniques Distraction,Modification of Treatment,Re-positioning, Timing of Activity with Medications M4 PT-IP Mobility and Gait Start: 06/25/24 12:59 Freq: NEEDED Status: Active Protocol: Document 06/25/24 11:45 AB (Rec: 06/25/24 13:19 AB [id number]) PT-Bed Mobility Assessment Supine to Sit Supine to Sit Maximum Assistance,2 Person Assistance,Head of Bed Elevated,Bedrails Sit to Supine Sit to Supine Maximum Assistance,2 Person Assistance,Head of Bed Elevated,Bedrails PT-Transfer Assessment Sit to and From Stand Sit to and from Stand Maximum Assistance,1 Person Assistance,Use of Upper Extremities Equipment Transfer Assistive Device Gait Belt,Front Wheeled Walker Orthotic/Prosthetic Devices or Brace: No Comments Mobility Comments pt supine in bed. initially refusing PT but then agreed to get up after educating pt on importance of mobility. obtained PLOF and home setup. pt inconsistent with answering questing and requiring repetitions to respond. O2 sat with 4L/min O2: 86-90%. completed supine to sit max A x 2 and max cues. HOB elevated. pt is very impulsive and needing constant cues for safety. upon sitting on EOB pt holding on to PT and suddently stood up without warning needing max A for steadiness and safety. directed pt to sit back on EOB but stated that he can and that he has to stand up. positioned FWW in front of pt and pt requiring max A x 2 for standing balance. pt with (+ ) jerking movement and unable to steady RUE on FWW. pt stated that LE feeling like it going to give out. instructed pt to sit down max A x 2 for controlled descent. sit to supine max A x 2 and max cues. max A x 2 for repositioning in bed. call light and table placed within reach. Gait Assessment Comments Gait Comments unable at this time PT-Balance Assessment Sitting Balance and Reactions Static Sitting Balance Ability Fair Dynamic Sitting Balance Ability Fair Standing Balance and Reactions Static Standing Balance Ability Poor Dynamic Standing Balance Ability Poor Device Used FWW M5 PT-IP Objective Assessments Start: 06/25/24 12:59 Freq: NEEDED Status: Active Protocol: Document 06/25/24 11:45 AB (Rec: 06/25/24 13:19 AB [id number]) Orientation Orientation/Cognition Level of Alertness Confusional State Orientation Name Language Function Ability Garbled Speech Safety Awareness Decreased Safety Awareness Memory Description Short Term Impaired,Spool Salvager Impaired Gross Range of Motion Lower Extremity ROM Impairments limited due to pt's body habitus Strength Lower Extremity Strength Hip 4-/5 Knee 4-/5 Muscle Tone Muscle Tone WNL Yes Other Assessments Other Other Assessments pt presents with involuntary body jerking even at rest M6 PT-IP Treatment Start: 06/25/24 12:59 Freq: NEEDED Status: Active Protocol: Document 06/25/24 11:45 AB (Rec: 06/25/24 13:19 AB [id number]) Physical Therapy Treatment Education Education Provided Safety M7 PT-IP Assessment and Plan Start: 06/25/24 12:59 Freq: NEEDED Status: Active Protocol: Document 06/25/24 11:45 AB (Rec: 06/25/24 13:19 AB [id number]) PT Summary Assessment and Plan Potential Rehabilitation Potential Fair Status of Condition at Evaluation Unstable Summary Impairments Pain,ROM,Strength,Balance, Coordination,Sensation,Tone, Cognition,Bed Mobility, Transfers,Gait,Activity Tolerance Assessment Summary pt is a 68 y/o M who is admitted for COPD and PNA. pt with confusion and very impulsive. pt requires max A x 2 with mobility and unable to transfer and ambulate at this time with decrease activity tolerance and decrease safety awareness. will continue to assess progress but pt will require SNF rehab at this time. Goals Bed Mobility Goal Minimal Assistance Transfer Goal Minimal Assistance,Front Wheeled Walker Gait Goal Minimal Assistance,Front Wheel Walker Gait Distance 25 Other Goals improve bed mobility, transfers, ambulation using FWW ~ 50 ft SBA Days to Meet Goals 10 Frequency of Treatment Frequency Of Treatment Once a Day Treatment Plan Physical Therapy Treatment Plan Bed Mobility Training,Transfer Training,Gait Training, Therapeutic Exercise,Balance Retraining,Discharge Planning, Hot or Cold Pack,Neuromuscular Re-ed,Coordination Retraining ,Manual Therapy Precautions Other Precautions O2 sat, falls Recommendations To Nursing Amount of Assist Needed Mechanical Lift Discharge Recommendations PT Discharge Recommendations SNF Rehab Transportation Needs at Discharge Wheelchair/Cabulance,Stretcher /Ambulance
[2024-06-25] MEDS: INSULIN LISPRO 100 UNIT/ML 3ML VIAL SUBCUT ×2 (12:10→16:56)
--- NOTE | 2024-06-25 12:15 | OT.IP.EVAL ---
Past Medical History (Last Updated 06/25/24 @ 07:55 by Tyler Khan MD) BPH w urinary obs/LUTS Calculus of right kidney Chronic back pain Constipation Diabetes type 2, controlled Enlarged prostate Essential hypertension (~1994) H/O adenomatous polyp of colon Hemorrhoid (~1999) History of bladder stone History of nephrolithiasis (~1999) Iron deficiency anemia Microscopic hematuria Mixed hyperlipidemia Morbid obesity Renal cyst, right Rib fractures (~1974) Sleep apnea Vascular malformation of lower extremity Surgical History (Last Reviewed 09/24/23 @ 07:55 by Briana Rabago DO) Anesthesia Bladder stones (~2016) H/O umbilical hernia repair History of knee surgery (~1979) Occupational Therapy Inpatient Evaluation/Re-Eval M1 PT/OT-IP Prior Functional Status Start: 06/25/24 12:59 Freq: NEEDED Status: Active Protocol: Document 06/25/24 11:45 AB (Rec: 06/25/24 13:19 AB [id number]) Medical Review Prior Functional Status Medical History Reviewed Yes Communication able to answer question but occasionally with incoherent speech Mobility and Gait pt stated that he has not walked for at least 2 months and spends most of his time on his lift chair where he sleeps; uses the urinal for toileting needs; stated that spouse assists him with everything; pt stated that he sits on a 4WW and spouse pushes him when he has to go out of the house Social History Household Members spouse Living Arrangements House Number of Floors (Floors) One Floor Number of Stairs To Enter/Railing? 2 steps R rail to enter Home Environment High Toilet,Walk in Shower Home Equipment Front Wheel Walker,Four Wheel Walker,Straight Cane M1 PT/OT-IP Prior Functional Status Start: 06/25/24 13:15 Freq: NEEDED Status: Active Protocol: Document 06/25/24 13:16 [facility] (Rec: 06/25/24 13:35 [facility] [id number]) Medical Review Prior Functional Status Communication I Mobility and Gait Pt states mostly used a SPC, but later states uses a 4ww at times and has a fww in his vehicle. Activities of Daily Living and IADL's Pt states lately his has been having to assist with his needs. Prior Functional Level (Other details) Pt sleeps in his lift chair and uses a urinal at night. Social History Household Members spouse Living Arrangements House Number of Floors (Floors) One Floor Number of Stairs To Enter/Railing? 2 steps with right rail to enter. Pt has a step from the bedroom to kitchen with no rails. Home Environment High Toilet,Walk in Shower Home Equipment Front Wheel Walker,Four Wheel Walker,Straight Cane,Hand Held Shower,Lift Recliner M2 OT-IP Current Condition Start: 06/25/24 13:15 Freq: Status: Active Protocol: Document 06/25/24 13:16 [facility] (Rec: 06/25/24 13:35 [facility] [id number]) Occupational Therapy Current Condition Current Condition Evaluation Date 06/25/24 Treatment Diagnosis PNA,COPD Diagnosis Onset Date 06/25/24 M3 OT- IP Subjective and Pain Start: 06/25/24 13:15 Freq: Status: Active Protocol: Document 06/25/24 13:16 [facility] (Rec: 06/25/24 13:35 [facility] [id number]) OT- Subjective Occupational Therapy Visit Type Type Initial Evaluation Visit Start Time 11:45 Visit Stop Time 12:15 Occupational Therapy Visit Comments Patient Comments Pt agreed to get up. Patient/Caregiver Goals To get better. OT Pain Assessment Pain When Pain Assessed At Rest Pain Present Pain Present Denied Pain M4 OT- IP ADL's Start: 06/25/24 13:15 Freq: Status: Active Protocol: Document 06/25/24 13:16 [facility] (Rec: 06/25/24 13:35 [facility] [id number]) OT [id number] Comments OT Self-Feeding Comments Not at meal time. OT ADL-Grooming Comments OT Grooming Comments Not performed. OT ADL-Oral Care Comments Oral Care Comments Not performed. OT ADL-Dressing General Eval Upper Body Dressing Ability Moderate Assistance Comments OT Dressing Comments Assist with gown. OT ADL-Toileting Comments OT Toileting Comments Not performed. OT ADL-Bathing Comments OT Bathing Comments Not performed. M5 OT- IP IADL's Start: 06/25/24 13:15 Freq: Status: Active Protocol: Document 06/25/24 13:16 [facility] (Rec: 06/25/24 13:35 [facility] [id number]) OT-Instrumental Activities of Daily Living Home Safety Awareness Awareness of Need for Assistance at Home Good Awareness Home Safety Comments Pt very drowsy and having difficulty to follow commands. Medication Management Medication Management Caregiver Administers Money Management Money Management Caregiver Provides Assistance Meal Preparation Meal Preparation Caregiver Provides Assist Diamond Sizer And Sorter Diamond Sizer And Sorter Caregiver Provides Assist M6 OT- IP Functional Cognition Start: 06/25/24 13:15 Freq: Status: Active Protocol: Document 06/25/24 13:16 [facility] (Rec: 06/25/24 13:35 [facility] [id number]) Cognitive Factors Limiting Selfcare Function Cognitive Ability Level of Alertness Confusional State,Drowsy Patient Orientation Name,Place Attention Span Ability Capable of Focused Attention, Unable to Sustain Attention Ability to Follow Commands Able to Follow One Step Commands with Increased Time, Able to Follow One Step Commands with Repetition Cognitive Comments Cognitive Assessment Comments Pt very drowsy and falling asleep and needing step by step commands to follow. Pt is also impulsive and has decreased safety awareness. OT- Vision and Hearing OT- Hearing Assessment OT- Hearing Assessment WFL OT- Vision Assessment Visual Acuity Glasses All The Time Visual Attentiveness WFL Occular Pursuits WFL Visual Jeffery WFL Diplopia Present Vision Assessment Comments Pt complaining of blurred vision intermittently. M7 OT- IP Mobility and Balance Start: 06/25/24 13:15 Freq: Status: Active Protocol: Document 06/25/24 13:16 [facility] (Rec: 06/25/24 13:35 [facility] [id number]) OT- Bed Mobility Assessment Supine to Sit Supine to Sit Assist Maximum Assistance,2 Person Assistance Sit to Supine Sit to Supine Assist Maximum Assistance,2 Person Assistance OT-Transfer Assessment Sit to and From Stand Sit to and from Stand Maximum Assistance,1 Person Assistance Comments Mobility Comments MAX AX 2 to sit upright assist to pull on the PT and assist to help get his trunk upright. Pt standing with MAXA x1 and getting weak and assist to help get him back into bed with MAXA x2. OT- Balance Assessment Sitting Balance and Reactions Static Sitting Balance Ability Fair Dynamic Sitting Balance Ability Fair Standing Balance and Reactions Static Standing Balance Ability Poor M8 OT- IP Objective Assessments Start: 06/25/24 13:15 Freq: Status: Active Protocol: Document 06/25/24 13:16 [facility] (Rec: 06/25/24 13:35 [facility] [id number]) OT Gross Range of Motion Upper Extremity Range of Motion Assessment Bilaterally Impaired ROM Impairments RUE grossly WFL, LUE decreaed at shoulder 0-90 shoulder flexion. OT Strength Upper Extremity Strength Assessment Bilaterally Impaired Comments Strength Comments LUE 3-/5 to 5/5 distally, RUE 4- to 5/5 from proximal to distal. OT- Coordination Assessment Upper Extremity Finger to Nose Test Right UE Impaired Comments Coordination Comments Increased time for RUE. CLonus movement at times. OT Sensation Assessment Comments Summary Comments Intact light touch, pt states has numbness/tingling that comes and goes in his BUE. M9 OT- IP Assessment and Plan Start: 06/25/24 13:15 Freq: Status: Active Protocol: Document 06/25/24 13:16 [facility] (Rec: 06/25/24 13:35 [facility] [id number]) OT Summary Assessment and Plan Potential Rehabilitation Potential Fair Analytic Complexity at Evaluation Moderate Summary OT Impairments Range of Motion,Strength, Balance,Coordination, Functional Cognition, Functional Mobility,Self- Feeding,Grooming,Dressing, Toileting,Bathing,Toilet Transfers,Shower Transfers, Activity Tolerance Progress Towards Goals Slow Progress due to Pain,Slow Progress due to Medical Issues,Slow Progress due to Activity Tolerance Assessment Summary Pt MODA complexity and main barriers are pain, steps, decreased activity tolerance as now on 4L of O2. Pt will benefit from skilled rehab when medically stable. Goals Self-Feeding Goal Independent Grooming Goal Independent Dressing Goal Minimal Assistance Toileting Goal Minimal Assistance Bathing Goal Minimal Assistance Toilet Transfer Goal Minimal Assistance Shower Transfer Goal Minimal Assistance Days to Meet Goals 25 Frequency of Treatment Other frequency 5x/week Treatment Plan Other Treatment Recommendations and Next Transfer to [facility] with MODA X 2 Treatment Focus with FWW. Discharge Recommendations OT Discharge Recommendations SNF Rehab Transportation Needs at Discharge Wheelchair/Cabulance
[2024-06-25] MEDS: BUDESONIDE 0.5 MG/2 ML NEB INH ×2 (13:35→19:17)
[2024-06-25] MEDS: ALBUTEROL 2.5 MG/3 ML NEB (ADULT) INH ×2 (13:36→19:17)
--- NOTE | 2024-06-25 13:44 | CM.DANOTE ---
Initial DCP Assessment Visit Note Reviewed EMR and team rounds for status updates. 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 Pt lives with his in their own home in [place], he is completely dependent on his for all mobility, home management, IADL's, and care coordination needs. He spends most of his time in his recliner, his pushes him in his 4WW to get him out of the house when needed. PT/OT have evaluation and are recommending SNF Rehab at time of discharge. Will discuss his preference of which facility with him once he's more cognitively clear and can make decisions. Payor: [facility] PCP: Dr. Khan Pt is a 68 year-old M with a hx of COPD, hypertension, hyperlipidemia, and chronic iron deficiency anemia. He uses 2-3LO2 at home at baseline. He presented to the ED via EMS yesterday afternoon with c/o increased weakness, involuntary movements of his arms and head, hallucinations, SOB, and a cough. His shared that he began to experience symptoms about a month ago, but they have worsened significantly over the last few days, and that he had the same symptoms and behaviors about a year ago last time he had pneumonia. In the ED, he was found to be tachycardic, and chest x-ray showed multi-focal pneumonia. He was started on IV ABO's, breathing treatments, and admitted to the floor for continued tx and monitoring. DCP will continue to monitor and assist with final d/c needs. Discharge Planning/Care Management CM Discharge Assessment Start: 06/25/24 13:40 Freq: Status: Active Protocol: Document 06/25/24 13:40 [facility] (Rec: 06/25/24 13:44 [facility] [id number]) Discharge Planning Assessment Assigned Reviewer Sales NOAH Martin Advance Directives? No History Provided By Patient,Medical Record Has Patient been admitted in last 30 No days? Prior Living Arrangements House Household Members spouse Type of transporation used prior to Relies on Others admit Independent with ADL's No: Dependent on for all assistance and mobility needs. Is patient alert and oriented? No: Partially, oriented to self, place. Needs Assistance With Bathing,Grooming,Meal Prep, Managing Medications,Home Chores / Shopping Comment Pt has not walked in 2-months, he is dependent on his to help him with most everything, spends most of his time in his recliner. Caregiver for Another No Community Services used prior to Oxygen Therapy admission: Comment Per PT, need Bariatric walker if dc home Patient/Family Preference [facility] Facility,Home with Home Health Discharge Plan [facility] Community Services Oxygen Therapy Transportation Arrangement Spouse Referrals Initiated [facility] If patient plan is SNF: Has PASSR been No completed? Medicare Choice List Provided No Has Agency SNF been contacted No Comment Pending medical improvement, will discuss once he's stable. Whiteboard Updated in Patient Room with Yes name and ext. # of Reviewer Sales Review Status In Process Please Provide Date Initial DC 06/25/24 Assessment Was Performed
--- NOTE | 2024-06-25 23:30 | PC.NURSE ---
Pt noncompliant with CPAP; Oximask at 5L place, but patient o2 dropping to 70s-80s. Increased to 15L to recover back to 90-92%. ABG done by RT. CO2-74.9, PO2 70.5 Dr Lew notified on result. RT recommended heated high flow vs Bipap, but patient more than lorenzoley will not be compliant with bipap unless on precedex. Pt currently on heated high flow at 55L. Pt complaining of wanting a mask vs the heated high flow, keeps going back and forth but will not keep oxygen on. Dr aware and is okay with continuous bipap if needed/precedex. Provided Dr Lew with eICU number. ICU bed pending.
[2024-06-25 23:35] LABS: Allen Test for ABG Passed? Positive; Base Excess ABG 21.4 mmol/L (-2-3); Blood Gas Collection Site Right Radial; Delivery System AeroMask; HCO3 ABG 49 mmol/L (23-27); Oxygen Saturation ABG 93 % (95-100); PCO2 ABG 74.9 mmHg (35-45); PO2 ABG 71 mmHg (80-100); TCO2 ABG > 50 mmol/L (23-27); pH ABG 7.43 (7.35-7.45)
[2024-06-26] VITALS (58 sets, daily range): BP systolic 107–166; BP diastolic 57–88; PULSE 53–112; RESP 18–52; TEMP 36.2; O2SAT 82–96
[2024-06-26] MEDS: cefTRIAXone 1,000 MG in SODIUM CHLORIDE 0.9% 100 ML 200 MG IV (01:37)
--- NOTE | 2024-06-26 02:53 | PC.NURSE ---
Report given to Jaden HACKETT. Pt transferred to [facility].
--- NOTE | 2024-06-26 02:54 | PM.CN.EICU ---
History of Present Illness Consult details IF CAMERA ACTIVATED, patient seen via real-time interactive audiovisual communication: Camera activated Chief complaint: weakness Consent obtained for tele-contact printer dry film care: Yes Patient Location: ICU Provider location (State): [place] Other participants/roles: rn Narrative: 68 year old amn with morbid ovesitry and COPD on home o2 with chronic hypercapenic resp failure - trasnferred to the ICu this evening for worsening delirium and sob was non compliant with cpap and reuqired precedex and bipap PFSH Medical History (Updated 06/25/24 @ 07:55 by Tyler Khan MD) Vascular malformation of lower extremity Microscopic hematuria BPH w urinary obs/LUTS History of bladder stone Renal cyst, right Calculus of right kidney Iron deficiency anemia Sleep apnea Rib fractures (~1974) Chronic back pain Enlarged prostate Constipation Hemorrhoid (~1999) Morbid obesity Diabetes type 2, controlled H/O adenomatous polyp of colon History of nephrolithiasis (~1999) Mixed hyperlipidemia Essential hypertension (~1994) Surgical History H/O umbilical hernia repair Anesthesia Bladder stones (~2016) History of knee surgery (~1979) Family History Mother Cancer Father Myocardial infarct Brother Cancer Social History household members: spouse Smoking Status: Former smoker alcohol intake: former Current Medications Current Medications Medications: Home Medications acetaminophen 500 mg capsule 500 - 1,000 mg PO Q6H PRN Pain (Scale Score 1-3) 06/29/20 [History Confirmed 06/25/24] fluticasone 500 mcg-salmeterol 50 mcg/dose blistr powdr for inhalation ([facility]ix[facility] Inhub) 1 inh inhalation BID #60 ea 10/01/23 [Rx Confirmed 06/25/24] Disabled Parking #1 ea 10/08/23 [Rx Confirmed 06/25/24] buprenorphine 8 mg-naloxone 2 mg sublingual film 2 film buccal Q24H 10/08/23 [History Confirmed 06/25/24] tamsulosin 0.4 mg capsule 0.4 mg PO DAILY #90 caps 10/11/23 [Rx Confirmed 06/25/24] hydrochlorothiazide 25 mg tablet 25 mg PO DAILY #90 tabs 10/15/23 [Rx Confirmed 06/25/24] lisinopril 40 mg tablet 40 mg PO DAILY #90 tabs 10/15/23 [Rx Confirmed 06/25/24] pravastatin 20 mg tablet 20 mg PO DAILY #90 tabs 10/22/23 [Rx Confirmed 06/25/24] semaglutide 0.25 mg or 0.5 mg (2 mg/3 mL) subcutaneous pen injector 0.25 mg (0.368 mL) SUBCUT QWEEK #3 mL 01/28/24 [Rx Confirmed 06/25/24] Visit Medications (administered) Generic Name Dose Route Start Last Admin Trade Name Freq PRN Reason Stop Dose Admin Albuterol 2.5 mg 06/25/24 11:00 06/25/24 19:17 Albuterol 2.5 Mg/3 Ml Neb (Adult) INH 2.5 mg [id number] DONATO Administration Budesonide 0.5 mg 06/25/24 08:00 06/25/24 19:17 Budesonide 0.5 Mg/2 Ml Neb INH 0.5 mg RTBID DONATO Administration Buprenorphine/Naloxone 2 tab 06/25/24 09:00 06/25/24 08:38 Buprenorphine/Naloxone 8mg/2mg 1 Tab SL 2 tab DAILY DONATO Administration Ceftriaxone Sodium 1,000 mg/ 100 mls @ 200 mls/hr 06/26/24 02:00 06/26/24 01:37 Sodium Chloride IV 07/01/24 01:59 200 mls/hr Q24H DONATO Administration Insulin Human Lispro 0 unit 06/25/24 07:45 06/25/24 21:04 Insulin Lispro 100 Unit/Ml 3ml Vial SUBCUT Not Given ACHS DONATO Protocol Lisinopril 40 mg 06/25/24 09:00 06/25/24 08:39 Lisinopril 20 Mg Tablet PO 40 mg DAILY DONATO Administration Methylprednisolone 60 mg 06/25/24 07:45 06/25/24 21:05 Methylprednisolone 125 Mg/2 Ml Vial IV 06/30/24 07:44 60 mg Q12H DONATO Administration Pravastatin Sodium 20 mg 06/25/24 09:00 06/25/24 08:39 Pravastatin 20 Mg Tablet PO 20 mg DAILY DONATO Administration Tamsulosin HCl 0.4 mg 06/25/24 09:00 06/25/24 08:39 Tamsulosin 0.4 Mg Capsule PO 0.4 mg DAILY DONATO Administration Exam Vital Signs (past 8 hours): - 06/25/24 19:22 06/25/24 19:55 06/25/24 19:55 Temperature Pulse Rate Respiratory Rate Blood Pressure Pulse Oximetry 90 L Oxygen Delivery Method Nasal Cannula Nasal Cannula Nasal Cannula Oxygen Flow Rate 4 4 06/25/24 20:50 06/26/24 00:00 Temperature 98.0 F Pulse Rate 102 H 84 Respiratory Rate 18 20 Blood Pressure 110/59 L 131/75 Pulse Oximetry 94 93 Oxygen Delivery Method Oxygen Flow Rate 0 55 Oxygen Delivery Method Nasal Cannula Oxygen Flow Rate 55 Narrative Exam Narrative: ill appearing agitated symmetic chest rise rate controlled Objective Labs 06/25/24 01:48 06/25/24 01:48 Labs: Laboratory Results - last 24 hr 06/25/24 06/25/24 03:25 23:31 ABG Sample Site Right radial ABG pH 7.43 ABG pCO2 74.9 H* ABG pO2 71 L ABG HCO3 49 H ABG Total CO2 > 50 H ABG O2 Saturation 93 L ABG Base Excess 21.4 H Rangel Test Positive O2 Delivery Device Aeromask Urine RBC 0-1/hpf Urine WBC 0-1/hpf Ur Squamous Epith Cells 0-1 /hpf Urine Bacteria None seen Hyaline Casts 0-1/lpf Urine Mucus 2+ H Vol Urine Centrifuged 10ml (spun) U Opiates 300ng/mL cut Negative Ur Oxycodone Screen Negative Urine Methadone Screen Negative Ur Barbiturates Screen Negative U Tricyclic Antidepress Negative Ur Phencyclidine Scrn Negative Ur Amphetamines Screen Negative U Methamphetamines Scrn Negative Ur MDMA Scrn (Ecstasy) Negative U Benzodiazepines Scrn Negative Urine Cocaine Screen Negative U Marijuana (THC) Screen Negative Urine pH Normal Urine Specific [place] Normal Ur Creatinine Normal Assessment & Plan Assessment & Plan narrative: acute issues acute on chronic resp failure with hypercpanea and hypoxemia ( likely from copd and letha/ohs) acute metabolic ecenphalopathy pna cont precedex bipap qhs and prn trend labs and gasses npo on bipap trend labs monitor UO empric abx f/.u cx dvt ppx will follow total critical car time = 31 min Time-Based Coding :: [TOTAL MINUTES] spent with patient and on the chart (including review of chart, obtaining history, exam, reviewing outside data, placing orders, documenting exam and treatment plan, and counseling patient) on [DATE].
[2024-06-26] MEDS: dexmedeTOMIDine in 0.9 % NaCL 400 MCG/100 ML PLAST..BAG 8.175 MCG IV (03:01)
[2024-06-26] MEDS: AZITHROMYCIN 500 MG in DEXTROSE 5% IN WATER 250 ML 250 MG IV (04:53)
[2024-06-26 05:38] LABS: Blood Urea Nitrogen 24 mg/dL (9-20); Calcium 8.6 mg/dL (8.4-10.2); Chloride 90 mmol/L (98-107); Estimated Glomerular Filt Rate > 60 mL/min (>60); Glucose 171 mg/dL (80-110); HEMOLYSIS 32 (0-50); Magnesium 1.9 mg/dL (1.6-2.3); Sodium 135 mmol/L (137-145)
[2024-06-26 05:41] LABS: Add Manual Diff / Slide Review NO; Basophils Absolute Auto 0 /uL (0-100); Basophils Percent Auto 0.1 % (0-2); Eosinophils Absolute Auto 0 /uL (0-450); Hematocrit 29.2 % (41-53); Hemoglobin 9.1 g/dL (13.5-17.5); Lymphocytes Absolute Auto 400 /uL (1100-4500); Lymphocytes Percent Auto 5.4 % (25-40); Mean Corpuscular HGB Conc 31.1 % (30-36); Mean Corpuscular Hemoglobin 24.6 PG (26-34); Mean Corpuscular Volume 79.2 fL (80-100); Monocytes Absolute Auto 200 /uL (0-900); Monocytes Percent Auto 3.5 % (3-14); Neutrophils Absolute Auto 5900 /uL (1500-7000); Platelet Count 201 X10^3/uL (150-400); Red Blood Cell Count 3.69 X10^6/uL (4.5-5.9); Red Cell Distribution Width 17.4 % (11.6-14.8); White Blood Cell Count 6.5 X10^3/uL (4.5-11.0)
[2024-06-26 05:48] LABS: Carbon Dioxide 41 mmol/L (22-32)
[2024-06-26] MEDS: dexmedeTOMIDine in 0.9 % NaCL 400 MCG/100 ML PLAST..BAG 49.05 MCG IV (06:46)
--- NOTE | 2024-06-26 07:27 | PM.PN.1 ---
Subjective Subjective Date Patient Seen: 06/26/24 Time Patient Seen: 07:27 Interval history: Patient transferred to ICU overnight because of persistent hypoxia while sleeping. Patient was unable to tolerate wearing traditional CPAP, was placed on BiPAP with Precedex for sedation since he was noncompliant and increasingly agitated prior to this White count this morning is still normal. Chemistries unchanged, minimal improvement in bicarb Blood sugars have been acceptable, although on the somewhat higher than expected side This morning patient is somnolent, on heated high-flow oxygen with oxygen saturation at 96% as I see him. Vital signs are okay. I really could not arouse him but per nursing staff was much more awake earlier requesting his glasses etcetera. Continues on the Precedex as well Exam Vital Signs (past 8 hours): - 06/26/24 00:00 06/26/24 03:00 06/26/24 03:00 Temperature Pulse Rate 84 112 H Respiratory Rate 20 52 H Blood Pressure 131/75 150/81 H Pulse Oximetry 93 91 Oxygen Flow Rate 55 06/26/24 03:23 06/26/24 03:23 06/26/24 03:30 Temperature Pulse Rate 95 H 88 Respiratory Rate 39 H 26 H Blood Pressure 144/82 H Pulse Oximetry 88 L 93 Oxygen Flow Rate 06/26/24 03:30 06/26/24 04:00 06/26/24 04:00 Temperature 97.1 F L Pulse Rate 71 Respiratory Rate 20 Blood Pressure 134/73 107/57 L Pulse Oximetry 93 Oxygen Flow Rate 55 06/26/24 04:30 06/26/24 04:30 06/26/24 05:00 Temperature Pulse Rate 69 69 Respiratory Rate 25 H 26 H Blood Pressure 111/60 Pulse Oximetry 93 92 Oxygen Flow Rate 55 06/26/24 05:00 06/26/24 05:30 06/26/24 05:30 Temperature Pulse Rate 67 Respiratory Rate 23 Blood Pressure 115/62 119/64 Pulse Oximetry 93 Oxygen Flow Rate 06/26/24 06:00 06/26/24 06:00 06/26/24 06:30 Temperature Pulse Rate 67 84 Respiratory Rate 25 H 34 H Blood Pressure 126/66 Pulse Oximetry 92 91 Oxygen Flow Rate 06/26/24 06:31 06/26/24 06:31 Temperature Pulse Rate 83 Respiratory Rate 43 H Blood Pressure 166/78 H Pulse Oximetry 89 L Oxygen Flow Rate 55 Oxygen Delivery Method Nasal Cannula Oxygen Flow Rate 55 Narrative Exam Narrative: Improved breath sounds on exam, with end expiratory wheezing Objective Labs 06/26/24 05:05 06/26/24 05:05 Labs: Laboratory Results - last 24 hr 06/25/24 06/26/24 23:31 05:05 WBC 6.5 RBC 3.69 L Hgb 9.1 L Hct 29.2 L MCV 79.2 L MCH 24.6 L MCHC 31.1 RDW 17.4 H Plt Count 201 Neut % (Auto) 91.0 H Lymph % (Auto) 5.4 L [place] % (Auto) 3.5 Eos % (Auto) 0.0 L Baso % (Auto) 0.1 Neut # (Auto) 5900 Lymph # (Auto) 400 L [place] # (Auto) 200 Eos # (Auto) 0 Baso # (Auto) 0 ABG Sample Site Right radial ABG pH 7.43 ABG pCO2 74.9 H* ABG pO2 71 L ABG HCO3 49 H ABG Total CO2 > 50 H ABG O2 Saturation 93 L ABG Base Excess 21.4 H Rangel Test Positive O2 Delivery Device Aeromask Sodium 135 L Potassium 5.0 Chloride 90 L Carbon Dioxide 41 H* BUN 24 H Creatinine 0.60 L Estimated GFR > 60 BUN/Creatinine Ratio 40.0 H Glucose 171 H Calcium 8.6 Magnesium 1.9 PFSH Medical History (Updated 06/25/24 @ 07:55 by Tyler Khan MD) Vascular malformation of lower extremity Microscopic hematuria BPH w urinary obs/LUTS History of bladder stone Renal cyst, right Calculus of right kidney Iron deficiency anemia Sleep apnea Rib fractures (~1974) Chronic back pain Enlarged prostate Constipation Hemorrhoid (~1999) Morbid obesity Diabetes type 2, controlled H/O adenomatous polyp of colon History of nephrolithiasis (~1999) Mixed hyperlipidemia Essential hypertension (~1994) Surgical History H/O umbilical hernia repair Anesthesia Bladder stones (~2016) History of knee surgery (~1979) Family History Mother Cancer Father Myocardial infarct Brother Cancer Social History household members: spouse Smoking Status: Former smoker alcohol intake: former Assessment & Plan Assessment & Plan narrative: 1. Acute on chronic respiratory failure-patient required BiPAP to maintain his ventilation and this required use of Precedex. Continue with current noninvasive ventilation and sedation as per tele ICU. Hopefully as pneumonia improves he can be weaned etcetera. If we can get away with heated high-flow oxygen and maybe only BiPAP at night that would be fantastic come but if he needs more BiPAP that is certainly would be appropriate 2. Community-acquired pneumonia with multifocal findings on imaging-continue with current antibiotic therapy which is ceftriaxone plus azithromycin 3. COPD-continue with nebulizer treatments and parental corticosteroids 4. Diabetes-continue current insulin coverage. Blood sugars up because of corticosteroids 5. Morbid obesity-a contributing factor to his respiratory failure. Also makes ventilating him more difficult etcetera. 6. VTE prophylaxis-continue with SCDs. Chemo prophylaxis contraindicated due to bleeding AVMs in lower extremities Time-Based Coding :: [TOTAL MINUTES] spent with patient and on the chart (including review of chart, obtaining history, exam, reviewing outside data, placing orders, documenting exam and treatment plan, and counseling patient) on [DATE]. PROFEE Charge codes Subsequent inpatient/observation care: 10187
[2024-06-26] MEDS: methylPREDNISolone 125 MG/2 ML VIAL 60 MG IV (08:10)
[2024-06-26] MEDS: INSULIN LISPRO 100 UNIT/ML 3ML VIAL SUBCUT ×3 (08:10→17:24)
[2024-06-26] MEDS: BUDESONIDE 0.5 MG/2 ML NEB INH ×2 (08:16→18:46)
[2024-06-26] MEDS: ALBUTEROL 2.5 MG/3 ML NEB (ADULT) INH ×3 (08:17→18:46)
[2024-06-26] MEDS: dexmedeTOMIDine in 0.9 % NaCL 400 MCG/100 ML PLAST..BAG 57.225 MCG IV (08:47)
[2024-06-26] MEDS: BUPRENORPHINE/NALOXONE 8MG/2MG 1 TAB 2 TAB SL (09:55)
[2024-06-26] MEDS: lisinopriL 20 MG TABLET 40 MG PO (09:56)
[2024-06-26] MEDS: PRAVASTATIN 20 MG TABLET PO (09:56)
[2024-06-26] MEDS: TAMSULOSIN 0.4 MG CAPSULE PO (09:57)
--- NOTE | 2024-06-26 10:15 | PM.EICU.INT ---
Teleintensivist Intervention Date/Time Was camera activated?: Yes Issue(s) Addressed Issue(s): Pain, Agitation, Sedation, Delirium Other:: Pt mental status and agitation improving, oriented to self, place and people, weaning off precedex , currently at 0.6, HFNC 50.44%, pending ABG. Intervention(s) Plan discussed with: Nurse
[2024-06-26] MEDS: BUMETANIDE 1 MG/4 ML VIAL 2 MG IV ×2 (10:41→21:45)
[2024-06-26 11:08] LABS: Allen Test for ABG Passed? Positive; Base Excess ABG 16.3 mmol/L (-2-3); Blood Gas Collection Site Left Radial; Delivery System 55l; HCO3 ABG 44 mmol/L (23-27); Oxygen Saturation ABG 91 % (95-100); PCO2 ABG 67.9 mmHg (35-45); PO2 ABG 63 mmHg (80-100); TCO2 ABG 45 mmol/L (23-27); pH ABG 7.42 (7.35-7.45)
--- NOTE | 2024-06-26 12:29 | OT.IPNOTE ---
Pt not medically appropriate for OT today, to check on the pt tomorrow. Pt on heated high flow now.
[2024-06-26] MEDS: SODIUM CHLORIDE 0.9% IV ×2 (12:50→22:43)
[2024-06-26] MEDS: DEXMEDETOMIDINE HCL IV ×2 (12:50→22:43)
--- NOTE | 2024-06-26 16:53 | DI.RAD.S_ITS ---
PROCEDURE: XR CHEST FOR PICC 1V INDICATIONS: PICC line placement COMPARISON: [facility], CT, CT ANGIO CHEST PE PROTOCOL, 09/24/2023, 9:42. [facility], CR, XR CHEST 1V, 06/25/2024, 1:58. [facility], CR, XR CHEST 1V, 09/26/2023, 8:42. [facility], CR, XR CHEST 1V, 09/24/2023, 7:34. [facility], CR, XR CHEST 1V, 05/18/2023, 23:39. FINDINGS: A supine chest x-ray demonstrates a left central venous catheter distal tip at the level of the left medial clavicle. IMPRESSION: Tip of PICC projects to the area of left medial clavicle. Arterial versus venous positioning cannot be clearly identified on this examination. Please correlate with ABGs Dictated by: Manpreet Valdez M.D. on 06/26/2024 at 17:16 Approved by: Manpreet Valdez M.D. on 06/26/2024 at 17:19
--- NOTE | 2024-06-26 17:44 | PM.EVENT ---
Event Note Date Patient Seen: 06/26/24 Time Patient Seen: 17:44 Event Note (Rapid Response, Code, or fall): Patient had PICC line placed today. Unable to place via left arm. Clavicular approach was used. I discussed this with the nurse who placed the line. There was no difficulty placing the line from this approach. Follow-up chest x-ray however interpreted by radiology suggested it could be arterial or venous could not tell the difference. I agree given the termination at the end of the catheter it does not clearly cross the midline to the right side which would confirm venous placement, but based on discussion with nurse who placed this there, was no bright red blood at any time it was venous blood it was easy to pass and there is no return from the line to allow for checking an ABG verses venous gas to help determine whether not this is truly venous. Given all of the above I believe this to be venous not arterial, having accidentally punctured a subclavian artery myself, this does not act like an arterial puncture and therefore is in my opinion okay to use as a PICC line for venous access. This is communicated to the ICU staff
--- NOTE | 2024-06-26 19:25 | PC.NURSE ---
pt had an echo this morning; has remained on heated high flow all shift; left arm double lumen midline inserted; ok to use per Dr Khan; precedex at 0.6mcg/kg/hr; has been at bedside most of the shift, assisting pt
--- NOTE | 2024-06-26 20:33 | PM.ICURNDS ---
- :: This patient was seen via real time interactive two-way audiovisual telecommunication. Note: Pt comfortble in bed, sleeping, on HFNC 55 L & 44%, Precedex at 0.6. Continue to wean off precedex as tolerated.
[2024-06-27] VITALS (60 sets, daily range): BP systolic 95–170; BP diastolic 52–80; PULSE 52–114; RESP 20–60; TEMP 35.9–37.3; O2SAT 87–97
[2024-06-27] MEDS: methylPREDNISolone 125 MG/2 ML VIAL 60 MG IV ×3 (00:07→19:40)
[2024-06-27] MEDS: ALBUTEROL 2.5 MG/3 ML NEB (ADULT) INH ×4 (00:10→19:04)
[2024-06-27] MEDS: cefTRIAXone 1,000 MG in SODIUM CHLORIDE 0.9% 100 ML 200 MG IV (02:56)
[2024-06-27] MEDS: AZITHROMYCIN 500 MG in DEXTROSE 5% IN WATER 250 ML 250 MG IV (04:12)
[2024-06-27 05:27] LABS: Add Manual Diff / Slide Review NO; Basophils Absolute Auto 0 /uL (0-100); Basophils Percent Auto 0.4 % (0-2); Eosinophils Absolute Auto 0 /uL (0-450); Eosinophils Percent Auto 0.1 % (2-4); Hematocrit 30.7 % (41-53); Hemoglobin 9.4 g/dL (13.5-17.5); Lymphocytes Absolute Auto 1100 /uL (1100-4500); Lymphocytes Percent Auto 12.7 % (25-40); Mean Corpuscular HGB Conc 30.6 % (30-36); Mean Corpuscular Hemoglobin 24.4 PG (26-34); Mean Corpuscular Volume 79.6 fL (80-100); Monocytes Absolute Auto 800 /uL (0-900); Monocytes Percent Auto 9.1 % (3-14); Neutrophils Absolute Auto 6500 /uL (1500-7000); Neutrophils Percent Auto 77.7 % (50-75); Platelet Count 215 X10^3/uL (150-400); Red Blood Cell Count 3.86 X10^6/uL (4.5-5.9); Red Cell Distribution Width 17.4 % (11.6-14.8); White Blood Cell Count 8.4 X10^3/uL (4.5-11.0)
[2024-06-27 05:29] LABS: BUN Creatinine Ratio 46.4 (6-22); Blood Urea Nitrogen 32 mg/dL (9-20); Calcium 8.7 mg/dL (8.4-10.2); Chloride 89 mmol/L (98-107); Estimated Glomerular Filt Rate > 60 mL/min (>60); Glucose 175 mg/dL (80-110); Potassium 4.1 mmol/L (3.4-5.1); Sodium 135 mmol/L (137-145)
[2024-06-27 05:36] LABS: HEMOLYSIS 15 (0-50)
[2024-06-27 05:39] LABS: Carbon Dioxide 41 mmol/L (22-32)
--- NOTE | 2024-06-27 08:14 | P.PN_ITS ---
Subjective Subjective Date Patient Seen: 06/27/24 Time Patient Seen: 08:14 Interval history: The pt reports feeling improved today. He was able to ambulate to the chair with a walker, which was very exciting. He feels his breathing is easier than prior days. He denies any chest pain. He is primarily concerned about the wound on his leg that has been bothering him. Exam Vital Signs (past 8 hours): - 06/27/24 00:30 06/27/24 00:31 06/27/24 00:31 Temperature Pulse Rate 58 L 59 L Respiratory Rate 25 H 29 H Blood Pressure 164/72 H Pulse Oximetry 94 94 06/27/24 01:00 06/27/24 01:00 06/27/24 01:30 Temperature Pulse Rate 60 Respiratory Rate 26 H Blood Pressure 142/65 H 151/67 H Pulse Oximetry 95 06/27/24 01:30 06/27/24 02:00 06/27/24 02:00 Temperature Pulse Rate 54 L 53 L Respiratory Rate 35 H 43 H Blood Pressure 151/67 H Pulse Oximetry 96 95 06/27/24 02:30 06/27/24 02:30 06/27/24 03:00 Temperature Pulse Rate 56 L Respiratory Rate 31 H Blood Pressure 153/70 H 155/70 H Pulse Oximetry 95 06/27/24 03:00 06/27/24 03:30 06/27/24 03:31 Temperature Pulse Rate 57 L 59 L Respiratory Rate 31 H 27 H Blood Pressure 153/74 H Pulse Oximetry 95 96 06/27/24 03:31 06/27/24 04:00 06/27/24 04:01 Temperature Pulse Rate 58 L 60 Respiratory Rate 25 H 34 H Blood Pressure 155/67 H Pulse Oximetry 95 96 06/27/24 04:01 06/27/24 04:30 06/27/24 04:30 Temperature Pulse Rate 60 60 Respiratory Rate 28 H 26 H Blood Pressure 158/77 H Pulse Oximetry 95 97 06/27/24 05:04 06/27/24 07:00 06/27/24 07:01 Temperature 96.7 F L Pulse Rate 64 Respiratory Rate 26 H Blood Pressure 102/56 L Pulse Oximetry 95 06/27/24 07:01 06/27/24 07:30 06/27/24 07:30 Temperature Pulse Rate 63 59 L Respiratory Rate 34 H 33 H Blood Pressure 100/54 L Pulse Oximetry 95 94 Fraction of Inspired Oxygen 0.45 SaO2/FiO2 Ratio 65312 Oxygen Delivery Method Heated High Flow Oxygen Flow Rate 50 Narrative Exam Narrative: Gen: NAD, sitting comfortably in chair, speaking in couple word sentences CV: RRR, grade 2/6 systolic murmur Resp: minimal air movement throughout, no bia wheezing or crackles Abd: soft, nontender, obese Ext: 1+ pitting edema bilaterally Objective Labs 06/27/24 05:15 06/27/24 05:15 Labs: Laboratory Results - last 24 hr 06/26/24 06/27/24 11:05 05:15 WBC 8.4 RBC 3.86 L Hgb 9.4 L Hct 30.7 L MCV 79.6 L MCH 24.4 L MCHC 30.6 RDW 17.4 H Plt Count 215 Neut % (Auto) 77.7 H Lymph % (Auto) 12.7 L [place] % (Auto) 9.1 Eos % (Auto) 0.1 L Baso % (Auto) 0.4 Neut # (Auto) 6500 Lymph # (Auto) 1100 [place] # (Auto) 800 Eos # (Auto) 0 Baso # (Auto) 0 ABG Sample Site Left radial ABG pH 7.42 ABG pCO2 67.9 H* ABG pO2 63 L ABG HCO3 44 H ABG Total CO2 45 H ABG O2 Saturation 91 L ABG Base Excess 16.3 H Rangel Test Positive O2 Delivery Device 55l FiO2 % 45.0 % Sodium 135 L Potassium 4.1 Chloride 89 L Carbon Dioxide 41 H* BUN 32 H Creatinine 0.69 Estimated GFR > 60 BUN/Creatinine Ratio 46.4 H Glucose 175 H Calcium 8.7 PFSH Medical History (Updated 06/25/24 @ 07:55 by Tyler Khan MD) Vascular malformation of lower extremity Microscopic hematuria BPH w urinary obs/LUTS History of bladder stone Renal cyst, right Calculus of right kidney Iron deficiency anemia Sleep apnea Rib fractures (~1974) Chronic back pain Enlarged prostate Constipation Hemorrhoid (~1999) Morbid obesity Diabetes type 2, controlled H/O adenomatous polyp of colon History of nephrolithiasis (~1999) Mixed hyperlipidemia Essential hypertension (~1994) Surgical History H/O umbilical hernia repair Anesthesia Bladder stones (~2016) History of knee surgery (~1979) Family History Mother Cancer Father Myocardial infarct Brother Cancer Social History household members: spouse Smoking Status: Former smoker alcohol intake: former Assessment & Plan Assessment & Plan narrative: 1. Acute on chronic respiratory failure- Pt previously on BiPAP, now weaned to heated high flow oxygen. Currently on 50L at 44%. CO2 trending down yesterday. Significant improvement in mobility today. - Continue management as per tele-ICU - Continue weaning from Precedex, nearly off now - Start incentive spirometry 2. Community-acquired pneumonia with multifocal findings on imaging: - Continue Ceftriaxone, Azithromycin (Currently Day 2) 3. COPD: - Continue nebulizer treatments - Continue Methylprednisolone 60mg q12hrs 4. Diabetes: Blood sugars elevated due to steroids - Continue insulin coverage - ACHS blood sugar checks 5. Morbid obesity: Significantly affecting respiratory failure with CO2 retention, etc. - PT consulted 6. Pressure ulcers: - Wound care consulted DVT PPx: SCDs. Chemoprophylaxis contraindicated due to bleeding AVMs in lower extremities Code: Full Diet: Carb consistent Dispo: Pending improvement in respiratory status, back to near baseline O2 requirements Time-Based Coding :: [TOTAL MINUTES] spent with patient and on the chart (including review of chart, obtaining history, exam, reviewing outside data, placing orders, documenting exam and treatment plan, and counseling patient) on [DATE].
[2024-06-27] MEDS: dexmedeTOMIDine in 0.9 % NaCL 400 MCG/100 ML PLAST..BAG 8.175 MCG IV ×2 (08:27→12:28)
[2024-06-27] MEDS: lisinopriL 20 MG TABLET 40 MG PO (08:31)
[2024-06-27] MEDS: INSULIN LISPRO 100 UNIT/ML 3ML VIAL SUBCUT ×3 (09:02→17:10)
[2024-06-27] MEDS: TAMSULOSIN 0.4 MG CAPSULE PO (09:09)
[2024-06-27] MEDS: PRAVASTATIN 20 MG TABLET PO (09:09)
[2024-06-27] MEDS: BUDESONIDE 0.5 MG/2 ML NEB INH ×2 (09:16→19:04)
--- NOTE | 2024-06-27 09:45 | P.TELICUPN_ITS ---
Subjective Subjective IF CAMERA ACTIVATED, patient seen via real-time interactive audiovisual communication: Camera activated Consent obtained for tele-poison information specialist care: Yes Patient Location: ICU Provider location (State): Other participants/roles: RN & pharmacist Interval history: Doing better today, mental status improved, weaning off prcedex , now at0.6, weaning off HFNC , currently at 50 L & 34% acute on chronic resp failure with hypercpanea and hypoxemia ( likely from copd and letha/ohs) acute metabolic ecenphalopathy pna cont to wean off precedex Continue to wean off HFNC bipap qhs and prn trend labs daily and gasses as needed monitor UO, keep neg balance empric abx & steroid f/.u cx dvt ppx total critical car time = 20 min Current Medications Current Medications Medications: Home Medications acetaminophen 500 mg capsule 500 - 1,000 mg PO Q6H PRN Pain (Scale Score 1-3) 06/29/20 [History Confirmed 06/25/24] fluticasone 500 mcg-salmeterol 50 mcg/dose blistr powdr for inhalation ([facility] Inhub) 1 inh inhalation BID #60 ea 10/01/23 [Rx Confirmed 06/25/24] Disabled Parking #1 ea 10/08/23 [Rx Confirmed 06/25/24] buprenorphine 8 mg-naloxone 2 mg sublingual film 2 film buccal Q24H 10/08/23 [History Confirmed 06/25/24] tamsulosin 0.4 mg capsule 0.4 mg PO DAILY #90 caps 10/11/23 [Rx Confirmed 06/25/24] hydrochlorothiazide 25 mg tablet 25 mg PO DAILY #90 tabs 10/15/23 [Rx Confirmed 06/25/24] lisinopril 40 mg tablet 40 mg PO DAILY #90 tabs 10/15/23 [Rx Confirmed 06/25/24] pravastatin 20 mg tablet 20 mg PO DAILY #90 tabs 10/22/23 [Rx Confirmed 06/25/24] semaglutide 0.25 mg or 0.5 mg (2 mg/3 mL) subcutaneous pen injector 0.25 mg (0.368 mL) SUBCUT QWEEK #3 mL 01/28/24 [Rx Confirmed 06/25/24] Visit Medications (administered) Generic Name Dose Route Start Last Admin Trade Name Freq PRN Reason Stop Dose Admin Albuterol 2.5 mg 06/25/24 11:00 06/27/24 09:16 Albuterol 2.5 Mg/3 Ml Neb (Adult) INH 2.5 mg [id number] DONATO Administration Budesonide 0.5 mg 06/25/24 08:00 06/27/24 09:16 Budesonide 0.5 Mg/2 Ml Neb INH 0.5 mg RTBID DONATO Administration Buprenorphine/Naloxone 2 tab 06/25/24 09:00 06/27/24 08:44 Buprenorphine/Naloxone 8mg/2mg 1 Tab SL Not Given DAILY DONATO Azithromycin 500 mg/ Dextrose 250 mls @ 250 mls/hr 06/26/24 04:00 06/27/24 05:50 IV 06/29/24 03:59 Infused Q24H DONATO Infusion Ceftriaxone Sodium 1,000 mg/ 100 mls @ 200 mls/hr 06/26/24 02:00 06/27/24 03:45 Sodium Chloride IV 07/01/24 01:59 Infused Q24H DONATO Infusion dexmedeTOMIDine in 0.9 % NaCL 400 mcg in 100 mls @ 8.175 mls/hr 06/27/24 08:30 06/27/24 08:27 Precedex IV 0.2 mcg/kg/hr TITRATE DONATO 8.175 mls/hr Administration Protocol 0.2 MCG/KG/HR Insulin Human Lispro 0 unit 06/25/24 07:45 06/27/24 09:02 Insulin Lispro 100 Unit/Ml 3ml Vial SUBCUT 1 unit ACHS DONATO Administration Protocol Lisinopril 40 mg 06/25/24 09:00 06/27/24 08:31 Lisinopril 20 Mg Tablet PO 40 mg DAILY DONATO Administration Methylprednisolone 60 mg 06/25/24 07:45 06/27/24 08:29 Methylprednisolone 125 Mg/2 Ml Vial IV 06/30/24 07:44 60 mg Q12H DONATO Administration Pravastatin Sodium 20 mg 06/25/24 09:00 06/27/24 09:09 Pravastatin 20 Mg Tablet PO 20 mg DAILY DONATO Administration Tamsulosin HCl 0.4 mg 06/25/24 09:00 06/27/24 09:09 Tamsulosin 0.4 Mg Capsule PO 0.4 mg DAILY DONATO Administration Objective Ventilator Parameters: Ventilator Settings FiO2 43 Labs 06/27/24 05:15 06/27/24 05:15 Labs: Laboratory Results - last 24 hr 06/26/24 06/27/24 11:05 05:15 WBC 8.4 RBC 3.86 L Hgb 9.4 L Hct 30.7 L MCV 79.6 L MCH 24.4 L MCHC 30.6 RDW 17.4 H Plt Count 215 Neut % (Auto) 77.7 H Lymph % (Auto) 12.7 L [place] % (Auto) 9.1 Eos % (Auto) 0.1 L Baso % (Auto) 0.4 Neut # (Auto) 6500 Lymph # (Auto) 1100 [place] # (Auto) 800 Eos # (Auto) 0 Baso # (Auto) 0 ABG Sample Site Left radial ABG pH 7.42 ABG pCO2 67.9 H* ABG pO2 63 L ABG HCO3 44 H ABG Total CO2 45 H ABG O2 Saturation 91 L ABG Base Excess 16.3 H Rangel Test Positive O2 Delivery Device 55l FiO2 % 45.0 % Sodium 135 L Potassium 4.1 Chloride 89 L Carbon Dioxide 41 H* BUN 32 H Creatinine 0.69 Estimated GFR > 60 BUN/Creatinine Ratio 46.4 H Glucose 175 H Calcium 8.7 Exam Vital Signs (past 8 hours): - 06/27/24 02:00 06/27/24 02:00 06/27/24 02:30 Temperature Pulse Rate 53 L 56 L Respiratory Rate 43 H 31 H Blood Pressure 151/67 H Pulse Oximetry 95 95 Oxygen Delivery Method Oxygen Flow Rate Fraction of Inspired Oxygen 06/27/24 02:30 06/27/24 03:00 06/27/24 03:00 Temperature Pulse Rate 57 L Respiratory Rate 31 H Blood Pressure 153/70 H 155/70 H Pulse Oximetry 95 Oxygen Delivery Method Oxygen Flow Rate Fraction of Inspired Oxygen 06/27/24 03:30 06/27/24 03:31 06/27/24 03:31 Temperature Pulse Rate 59 L 58 L Respiratory Rate 27 H 25 H Blood Pressure 153/74 H Pulse Oximetry 96 95 Oxygen Delivery Method Oxygen Flow Rate Fraction of Inspired Oxygen 06/27/24 04:00 06/27/24 04:01 06/27/24 04:01 Temperature Pulse Rate 60 60 Respiratory Rate 34 H 28 H Blood Pressure 155/67 H Pulse Oximetry 96 95 Oxygen Delivery Method Oxygen Flow Rate Fraction of Inspired Oxygen 06/27/24 04:30 06/27/24 04:30 06/27/24 05:04 Temperature 96.7 F L Pulse Rate 60 Respiratory Rate 26 H Blood Pressure 158/77 H Pulse Oximetry 97 Oxygen Delivery Method Oxygen Flow Rate Fraction of Inspired Oxygen 06/27/24 07:00 06/27/24 07:01 06/27/24 07:01 Temperature Pulse Rate 64 63 Respiratory Rate 26 H 34 H Blood Pressure 102/56 L Pulse Oximetry 95 95 Oxygen Delivery Method Oxygen Flow Rate Fraction of Inspired Oxygen 06/27/24 07:30 06/27/24 07:30 06/27/24 08:00 Temperature Pulse Rate 59 L Respiratory Rate 33 H Blood Pressure 100/54 L Pulse Oximetry 94 93 Oxygen Delivery Method Heated High Flow Oxygen Flow Rate 44 Fraction of Inspired Oxygen 06/27/24 08:00 06/27/24 08:00 06/27/24 08:00 Temperature Pulse Rate 52 L Respiratory Rate 28 H Blood Pressure 95/52 L Pulse Oximetry 94 Oxygen Delivery Method Heated High Flow Oxygen Flow Rate Fraction of Inspired Oxygen 06/27/24 08:00 06/27/24 08:30 06/27/24 08:31 Temperature 98.0 F Pulse Rate 66 70 Respiratory Rate 27 H Blood Pressure 123/63 Pulse Oximetry 96 Oxygen Delivery Method Oxygen Flow Rate Fraction of Inspired Oxygen 06/27/24 08:31 06/27/24 08:31 06/27/24 09:00 Temperature Pulse Rate 66 62 Respiratory Rate 28 H 31 H Blood Pressure 123/62 Pulse Oximetry 96 95 Oxygen Delivery Method Oxygen Flow Rate Fraction of Inspired Oxygen 06/27/24 09:01 06/27/24 09:01 06/27/24 09:16 Temperature Pulse Rate 58 L Respiratory Rate 28 H Blood Pressure 110/56 L Pulse Oximetry 94 93 Oxygen Delivery Method Heated High Flow Oxygen Flow Rate 50 Fraction of Inspired Oxygen 35 06/27/24 09:30 06/27/24 09:30 Temperature Pulse Rate 67 Respiratory Rate 33 H Blood Pressure 108/55 L Pulse Oximetry 93 Oxygen Delivery Method Oxygen Flow Rate Fraction of Inspired Oxygen Fraction of Inspired Oxygen 35 SaO2/FiO2 Ratio 265 Oxygen Delivery Method Heated High Flow Oxygen Flow Rate 50 Assessment & Plan Time-Based Coding :: [TOTAL MINUTES] spent with patient and on the chart (including review of chart, obtaining history, exam, reviewing outside data, placing orders, documenting exam and treatment plan, and counseling patient) on [DATE].
--- NOTE | 2024-06-27 12:44 | OT.IPNOTE ---
Pt still on heated high -flow, hold OT today.
--- NOTE | 2024-06-27 13:00 | PT.IPTN ---
Current Diagnoses Acute and chronic respiratory failure with hypoxia (06/25/24) Physical Therapy Treatment Note M2 PT-IP Current Condition Start: 06/25/24 12:59 Freq: NEEDED Status: Active Protocol: Document 06/25/24 11:45 AB (Rec: 06/25/24 13:19 AB [id number]) Physical Therapy Current Condition Current Condition Evaluation Date 06/25/24 Treatment Diagnosis COPD; PNA; difficulty in walking Onset Date 06/25/24 M3 PT-IP Subjective Start: 06/25/24 12:59 Freq: NEEDED Status: Active Protocol: Document 06/27/24 13:24 TS (Rec: 06/28/24 08:56 TS [id number]) Subjective Physical Therapy Visit Type Type Treatment Note Visit Start Time 13:00 Visit Stop Time 13:23 Number of GRADES 1 THRU 5 TEACHER Visits 1 Physical Therapy Visit Comments Patient Comments Pt found resting in bed, is agreeable to PT. M4 PT-IP Mobility and Gait Start: 06/25/24 12:59 Freq: NEEDED Status: Active Protocol: Document 06/27/24 13:24 TS (Rec: 06/28/24 08:56 TS [id number]) PT-Bed Mobility Assessment Supine to Sit Supine to Sit Moderate Assistance,1 Person Assistance,Head of Bed Elevated,Bedrails PT-Transfer Assessment Sit to and From Stand Sit to and from Stand Contact Guard Assistance,1 Person Assistance Equipment Transfer Assistive Device Gait Belt,Front Wheeled Walker Orthotic/Prosthetic Devices or Brace: No Comments Mobility Comments Pt resting on high flow o2, spo2 91%. Supine to sit ModA for uprighting trunk with HOB elevated. STS with FWW CGA. pt ambualtes ~10' in the room CGA, pt leans heavily on FWW. Pt sat in the chair, Spo2 92%. MD in room with nursing, all needs met. Gait Assessment Gait Gait Assistance Required: Standby Assistance,Contact Guard Assist Distance (Feet) 10 Assistive Devices Assistive Device Front Wheeled Walker Gait Deviations General Gait Pattern Step-to Gait Factors Limiting Gait Function Factors Limiting Gait Function Decreased Activity Tolerance, Decreased Strength,Poor Balance,Respiratory Distress PT-Balance Assessment Sitting Balance and Reactions Static Sitting Balance Ability Fair Dynamic Sitting Balance Ability Fair Standing Balance and Reactions Static Standing Balance Ability Fair Dynamic Standing Balance Ability Fair Device Used FWW M5 PT-IP Objective Assessments Start: 06/25/24 12:59 Freq: NEEDED Status: Active Protocol: Document 06/25/24 11:45 AB (Rec: 06/25/24 13:19 AB [id number]) Orientation Orientation/Cognition Level of Alertness Confusional State Orientation Name Language Function Ability Garbled Speech Safety Awareness Decreased Safety Awareness Memory Description Short Term Impaired,Pouncing Machine Operator Impaired Gross Range of Motion Lower Extremity ROM Impairments limited due to pt's body habitus Strength Lower Extremity Strength Hip 4-/5 Knee 4-/5 Muscle Tone Muscle Tone WNL Yes Other Assessments Other Other Assessments pt presents with involuntary body jerking even at rest M6 PT-IP Treatment Start: 06/25/24 12:59 Freq: NEEDED Status: Active Protocol: Document 06/27/24 13:24 TS (Rec: 06/28/24 08:56 TS [id number]) Physical Therapy Treatment Education Education Provided Safety M7 PT-IP Assessment and Plan Start: 06/25/24 12:59 Freq: NEEDED Status: Active Protocol: Document 06/27/24 13:24 TS (Rec: 06/28/24 08:56 TS [id number]) PT Summary Assessment and Plan Potential Rehabilitation Potential Fair Summary Impairments Pain,ROM,Strength,Balance, Coordination,Sensation,Tone, Cognition,Bed Mobility, Transfers,Gait,Activity Tolerance Progress Towards Goals Slow Progress due to Medical Issues Assessment Summary Kofi is making some progress with his mobility but continues to be limited. He is ModA for bed mobility. He performed STS CGA with FWW. He progressed his gait to ~10' SBA/CGA with FWW. Spo2 appeared to remain stable on high flow. PT is recommending home vs SNF. Pt could progress to go home safely with HHPT. Goals Bed Mobility Goal Minimal Assistance Transfer Goal Minimal Assistance,Front Wheeled Walker Gait Goal Minimal Assistance,Front Wheel Walker Gait Distance 25 Other Goals improve bed mobility, transfers, ambulation using FWW ~ 50 ft SBA Days to Meet Goals 10 Frequency of Treatment Frequency Of Treatment Once a Day Treatment Plan Physical Therapy Treatment Plan Bed Mobility Training,Transfer Training,Gait Training, Therapeutic Exercise,Balance Retraining,Discharge Planning, Hot or Cold Pack,Neuromuscular Re-ed,Coordination Retraining ,Manual Therapy Precautions Other Precautions O2 sat, falls Recommendations To Nursing Amount of Assist Needed 1 Person Assist Discharge Recommendations PT Discharge Recommendations Home Health,Home vs SNF Transportation Needs at Discharge Private Vehicle,Wheelchair/ Cabulance
--- NOTE | 2024-06-27 13:55 | PC.NURSE ---
Addendum entered by Veronica Anthony R.N. 06/27/24 17:02: Wound care instructions and supplies obtained from wound care. Pt assisted this RN in home routine for wound care. Pt tolerated with minimal discomfort. Physical order from wound care placed in chart. 1PA w/ FWW in room. Care ongoing. Original Note: Patient able to reposition with assistance. Allevyn dressing placed on buttock wound (see previous wound note) per Dr. Johnson. Pt still requiring heated high flow, continuous pulse oximetry attached (90%-94%), attempts to decrease oxygen requirements throughout day. Heated high flow machine self-disconnected two separate occasions. Pt able to recover after tubing reattached. Up to chair with PT 1PA w/ FWW. Pt reporting comfort in the chair. Call light within reach, care ongoing.
--- NOTE | 2024-06-27 16:39 | CM.DPC ---
DCP Continued: Reviewed EMR and team rounds for pt?s medical status. Per RN, pt still on high flow O2 but able to reposition with some assistance. Per SPECIAL DELIVERY MESSENGER, pt could be recommended for home vs. SNF at this time, pt has been identified to state preference to return home. Plan: Anticipating discharge home with spouse when back to near baseline O2. CM Team will continue to follow for coordination of discharge plans. BESSIE Agee
[2024-06-28] VITALS (60 sets, daily range): BP systolic 145–182; BP diastolic 70–89; PULSE 67–114; RESP 20–53; TEMP 36.5–36.7; O2SAT 84–100
[2024-06-28] MEDS: MORPHINE 2 MG/ML INJ IV (00:26)
[2024-06-28] MEDS: cefTRIAXone 1,000 MG in SODIUM CHLORIDE 0.9% 100 ML 200 MG IV (01:46)
[2024-06-28] MEDS: AZITHROMYCIN 500 MG in DEXTROSE 5% IN WATER 250 ML 250 MG IV (03:38)
[2024-06-28 04:06] LABS: Add Manual Diff / Slide Review NO; Basophils Absolute Auto 0 /uL (0-100); Basophils Percent Auto 0.3 % (0-2); Eosinophils Absolute Auto 0 /uL (0-450); Hematocrit 33.4 % (41-53); Lymphocytes Absolute Auto 500 /uL (1100-4500); Lymphocytes Percent Auto 4.4 % (25-40); Monocytes Absolute Auto 400 /uL (0-900); Monocytes Percent Auto 3.3 % (3-14); Neutrophils Absolute Auto 10100 /uL (1500-7000); Platelet Count 217 X10^3/uL (150-400); Red Blood Cell Count 4.17 X10^6/uL (4.5-5.9); Red Cell Distribution Width 18.3 % (11.6-14.8)
[2024-06-28 04:22] LABS: BUN Creatinine Ratio 42.7 (6-22); Blood Urea Nitrogen 32 mg/dL (9-20); Calcium 8.6 mg/dL (8.4-10.2); Chloride 93 mmol/L (98-107); Estimated Glomerular Filt Rate > 60 mL/min (>60); Glucose 158 mg/dL (80-110); HEMOLYSIS < 15 (0-50); Potassium 4.6 mmol/L (3.4-5.1); Sodium 138 mmol/L (137-145)
[2024-06-28 04:34] LABS: Carbon Dioxide 40 mmol/L (22-32)
[2024-06-28] MEDS: ACETAMINOPHEN 325 MG TABLET 650 MG PO ×2 (05:44→20:25)
[2024-06-28] MEDS: ALBUTEROL 2.5 MG/3 ML NEB (ADULT) INH ×5 (08:20→22:17)
[2024-06-28] MEDS: BUDESONIDE 0.5 MG/2 ML NEB INH ×2 (08:20→18:47)
[2024-06-28] MEDS: methylPREDNISolone 125 MG/2 ML VIAL 60 MG IV ×2 (08:42→20:24)
[2024-06-28] MEDS: lisinopriL 20 MG TABLET 40 MG PO (08:42)
[2024-06-28] MEDS: PRAVASTATIN 20 MG TABLET PO (08:42)
[2024-06-28] MEDS: TAMSULOSIN 0.4 MG CAPSULE PO (08:42)
--- NOTE | 2024-06-28 11:11 | CM.DPC ---
Addendum entered by NOAH Estrada 06/28/24 12:21: ADD: [facility] confirms they can accept this referral and will follow for starting services after discharge. BF Original Note: DCP HH Planning: Per MD, pt remains on High Flow Oxygen but making improvements and not yet stable for discharge yet today. Wound Consult order placed. SW called [facility] and left msg to alert them to the orders as pt likely will still be here through the weekend. Per MANGLE FEEDER, pt making improvements each day and anticipate once pt off HHF O2 then likely safe for home with spouse and HH. SW met bedside with pt and explained role and he confirms he is agreeable to working with PT today. Pt states he has used HH once in the past about 6 months ago after an admission to the hospital and states he felt some of the PT staff were helpful and pushed him to improve but felt that most staff did not work with him much and he was discharged from HH services. Pt cannot remember the name of the HH agency. Pt acknowledges that he has not been very motivated to strengthen much on his own at home and plans to work harder on this. SW discussed possible options of HH vs outpt PT and pt confirms that as of now he feels HH would be beneficial and does not currently have HH preference. [facility] referral made and requested they review his Medicare A only as likely would go under his [facility]. F2F completed but not sent yet for RN for wound care and PT for strengthening. Pt confirms he also is already established with [facility] at baseline for his chronic thigh wound and that his is comfortable with helping with wound care. Plan: SW to follow for ongoing PT to confirm plan of home with spouse and [facility] review to confirm they can accept his insurance and Wound Consult. NOAH Estrada
--- NOTE | 2024-06-28 11:36 | P.PN_ITS ---
Subjective Subjective Interval history: CC: pneumonia, hypoxia Doing ok at rest today. Appetite is good keeping sats up on HHF - goal today is sit in the chair, mobilize as able with HHF tube. No complaints mostly just weak. Exam Vital Signs (past 8 hours): - 06/28/24 04:00 06/28/24 04:00 06/28/24 04:30 Temperature 98.1 F Pulse Rate 87 94 H Respiratory Rate 20 21 Pulse Oximetry 95 95 Oxygen Delivery Method Oxygen Flow Rate 06/28/24 05:00 06/28/24 05:00 06/28/24 05:30 Temperature Pulse Rate 91 H 114 H Respiratory Rate 27 H 34 H Pulse Oximetry 95 90 L Oxygen Delivery Method Oxygen Flow Rate 50 06/28/24 06:00 06/28/24 06:30 06/28/24 07:00 Temperature Pulse Rate 86 88 90 Respiratory Rate 33 H 26 H 27 H Pulse Oximetry 94 96 96 Oxygen Delivery Method Oxygen Flow Rate 06/28/24 07:00 06/28/24 07:00 06/28/24 07:53 Temperature 97.9 F Pulse Rate Respiratory Rate Pulse Oximetry 96 Oxygen Delivery Method Nasal Cannula Heated High Flow Heated High Flow Oxygen Flow Rate 50 06/28/24 08:21 Temperature Pulse Rate 93 H Respiratory Rate 22 Pulse Oximetry 95 Oxygen Delivery Method Heated High Flow Oxygen Flow Rate Fraction of Inspired Oxygen 45 SaO2/FiO2 Ratio 206 Oxygen Delivery Method Heated High Flow Oxygen Flow Rate 50 Narrative Exam Narrative: laying in bed with at bedside Resp Other: moving air well using HHF via nasal apparatus, good breath sounds bilaterally Cardio Other: regular rate and rhythm, s1/s2 GI Other: soft nontender active bowel sounds Neuro Other: alert awake oriented x3 Objective Labs 06/28/24 03:37 06/28/24 03:37 Labs: Laboratory Results - last 24 hr 06/28/24 03:37 WBC 11.0 RBC 4.17 L Hgb 10.0 L Hct 33.4 L MCV 80.0 MCH 24.0 L MCHC 30.0 RDW 18.3 H Plt Count 217 Neut % (Auto) 92.0 H Lymph % (Auto) 4.4 L [place] % (Auto) 3.3 Eos % (Auto) 0.0 L Baso % (Auto) 0.3 Neut # (Auto) 65597 H Lymph # (Auto) 500 L [place] # (Auto) 400 Eos # (Auto) 0 Baso # (Auto) 0 Sodium 138 Potassium 4.6 Chloride 93 L Carbon Dioxide 40 H* BUN 32 H Creatinine 0.75 Estimated GFR > 60 BUN/Creatinine Ratio 42.7 H Glucose 158 H Calcium 8.6 PFSH Medical History (Updated 06/25/24 @ 07:55 by Tyler Khan MD) Vascular malformation of lower extremity Microscopic hematuria BPH w urinary obs/LUTS History of bladder stone Renal cyst, right Calculus of right kidney Iron deficiency anemia Sleep apnea Rib fractures (~1974) Chronic back pain Enlarged prostate Constipation Hemorrhoid (~1999) Morbid obesity Diabetes type 2, controlled H/O adenomatous polyp of colon History of nephrolithiasis (~1999) Mixed hyperlipidemia Essential hypertension (~1994) Surgical History H/O umbilical hernia repair Anesthesia Bladder stones (~2016) History of knee surgery (~1979) Family History Mother Cancer Father Myocardial infarct Brother Cancer Social History household members: spouse Smoking Status: Former smoker alcohol intake: former Assessment & Plan Assessment & Plan narrative: #Acute on chronic respiratory failure Pt previously on BiPAP, now weaned to heated high flow oxygen, mobilize and wean as tolerated. Encourage IS - up to 1000mL today #Community-acquired pneumonia with multifocal findings on imaging: Continue Ceftriaxone, Azithromycin with HHF #COPD: Nebulizer treatments with IV steroids donig ok no wheezing today #Diabetes Blood sugars elevated due to steroids, continue insulin coverage with ACHS blood sugar checks #Morbid obesity #obesity hypoventilation syndrome: Significantly affecting respiratory failure with CO2 retention, etc, PT consulted #Pressure ulcers: Wound care consulted DVT PPx: SCDs. Chemoprophylaxis contraindicated due to bleeding AVMs in lower extremities Code: Full Diet: Carb consistent PCP: Erin MDM: Dispo: Pending improvement in respiratory status closer to baseline O2 requirements Time-Based Coding :: [TOTAL MINUTES] spent with patient and on the chart (including review of chart, obtaining history, exam, reviewing outside data, placing orders, documenting exam and treatment plan, and counseling patient) on [DATE].
[2024-06-28] MEDS: INSULIN LISPRO 100 UNIT/ML 3ML VIAL SUBCUT ×2 (12:00→17:29)
--- NOTE | 2024-06-28 13:50 | PT.IPTN ---
Current Diagnoses Acute and chronic respiratory failure with hypoxia (06/25/24) Physical Therapy Treatment Note M2 PT-IP Current Condition Start: 06/25/24 12:59 Freq: NEEDED Status: Active Protocol: Document 06/25/24 11:45 AB (Rec: 06/25/24 13:19 AB [id number]) Physical Therapy Current Condition Current Condition Evaluation Date 06/25/24 Treatment Diagnosis COPD; PNA; difficulty in walking Onset Date 06/25/24 M3 PT-IP Subjective Start: 06/25/24 12:59 Freq: NEEDED Status: Active Protocol: Document 06/28/24 14:28 TS (Rec: 06/28/24 14:38 TS [id number]) Subjective Physical Therapy Visit Type Type Treatment Note Visit Start Time 13:50 Visit Stop Time 14:20 Number of POCKETED SPRING ASSEMBLER Visits 2 Physical Therapy Visit Comments Patient Comments Pt found resting in bed, is agreeable to PT. M4 PT-IP Mobility and Gait Start: 06/25/24 12:59 Freq: NEEDED Status: Active Protocol: Document 06/28/24 14:28 TS (Rec: 06/28/24 14:38 TS [id number]) PT-Bed Mobility Assessment Supine to Sit Supine to Sit Contact Guard Assistance,1 Person Assistance,Head of Bed Elevated,Bedrails Scooting Scooting to Edge of Bed Standby Assistance PT-Transfer Assessment Sit to and From Stand Sit to and from Stand Contact Guard Assistance, Minimal Assistance,1 Person Assistance Equipment Transfer Assistive Device Gait Belt,Front Wheeled Walker Orthotic/Prosthetic Devices or Brace: No Comments Mobility Comments Pt resting on high flow o2 39% , Spo2 95%. Supine to sit CGA with HOB elevated 50D, requires increased effort for pt. STS with FWW CGA, pt uses heavy BUE support. He ambulates in the room CGA/SBA ~15' with FWW. Pt requests to use commode. Spouse assists with pericare. STS from commode Hank with FWW. Pt transfers with FWW stand pivot . Pt was left in chair with nursing in room. Gait Assessment Gait Gait Assistance Required: Standby Assistance,Contact Guard Assist Distance (Feet) 15 Assistive Devices Assistive Device Front Wheeled Walker Gait Deviations General Gait Pattern Step-to Gait Factors Limiting Gait Function Factors Limiting Gait Function Decreased Activity Tolerance, Decreased Strength,Poor Balance,Respiratory Distress PT-Balance Assessment Sitting Balance and Reactions Static Sitting Balance Ability Fair Dynamic Sitting Balance Ability Fair Standing Balance and Reactions Static Standing Balance Ability Fair Dynamic Standing Balance Ability Fair Device Used FWW M5 PT-IP Objective Assessments Start: 06/25/24 12:59 Freq: NEEDED Status: Active Protocol: Document 06/25/24 11:45 AB (Rec: 06/25/24 13:19 AB [id number]) Orientation Orientation/Cognition Level of Alertness Confusional State Orientation Name Language Function Ability Garbled Speech Safety Awareness Decreased Safety Awareness Memory Description Short Term Impaired,Fpc Impaired Gross Range of Motion Lower Extremity ROM Impairments limited due to pt's body habitus Strength Lower Extremity Strength Hip 4-/5 Knee 4-/5 Muscle Tone Muscle Tone WNL Yes Other Assessments Other Other Assessments pt presents with involuntary body jerking even at rest M6 PT-IP Treatment Start: 06/25/24 12:59 Freq: NEEDED Status: Active Protocol: Document 06/28/24 14:28 TS (Rec: 06/28/24 14:38 TS [id number]) Physical Therapy Treatment Education Education Provided Safety M7 PT-IP Assessment and Plan Start: 06/25/24 12:59 Freq: NEEDED Status: Active Protocol: Document 06/28/24 14:28 TS (Rec: 06/28/24 14:38 TS [id number]) PT Summary Assessment and Plan Potential Rehabilitation Potential Fair Summary Impairments Pain,ROM,Strength,Balance, Coordination,Sensation,Tone, Cognition,Bed Mobility, Transfers,Gait,Activity Tolerance Progress Towards Goals Progressing Toward Goals,Slow Progress due to Medical Issues Assessment Summary Kofi is making progress with his mobility but is limited by ongoing respiratory issues. He continues to be on high flow o2. He is CGA for bed mobility. He ambualtes short distances in the room of ~15' SBA/CGA. Spo2 remains stable throughout session of about mid 90's, denied SOB. PT will continue to recommend home vs SNF. Expect pt to return home when medically stable. Goals Bed Mobility Goal Minimal Assistance Transfer Goal Minimal Assistance,Front Wheeled Walker Gait Goal Minimal Assistance,Front Wheel Walker Gait Distance 25 Other Goals improve bed mobility, transfers, ambulation using FWW ~ 50 ft SBA Days to Meet Goals 10 Frequency of Treatment Frequency Of Treatment Once a Day Treatment Plan Physical Therapy Treatment Plan Bed Mobility Training,Transfer Training,Gait Training, Therapeutic Exercise,Balance Retraining,Discharge Planning, Hot or Cold Pack,Neuromuscular Re-ed,Coordination Retraining ,Manual Therapy Precautions Other Precautions O2 sat, falls Recommendations To Nursing Amount of Assist Needed 1 Person Assist Discharge Recommendations PT Discharge Recommendations Home Health,Home vs SNF Transportation Needs at Discharge Private Vehicle,Wheelchair/ Cabulance
[2024-06-28] MEDS: hydroCHLOROthiazide 25 MG TABLET PO (17:28)
--- NOTE | 2024-06-28 19:00 | RT ---
HOME BIPAP IS AT BEDSIDE W/ 3.5 LPM BLEED-IN O2. RN UPDATED.
[2024-06-28] MEDS: SODIUM CHLORIDE 0.9% FLUSH 10 ML IV (20:26)
[2024-06-29] VITALS (40 sets, daily range): BP systolic 139–163; BP diastolic 67–82; PULSE 64–102; RESP 16–24; TEMP 36.4–36.9; O2SAT 75–100
[2024-06-29] MEDS: SODIUM CHLORIDE 0.9% FLUSH 10 ML IV (01:34)
[2024-06-29] MEDS: cefTRIAXone 1,000 MG in SODIUM CHLORIDE 0.9% 100 ML 200 MG IV (01:34)
[2024-06-29 04:34] LABS: Add Manual Diff / Slide Review NO; Basophils Absolute Auto 0 /uL (0-100); Basophils Percent Auto 0.3 % (0-2); Eosinophils Absolute Auto 0 /uL (0-450); Hematocrit 33.2 % (41-53); Lymphocytes Absolute Auto 500 /uL (1100-4500); Lymphocytes Percent Auto 5.7 % (25-40); Mean Corpuscular HGB Conc 30.2 % (30-36); Mean Corpuscular Hemoglobin 24.4 PG (26-34); Mean Corpuscular Volume 80.7 fL (80-100); Monocytes Absolute Auto 600 /uL (0-900); Monocytes Percent Auto 6.5 % (3-14); Neutrophils Absolute Auto 8300 /uL (1500-7000); Neutrophils Percent Auto 87.5 % (50-75); Platelet Count 209 X10^3/uL (150-400); Red Blood Cell Count 4.11 X10^6/uL (4.5-5.9); Red Cell Distribution Width 18.7 % (11.6-14.8); White Blood Cell Count 9.5 X10^3/uL (4.5-11.0)
[2024-06-29 04:55] LABS: BUN Creatinine Ratio 44.6 (6-22); Blood Urea Nitrogen 29 mg/dL (9-20); Calcium 8.7 mg/dL (8.4-10.2); Chloride 96 mmol/L (98-107); Estimated Glomerular Filt Rate > 60 mL/min (>60); Glucose 144 mg/dL (80-110); HEMOLYSIS < 15 (0-50); Potassium 4.9 mmol/L (3.4-5.1); Sodium 138 mmol/L (137-145)
[2024-06-29 05:01] LABS: Carbon Dioxide 38 mmol/L (22-32)
[2024-06-29] MEDS: hydroCHLOROthiazide 25 MG TABLET PO (08:04)
[2024-06-29] MEDS: BUPRENORPHINE/NALOXONE 8MG/2MG 1 TAB 0.5 TAB SL (08:04)
[2024-06-29] MEDS: TAMSULOSIN 0.4 MG CAPSULE PO (08:05)
[2024-06-29] MEDS: PRAVASTATIN 20 MG TABLET PO (08:05)
[2024-06-29] MEDS: lisinopriL 20 MG TABLET 40 MG PO (08:05)
[2024-06-29] MEDS: methylPREDNISolone 125 MG/2 ML VIAL 60 MG IV (08:30)
[2024-06-29] MEDS: BUDESONIDE 0.5 MG/2 ML NEB INH (08:51)
[2024-06-29] MEDS: ALBUTEROL 2.5 MG/3 ML NEB (ADULT) INH ×3 (08:51→14:48)
--- NOTE | 2024-06-29 10:52 | CM.DPNOTE ---
DCP Note EDGE POLISHER reviewed EMR Per nursing staff in morning rounds, off heated high flow and on 3.5 ltrs. plan is to continue to wean off O2 and mobilize as tolerated. No new DCP needs identified at this time. LEONARDO unknown. P: home with Sig HH and family support when medically stable. WC to follow Sunday for chronic thigh wound. CM team will continue to follow closely for any additional DCP needs that arise. NOAH Burks
--- NOTE | 2024-06-29 11:31 | PM.PN.1 ---
Subjective Subjective Date Patient Seen: 06/29/24 Time Patient Seen: 11:31 Interval history: CC: pneumonia He is feeling better today - able to d/c HHF now keeping sats above 90 on ~4L via NC which is really not far off from his usual. Today will try to ambulate the unit if possible. Appetite is good. Exam Vital Signs (past 8 hours): - 06/29/24 04:00 06/29/24 04:00 06/29/24 04:30 Temperature Pulse Rate 67 69 Respiratory Rate Blood Pressure 162/68 H Pulse Oximetry 90 L 97 Oxygen Delivery Method Oxygen Flow Rate 06/29/24 05:00 06/29/24 05:30 06/29/24 05:30 Temperature Pulse Rate 85 73 Respiratory Rate 18 Blood Pressure Pulse Oximetry 90 L 87 L 93 Oxygen Delivery Method Oxygen Flow Rate 4 06/29/24 06:00 06/29/24 06:30 06/29/24 07:00 Temperature Pulse Rate 77 70 Respiratory Rate Blood Pressure Pulse Oximetry 89 L 93 93 Oxygen Delivery Method Nasal Cannula Oxygen Flow Rate 4 06/29/24 07:00 06/29/24 07:00 06/29/24 07:30 Temperature Pulse Rate 67 80 Respiratory Rate Blood Pressure Pulse Oximetry 99 96 Oxygen Delivery Method Nasal Cannula Oxygen Flow Rate 06/29/24 07:51 06/29/24 07:51 06/29/24 08:00 Temperature Pulse Rate 72 69 Respiratory Rate Blood Pressure 150/67 H Pulse Oximetry 90 L 91 Oxygen Delivery Method Oxygen Flow Rate 06/29/24 08:01 06/29/24 08:30 06/29/24 08:51 Temperature 98.5 F Pulse Rate 73 70 88 Respiratory Rate 20 20 Blood Pressure 150/67 H Pulse Oximetry 98 83 L 94 Oxygen Delivery Method Nasal Cannula Oxygen Flow Rate 4 3.5 06/29/24 09:00 06/29/24 09:30 06/29/24 10:00 Temperature Pulse Rate 88 101 H 102 H Respiratory Rate Blood Pressure Pulse Oximetry 100 96 89 L Oxygen Delivery Method Oxygen Flow Rate Fraction of Inspired Oxygen 35 SaO2/FiO2 Ratio 271 Oxygen Delivery Method Nasal Cannula Oxygen Flow Rate 3.5 Narrative Exam Narrative: out of bed sitting in chair with 4L via NC Const Other: well nourished well developed HENMT Other: normocephalic/atraumatic Resp Other: moving air well grossly clear to auscultation bilaterally Cardio Other: regular rate and rhythm S1/S2 minimal pedal pitting edema GI Other: soft nontender active bowel sounds Extrem Other: moving all extremities equally Objective Labs 06/29/24 04:08 06/29/24 04:08 Labs: Laboratory Results - last 24 hr 06/29/24 04:08 WBC 9.5 RBC 4.11 L Hgb 10.0 L Hct 33.2 L MCV 80.7 MCH 24.4 L MCHC 30.2 RDW 18.7 H Plt Count 209 Neut % (Auto) 87.5 H Lymph % (Auto) 5.7 L [place] % (Auto) 6.5 Eos % (Auto) 0.0 L Baso % (Auto) 0.3 Neut # (Auto) 8300 H Lymph # (Auto) 500 L [place] # (Auto) 600 Eos # (Auto) 0 Baso # (Auto) 0 Sodium 138 Potassium 4.9 Chloride 96 L Carbon Dioxide 38 H BUN 29 H Creatinine 0.65 L Estimated GFR > 60 BUN/Creatinine Ratio 44.6 H Glucose 144 H Calcium 8.7 PFSH Medical History (Updated 06/25/24 @ 07:55 by Tyler Khan MD) Vascular malformation of lower extremity Microscopic hematuria BPH w urinary obs/LUTS History of bladder stone Renal cyst, right Calculus of right kidney Iron deficiency anemia Sleep apnea Rib fractures (~1974) Chronic back pain Enlarged prostate Constipation Hemorrhoid (~1999) Morbid obesity Diabetes type 2, controlled H/O adenomatous polyp of colon History of nephrolithiasis (~1999) Mixed hyperlipidemia Essential hypertension (~1994) Surgical History H/O umbilical hernia repair Anesthesia Bladder stones (~2016) History of knee surgery (~1979) Family History Mother Cancer Father Myocardial infarct Brother Cancer Social History household members: spouse Smoking Status: Former smoker alcohol intake: former Assessment & Plan Assessment & Plan narrative: #Acute on chronic respiratory failure with hypoxia Pt previously on BiPAP, then weaned to heated high flow oxygen, now on 4L via NC, continue to mobilize and wean as tolerated. Encourage incentive spirometer use - he is nearing his baseline #Community-acquired pneumonia with multifocal findings on imaging: Did well on rocephin and azithromycin #COPD: Nebulizer treatments with IV steroids no wheezing today - will transition to orals today #Diabetes Blood sugars elevated due to steroids, continue insulin coverage with ACHS blood sugar checks #Morbid obesity #obesity hypoventilation syndrome He has some mild baseline respiratory failure with CO2 retention, etc, PT consulted #Pressure ulcers: Wound care consulted #Hemorrhoids ok to use preparation H topical as desired DVT PPx: SCDs. Chemoprophylaxis contraindicated due to bleeding AVMs in lower extremities Code: Full Diet: Carb consistent PCP: Erin MDM: Dispo: Improving - maybe home tomorrow Time-Based Coding :: [TOTAL MINUTES] spent with patient and on the chart (including review of chart, obtaining history, exam, reviewing outside data, placing orders, documenting exam and treatment plan, and counseling patient) on [DATE].
--- NOTE | 2024-06-29 11:32 | PT.IPTN ---
Current Diagnoses Acute and chronic respiratory failure with hypoxia (06/25/24) Physical Therapy Treatment Note M2 PT-IP Current Condition Start: 06/25/24 12:59 Freq: NEEDED Status: Active Protocol: Document 06/25/24 11:45 AB (Rec: 06/25/24 13:19 AB [id number]) Physical Therapy Current Condition Current Condition Evaluation Date 06/25/24 Treatment Diagnosis COPD; PNA; difficulty in walking Onset Date 06/25/24 M3 PT-IP Subjective Start: 06/25/24 12:59 Freq: NEEDED Status: Active Protocol: Document 06/29/24 11:04 KS (Rec: 06/29/24 12:02 KS [id number]) Subjective Physical Therapy Visit Type Type Treatment Note Visit Start Time 11:04 Visit Stop Time 11:32 Number of [employer] SHARPSHOOTER Visits 3 Physical Therapy Visit Comments Patient Comments Pt in chair, agreeable to PT. M4 PT-IP Mobility and Gait Start: 06/25/24 12:59 Freq: NEEDED Status: Active Protocol: Document 06/29/24 11:04 KS (Rec: 06/29/24 12:02 KS [id number]) PT-Transfer Assessment Sit to and From Stand Sit to and from Stand Contact Guard Assistance,1 Person Assistance,Use of Upper Extremities Equipment Transfer Assistive Device Gait Belt,Front Wheeled Walker Orthotic/Prosthetic Devices or Brace: No Transfers Transfer Destination Chair Transfer Ability Level of Assist Contact Guard Assistance,Use of Upper Extremities Comments Mobility Comments Pt in chair upon arrival, states he was able to trasnfer w/o assistance. Discussed home health w/ pt who is open to having HH services again despite less than desirable experience in the past. Pt reports difficulty remaining motivated and depression, aware and has recommended therapy which patient reports he is now open to - CM notified and will talk to pt about resources. Pt able to stand CGA and perform weight shifting and marching in place . Reports slight SOB and leans over to rest/catch breath. Educated pt on more effective breathing techniques.Pt sat back in chair and left w/ all needs in reach. Gait Assessment Gait Gait Assistance Required: Standby Assistance,Contact Guard Assist Assistive Devices Assistive Device Front Wheeled Walker Factors Limiting Gait Function Factors Limiting Gait Function Decreased Activity Tolerance, Decreased Strength,Poor Balance,Respiratory Distress Comments Gait Comments Marching in place 2x 1 min each. PT-Balance Assessment Sitting Balance and Reactions Static Sitting Balance Ability Fair Dynamic Sitting Balance Ability Fair Standing Balance and Reactions Static Standing Balance Ability Fair Dynamic Standing Balance Ability Fair Device Used FWW M5 PT-IP Objective Assessments Start: 06/25/24 12:59 Freq: NEEDED Status: Active Protocol: Document 06/25/24 11:45 AB (Rec: 06/25/24 13:19 AB [id number]) Orientation Orientation/Cognition Level of Alertness Confusional State Orientation Name Language Function Ability Garbled Speech Safety Awareness Decreased Safety Awareness Memory Description Short Term Impaired,Field Operations Technician Impaired Gross Range of Motion Lower Extremity ROM Impairments limited due to pt's body habitus Strength Lower Extremity Strength Hip 4-/5 Knee 4-/5 Muscle Tone Muscle Tone WNL Yes Other Assessments Other Other Assessments pt presents with involuntary body jerking even at rest M6 PT-IP Treatment Start: 06/25/24 12:59 Freq: NEEDED Status: Active Protocol: Document 06/29/24 11:04 KS (Rec: 06/29/24 12:02 KS [id number]) Physical Therapy Treatment Education Education Provided Safety M7 PT-IP Assessment and Plan Start: 06/25/24 12:59 Freq: NEEDED Status: Active Protocol: Document 06/29/24 11:04 KS (Rec: 06/29/24 12:02 KS [id number]) PT Summary Assessment and Plan Potential Rehabilitation Potential Fair Summary Impairments Pain,ROM,Strength,Balance, Coordination,Sensation,Tone, Cognition,Bed Mobility, Transfers,Gait,Activity Tolerance Progress Towards Goals Progressing Toward Goals,Slow Progress due to Medical Issues Assessment Summary Pt making progress, requires only CGA. Feeling very motivated today and would like services to improve mental health - case mgmt notified and will follow up. Pt will benefit from home health services to improve tolerance for activity and functional mobility. Goals Bed Mobility Goal Minimal Assistance Transfer Goal Minimal Assistance,Front Wheeled Walker Gait Goal Minimal Assistance,Front Wheel Walker Gait Distance 25 Other Goals improve bed mobility, transfers, ambulation using FWW ~ 50 ft SBA Days to Meet Goals 10 Frequency of Treatment Frequency Of Treatment Once a Day Treatment Plan Physical Therapy Treatment Plan Bed Mobility Training,Transfer Training,Gait Training, Therapeutic Exercise,Balance Retraining,Discharge Planning, Hot or Cold Pack,Neuromuscular Re-ed,Coordination Retraining ,Manual Therapy Precautions Other Precautions O2 sat, falls Recommendations To Nursing Amount of Assist Needed 1 Person Assist Discharge Recommendations PT Discharge Recommendations Home Health,Home vs SNF Transportation Needs at Discharge Private Vehicle,Wheelchair/ Cabulance
[2024-06-29] MEDS: INSULIN LISPRO 100 UNIT/ML 3ML VIAL SUBCUT (17:19)
[2024-06-29] MEDS: diazePAM 2 MG TABLET PO (19:41)
[2024-06-30] VITALS (62 sets, daily range): BP systolic 107–181; BP diastolic 56–123; PULSE 71–110; RESP 18–32; TEMP 35.6–36.4; O2SAT 81–100
--- NOTE | 2024-06-30 00:27 | RT ---
2119 on 06/29/24 - pt noted with SpO2 desaturation while on his home CPAP unit despite mask adjustment, minimal mask leak, repositioning, and checking all device connections. Spoke to Dr. Ramirez at 2125 and received written order for hospital CPAP. Pt placed on VOCSN; CPAP 12 cm H2O/35% FiO2. Settings adjusted to improve pt comfort. Pt did not tolerate and declined further attempt at CPAP therapy at 2157. He was subsequently placed on 3.5L NC, he remains on continous pulse oximetry. RN aware.
[2024-06-30] MEDS: cefTRIAXone 1,000 MG in SODIUM CHLORIDE 0.9% 100 ML 200 MG IV (02:22)
[2024-06-30] MEDS: MORPHINE 2 MG/ML INJ IV ×3 (04:47→20:03)
--- NOTE | 2024-06-30 08:07 | PM.PN.1 ---
Subjective Subjective Date Patient Seen: 06/30/24 Time Patient Seen: 08:07 Interval history: Patient had bit of a more difficult day yesterday. Ethel like his breathing was not quite as good. Overnight could not tolerate his CPAP. Had episodes of desaturation into the 60s. But patient was not willing to continue to wear his CPAP No other active issues. Off Precedex of course on nasal cannula only. Anxious to get up to the chair for breakfast. Also anxious to go home but agrees he is probably not quite there yet. Does not feel like he has got his strength back as yet Exam Vital Signs (past 8 hours): - 06/30/24 00:11 06/30/24 04:00 Temperature 97.6 F Pulse Rate 78 81 Respiratory Rate 20 Blood Pressure 131/63 Pulse Oximetry 94 94 Oxygen Delivery Method Nasal Cannula Oxygen Flow Rate 3.5 3.5 Fraction of Inspired Oxygen 35 Fraction of Inspired Oxygen 35 SaO2/FiO2 Ratio 268 Oxygen Delivery Method Nasal Cannula Oxygen Flow Rate 3.5 Objective Labs 06/29/24 04:08 06/29/24 04:08 [facility] Medical History (Updated 06/25/24 @ 07:55 by Tyler Khan MD) Vascular malformation of lower extremity Microscopic hematuria BPH w urinary obs/LUTS History of bladder stone Renal cyst, right Calculus of right kidney Iron deficiency anemia Sleep apnea Rib fractures (~1974) Chronic back pain Enlarged prostate Constipation Hemorrhoid (~1999) Morbid obesity Diabetes type 2, controlled H/O adenomatous polyp of colon History of nephrolithiasis (~1999) Mixed hyperlipidemia Essential hypertension (~1994) Surgical History H/O umbilical hernia repair Anesthesia Bladder stones (~2016) History of knee surgery (~1979) Family History Mother Cancer Father Myocardial infarct Brother Cancer Social History household members: spouse Smoking Status: Former smoker alcohol intake: former Assessment & Plan Assessment & Plan narrative: 1. Acute on chronic respiratory failure secondary to pneumonia-continue current ceftriaxone. Completed a course of azithromycin. Clinically improved overall although a bit of up and down day-to-day. I agree with him he clearly needs more time to returned to baseline He certainly would benefit from noninvasive ventilation overnight, seems very clear he was got significant sleep apnea. Not sure what we can do to help him. Will certainly need to be re-evaluated by sleep Medicine as an outpatient 2. Community-acquired pneumonia-continues on the ceftriaxone as above. Completed a course of azithromycin. Overall numbers seem better could consider discontinuation of antibiotics altogether 3. COPD-continues on oral steroids plus frequent nebulizers. Near baseline as far as his oxygen replacement therapy 4. Morbid obesity-biggest contributing factor to I think his desaturations overnight etcetera. Overall needs another 24-48 hours in the hospital Time-Based Coding :: [TOTAL MINUTES] spent with patient and on the chart (including review of chart, obtaining history, exam, reviewing outside data, placing orders, documenting exam and treatment plan, and counseling patient) on [DATE]. PROFEE Charge codes Subsequent inpatient/observation care: [id number]
--- NOTE | 2024-06-30 08:19 | PC.NURSE ---
Pyxis did not prompt to waste 0.5 tablet of buprenorphine/naloxone SL 8mg/2mg tablet. Pharmacy notified. Half tablet (0.5 tablet) wasted with Ann Figueroa, RN witness.
[2024-06-30] MEDS: BUPRENORPHINE/NALOXONE 8MG/2MG 1 TAB 0.5 TAB SL (08:21)
[2024-06-30] MEDS: lisinopriL 20 MG TABLET 40 MG PO (08:21)
[2024-06-30] MEDS: TAMSULOSIN 0.4 MG CAPSULE PO (08:21)
[2024-06-30] MEDS: predniSONE 20 MG TABLET 40 MG PO (08:21)
[2024-06-30] MEDS: PRAVASTATIN 20 MG TABLET PO (08:21)
[2024-06-30] MEDS: hydroCHLOROthiazide 25 MG TABLET PO (08:21)
[2024-06-30] MEDS: ALBUTEROL 2.5 MG/3 ML NEB (ADULT) INH ×3 (09:14→20:13)
[2024-06-30] MEDS: BUDESONIDE 0.5 MG/2 ML NEB INH ×2 (09:15→20:13)
--- NOTE | 2024-06-30 10:07 | OT.IP.TRT ---
Current Diagnoses Acute and chronic respiratory failure with hypoxia (06/25/24) Occupational Therapy Treatment Note M2 OT-IP Current Condition Start: 06/25/24 13:15 Freq: Status: Active Protocol: Document 06/25/24 13:16 [facility] (Rec: 06/25/24 13:35 [facility] [id number]) Occupational Therapy Current Condition Current Condition Evaluation Date 06/25/24 Treatment Diagnosis PNA,COPD Diagnosis Onset Date 06/25/24 M3 OT- IP Subjective and Pain Start: 06/25/24 13:15 Freq: Status: Active Protocol: Document 06/30/24 10:45 CGR (Rec: 06/30/24 10:53 CGR [id number]) OT- Subjective Occupational Therapy Visit Type Type Treatment Note Visit Start Time 09:44 Visit Stop Time 10:07 OT Pain Assessment Pain When Pain Assessed At Rest Pain Present Pain Present Denied Pain M4 OT- IP ADL's Start: 06/25/24 13:15 Freq: Status: Active Protocol: Document 06/30/24 10:45 CGR (Rec: 06/30/24 10:53 CGR [id number]) OT [id number] Comments OT Self-Feeding Comments not meal time, pt states that he just completed breakfast. OT ADL-Grooming General Evaluation Grooming Ability Standby Assistance Areas Needing Assistance Retrieving/Set-up of Grooming Items,Face Washing Comments OT Grooming Comments seated in chair OT ADL-Oral Care General Eval Oral Care Ability Standby Assistance Areas of Assistance Brushing Teeth,Retrieving/Set- Up of Items Comments Oral Care Comments seated in chair OT ADL-Dressing General Eval Upper Body Dressing Ability Standby Assistance Comments OT Dressing Comments hospital gown OT ADL-Toileting General Evaluation Toileting Ability Total Assistance Comments OT Toileting Comments staley OT ADL-Bathing Bathing Type Bathing Type Sponge Bath Comments OT Bathing Comments Pt performed pericare from seated position in chair. He did not need any assist for this. M5 OT- IP IADL's Start: 06/25/24 13:15 Freq: Status: Active Protocol: Document 06/25/24 13:16 [facility] (Rec: 06/25/24 13:35 [facility] [id number]) OT-Instrumental Activities of Daily Living Home Safety Awareness Awareness of Need for Assistance at Home Good Awareness Home Safety Comments Pt very drowsy and having difficulty to follow commands. Medication Management Medication Management Caregiver Administers Money Management Money Management Caregiver Provides Assistance Meal Preparation Meal Preparation Caregiver Provides Assist Honey Extractor Honey Extractor Caregiver Provides Assist M6 OT- IP Functional Cognition Start: 06/25/24 13:15 Freq: Status: Active Protocol: Document 06/25/24 13:16 CCC (Rec: 06/25/24 13:35 CCC [id number]) Cognitive Factors Limiting Selfcare Function Cognitive Ability Level of Alertness Confusional State,Drowsy Patient Orientation Name,Place Attention Span Ability Capable of Focused Attention, Unable to Sustain Attention Ability to Follow Commands Able to Follow One Step Commands with Increased Time, Able to Follow One Step Commands with Repetition Cognitive Comments Cognitive Assessment Comments Pt very drowsy and fallingn asleep and needing step by step commands to follow. Pt is also impulsive and has decreased safety awareness. OT- Vision and Hearing OT- Hearing Assessment OT- Hearing Assessment WFL OT- Vision Assessment Visual Acuity Glasses All The Time Visual Attentiveness WFL Occular Pursuits WFL Visual Jeffery WFL Diplopia Present Vision Assessment Comments Pt complaining of blurred vision intermittently. M7 OT- IP Mobility and Balance Start: 06/25/24 13:15 Freq: Status: Active Protocol: Document 06/30/24 10:45 CGR (Rec: 06/30/24 10:53 CGR [id number]) OT- Bed Mobility Assessment Supine to Sit Supine to Sit Assist Standby Assistance Scooting Scooting to Edge of Bed Standby Assistance OT-Transfer Assessment Sit to and From Stand Sit to and from Stand Contact Guard Assistance Transfers Transfer Ability Contact Guard Assistance Technique Transfer Destination Bed,Chair Transfer Technique Stand Step Pivot Devices Transfer Assistive Devices Gait Belt,Front Wheeled Walker Comments Mobility Comments Pt was able to get to the EOB with the HOB up and use or rails with SBA. Pt then transfered to chair for ADLs. OT- Gait Assessment Gait Gait Assistance Required: Contact Guard Assist Assistive Devices Assistive Device Gait Belt,Front Wheeled Walker Comments Gait Ability Comments Pt took 2-3 steps to get from bed to chair. Pt states concern for going further d/t history of knees buckling. OT- Balance Assessment Sitting Balance and Reactions Static Sitting Balance Ability Good Dynamic Sitting Balance Ability Good M8 OT- IP Objective Assessments Start: 06/25/24 13:15 Freq: Status: Active Protocol: Document 06/25/24 13:16 [facility] (Rec: 06/25/24 13:35 [facility] [id number]) OT Gross Range of Motion Upper Extremity Range of Motion Assessment Bilaterally Impaired ROM Impairments RUE grossly WFL, LUE decreaed at shoulder 0-90 shoulder flexion. OT Strength Upper Extremity Strength Assessment Bilaterally Impaired Comments Strength Comments LUE 3-/5 to 5/5 distally, RUE 4- to 5/5 from proximal to distal. OT- Coordination Assessment Upper Extremity Finger to Nose Test Right UE Impaired Comments Coordination Comments Increased time for RUE. CLonus movement at times. OT Sensation Assessment Comments Summary Comments Intact light touch, pt states has numbness/tingling that comes and goes in his BUE. M9 OT- IP Assessment and Plan Start: 06/25/24 13:15 Freq: Status: Active Protocol: Document 06/30/24 10:45 CGR (Rec: 06/30/24 10:53 CGR [id number]) OT Summary Assessment and Plan Potential Rehabilitation Potential Fair Analytic Complexity at Evaluation Moderate Summary OT Impairments Range of Motion,Strength, Balance,Coordination, Functional Cognition, Functional Mobility,Self- Feeding,Grooming,Dressing, Toileting,Bathing,Toilet Transfers,Shower Transfers, Activity Tolerance Progress Towards Goals Slow Progress due to Pain,Slow Progress due to Medical Issues,Slow Progress due to Activity Tolerance Assessment Summary Pt is progressing with therapy and currently on 3.5L which is his normal at home. Pt states that he feels weaker and with lower endurance than his typical but otherwise is close to his baseline. Pt initially discussed his concerns with his bipap and his difficulty with sleeping with it on. Pt states he is fatigued from being woken up multiple time last night in addition to using the bipap. Pt appears agreeable to ADLs but then states concern for standing ADLs d/t a history of his knees bucking. He states that he feels confident if he can use his hands for support but he is unable to do that while standing to perform ADLs . ADLs were performed seated in chair with good results. Pt left sitting up in chair at end of session, call button within reach and all needs at time met. Goals Self-Feeding Goal Independent Grooming Goal Independent Dressing Goal Minimal Assistance Toileting Goal Minimal Assistance Bathing Goal Minimal Assistance Toilet Transfer Goal Minimal Assistance Shower Transfer Goal Minimal Assistance Days to Meet Goals 25 Frequency of Treatment Frequency Of Treatment Once a Day Other frequency 5x/week Treatment Plan OT Treatment Plan ADL Training,Functional Mobility,Patient/Family Education,Discharge Planning Other Treatment Recommendations and Next Transfer to [facility] with MODA X 2 Treatment Focus with FWW. Discharge Recommendations OT Discharge Recommendations SNF Rehab Transportation Needs at Discharge Wheelchair/Cabulance
--- NOTE | 2024-06-30 14:18 | CM.DPC ---
DCP Cont: Per MD, pt making progress but still not tolerating his cpap at night and could benefit from outpt Sleep Study/Medicine and getting closer to baseline but still more fatigued and weak and to work more with PT/OT. Possible d/c in 1-2 days. Per OT, pt not comfortable with standing today and completed ADLs seated but then pt later up to bedside chair with nursing staff and to work with PT this afternoon. OT thought pt would benefit from SNF. SW met bedside with pt and he confirms that he does not want or feel SNF needed at d/c and is agreeable to [facility] referral and acceptance and plan is still d/c home when medically stable with [facility]. Pt declines any SNF referrals and feels he is getting better each day. PENG alerted TCM group via [employer] on pt's admission and likely d/c with [facility]. NOAH Estrada
--- NOTE | 2024-06-30 14:59 | PT-IP ANOTE ---
PT reviews chart and checks on pt. Pt states that he just received medication and is groggy. He states he cannot participate in PT at this time. Con't PT efforts.
--- NOTE | 2024-06-30 15:51 | PC.NURSE ---
Discussion of staley catheter removal with pt, pt declining removal. This RN educated pt on the risks of keeping the staley catheter in place, such as increased risk of CAUTI. Pt continues to decline removal, stating, tomorrow morning. Pt agreeable to removal in the morning. Care ongoing.
--- NOTE | 2024-06-30 19:47 | PC.NURSE ---
Addendum entered by Corie Vernon R.N. 06/30/24 21:24: 2000-Patient used call light, apologized to staff for yelling, requested neb tx and morphine for back pain. Original Note: Card Stripper Note-RT and this RN went in room to assess patient and administer neb tx. Patient was dozing, he woke up angry saying Don't wake me up. Let me sleep. Patient did not sleep well the previous night. Will allow to let him rest. On 3.5L NC, SpO2 95%, RR 20, CHILKAT at 30%. NSR. Bed alarm on.
[2024-06-30] MEDS: SODIUM CHLORIDE 0.9% FLUSH 10 ML IV (20:03)
[2024-07-01] VITALS (41 sets, daily range): BP systolic 97–153; BP diastolic 57–78; PULSE 81–105; RESP 20–27; TEMP 35.8–36.1; O2SAT 64–98
[2024-07-01] MEDS: ALBUTEROL 2.5 MG/3 ML NEB (ADULT) INH ×3 (07:42→19:48)
[2024-07-01] MEDS: BUDESONIDE 0.5 MG/2 ML NEB INH ×2 (07:42→19:48)
--- NOTE | 2024-07-01 07:49 | P.PN_ITS ---
Subjective Subjective Date Patient Seen: 07/01/24 Time Patient Seen: 07:49 Interval history: Patient still having difficulty participating with skilled therapies. Seem sleepy groggy at times. Still having difficulty standing intermittently. Overall oxygen requirement seems to be at baseline. Blood pressure up and down. Blood sugars acceptable. Minimal if any insulin being given for coverage (1 -2 units once a day) Patient determined to not go to nursing home but to go home. Does not feel like his physical disability is require going to nursing home at this time Still complaining of the myoclonus which has defied explanation. He had this when he was admitted earlier in the year and we found no etiology for it. It was very prominent upon admission this time was much better but he says worse yesterday than the day before. Exam Vital Signs (past 8 hours): - 07/01/24 00:00 07/01/24 04:00 07/01/24 07:45 Temperature 96.5 F L 96.5 F L Pulse Rate 92 H 82 Respiratory Rate 20 22 Blood Pressure 153/78 H 142/65 H Pulse Oximetry 92 96 96 Oxygen Delivery Method Nasal Cannula Oxygen Flow Rate 3.5 3.5 3 Fraction of Inspired Oxygen 35 SaO2/FiO2 Ratio 277 Oxygen Delivery Method Nasal Cannula Oxygen Flow Rate 3 Objective Labs 06/29/24 04:08 06/29/24 04:08 [facility] Medical History (Updated 06/25/24 @ 07:55 by Tyler Khan MD) Vascular malformation of lower extremity Microscopic hematuria BPH w urinary obs/LUTS History of bladder stone Renal cyst, right Calculus of right kidney Iron deficiency anemia Sleep apnea Rib fractures (~1974) Chronic back pain Enlarged prostate Constipation Hemorrhoid (~1999) Morbid obesity Diabetes type 2, controlled H/O adenomatous polyp of colon History of nephrolithiasis (~1999) Mixed hyperlipidemia Essential hypertension (~1994) Surgical History H/O umbilical hernia repair Anesthesia Bladder stones (~2016) History of knee surgery (~1979) Family History Mother Cancer Father Myocardial infarct Brother Cancer Social History household members: spouse Smoking Status: Former smoker alcohol intake: former Assessment & Plan Assessment & Plan narrative: 1. Acute on chronic respiratory failure secondary to pneumonia-continue current ceftriaxone. Completed a course of azithromycin. Clinically improved overall although a bit of up and down day-to-day. Overall improved of course. Oxygen requirement at baseline. Needs to regain strength etcetera. Can probably discontinue antibiotic therapy after today Will need outpatient re-evaluation with sleep Medicine, followed by [facility] in [place], most recently seen in March it appears 2. Community-acquired pneumonia-continues on the ceftriaxone as above. Completed a course of azithromycin. Overall numbers seem better could consider discontinuation of antibiotics altogether after today's dose 3. COPD-continues on oral steroids plus frequent nebulizers. Probably at baseline with oxygen replacement therapy. Could consider beginning to taper down steroids, although has had minimal effect on his blood sugar it seems 4. Morbid obesity-biggest contributing factor to his degree of illness including how sick he got with the pneumonia his sleep apnea of course and there is clearly an element of obesity hypoventilation chronically here as well. Weight loss would be incredibly helpful 5. Myoclonus-unclear etiology. Probably needs outpatient neuro evaluation. Go ahead and repeat labs specifically chemistries today looking a magnesium calcium potassium see if there is some clue there that we might be able to correct. Also check a CPK on the off chance this is purely a muscle related issue. Overall needs another 24-48 hours in the hospital, hopefully he does improve enough to be clearly safe to go home rather than nursing home. Right now seems like nursing home would be the better option to me. Time-Based Coding :: [TOTAL MINUTES] spent with patient and on the chart (including review of chart, obtaining history, exam, reviewing outside data, placing orders, documenting exam and treatment plan, and counseling patient) on [DATE]. PROFEE Charge codes Subsequent inpatient/observation care: [id number]
[2024-07-01] MEDS: predniSONE 20 MG TABLET 40 MG PO (08:06)
[2024-07-01] MEDS: BUPRENORPHINE/NALOXONE 8MG/2MG 1 TAB 0.5 TAB SL (08:06)
[2024-07-01] MEDS: lisinopriL 20 MG TABLET 40 MG PO (08:06)
[2024-07-01] MEDS: PRAVASTATIN 20 MG TABLET PO (08:06)
[2024-07-01] MEDS: hydroCHLOROthiazide 25 MG TABLET PO (08:06)
[2024-07-01] MEDS: TAMSULOSIN 0.4 MG CAPSULE PO (08:06)
--- NOTE | 2024-07-01 08:17 | PC.NURSE ---
0.5 tablet of buprenorphine/naloxone 8mg/2mg wasted with Ramya Figueroa RN and this RN prior to administering ordered dose.
[2024-07-01 09:30] LABS: Creatine Kinase 23 U/L (55-170)
[2024-07-01 09:31] LABS: Alanine Aminotransferase 40 IU/L (<50); Albumin 3.4 g/dL (3.5-5.0); Albumin Globulin Ratio 1.1 (1.0-2.8); Alkaline Phosphatase 51 U/L (38-126); Aspartate Aminotransferase 41 IU/L (17-59); BUN Creatinine Ratio 48.4 (6-22); Bilirubin Total 0.5 mg/dL (0.2-1.3); Blood Urea Nitrogen 30 mg/dL (9-20); Calcium 8.5 mg/dL (8.4-10.2); Chloride 93 mmol/L (98-107); Estimated Glomerular Filt Rate > 60 mL/min (>60); Glucose 112 mg/dL (80-110); Magnesium 1.8 mg/dL (1.6-2.3); Potassium 3.9 mmol/L (3.4-5.1); Sodium 137 mmol/L (137-145); Total Protein 6.4 g/dL (6.3-8.2)
[2024-07-01 09:37] LABS: Carbon Dioxide 39 mmol/L (22-32); HEMOLYSIS 31 (0-50)
--- NOTE | 2024-07-01 11:01 | PT.IPTN ---
Current Diagnoses Acute and chronic respiratory failure with hypoxia (06/25/24) Physical Therapy Treatment Note M2 PT-IP Current Condition Start: 06/25/24 12:59 Freq: NEEDED Status: Active Protocol: Document 06/25/24 11:45 AB (Rec: 06/25/24 13:19 AB [id number]) Physical Therapy Current Condition Current Condition Evaluation Date 06/25/24 Treatment Diagnosis COPD; PNA; difficulty in walking Onset Date 06/25/24 M3 PT-IP Subjective Start: 06/25/24 12:59 Freq: NEEDED Status: Active Protocol: Document 07/01/24 11:01 AB (Rec: 07/01/24 12:44 AB [id number]) Subjective Physical Therapy Visit Type Type Treatment Note Visit Start Time 11:01 Visit Stop Time 11:14 Number of TEST FIXTURE DESIGNER Visits 13 Physical Therapy Visit Comments Patient Comments agreed to do PT M4 PT-IP Mobility and Gait Start: 06/25/24 12:59 Freq: NEEDED Status: Active Protocol: Document 07/01/24 11:01 AB (Rec: 07/01/24 12:44 AB [id number]) PT-Transfer Assessment Sit to and From Stand Sit to and from Stand Standby Assistance,Use of Upper Extremities Equipment Transfer Assistive Device Gait Belt,Front Wheeled Walker Comments Mobility Comments pt sitting on the chair and agreed to do PT. asked pt regrading stair climbing to enter the house and stated that he uses a SPC and spouse assist on other side to get into the house but uses a FWW for descending steps. step stool setup for pt for stair climbing. pt completed sit to stand from chair SBA. ambulated towards step and completed up/down step stool using SPC and PUBLIC ADDRESS SYSTEM MECHANIC max A ascending and min A for decscending steps. pt ambulated in room ~ 15 ft and sat back on chair. pt refused further activities and requested for pain meds. nurse informed. call light and table placed close to pt. Gait Assessment Gait Gait Assistance Required: Standby Assistance Distance (Feet) 15 Able to Maintain Weight Bearing Status Yes During Gait Assistive Devices Assistive Device Gait Belt,Front Wheeled Walker Orthotic/Prosthetic Devices or Brace: No Gait Deviations General Gait Pattern Ataxic,Decreased Stride Length ,Decreased Feet Clearance Factors Limiting Gait Function Factors Limiting Gait Function Decreased Activity Tolerance, Decreased Strength,Difficulty Following Directions,Limited Range of Motion,Pain,Poor Balance,Poor Safety Awareness, Respiratory Distress Stair Climbing Assessment Evaluation Level of Assist On Stairs Maximal Assistance,1 Person Assistance Devices Stair Climbing Assistive Devices Straight Cane,Front Wheel Walker Technique/Endurance Stair Climbing Direction Ascend and Descend Stair Climbing Technique Step to Step Number of Steps Climbed 1 Stair Climbing Set # Repetitions (reps) 1 M5 PT-IP Objective Assessments Start: 06/25/24 12:59 Freq: NEEDED Status: Active Protocol: Document 06/25/24 11:45 AB (Rec: 06/25/24 13:19 AB [id number]) Orientation Orientation/Cognition Level of Alertness Confusional State Orientation Name Language Function Ability Garbled Speech Safety Awareness Decreased Safety Awareness Memory Description Short Term Impaired,Intermediate Impaired Gross Range of Motion Lower Extremity ROM Impairments limited due to pt's body habitus Strength Lower Extremity Strength Hip 4-/5 Knee 4-/5 Muscle Tone Muscle Tone WNL Yes Other Assessments Other Other Assessments pt presents with involuntary body jerking even at rest M6 PT-IP Treatment Start: 06/25/24 12:59 Freq: NEEDED Status: Active Protocol: Document 07/01/24 11:01 AB (Rec: 07/01/24 12:44 AB [id number]) Physical Therapy Treatment Education Education Provided Safety M7 PT-IP Assessment and Plan Start: 06/25/24 12:59 Freq: NEEDED Status: Active Protocol: Document 07/01/24 11:01 AB (Rec: 07/01/24 12:44 AB [id number]) PT Summary Assessment and Plan Potential Rehabilitation Potential Fair Summary Impairments Pain,ROM,Strength,Balance, Coordination,Sensation,Tone, Cognition,Bed Mobility, Transfers,Gait,Activity Tolerance Progress Towards Goals Slow Progress due to Pain,Slow Progress due to Activity Tolerance Assessment Summary pt improving slowly with mobility and able to ambulate using FWW SBA but continues to have decrease activity tolerance. pt requiring min to max A with stair climbing and pt stated that his spouse will be able and has been assisting him at home. pt may go home with assist and will benefit from HHPT. Goals Bed Mobility Goal Minimal Assistance Transfer Goal Minimal Assistance,Front Wheeled Walker Gait Goal Minimal Assistance,Front Wheel Walker Gait Distance 25 Other Goals improve bed mobility, transfers, ambulation using FWW ~ 50 ft SBA Days to Meet Goals 10 Frequency of Treatment Frequency Of Treatment Once a Day Treatment Plan Physical Therapy Treatment Plan Bed Mobility Training,Transfer Training,Gait Training, Therapeutic Exercise,Balance Retraining,Discharge Planning, Hot or Cold Pack,Neuromuscular Re-ed,Coordination Retraining ,Manual Therapy Precautions Other Precautions O2 sat, falls Recommendations To Nursing Amount of Assist Needed 1 Person Assist Discharge Recommendations PT Discharge Recommendations Home with 24/ Assist Available,Home Health Transportation Needs at Discharge Private Vehicle
[2024-07-01] MEDS: ACETAMINOPHEN 325 MG TABLET 650 MG PO (11:14)
--- NOTE | 2024-07-01 15:15 | OT.IPNOTE ---
Pt just completed showering with nursing and now getting a breathing treatment with RT. Nursing states pt just needing assist to wash his back.
--- NOTE | 2024-07-01 15:38 | OT.IP.TRT ---
Current Diagnoses Acute and chronic respiratory failure with hypoxia (06/25/24) Occupational Therapy Treatment Note M2 OT-IP Current Condition Start: 06/25/24 13:15 Freq: Status: Active Protocol: Document 06/25/24 13:16 [facility] (Rec: 06/25/24 13:35 [facility] [id number]) Occupational Therapy Current Condition Current Condition Evaluation Date 06/25/24 Treatment Diagnosis PNA,COPD Diagnosis Onset Date 06/25/24 M3 OT- IP Subjective and Pain Start: 06/25/24 13:15 Freq: Status: Active Protocol: Document 07/01/24 15:39 [facility] (Rec: 07/01/24 15:46 [facility] [id number]) OT- Subjective Occupational Therapy Visit Type Type Treatment Note Visit Start Time 15:30 Visit Stop Time 15:39 Occupational Therapy Visit Comments Patient Comments Pt agreed to get up to brush his teeth. Patient/Caregiver Goals TO go home. OT Pain Assessment Pain When Pain Assessed At Rest Pain Present Pain Present Denied Pain M4 OT- IP ADL's Start: 06/25/24 13:15 Freq: Status: Active Protocol: Document 07/01/24 15:39 [facility] (Rec: 07/01/24 15:46 [facility] [id number]) OT [id number] General Evaluation Self-Feeding Ability Independent OT ADL-Grooming General Evaluation Grooming Ability Independent Comments OT Grooming Comments While standing at the sink. OT ADL-Oral Care General Eval Oral Care Ability Independent Comments Oral Care Comments WHile standing at the sink. OT ADL-Bathing Comments OT Bathing Comments Pt showered earlier with nursing and per nursing just needing assist to wash his back. M5 OT- IP IADL's Start: 06/25/24 13:15 Freq: Status: Active Protocol: Document 06/25/24 13:16 [facility] (Rec: 06/25/24 13:35 [facility] [id number]) OT-Instrumental Activities of Daily Living Home Safety Awareness Awareness of Need for Assistance at Home Good Awareness Home Safety Comments Pt very drowsy and having difficulty to follow commands. Medication Management Medication Management Caregiver Administers Money Management Money Management Caregiver Provides Assistance Meal Preparation Meal Preparation Caregiver Provides Assist Field Liability Generalist Field Liability Generalist Caregiver Provides Assist M6 OT- IP Functional Cognition Start: 06/25/24 13:15 Freq: Status: Active Protocol: Document 07/01/24 15:39 [facility] (Rec: 07/01/24 15:46 [facility] [id number]) Cognitive Factors Limiting Selfcare Function Cognitive Ability Level of Alertness Alert Attention Span Ability Capable of Focused Attention, Capable of Sustained Attention Ability to Follow Commands Able to Follow Multi-Step Commands Cognitive Comments Cognitive Assessment Comments Pt able to follow commands for ADL and mobility needs. M7 OT- IP Mobility and Balance Start: 06/25/24 13:15 Freq: Status: Active Protocol: Document 07/01/24 15:39 [facility] (Rec: 07/01/24 15:46 [facility] [id number]) OT-Transfer Assessment Sit to and From Stand Sit to and from Stand Standby Assistance Transfers Transfer Ability Standby Assistance Technique Transfer Destination Chair Devices Transfer Assistive Devices Front Wheeled Walker Comments Mobility Comments Pt able to walk to and from the recliner to sink with FWW and assist to help manage the O2 tubing. OT- Balance Assessment Sitting Balance and Reactions Static Sitting Balance Ability Good Dynamic Sitting Balance Ability Good Standing Balance and Reactions Static Standing Balance Ability Good Dynamic Standing Balance Ability Fair M8 OT- IP Objective Assessments Start: 06/25/24 13:15 Freq: Status: Active Protocol: Document 06/25/24 13:16 [facility] (Rec: 06/25/24 13:35 [facility] [id number]) OT Gross Range of Motion Upper Extremity Range of Motion Assessment Bilaterally Impaired ROM Impairments RUE grossly WFL, LUE decreaed at shoulder 0-90 shoulder flexion. OT Strength Upper Extremity Strength Assessment Bilaterally Impaired Comments Strength Comments LUE 3-/5 to 5/5 distally, RUE 4- to 5/5 from proximal to distal. OT- Coordination Assessment Upper Extremity Finger to Nose Test Right UE Impaired Comments Coordination Comments Increased time for RUE. CLonus movement at times. OT Sensation Assessment Comments Summary Comments Intact light touch, pt states has numbness/tingling that comes and goes in his BUE. M9 OT- IP Assessment and Plan Start: 06/25/24 13:15 Freq: Status: Active Protocol: Document 07/01/24 15:39 [facility] (Rec: 07/01/24 15:46 [facility] [id number]) OT Summary Assessment and Plan Potential Rehabilitation Potential Fair Analytic Complexity at Evaluation Moderate Summary OT Impairments Range of Motion,Strength, Balance,Coordination, Functional Cognition, Functional Mobility,Self- Feeding,Grooming,Dressing, Toileting,Bathing,Toilet Transfers,Shower Transfers, Activity Tolerance Progress Towards Goals Progressing Toward Goals Assessment Summary Pt doing much better and mainly assist with O2 tubing and able to walk to the sink and back with SBA with FWW. Pt able to participate in shower and grooming /oral care needs today. Pt to go home with assist when medically stable. Goals Self-Feeding Goal Independent Grooming Goal Independent Dressing Goal Minimal Assistance Toileting Goal Minimal Assistance Bathing Goal Minimal Assistance Toilet Transfer Goal Independent Shower Transfer Goal Independent Days to Meet Goals 5 Frequency of Treatment Other frequency 5x/week Treatment Plan OT Treatment Plan ADL Training,Functional Mobility,Patient/Family Education,Discharge Planning Discharge Recommendations OT Discharge Recommendations Home with Assistance Transportation Needs at Discharge Private Vehicle
--- NOTE | 2024-07-01 16:24 | PM.CN ---
History of Present Illness Consult details Date Patient Seen: 07/01/24 Time Patient Seen: 15:30 Chief complaint: weakness Narrative: The patient is a 68-year-old male with diabetes, morbid obesity, hypertension, and COPD who was recently admitted to the hospital with acute on chronic COPD and pneumonia. 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 The patient has been receiving dressing changes with Adaptic and Hydrofera blue and the ulcers have been slowly improving. He has been using a Roho cushion for pressure offloading. The patient was last seen at the wound center June 20, 2024. The patient's has been doing the dressing changes during his hospitalization. Past history is remarkable for multiple previous surgical procedures for treatment of the AVM's. The patient is primarily nonambulatory and uses a wheelchair for mobility. Meds Home Medications and Allergies Home Medications Medication Instructions Recorded Confirmed Type acetaminophen 500 mg capsule 500 - 1,000 mg PO Q6H PRN Pain 06/29/20 06/25/24 History (Scale Score 1-3) fluticasone 500 mcg-salmeterol 50 1 inh inhalation BID #60 ea 10/01/23 06/25/24 Rx mcg/dose blistr powdr for inhalation (Wixela Inhub) Disabled Parking #1 ea 10/08/23 06/25/24 Rx buprenorphine 8 mg-naloxone 2 mg 2 film buccal Q24H 10/08/23 06/25/24 History sublingual film tamsulosin 0.4 mg capsule 0.4 mg PO DAILY #90 caps 10/11/23 06/25/24 Rx hydrochlorothiazide 25 mg tablet 25 mg PO DAILY #90 tabs 10/15/23 06/25/24 Rx lisinopril 40 mg tablet 40 mg PO DAILY #90 tabs 10/15/23 06/25/24 Rx pravastatin 20 mg tablet 20 mg PO DAILY #90 tabs 10/22/23 06/25/24 Rx semaglutide 0.25 mg or 0.5 mg (2 0.25 mg (0.368 mL) SUBCUT QWEEK #3 01/28/24 06/25/24 Rx mg/3 mL) subcutaneous pen injector mL Allergies Allergy/AdvReac Type Severity Reaction Status Date / Time No Known Drug Allergies Allergy Verified 01/18/24 11:42 Review of Systems Respiratory Comments: Shortness of breath Exam Vital Signs (past 8 hours): - 07/01/24 08:30 07/01/24 09:00 07/01/24 09:30 Temperature Pulse Rate 82 88 90 Respiratory Rate Blood Pressure Pulse Oximetry 95 94 93 Oxygen Delivery Method 07/01/24 10:00 07/01/24 12:00 07/01/24 12:49 Temperature 96.5 F L Pulse Rate 88 Respiratory Rate 20 Blood Pressure 97/58 L Pulse Oximetry 93 Oxygen Delivery Method 07/01/24 12:49 07/01/24 13:00 07/01/24 15:10 Temperature Pulse Rate 89 87 Respiratory Rate Blood Pressure Pulse Oximetry 94 93 90 L Oxygen Delivery Method Room Air Fraction of Inspired Oxygen 35 SaO2/FiO2 Ratio 277 Oxygen Delivery Method Room Air Oxygen Flow Rate 3 Const Other: Obese male who is alert and oriented and in no apparent distress Skin Other: Dressings posterior medial thighs dry and intact Objective Labs 06/29/24 04:08 07/01/24 09:00 Labs: Laboratory Results - last 24 hr 07/01/24 09:00 Sodium 137 Potassium 3.9 Chloride 93 L Carbon Dioxide 39 H BUN 30 H Creatinine 0.62 L Estimated GFR > 60 BUN/Creatinine Ratio 48.4 H Glucose 112 H Calcium 8.5 Magnesium 1.8 Total Bilirubin 0.5 AST 41 ALT 40 Alkaline Phosphatase 51 Total Creatine Kinase 23 L Total Protein 6.4 Albumin 3.4 L Globulin 3.0 Albumin/Globulin Ratio 1.1 PFSH Medical History Vascular malformation of lower extremity Microscopic hematuria BPH w urinary obs/LUTS History of bladder stone Renal cyst, right Calculus of right kidney Iron deficiency anemia Sleep apnea Rib fractures (~1974) Chronic back pain Enlarged prostate Constipation Hemorrhoid (~1999) Morbid obesity Diabetes type 2, controlled H/O adenomatous polyp of colon History of nephrolithiasis (~1999) Mixed hyperlipidemia Essential hypertension (~1994) Surgical History H/O umbilical hernia repair Anesthesia Bladder stones (~2016) History of knee surgery (~1979) Family History Mother Cancer Father Myocardial infarct Brother Cancer Social History household members: spouse Tobacco & Substance Use Smoking Status: Former smoker alcohol intake: former Assessment & Plan Assessment and plan (1) 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 Time-Based Coding :: [30 MINUTES] spent with patient and on the chart (including review of chart, obtaining history, exam, reviewing outside data, placing orders, documenting exam and treatment plan, and counseling patient) on [07/01/24].
[2024-07-01] MEDS: MORPHINE 2 MG/ML INJ IV (20:11)
[2024-07-01] MEDS: SODIUM CHLORIDE 0.9% FLUSH 10 ML IV (20:12)
[2024-07-02] VITALS (9 sets, daily range): BP systolic 102–111; BP diastolic 55–66; PULSE 86–95; RESP 18–20; TEMP 35.7–36.6; O2SAT 94–97
--- NOTE | 2024-07-02 06:48 | PM.PN.1 ---
Subjective Subjective Date Patient Seen: 07/02/24 Time Patient Seen: 06:48 Interval history: Patient was essentially unchanged yesterday Intermittent periods of mild hypoxia still present Working with PT and OT still feel like he is going to require significant assistance at home but should be safe to return home if that assistance is available. Will need home health services Exam Vital Signs (past 8 hours): Fraction of Inspired Oxygen 32 SaO2/FiO2 Ratio 300 Oxygen Delivery Method Nasal Cannula Oxygen Flow Rate 3 Objective Labs 06/29/24 04:08 07/01/24 09:00 Labs: Laboratory Results - last 24 hr 07/01/24 09:00 Sodium 137 Potassium 3.9 Chloride 93 L Carbon Dioxide 39 H BUN 30 H Creatinine 0.62 L Estimated GFR > 60 BUN/Creatinine Ratio 48.4 H Glucose 112 H Calcium 8.5 Magnesium 1.8 Total Bilirubin 0.5 AST 41 ALT 40 Alkaline Phosphatase 51 Total Creatine Kinase 23 L Total Protein 6.4 Albumin 3.4 L Globulin 3.0 Albumin/Globulin Ratio 1.1 PFSH Medical History Vascular malformation of lower extremity Microscopic hematuria BPH w urinary obs/LUTS History of bladder stone Renal cyst, right Calculus of right kidney Iron deficiency anemia Sleep apnea Rib fractures (~1974) Chronic back pain Enlarged prostate Constipation Hemorrhoid (~1999) Morbid obesity Diabetes type 2, controlled H/O adenomatous polyp of colon History of nephrolithiasis (~1999) Mixed hyperlipidemia Essential hypertension (~1994) Surgical History H/O umbilical hernia repair Anesthesia Bladder stones (~2016) History of knee surgery (~1979) Family History Mother Cancer Father Myocardial infarct Brother Cancer Social History household members: spouse Smoking Status: Former smoker alcohol intake: former Assessment & Plan Assessment & Plan narrative: 1. Acute on chronic respiratory failure secondary to pneumonia-continue current ceftriaxone. Completed a course of azithromycin. Clinically improved overall although a bit of up and down day-to-day. Overall improved of course. Oxygen requirement at baseline. Needs to regain strength etcetera. Will need outpatient re-evaluation with sleep Medicine, [facility] in [place], most recently seen in March it appears 2. Community-acquired pneumonia-has completed antibiotic therapy. Continues to improve slowly. 3. COPD-continues on oral steroids plus frequent nebulizers. Probably at baseline with oxygen replacement therapy. Will lower dose of steroids today in preparation for discharge 4. Morbid obesity-biggest contributing factor to his degree of illness including how sick he got with the pneumonia his sleep apnea of course and there is clearly an element of obesity hypoventilation chronically here as well. Weight loss would be incredibly helpful 5. Myoclonus-unclear etiology. Probably needs outpatient neuro evaluation. Labs done yesterday did not reveal any metabolic etiology for his muscle symptoms. CPK was also quite normal. Overall needs another 24 hours or so in the hospital, but it does seem like he can return home with significant assistance and home health services. I would tentatively plan for discharge on the 03 of July, assuming there is no clinical decline. As above he will need home health services for PT OT as well as visiting nurse services. Also need outpatient follow-up through the wound care clinic Time-Based Coding :: [TOTAL MINUTES] spent with patient and on the chart (including review of chart, obtaining history, exam, reviewing outside data, placing orders, documenting exam and treatment plan, and counseling patient) on [DATE]. PROFEE Charge codes Subsequent inpatient/observation care: [id number]
[2024-07-02] MEDS: TAMSULOSIN 0.4 MG CAPSULE PO (07:47)
[2024-07-02] MEDS: PRAVASTATIN 20 MG TABLET PO (07:47)
[2024-07-02] MEDS: lisinopriL 20 MG TABLET 40 MG PO (07:47)
[2024-07-02] MEDS: ACETAMINOPHEN 325 MG TABLET 650 MG PO (07:47)
[2024-07-02] MEDS: hydroCHLOROthiazide 25 MG TABLET PO (07:48)
[2024-07-02] MEDS: BUPRENORPHINE/NALOXONE 8MG/2MG 1 TAB 0.5 TAB SL (07:48)
[2024-07-02] MEDS: predniSONE 20 MG TABLET 30 MG PO (08:02)
[2024-07-02] MEDS: BUDESONIDE 0.5 MG/2 ML NEB INH (08:33)
[2024-07-02] MEDS: ALBUTEROL 2.5 MG/3 ML NEB (ADULT) INH ×2 (08:33→19:12)
[2024-07-02] MEDS: INSULIN LISPRO 100 UNIT/ML 3ML VIAL SUBCUT (12:13)
--- NOTE | 2024-07-02 14:06 | PT-IP ANOTE ---
checked on pt x 2 and refused PT. stated that he is not going to get up until his comes and is not coming until later. nurse aware and will get pt up when spouse comes in.
[2024-07-02] MEDS: CALCIUM CARBONATE 500 MG TAB 1000 MG PO (18:41)
--- NOTE | 2024-07-02 19:02 | PC.NURSE ---
Day Shift Declined to get up today with PT/OT or nursing until arrived this evening. Up SBA to BSC and then to chair. changed dressings to back of thighs. Tums administered for pt report of abdominal discomfort. SpO2 low 90s on 3.5L per home dose. Call light within reach, using appropriately to make needs known.
[2024-07-03] MEDS: MORPHINE 2 MG/ML INJ IV (06:42)
[2024-07-03] MEDS: SODIUM CHLORIDE 0.9% FLUSH 10 ML IV (06:42)
--- NOTE | 2024-07-03 07:33 | P.DS_ITS ---
History of Present Illness History of Present Illness Date Patient Seen: 07/03/24 Time Patient Seen: 07:33 Chief complaint: weakness Narrative: 68-year-old morbidly obese male well known to me although he was canceled or failed to show for his last for appointments in the clinic he was admitted via emergency department with pneumonia Patient normally has oxygen requirement at home but has been noticing his need to increase his oxygen level to maintain oxygen saturation over the last several days/weeks including at times up to 6 liters/minute. Had a bit of a cough day before admission. Having some increased shortness of breath and cough often on for several weeks prior to this. Spouse thinks patient has been more somnolent and confused at times off and on. Denies any fevers. Overall brought to the ER because this is how he has presented with pneumonia in the past, spouse. In the ER found to be somewhat more hypoxic than usual, somewhat more hypercapnic than usual (clearly he is chronically hypercapnic based on his ABG), and a multifocal pneumonia on portable chest x-ray imaging in the emergency department. He had a normal white count and essentially normal chemistries except for the elevation of his bicarbonate related to his acute and chronic respiratory acidosis He was given a dose of ceftriaxone and azithromycin in the emergency department and admitted Discharge Providers Provider Date of admission: 06/25/24 04:11 Discharge Date: 07/03/24 Primary care physician: Tyler Khan MD Consults: 06/25/24 04:08 Consult to Physician Stat Comment: Consulting Provider: Siobhan Lew Reason for consultation: adnmission Has provider been notified: Yes 06/25/24 04:10 Consult to Physician Stat Comment: Consulting Provider: Tyler Khan Reason for consultation: Admission Has provider been notified: No 06/25/24 07:41 Consult to Cardio/Pulmonary Rehabilitation Routine Comment: Physician Instructions: Evaluate and treat 06/25/24 07:43 Consult to Dietitian, Adult Routine Comment: Reason For Exam: weight loss Consult to Discharge Planning Routine Comment: Consult to Occupational Therapy Evaluate & Treat Comment: Physician Instructions: Evaluate and treat Consult to Physical Therapy Evaluate & Treat Comment: Physician Instructions: Evaluate and Treat 06/25/24 07:57 Consult to Wound Care Routine Comment: Consulting Provider: [facility] 06/25/24 11:00 Consult to Dietitian, Adult Routine Comment: Reason For Exam: Morbid obesity 06/27/24 13:55 Consult to Wound Care Routine Comment: Consulting Provider: [facility] 06/30/24 14:41 Consult to Home Health Routine Comment: COPD exac, respiratory failure, pneumonia Reason For Exam: Set up RN/PT/EDUCATION AND TRAINING COORDINATOR/RECEIVING ROOM CLERK for home when stable Discharge provider: Tyler Khan MD Summary Hospital Course Discharge Diagnosis: 1. Community-acquired pneumonia 2. Acute on chronic respiratory failure with hypoxia and hypercapnia 3. Obesity hypoventilation syndrome 4. COPD 5. 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 Iron-deficiency 7. Morbid obesity 8. Type 2 diabetes 9. Hypertension 11. Hyperlipidemia 12. Pressure ulceration, stage III, posterior medial thighs Hospital Course: Patient was admitted to the hospital as above. He required increasing oxygen requirements and eventually became quite somnolent was found to be quite hypercapnic. He was transferred to the ICU placed on BiPAP which required some parental sedation with Precedex. Over the course of 24-72 hours his respiratory status continued to improve with therapies for his pneumonia in his COPD. He was able to be weaned off of the BiPAP and off of the Precedex eventually. Maintaining normal level of consciousness and oxygenation at the same time. Over the remaining several days of his hospitalization his hypoxia improved he returned to his baseline oxygen requirement. Patient continued to struggled with the use of his overnight CPAP device for his sleep apnea. He declined to use it on most nights and during these night so he was found to be intermittently hypoxic (not unexpectedly given his obesity and known obstructive sleep apnea) Patient's diabetes is well controlled despite the addition of the parental steroids for his COPD Patient was placed on the antibiotic therapy for his pneumonia but also parental and then eventually oral dose corticosteroids for his COPD. Also given frequent nebulizer treatments with albuterol. Continued on his steroid inhalers etcetera. He was much improved upon discharge and will continue on a prednisone taper to discontinue that over the course of approximally 10 days Patient's other medical issues who felt to be stable. He was seen in consultation by the wound care clinic who thought his skin breakdown in his thighs due to his AVMs with stable on will continue to need care in the wound care clinic however Patient's blood counts remained stable Patient was felt to be stable for discharge home but will require 24/7 assistance and home health services. Patient absolutely refused to consider alternative discharge plan including retirement facility etcetera. Status at Discharge Cognitive/behavioral status at discharge: at baseline, oriented Functional status at discharge: uses cane/walker Overall status at discharge: patient is progressing back to baseline Time Spent with Patient Time spent: Greater than 30 minutes Exam Vital Signs (past 8 hours): Fraction of Inspired Oxygen 32 SaO2/FiO2 Ratio 300 Oxygen Delivery Method Nasal Cannula Oxygen Flow Rate 3 Objective Labs 06/29/24 04:08 07/01/24 09:00 [facility] Medical History Vascular malformation of lower extremity Microscopic hematuria BPH w urinary obs/LUTS History of bladder stone Renal cyst, right Calculus of right kidney Iron deficiency anemia Sleep apnea Rib fractures (~1974) Chronic back pain Enlarged prostate Constipation Hemorrhoid (~1999) Morbid obesity Diabetes type 2, controlled H/O adenomatous polyp of colon History of nephrolithiasis (~1999) Mixed hyperlipidemia Essential hypertension (~1994) Surgical History H/O umbilical hernia repair Anesthesia Bladder stones (~2016) History of knee surgery (~1979) Family History Mother Cancer Father Myocardial infarct Brother Cancer Social History household members: spouse Smoking Status: Former smoker alcohol intake: former Discharge Assessment & Plan Assessment and Plan Plan of Treatment: Patient completed his course of antibiotic therapy in the hospital. He will continue a course of tapering prednisone as noted on his prescription Patient will need close outpatient follow up with sleep Medicine to determine a better way to treat his sleep apnea Patient will continue on oxygen replacement therapy which he was on chronically Patient will continue follow with wound care clinic regarding his pressure ulcerations of his thigh secondary to his AVMs Patient will continue follow with vascular surgery in [place] regarding his AVMs in his legs which have led to his iron-deficiency and anemia Patient will continue his home meds for his diabetes which appear to be effective Patient have close follow-up with his PCP in the next 7-10 days Discharge Plan Discharge Plan Patient Disposition: Home Health Service Discharge orders & Medications Prescriptions: New prednisone 20 mg tablet 10 - 30 mg PO DAILY Qty: 12 0RF Rx Instructions: Take 30mg (1 1/2 tabs) daily for 3 days, then 20mg (1 tab) daily for 3 days, then 10mg (1/2 tab) daily for 3 days, then 10mg every other day for 4 days, then stop Continued fluticasone propion-salmeterol [Wixela Inhub] 500-50 mcg/dose blister with device 1 inh inhalation BID Qty: 60 8RF tamsulosin 0.4 mg capsule 0.4 mg PO DAILY Qty: 90 3RF lisinopril 40 mg tablet 40 mg PO DAILY Qty: 90 3RF hydrochlorothiazide 25 mg tablet 25 mg PO DAILY Qty: 90 3RF pravastatin 20 mg tablet 20 mg PO DAILY Qty: 90 3RF semaglutide 0.25 mg or 0.5 mg (2 mg/3 mL) pen injector 0.25 mg SUBCUT QWEEK Qty: 3 3RF Rx Instructions: for 4 weeks buprenorphine-naloxone 8-2 mg film 2 film buccal Q24H Rx Instructions: place 1 film on inside of (each) cheek // On 16mg/4mg. acetaminophen 500 mg capsule 500 - 1,000 mg PO Q6H PRN (Reason: Pain (Scale Score 1-3)) Patient Comments: For pain No Action (DME) Disabled Parking See Rx Instructions .ROUTE .MEDSUPPLY Qty: 1 0RF Rx Instructions: Patient qualifies for disabled parking as per the attached form. Follow up/Referrals: Juliette Lamar [Other] - 2 Weeks (Sleep Care, [facility]) Ravindra Hill MD [Physician] - 1 Week Tyler Khan MD [Primary Care Provider] - 2 Weeks Diet/Activity/Treatments Diet: Diet as Tolerated and Carb-consistent/Diabetic Oxygen: 2-4 l/min NC continuous Visit Report/Discharge Packet Stand Alone Forms: Patient Portal/API Discharge Data Primary Care Provider: Tyelr Khan PROFEE Charge Codes Discharge inpatient/observation: [id number]
[2024-07-03] MEDS: TAMSULOSIN 0.4 MG CAPSULE PO (08:29)
[2024-07-03] MEDS: predniSONE 20 MG TABLET 30 MG PO (08:29)
[2024-07-03 08:30] VITALS: BP 103/58; PULSE 75
[2024-07-03] MEDS: lisinopriL 20 MG TABLET 40 MG PO (08:30)
[2024-07-03] MEDS: PRAVASTATIN 20 MG TABLET PO (08:31)
[2024-07-03] MEDS: BUPRENORPHINE/NALOXONE 8MG/2MG 1 TAB 0.5 TAB SL (08:31)
[2024-07-03] MEDS: hydroCHLOROthiazide 25 MG TABLET PO (08:31)
--- NOTE | 2024-07-03 11:27 | CM.DPC ---
DCP Cont. Reviewed EMR and team rounds for status updates. Pt has been medically cleared for home d/c, his will transport him home. No further needs identified at this time.
== END 2024-07-03 13:30 | disposition home health service (06) | DRG 193 ==
LOC: ED 04:08 → AC 04:12 → ICU 06-26 00:41
PROVIDERS: Internal Medicine; Admitting Provider Internal Medicine; Emergency Provider Emergency Medicine; PCP Internal Medicine; Referring Provider Emergency Medicine; Visit Provider Internal Medicine
DX: J18.9 Pneumonia, unspecified organism (principal); G93.41 Metabolic encephalopathy; J96.21 Acute and chronic respiratory failure with hypoxia; L89.893 Pressure ulcer of other site, stage 3; J96.22 Acute and chronic respiratory failure with hypercapnia; E66.2 Morbid (severe) obesity with alveolar hypoventilation; Z68.43 Body mass index [BMI] 50.0-59.9, adult; J44.0 Chronic obstructive pulmonary disease with (acute) lower respiratory infection; F11.20 Opioid dependence, uncomplicated; N13.8 Other obstructive and reflux uropathy; D50.9 Iron deficiency anemia, unspecified; Q27.32 Arteriovenous malformation of vessel of lower limb; E78.5 Hyperlipidemia, unspecified; N40.1 Benign prostatic hyperplasia with lower urinary tract symptoms; E11.65 Type 2 diabetes mellitus with hyperglycemia; T38.0X5A Adverse effect of glucocorticoids and synthetic analogues, initial encounter; K64.9 Unspecified hemorrhoids; G25.3 Myoclonus; I10 Essential (primary) hypertension; Z87.01 Personal history of pneumonia (recurrent); Z99.81 Dependence on supplemental oxygen; Z79.85 Long-term (current) use of injectable non-insulin antidiabetic drugs; Z87.891 Personal history of nicotine dependence; Z99.3 Dependence on wheelchair
CPT/HCPCS: 0241U; 36415; 36569; 36592; 36600; 70450; 71045; 80048; 80053; 80305; 80320; 81003; 81015; 82550; 82805; 82962; 83605; 83690; 83735; 83880; 84145; 84484; 85025; 87040; 87086; 93005; 93306; 94640; 94667; 94760; 94762; 96365; 96375; 97116; 97163; 97166; 97530; 97535; 99223; 99233; 99239; 99285; 99291; A9270; J0696; J1642; J1815; J2270; J2919; J3490; J7613

== ENCOUNTER → 2024-07-10 08:50 | Outpatient (CLI) | payer OTHER, MEDICARE, SELFPAY ==
[2024-07-03 09:19] VITALS: BMI 53.1
== END ==
PROVIDERS: PCP Internal Medicine; Referring Provider Surgery Vascular Surgery; Visit Provider Surgery
DX: L89.893 Pressure ulcer of other site, stage 3 (principal); R60.0 Localized edema; Q27.32 Arteriovenous malformation of vessel of lower limb; D64.9 Anemia, unspecified; E66.01 Morbid (severe) obesity due to excess calories; Z68.43 Body mass index [BMI] 50.0-59.9, adult; Z99.81 Dependence on supplemental oxygen
CPT/HCPCS: 99212; 99213

== ENCOUNTER → 2024-07-10 11:14 | Outpatient (CLI) | payer OTHER, SELFPAY ==
[2024-07-03 09:19] VITALS: BMI 53.1
[2024-07-10 13:56] LABS: BUN Creatinine Ratio 37.1 (6-22); Blood Urea Nitrogen 46 mg/dL (9-20); Calcium 8.8 mg/dL (8.4-10.2); Chloride 92 mmol/L (98-107); Estimated Glomerular Filt Rate > 60 mL/min (>60); Glucose 138 mg/dL (80-110); HEMOLYSIS < 15 (0-50); Potassium 4.7 mmol/L (3.4-5.1); Sodium 137 mmol/L (137-145)
[2024-07-10 14:04] LABS: Carbon Dioxide 35 mmol/L (22-32)
== END ==
PROVIDERS: PCP Internal Medicine; Referring Provider Internal Medicine; Visit Provider Internal Medicine
DX: J44.9 Chronic obstructive pulmonary disease, unspecified (principal); E11.9 Type 2 diabetes mellitus without complications
CPT/HCPCS: 36415; 80048

== ENCOUNTER → 2024-07-31 13:47 | Outpatient (CLI) | payer OTHER, SELFPAY ==
[2024-07-03 09:19] VITALS: BMI 53.1
== END ==
PROVIDERS: PCP Internal Medicine; Referring Provider Surgery Vascular Surgery; Visit Provider Surgery
DX: L89.893 Pressure ulcer of other site, stage 3 (principal); E11.628 Type 2 diabetes mellitus with other skin complications; D64.9 Anemia, unspecified; Q27.32 Arteriovenous malformation of vessel of lower limb; J44.9 Chronic obstructive pulmonary disease, unspecified; Z74.09 Other reduced mobility; E66.09 Other obesity due to excess calories; Z68.43 Body mass index [BMI] 50.0-59.9, adult; Z99.81 Dependence on supplemental oxygen
CPT/HCPCS: 11042; 99213

== ENCOUNTER → 2024-08-14 15:03 | Outpatient (CLI) | payer OTHER, SELFPAY ==
[2024-08-12 11:03] VITALS: BMI 53.1
== END ==
PROVIDERS: PCP Internal Medicine; Referring Provider Surgery Vascular Surgery; Visit Provider Surgery
DX: L89.893 Pressure ulcer of other site, stage 3 (principal); R60.0 Localized edema; Q27.32 Arteriovenous malformation of vessel of lower limb; D64.9 Anemia, unspecified; J44.9 Chronic obstructive pulmonary disease, unspecified; E66.01 Morbid (severe) obesity due to excess calories; Z68.43 Body mass index [BMI] 50.0-59.9, adult; Z74.09 Other reduced mobility
CPT/HCPCS: 97602; 99213

== ENCOUNTER 2024-08-21 12:51 | Inpatient (IN) | payer OTHER, MEDICARE, SELFPAY ==
[2024-08-12 11:03] VITALS: BMI 53.1
[2024-08-21] VITALS (26 sets, daily range): BP systolic 102–145; BP diastolic 52–82; PULSE 98–121; RESP 12–125; TEMP 28–37.7; O2SAT 82–97; BMI 51.7; BMI 52.0
--- NOTE | 2024-08-21 13:11 | EKG_ITS ---
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
--- NOTE | 2024-08-21 13:11 | DI.RAD.S_ITS ---
PROCEDURE: XR CHEST 1V INDICATIONS: Shortness of breath TECHNIQUE: One view of the chest was acquired. COMPARISON: [facility], , XR CHEST FOR PICC 1V, 06/26/2024, 16:52. FINDINGS: Surgical changes and devices: None. Lungs and pleura: There is pulmonary vascular congestion. Ill-defined airspace opacities are seen in right mid to lower lung field. Small to moderate right pleural effusion is noted. No gross pneumothorax. No pleural effusions or pneumothorax. Mediastinum: Mediastinal contours appear normal. Heart size is enlarged. Bones and chest wall: No suspicious bony lesions. Overlying soft tissues appear unremarkable. IMPRESSION: Cardiomegaly and mild congestion with small to moderate right pleural effusion. Suggestion of ill-defined infiltrates in right mid to lower lung zone. No gross pneumothorax. Dictated by: Prieto Quintana M.D. on 08/21/2024 at 13:58 Approved by: Prieto Quintana M.D. on 08/21/2024 at 14:01
[2024-08-21 13:42] LABS: INR 1.4 (0.9-1.3); Prothrombin Time 15.3 SECONDS (9.4-12.5)
[2024-08-21 13:47] LABS: Alanine Aminotransferase 24 IU/L (<50); Albumin Globulin Ratio 1.2 (1.0-2.8); Alkaline Phosphatase 67 U/L (38-126); Aspartate Aminotransferase 34 IU/L (17-59); BUN Creatinine Ratio 40.6 (6-22); Bilirubin Total 0.5 mg/dL (0.2-1.3); Blood Urea Nitrogen 39 mg/dL (9-20); Calcium 8.6 mg/dL (8.4-10.2); Carbon Dioxide 38 mmol/L (22-32); Chloride 89 mmol/L (98-107); Estimated Glomerular Filt Rate > 60 mL/min (>60); Globulin 3.4 g/dL (1.7-4.1); Glucose 178 mg/dL (80-110); HEMOLYSIS < 15 (0-50); Lactate (Lactic Acid) 2.4 mmol/L (0.7-2.1); Potassium 4.6 mmol/L (3.4-5.1); Sodium 132 mmol/L (137-145); Total Protein 7.4 g/dL (6.3-8.2)
[2024-08-21 13:59] LABS: NT-proBNP (BNP-Adult 18+) 831 pg/mL (<125); Troponin I 0.026 ng/mL (0.01-0.034)
[2024-08-21 14:08] LABS: Add Manual Diff / Slide Review NO; Basophils Absolute Auto 100 /uL (0-100); Basophils Percent Auto 0.3 % (0-2); Eosinophils Absolute Auto 0 /uL (0-450); Hematocrit 33.1 % (41-53); Hemoglobin 10.3 g/dL (13.5-17.5); Lymphocytes Absolute Auto 200 /uL (1100-4500); Lymphocytes Percent Auto 1.4 % (25-40); Mean Corpuscular HGB Conc 31.1 % (30-36); Mean Corpuscular Hemoglobin 25.9 PG (26-34); Mean Corpuscular Volume 83.1 fL (80-100); Monocytes Absolute Auto 900 /uL (0-900); Monocytes Percent Auto 5.1 % (3-14); Neutrophils Absolute Auto 16500 /uL (1500-7000); Neutrophils Percent Auto 93.2 % (50-75); Platelet Count 188 X10^3/uL (150-400); Red Blood Cell Count 3.98 X10^6/uL (4.5-5.9); Red Cell Distribution Width 19.4 % (11.6-14.8); White Blood Cell Count 17.7 X10^3/uL (4.5-11.0)
--- NOTE | 2024-08-21 14:18 | ED.GENADULT ---
HPI - General Adult General Chief complaint: Shortness of Breath/Dyspnea Stated complaint: r/o pneumonia sent by Dr Khan Time Seen by Provider: 08/21/24 14:18 Source: patient Mode of arrival: Wheelchair History of Present Illness HPI narrative: 68-year-old gentleman with history of chronic respiratory failure on BiPAP, COPD with oxygen at home, av malformation of the blood vessels in the right leg followed by provider at the [facility] presents with hypotension,Weakness, short of breath, fever, chills, all present and increasing for the last 2-3 days. He does not report an increase in his baseline cough.. 1 g of Tylenol at 9:00 a.m.. Baseline 3.5 L of oxygen for COPD saturations 88-90%. Today did not take lisinopril hydrochlorothiazide or other medications. Did not take his Suboxone dose on Sunday or Sunday but did take half a pill today. Pneumonia at the end of May and hospitalized for that. Currently on 3 L with saturations at 84%, increased to 4 L in triage, tachycardic at 105. temperature is 99.8? patient is frustrated with continuing to use his BiPAP at home. Unwilling to shave his graff to get a better fit so that the machine isn't quite as noisy. Related Data Home Medications Medication Instructions Recorded Confirmed acetaminophen 500 mg capsule 500 - 1,000 mg PO Q6H PRN Pain 06/29/20 08/21/24 (Scale Score 1-3) buprenorphine 8 mg-naloxone 2 mg 2 film buccal Q24H 10/08/23 08/21/24 sublingual film Previous Rx's Medication Instructions Recorded Disabled Parking #1 ea 10/08/23 tamsulosin 0.4 mg capsule 0.4 mg PO DAILY #90 caps 10/11/23 hydrochlorothiazide 25 mg tablet 25 mg PO DAILY #90 tabs 10/15/23 lisinopril 40 mg tablet 40 mg PO DAILY #90 tabs 10/15/23 pravastatin 20 mg tablet 20 mg PO DAILY #90 tabs 10/22/23 semaglutide 0.25 mg or 0.5 mg (2 0.5 mg (0.736 mL) SUBCUT QWEEK #3 08/12/24 mg/3 mL) subcutaneous pen injector mL Allergies Allergy/AdvReac Type Severity Reaction Status Date / Time No Known Drug Allergies Allergy Verified 07/10/24 10:16 Review of Systems Review of Systems Narrative: Pertinent positive and negative findings as per HPI Patient History Medical History (Updated 08/21/24 @ 16:44 by Beth French MD) Obesity hypoventilation syndrome Vascular malformation of lower extremity Microscopic hematuria BPH w urinary obs/LUTS History of bladder stone Renal cyst, right Calculus of right kidney Iron deficiency anemia Sleep apnea Rib fractures (~1974) Chronic back pain Enlarged prostate Constipation Hemorrhoid (~1999) Morbid obesity Diabetes type 2, controlled H/O adenomatous polyp of colon History of nephrolithiasis (~1999) Mixed hyperlipidemia Essential hypertension (~1994) Surgical History H/O umbilical hernia repair Anesthesia Bladder stones (~2016) History of knee surgery (~1979) Family History Mother Cancer Father Myocardial infarct Brother Cancer Social History household members: spouse Smoking Status: Former smoker alcohol intake: former Smoking Status: Former smoker alcohol intake frequency: holidays/special occasions only Exam Initial Vital Signs Initial Vital Signs: Vital Signs Temperature 99.8 F H 08/21/24 13:04 Pulse Rate 105 H 08/21/24 13:04 Respiratory Rate 24 08/21/24 13:04 Blood Pressure 126/60 08/21/24 13:04 Pulse Oximetry 84 L 08/21/24 13:04 Oxygen Delivery Method Nasal Cannula 08/21/24 13:04 Oxygen Flow Rate 3 08/21/24 13:04 General: Obese, chronically ill-appearing requesting that the BiPAP be removed able to speak in full sentences at this time HEENT: Dry mucous membranes, normal sclera with reactive pupils, Respiratory: Lungs with diminished air movement throughout no obvious wheezing or rhonchi are appreciated, there was no accessory muscle use Cardiac: Mild tachycardia but otherwise Regular rate and rhythm no murmurs no bruits Abdomen: Soft, obese, nontender, no flank pain Skin: Warm and dry, no rashes Neurologic: Grossly neurologically intact with no obvious asymmetries or abnormalities Extremities: Bilateral lower extremity edema at its baseline. There is more chronic venous stasis change appreciated in the right leg with his known AV malformation on that side Psych: Cantankerous, poor overall insight Course Orders Ordered: ED Orders 08/21/24 13:11 XR chest 1V Stat EKG-12 Lead Stat RT Consult Eval and Treat NOW 08/21/24 13:25 Complete Blood Count AUTO DIFF Stat Comprehensive Metabolic Panel Stat Lactate (Lactic Acid) Stat NT-proBNP (BNP-Adult 18+) Stat Prothrombin Time INR Stat Troponin I Stat 08/21/24 14:57 VBG [Venous Blood Gas] STAT 08/21/24 15:04 Venous Blood Gas Routine Acetaminophen (Acetaminophen 325 Mg Tablet) 650 mg PO Q6H PRN PRN Reason: Fever/Mild Pain (1-3) Enoxaparin Sodium (Enoxaparin 40 Mg/0.4 Ml Syringe) 40 mg SUBCUT DAILY [facility] Hydrochlorothiazide (Hydrochlorothiazide 25 Mg Tablet) 25 mg PO DAILY [facility] Vancomycin HCl 2,500 mg/ (Sodium Chloride) 500 mls @ 200 mls/hr IV NOW ONE Stop: 08/21/24 18:38 Last Infusion: 08/21/24 18:08 Dose: 200 mls/hr Documented By: Admin: 08/21/24 16:47 Dose: 200 mls/hr Documented By: ANSHU Cefepime HCl 2 gm/ Sodium (Chloride) 100 mls @ 200 mls/hr IV Q8H [facility] Stop: 08/26/24 00:00 Lisinopril (Lisinopril 20 Mg Tablet) 40 mg PO DAILY [facility] Naloxone HCl (Naloxone 0.4 Mg/Ml Vial) 0.2 mg IV Q2MIN PRN PRN Reason: Opiate Reversal Non-Formulary Medication (Buprenorphine-Naloxone) 2 film BUCCAL Q24H [facility] Non-Formulary Medication (Fluticasone Propion-Salmeterol [Wixela Inhub]) 1 inhalation INHALATION BID [facility] Ondansetron HCl (Ondansetron 4 Mg/2 Ml Inj) 4 mg IV Q8HR PRN PRN Reason: Nausea And Vomiting Pravastatin Sodium (Pravastatin 20 Mg Tablet) 20 mg PO DAILY [facility] Tamsulosin HCl (Tamsulosin 0.4 Mg Capsule) 0.4 mg PO DAILY [facility] Discontinued Medications Cefepime HCl 2 gm/ Sodium (Chloride) 100 mls @ 200 mls/hr IV NOW ONE Stop: 08/21/24 15:57 Last Infusion: 08/21/24 16:45 Dose: Infused Documented By: Admin: 08/21/24 16:09 Dose: 200 mls/hr Documented By: ANSHU Vancomycin HCl (Vancomycin Per Pharmacy) 1 request MISC NOW ONE Stop: 08/21/24 15:58 Vital Signs Vital signs: Vital Signs - 8 hr 08/21/24 13:04 08/21/24 14:26 08/21/24 14:27 Temperature 99.8 F H Pulse Rate 105 H 114 H 117 H Respiratory Rate 24 28 H 30 H Blood Pressure 126/60 Pulse Oximetry 84 L 95 95 Oxygen Delivery Method Nasal Cannula Oxygen Flow Rate 3 Fraction of Inspired Oxygen 08/21/24 14:27 08/21/24 14:30 08/21/24 14:30 Temperature Pulse Rate 114 H Respiratory Rate 29 H Blood Pressure 136/59 L 145/65 H Pulse Oximetry 95 Oxygen Delivery Method Nasal Cannula Oxygen Flow Rate 4 Fraction of Inspired Oxygen 08/21/24 15:00 08/21/24 15:00 08/21/24 15:30 Temperature Pulse Rate 114 H 110 H Respiratory Rate 31 H 30 H Blood Pressure 122/60 Pulse Oximetry 92 93 Oxygen Delivery Method BiPAP BiPAP Oxygen Flow Rate Fraction of Inspired Oxygen 08/21/24 16:00 08/21/24 16:03 08/21/24 16:30 Temperature Pulse Rate 102 H 102 H Respiratory Rate 24 37 H Blood Pressure 122/60 Pulse Oximetry 95 96 Oxygen Delivery Method Nasal Cannula Oxygen Flow Rate Fraction of Inspired Oxygen 0.40 08/21/24 17:00 Temperature Pulse Rate 105 H Respiratory Rate 32 H Blood Pressure Pulse Oximetry 95 Oxygen Delivery Method Oxygen Flow Rate Fraction of Inspired Oxygen Medical Decision Making Lab Data 08/21/24 13:25 08/21/24 13:25 Labs: Lab Results 08/21/24 08/21/24 08/21/24 Range/Units 13:25 15:04 15:24 WBC 17.7 H (4.5-11.0) X10^3/uL RBC 3.98 L (4.5-5.9) X10^6/uL Hgb 10.3 L (13.5-17.5) g/dL Hct 33.1 L (41-53) % MCV 83.1 (80-100) fL MCH 25.9 L (26-34) PG MCHC 31.1 (30-36) % RDW 19.4 H (11.6-14.8) % Plt Count 188 (150-400) X10^3/uL Neut % (Auto) 93.2 H (50-75) % Lymph % (Auto) 1.4 L (25-40) % Stevens % (Auto) 5.1 (3-14) % Eos % (Auto) 0.0 L (2-4) % Baso % (Auto) 0.3 (0-2) % Neut # (Auto) 75161 H (6871-3867) /uL Lymph # (Auto) 200 L (2681-9395) /uL Stevens # (Auto) 900 (0-900) /uL Eos # (Auto) 0 (0-450) /uL Baso # (Auto) 100 (0-100) /uL PT 15.3 H (9.4-12.5) SECONDS INR 1.4 H (0.9-1.3) VBG pH 7.30 L (7.33-7.43) VBG pCO2 > 50.0 H (45-50) mmHg VBG pO2 28 L (35-45) mmHg VBG HCO3 43 H (24-28) mmol/L VBG Total CO2 43 H (24-29) mmol/L VBG O2 Saturation 41 L (70-75) % VBG Base Excess 13.4 H (0-4) mmol/L Sodium 132 L (137-145) mmol/L Potassium 4.6 (3.4-5.1) mmol/L Chloride 89 L (98-107) mmol/L Carbon Dioxide 38 H (22-32) mmol/L BUN 39 H (9-20) mg/dL Creatinine 0.96 (0.66-1.25) mg/dL Estimated GFR > 60 (>60) mL/min BUN/Creatinine Ratio 40.6 H (6-22) Glucose 178 H (80-110) mg/dL Lactate 2.4 H 1.0 (0.7-2.1) mmol/L Calcium 8.6 (8.4-10.2) mg/dL Total Bilirubin 0.5 (0.2-1.3) mg/dL AST 34 (17-59) IU/L ALT 24 (<50) IU/L Alkaline Phosphatase 67 (38-126) U/L Troponin I 0.026 (0.01-0.034) ng/mL NT-Pro-B Natriuret Pep 831 H (<125) pg/mL Total Protein 7.4 (6.3-8.2) g/dL Albumin 4.0 (3.5-5.0) g/dL Globulin 3.4 (1.7-4.1) g/dL Albumin/Globulin Ratio 1.2 (1.0-2.8) MDM Narrative Medical decision making narrative: CC: Increasing dyspnea over the last 3-4 days Complicating co-morbidities: Chronic hypoxic respiratory failure, oxygen dependent with BiPAP use at home, hypertension, hyperlipidemia, chronic pain, type 2 diabetes Data collected from: patient, Medical records reviewed: Hospital admission with discharge summary from July 03 for similar presentation with pneumonia and chronic hypercapnic hypoxic respiratory failure reviewed Differential considered: Recurrent pneumonia, poor compliance with his home BiPAP with worsening chronic respiratory failure, congestive heart failure, acute coronary syndrome, pulmonary embolism Exam documented above, pertinent findings include: Patient is morbidly obese and exam is somewhat challenging. He is able to speak in full sentences with BiPAP in place. Minimal lung movement with thick chest wall tissue makes pulmonary exam challenging. I do not hear obvious wheezes or rhonchi. There was no accessory muscle use. Chronic venous stasis changes in the right lower extremity with baseline lower extremity edema Lab Test results independently reviewed as above. Pertinent findings: CBC shows leukocytosis with white count at 17.7 and 93% neutrophils. Chronic stable anemia Chemistries show normal renal function slightly elevated BUN elevated carbon dioxide liver studies are reassuring Initial lactic is 2.4 repeat is 1.0 Troponin is undetectable BNP is minimally elevated at 831 VBG shows hypercapnic respiratory failure with CO2 retention at 87 mild resulting acidemia at 7.3 Independently reviewed EKG: Sinus tachycardia at a rate of 115 without obvious ischemic changes Imaging studies independently reviewed: Chest x-ray shows cardiomegaly and mild congestion with right pleural effusion and probable right mid to lower lobe pneumonia. No obvious pneumothorax Treatments: With initial blood pressure unremarkable and concerns for volume overload fluids were not initially administered. He was started on BiPAP with venous gas showing a CO2 elevated at 87 and a mild acidosis at 7.3. As he was recently hospitalized he is started on cefepime and vancomycin Re-evaluations: Patient is doing well with his BiPAP but does not want to continue it because it is ?annoying and loud?. We discussed its benefit in keeping him alive and being better than a ventilator and negotiated keeping the BiPAP on Discussion: 68-year-old gentleman with obesity related chronic respiratory failure on oxygen at home now with likely right lower lobe pneumonia leukocytosis, fever, chills and increasing hypoxia. He is tolerating BiPAP nicely. He has been started on cefepime and vancomycin for his infection. Given the right lower lobe infiltrate possibility of aspiration is at least entertained. He may benefit from swallow eval. There is minimal suggestion of congestive heart failure or acute coronary syndrome. Oxygen requirement is increased to 4 L and current BiPAP settings are at 15 and 5, 40% oxygen with saturations in the low 90s. We will discuss hospital admission with his primary care provider, Dr. Khan or the on-call physician. Critical Care Time Critical Care Time Critical Care Time: Yes Total Critical Care Time: 36 Attestation: Critical care time is separate from other billable procedures. There is a high probability of a significant, sudden or life-threatening deterioration that requires my full and direct attention, intervention and personal management. This critical care time includes consultation with family and other consulting doctors, review of records, and interpretation of data from labs, EKGs and imaging as well as managements of acute respiratory failure with pneumonia, concerns for sepsis Discharge Plan Departure Patient Disposition: Admitted As Inpatient Clinical Impression: Acute on chronic respiratory failure with hypoxia and hypercapnia Right lower lobe pneumonia Qualifiers: Pneumonia type: due to unspecified organism Qualified Code(s): J18.9 - Pneumonia, unspecified organism Admit Date/Time: 08/21/24 17:25 Admit Provider: Ramya Johnson
[2024-08-21 15:07] LABS: Reflexed Lactate in 2 Hours Y
[2024-08-21 15:08] LABS: Base Excess VBG 13.4 mmol/L (0-4); HCO3 VBG 43 mmol/L (24-28); Oxygen Saturation VBG 41 % (70-75); PO2 VBG 28 mmHg (35-45); Total CO2 VBG 43 mmol/L (24-29)
[2024-08-21 16:06] LABS: PCO2 VBG > 50.0 mmHg (45-50)
[2024-08-21] MEDS: CEFEPIME 2 GM in SODIUM CHLORIDE 0.9% 100 ML IV (16:09)
[2024-08-21] MEDS: VANCOMYCIN 2,500 MG in SODIUM CHLORIDE 0.9% 500 ML 200 MG IV (16:47)
--- NOTE | 2024-08-21 17:27 | PC.NURSE ---
Pt and report that he has wounds on LE that are being treated by the wound care clinic. Pt had been off bi-pap for about and hour per his request.
--- NOTE | 2024-08-21 19:00 | PC.NURSE ---
Addendum entered by Valeri Tucker R.N. 08/21/24 19:49: 1947 Report given to savannah HACKETT. Plan of care discussed. Original Note: 1809 Patient arrived to unit. AAO x's 3. Able to LAI. Wound noted to left posterior leg. Per , chronic wound. Denies pain at this time. 3 L NC maintained. Call light within reach and bed in lowest position. 1814 Call placed to MD Johnson regarding patient request for Staley. Per MD, no orders staley at this time. Patient on 3L NC. MD aware patient sating 93% BiPAP at the bedside.
[2024-08-21 19:48] LABS: MRSA (Nasal) PCR NOT DETECTED (Not Detect)
[2024-08-21] MEDS: ALBUTEROL 2.5 MG/3 ML NEB (ADULT) INH (20:22)
[2024-08-21] MEDS: BUDESONIDE 0.5 MG/2 ML NEB INH (20:24)
[2024-08-22] VITALS (49 sets, daily range): BP systolic 73–132; BP diastolic 39–62; PULSE 74–103; RESP 13–42; TEMP 36.2; O2SAT 81–99
[2024-08-22] MEDS: CEFEPIME 2 GM in SODIUM CHLORIDE 0.9% 100 ML IV ×4 (01:01→23:55)
[2024-08-22] MEDS: ALBUTEROL 2.5 MG/3 ML NEB (ADULT) INH ×4 (01:02→19:46)
[2024-08-22 04:53] LABS: Add Manual Diff / Slide Review NO; Basophils Absolute Auto 0 /uL (0-100); Basophils Percent Auto 0.2 % (0-2); Eosinophils Absolute Auto 0 /uL (0-450); Eosinophils Percent Auto 0.1 % (2-4); Hematocrit 29.4 % (41-53); Hemoglobin 9.4 g/dL (13.5-17.5); Lymphocytes Absolute Auto 500 /uL (1100-4500); Mean Corpuscular HGB Conc 31.8 % (30-36); Mean Corpuscular Hemoglobin 26.4 PG (26-34); Mean Corpuscular Volume 83.1 fL (80-100); Monocytes Absolute Auto 1100 /uL (0-900); Monocytes Percent Auto 10.8 % (3-14); Neutrophils Absolute Auto 8400 /uL (1500-7000); Neutrophils Percent Auto 83.9 % (50-75); Platelet Count 143 X10^3/uL (150-400); Red Blood Cell Count 3.54 X10^6/uL (4.5-5.9); Red Cell Distribution Width 19.8 % (11.6-14.8); White Blood Cell Count 10.1 X10^3/uL (4.5-11.0)
[2024-08-22 05:02] LABS: BUN Creatinine Ratio 47.6 (6-22); Blood Urea Nitrogen 39 mg/dL (9-20); Calcium 8.1 mg/dL (8.4-10.2); Chloride 92 mmol/L (98-107); Estimated Glomerular Filt Rate > 60 mL/min (>60); Glucose 120 mg/dL (80-110); HEMOLYSIS < 15 (0-50); Potassium 3.9 mmol/L (3.4-5.1); Sodium 131 mmol/L (137-145)
[2024-08-22 05:09] LABS: Carbon Dioxide 38 mmol/L (22-32)
[2024-08-22] MEDS: BUDESONIDE 0.5 MG/2 ML NEB INH ×2 (07:38→19:46)
--- NOTE | 2024-08-22 07:52 | P.HP_ITS ---
History of Present Illness History of Present Illness Date Patient Seen: 08/22/24 Time Patient Seen: 07:53 Chief complaint: r/o pneumonia sent by Dr Khan Narrative: Pt is a 68yo man with COPD, morbid obesity, obesity hypoventilation syndrome, chronic respiratory failure on BiPAP, chronic buttocks pressure ulcers, diet controlled DM, and hx of iron deficiency anemia who presented with SOB, generalized weakness, fevers and chills. The pt reports that for the last 2-3 days he has been feeling increasingly more ill. He has not been using his BiPAP at home as it is too noisy and uncomfortable. He denies any significant cough. His O2 sats at home have been in the 87-90% range. The pt also reports having some abdominal pain and decreased appetite at home for the last 3 days. He states that he hasn't eaten anything in 3 days. He states that he has been seeing things, like a movie going on in the room as well. He is uncertain why this is happening. He denies any significant depression or anxiety, and states his mood has been stable. In the ED, the pt had a CXR that showed likely RLL pneumonia and some pulmonary congestion. Lab work showed elevated WBC count, mild respiratory acidosis with significantly elevated CO2, negative troponin and EKG. The pt received Vancomycin, Cefepime. He was initiated on BiPAP with improvement in his hypoxia. The pt this morning reports improvement in his respiratory state. He reports that his breathing is clearer. He continues to report diminished appetite. He denies any abdominal pain. He continues to feel weak, and has not been out of bed. He states that the hallucinations are slightly improved. [facility] Medical History (Updated 08/21/24 @ 16:44 by Beth French MD) Obesity hypoventilation syndrome Vascular malformation of lower extremity Microscopic hematuria BPH w urinary obs/LUTS History of bladder stone Renal cyst, right Calculus of right kidney Iron deficiency anemia Sleep apnea Rib fractures (~1974) Chronic back pain Enlarged prostate Constipation Hemorrhoid (~1999) Morbid obesity Diabetes type 2, controlled H/O adenomatous polyp of colon History of nephrolithiasis (~1999) Mixed hyperlipidemia Essential hypertension (~1994) Surgical History H/O umbilical hernia repair Anesthesia Bladder stones (~2016) History of knee surgery (~1979) Family History Mother Cancer Father Myocardial infarct Brother Cancer Social History household members: spouse Smoking Status: Former smoker alcohol intake: former Meds Home Medications and Allergies Home Medications Medication Instructions Recorded Confirmed Type acetaminophen 500 mg capsule 500 - 1,000 mg PO Q6H PRN Pain 06/29/20 08/21/24 History (Scale Score 1-3) Disabled Parking #1 ea 10/08/23 08/21/24 Rx buprenorphine 8 mg-naloxone 2 mg 2 film buccal Q24H 10/08/23 08/21/24 History sublingual film tamsulosin 0.4 mg capsule 0.4 mg PO DAILY #90 caps 10/11/23 08/21/24 Rx hydrochlorothiazide 25 mg tablet 25 mg PO DAILY #90 tabs 10/15/23 08/21/24 Rx lisinopril 40 mg tablet 40 mg PO DAILY #90 tabs 10/15/23 08/21/24 Rx pravastatin 20 mg tablet 20 mg PO DAILY #90 tabs 10/22/23 08/21/24 Rx semaglutide 0.25 mg or 0.5 mg (2 0.5 mg (0.736 mL) SUBCUT QWEEK #3 08/12/24 08/21/24 Rx mg/3 mL) subcutaneous pen injector mL Allergies Allergy/AdvReac Type Severity Reaction Status Date / Time No Known Drug Allergies Allergy Verified 07/10/24 10:16 Exam Vital Signs (past 8 hours): - 08/22/24 00:00 08/22/24 00:30 08/22/24 01:00 Pulse Rate 103 H 103 H 98 H Respiratory Rate 26 H 30 H Blood Pressure Pulse Oximetry 89 L 92 94 08/22/24 01:30 08/22/24 02:00 08/22/24 02:30 Pulse Rate 91 H 97 H 100 H Respiratory Rate 42 H 23 Blood Pressure Pulse Oximetry 96 84 L 94 08/22/24 03:00 08/22/24 03:30 08/22/24 04:00 Pulse Rate 96 H 96 H 87 Respiratory Rate 24 26 H 20 Blood Pressure Pulse Oximetry 95 95 96 08/22/24 04:30 08/22/24 05:00 08/22/24 05:05 Pulse Rate 89 91 H Respiratory Rate 19 19 Blood Pressure 76/39 L Pulse Oximetry 95 94 08/22/24 05:05 08/22/24 05:08 08/22/24 05:08 Pulse Rate 89 90 Respiratory Rate 20 21 Blood Pressure 73/39 L Pulse Oximetry 94 95 08/22/24 05:10 08/22/24 05:10 08/22/24 05:11 Pulse Rate 90 Respiratory Rate 26 H Blood Pressure 94/52 L 89/52 L Pulse Oximetry 96 08/22/24 05:11 08/22/24 05:13 08/22/24 05:13 Pulse Rate 87 89 Respiratory Rate 22 20 Blood Pressure 132/62 Pulse Oximetry 96 97 08/22/24 05:30 08/22/24 06:00 08/22/24 06:30 Pulse Rate 91 H 94 H 92 H Respiratory Rate 27 H 32 H 24 Blood Pressure Pulse Oximetry 94 94 95 Fraction of Inspired Oxygen 95 Oxygen Delivery Method Nasal Cannula Oxygen Flow Rate 4 Narrative Exam Narrative: Gen: NAD, sitting comfortably in bed with breathing treatment in place, morbidly obese HEENT: normocephalic, atraumatic, sclera clear Neck: no JVD CV: RRR, grade 2/6 systolic murmur Resp: mild crackles and wheezing bilateral bases - difficult exam due to body habitus Abd: soft, nontender, normoactive bowel sounds Ext: 1+ pitting bilateral edema, chronic venous stasis changes Skin: reviewed images taken by nursing of chronic pressure ulcers - stable from previous but not improved Objective Labs 08/22/24 04:09 08/22/24 04:09 Labs: Laboratory Results - last 24 hr 08/21/24 08/21/24 08/21/24 13:25 15:04 15:24 WBC 17.7 H RBC 3.98 L Hgb 10.3 L Hct 33.1 L MCV 83.1 MCH 25.9 L MCHC 31.1 RDW 19.4 H Plt Count 188 Neut % (Auto) 93.2 H Lymph % (Auto) 1.4 L Kimble % (Auto) 5.1 Eos % (Auto) 0.0 L Baso % (Auto) 0.3 Neut # (Auto) 99941 H Lymph # (Auto) 200 L Kimble # (Auto) 900 Eos # (Auto) 0 Baso # (Auto) 100 PT 15.3 H INR 1.4 H VBG pH 7.30 L VBG pCO2 > 50.0 H VBG pO2 28 L VBG HCO3 43 H VBG Total CO2 43 H VBG O2 Saturation 41 L VBG Base Excess 13.4 H Sodium 132 L Potassium 4.6 Chloride 89 L Carbon Dioxide 38 H BUN 39 H Creatinine 0.96 Estimated GFR > 60 BUN/Creatinine Ratio 40.6 H Glucose 178 H Lactate 2.4 H 1.0 Calcium 8.6 Total Bilirubin 0.5 AST 34 ALT 24 Alkaline Phosphatase 67 Troponin I 0.026 NT-Pro-B Natriuret Pep 831 H Total Protein 7.4 Albumin 4.0 Globulin 3.4 Albumin/Globulin Ratio 1.2 Nasal Screen MRSA (PCR) 08/21/24 08/22/24 18:19 04:09 WBC 10.1 RBC 3.54 L Hgb 9.4 L Hct 29.4 L MCV 83.1 MCH 26.4 MCHC 31.8 RDW 19.8 H Plt Count 143 L Neut % (Auto) 83.9 H Lymph % (Auto) 5.0 L Kimble % (Auto) 10.8 Eos % (Auto) 0.1 L Baso % (Auto) 0.2 Neut # (Auto) 8400 H Lymph # (Auto) 500 L Kimble # (Auto) 1100 H Eos # (Auto) 0 Baso # (Auto) 0 PT INR VBG pH VBG pCO2 VBG pO2 VBG HCO3 VBG Total CO2 VBG O2 Saturation VBG Base Excess Sodium 131 L Potassium 3.9 Chloride 92 L Carbon Dioxide 38 H BUN 39 H Creatinine 0.82 Estimated GFR > 60 BUN/Creatinine Ratio 47.6 H Glucose 120 H Lactate Calcium 8.1 L Total Bilirubin AST ALT Alkaline Phosphatase Troponin I NT-Pro-B Natriuret Pep Total Protein Albumin Globulin Albumin/Globulin Ratio Nasal Screen MRSA (PCR) Not detected Assessment & Plan Assessment & Plan narrative: Pt is a 68yo man with COPD, morbid obesity, obesity hypoventilation syndrome, chronic respiratory failure on BiPAP, chronic buttocks pressure ulcers, diet controlled DM, HTN, BPH, and hx of iron deficiency anemia who presented with SOB, generalized weakness, fevers and chills. 1) Acute on chronic respiratory failure: On chronic O2 at home. Likely multifactorial with pneumonia, not using BiPAP at home consistently, obesity hypoventilation. - Continue oxygen support via nasal cannula or BiPAP as needed - Encouraged home compliance with BiPAP today, discussed risks of not using regularly 2) RLL Community-Acquired Pneumonia: - Passed swallow eval today - Continue Cefepime and Vancomycin, initiated in the ED due to recent hospitalization 3) COPD: Does not seem to be large component of current respiratory issues, as wheezing very minimally on exam. - Continue home treatments - Continue to re-evaluate. Required steroids last hospitalization, do not see any indication for treatment as this time 4) Morbid obesity: Significantly complicating ongoing health and care of patient. - PT consulted to help with ongoing mobility issues 5) Mental status changes: Pt reporting visual hallucinations. A&Ox3, cognitively sound. - Potentially due to infection/CO2 retention - Continue to monitor for now, would not jump to treat at this time 6) Pressure ulcers: Pt follows with wound care as an outpatient. No evidence superimposed infection at this time. - Ongoing nursing care 7) Diet controlled DM: - A1C ordered with tomorrow AM labs - [facility] blood sugar checks - Sliding scale coverage 8) Chronic iron deficiency anemia: Stable 9) HTN: BPs running lower - Continue HCTZ, Lisinopril, Statin - Hold Lisinopril if needed, will try to give HCTZ due to mild volume overload 10) BPH: - Continue home Tamsulosin DVT ppx: SCDs. Chemoprophylaxis contraindicated due to bleeding AVMs in lower extremities FEN: Cardiac/carb control diet Code: Full Dispo: Pending improvement in respiratory status, weakness. Time-Based Coding :: [TOTAL MINUTES] spent with patient and on the chart (including review of chart, obtaining history, exam, reviewing outside data, placing orders, documenting exam and treatment plan, and counseling patient) on [DATE]. Quality VTE Deep Vein Thrombosis/Pulmonary Embolism Present on Admission: No IH PROFEE Charge Codes Initial inpatient/observation care: [id number]
[2024-08-22] MEDS: hydroCHLOROthiazide 25 MG TABLET PO (08:05)
[2024-08-22] MEDS: BUPRENORPHINE/NALOXONE 8MG/2MG 1 TAB 2 TAB SL (08:05)
[2024-08-22] MEDS: TAMSULOSIN 0.4 MG CAPSULE PO (08:05)
[2024-08-22] MEDS: PRAVASTATIN 20 MG TABLET PO (08:05)
[2024-08-22] MEDS: lisinopriL 20 MG TABLET 40 MG PO (08:05)
[2024-08-22] MEDS: ENOXAPARIN 40 MG/0.4 ML SYRINGE SUBCUT (08:06)
--- NOTE | 2024-08-22 09:30 | ST.IPCSEOM ---
Visit Care Team Role Provider Type Tyler Khan MD Primary Care Provider Physician Specialty: Internal Medicine Address: [address] [place] [address], [address], [place], [address] Email: [email or web address] Beth French MD Emergency Provider Physician Referring Provider Specialty: Emergency Medicine Address: [address] [place] [address], [id number] Email: Ramya Johnson MD Admit Provider Physician Attending Provider Specialty: Family Practice Address: [facility], [address], [place], [address] Email: [email or web address] Current Diagnoses Acute and chronic respiratory failure with hypoxia (08/21/24) Acute and chronic respiratory failure with hypercapnia (08/21/24) Past Medical History (Last Updated 07/10/24 @ 10:58 by Tyler Khan MD) BPH w urinary obs/LUTS (Medical) Calculus of right kidney (Medical) Chronic back pain (Medical) Constipation (Medical) Diabetes type 2, controlled (Medical) Enlarged prostate (Medical) Essential hypertension (Medical ~1994) H/O adenomatous polyp of colon (Medical) Hemorrhoid (Medical ~1999) History of bladder stone (Medical) History of nephrolithiasis (Medical ~1999) Iron deficiency anemia (Medical) Microscopic hematuria (Medical) Mixed hyperlipidemia (Medical) Morbid obesity (Medical) Obesity hypoventilation syndrome (Medical) Renal cyst, right (Medical) Rib fractures (Medical ~1974) Sleep apnea (Medical) Vascular malformation of lower extremity (Medical) high flow, bleeds, iron def results, s/p multiple procedures to ablate Speech-Language Pathology Swallow Evaluation [employer] Clinical Swallow Evaluation Start: 08/22/24 09:25 Freq: Status: Active Protocol: Document 08/22/24 09:26 MA (Rec: 08/22/24 09:30 SAAD [id number]) Clinical Swallow Evaluation Session Time Visit Start Time 08:00 Visit Stop Time 08:15 Total Visit Minutes 15 Visit Information Visit Number [address] Johnson Reason for Referral PNA Setting Assessment Location Acute Care Patient Information Identification Type Name,Wristband History Per H&P: Pt is a 68yo man with COPD, morbid obesity, obesity hypoventilation syndrome, chronic respiratory failure on BiPAP, chronic buttocks pressure ulcers, diet controlled DM, and hx of iron deficiency anemia who presented with SOB, generalized weakness, fevers and chills. The pt reports that for the last 2-3 days he has been feeling increasingly more ill. He has not been using his BiPAP at home as it is too noisy and uncomfortable. He denies any significant cough. His O2 sats at home have been in the 87-90% range. The pt also reports having some abdominal pain and decreased appetite at home for the last 3 days. He states that he hasn't eaten anything in 3 days. He states that he has been seeing things, like a movie going on in the room as well. He is uncertain why this is happening. [facility] Medical History (Updated 08/21 @ 16:44 by Beth French MD) Obesity hypoventilation syndrome Vascular malformation of lower extremity Microscopic hematuria BPH w urinary obs/LUTS History of bladder stone Renal cyst, right Calculus of right kidney Iron deficiency anemia Sleep apnea Rib fractures (~1974) Chronic back pain Enlarged prostate Constipation Hemorrhoid (~1999) Morbid obesity Diabetes type 2, controlled H/O adenomatous polyp of colon History of nephrolithiasis (~ 1999) Mixed hyperlipidemia Essential hypertension (~1994) Pt referred for ST evaluation d/t PNA. Subjective Observations Pt laying slightly reclined in bed with breakfast tray in front of him upon ST entering room. Pt compliant with ST positioning Pt upright in bed for PO intake. Pt denies any swallow difficulties. Pt Ox3. Reported by Patient/Caregiver Pain/Discomfort No Current Diet Regular (IDDSI 7) Baseline Feeding Method Independent in self-feeding The IDDSI Framework Protocol: IDDSI.1 Objective Assessment Mental Status Alert,Responsive,Cooperative Comment Strength and ROM of oral musculature appear WNL. Facial symmetry appears symmetrical. Natural dentition, fair condition. Food and Liquid Trials Position During Assessment Upright (90 degrees) Liquids Trialed Thin (IDDSI 0) Solid Trials Regular (IDDSI 7) Oral Impairment Within normal limits Oral Phase Comments Pt consumed 1 gurpreet cracker and about 4 oz of thin water via straw. Pt exhibited adequate bite/sip size and rate for all trials and good oral acceptance and containment. Adquate mastication time. Pharyngeal Impairment Within normal limits Pharyngeal Phase Comments Pt exhibited no overt s/s of aspiration, such as choking or coughing and did not report any swallowing trouble or occurrences of food stuck in throat. Fatigue/Endurance Endurance WNL The IDDSI Framework Protocol: IDDSI.1 Findings Swallowing Function Within normal limits Severity of Swallow Impairment Within normal limits Prognosis Good Impact on Safety and Functioning No limitations Recommendations Instrumental Assessment No Swallowing Treatment No Recommended Solids Regular (IDDSI 7) Recommended Liquids Thin (IDDSI 0) Other Recommendations ST recommends regular solids and thin liquids with the below mentioned safe swallowing strategies in place . Safety Precautions/Swallowing Remain upright (90 degrees) Recommendations during all oral intake,Upright position at least 30 minutes after meals,Small bites and sips when eating,Slow rate; swallow between bites, Alternate liquids and solids Medication Recommendations As Tolerated Discharge Recommendations Home Education Patient/Caregiver Education Described results of evaluation,Patient expressed understanding of evaluation
[2024-08-22] MEDS: ACETAMINOPHEN 325 MG TABLET 650 MG PO (09:53)
--- NOTE | 2024-08-22 12:26 | PT.IIE ---
Current Diagnoses Acute and chronic respiratory failure with hypoxia (08/21/24) Acute and chronic respiratory failure with hypercapnia (08/21/24) Surgical History (Last Reviewed 07/03/24 @ 07:38 by Tyler Khan MD) Anesthesia Bladder stones (~2016) H/O umbilical hernia repair History of knee surgery (~1979) Medical History (Last Updated 07/10/24 @ 10:58 by Tyler Khan MD) BPH w urinary obs/LUTS Calculus of right kidney Chronic back pain Constipation Diabetes type 2, controlled Enlarged prostate Essential hypertension (~1994) H/O adenomatous polyp of colon Hemorrhoid (~1999) History of bladder stone History of nephrolithiasis (~1999) Iron deficiency anemia Microscopic hematuria Mixed hyperlipidemia Morbid obesity Obesity hypoventilation syndrome Renal cyst, right Rib fractures (~1974) Sleep apnea Vascular malformation of lower extremity Physical Therapy Inpatient Evaluation/Re-Eval M1 PT/OT-IP Prior Functional Status Start: 08/22/24 12:00 Freq: NEEDED Status: Active Protocol: Document 08/22/24 12:01 AMB (Rec: 08/22/24 12:25 AMB [id number]) Medical Review Prior Functional Status Medical History Reviewed Yes Communication Appears WFL Mobility and Gait Patient reports he uses a walker at home Activities of Daily Living and IADL's Pt is able to shower, but it is difficult, does not have a shower chair, car transfer was becoming extra difficult before hospitalization Social History Household Members spouse Living Arrangements House Number of Stairs To Enter/Railing? 2 PEBBLES with one railing Home Equipment Front Wheel Walker Additional Social History Comment Pt's provides significant assistance M2 PT-IP Current Condition Start: 08/22/24 12:00 Freq: NEEDED Status: Active Protocol: Document 08/22/24 12:01 AMB (Rec: 08/22/24 12:25 AMB [id number]) Physical Therapy Current Condition Current Condition Evaluation Date 08/22/24 Treatment Diagnosis possible pneumonia, worsening weakness Onset Date 08/21/24 M3 PT-IP Subjective Start: 08/22/24 12:00 Freq: NEEDED Status: Active Protocol: Document 08/22/24 12:01 AMB (Rec: 08/22/24 12:25 AMB [id number]) Subjective Physical Therapy Visit Type Type Initial Evaluation Visit Start Time 11:40 Visit Stop Time 12:00 Physical Therapy Visit Comments Patient Comments Pt is hesitant to get up. You can't lift me up. But with encouragement is willing to stand. M4 PT-IP Mobility and Gait Start: 08/22/24 12:00 Freq: NEEDED Status: Active Protocol: Document 08/22/24 12:01 AMB (Rec: 08/22/24 12:25 AMB [id number]) PT-Bed Mobility Assessment Rolling Type of Rolling Log Rolling,Roll to Left Level of Assist Standby Assistance Supine to Sit Supine to Sit Standby Assistance,1 Person Assistance PT-Transfer Assessment Sit to and From Stand Sit to and from Stand Contact Guard Assistance Equipment Transfer Assistive Device Front Wheeled Walker Transfers Transfer Destination Chair Transfer Technique Stand Step Pivot Transfer Ability Level of Assist Contact Guard Assistance Comments Mobility Comments Kofi sat up at the edge of the bed independently. He stood to perform a stand pivot transfer, with heavy UE support on the FWW. He stood for 1-2 minutes while nursing assisted with a bleeding wound . Then sat down with heavy UE assist on the chair behind him. Gait Assessment Comments Gait Comments not assessed at this time M5 PT-IP Objective Assessments Start: 08/22/24 12:00 Freq: NEEDED Status: Active Protocol: Document 08/22/24 12:01 AMB (Rec: 08/22/24 12:25 AMB [id number]) Orientation Orientation/Cognition Level of Alertness Alert Gross Range of Motion Lower Extremity ROM Assessment Bilaterally Impaired Impairments limited by body habitus, pt states can't get hip replacement until he loses weight and his hips are painful and limited Strength Lower Extremity Strength Assessment Bilaterally Impaired M7 PT-IP Assessment and Plan Start: 08/22/24 12:00 Freq: NEEDED Status: Active Protocol: Document 08/22/24 12:01 AMB (Rec: 08/22/24 12:25 AMB [id number]) PT Summary Assessment and Plan Potential Rehabilitation Potential Good Status of Condition at Evaluation Evolving Summary Impairments Pain,ROM,Strength,Balance,Bed Mobility,Transfers,Gait, Activity Tolerance Assessment Summary Kofi was admitted due to worsening weakness and suspected pneumonia. At baseline he uses a FWW to ambulate in the home and his does assist him with mobility. He reports decreasing ability to mobilize in his home before admission, significantly with car transfers and showers. During assessment, he was able to perform bed mobility independently and transfer with CGA, but did not ambulate . Would recommend continued PT while admitted, and if patient is able to improve his strength enough to ambulate with a walker with his , he should be able to return home, but a safe return home is dependent on his ability to improve his stamina and strength. Goals Bed Mobility Goal Independent Transfer Goal Independent Gait Goal Standby Assistance,Front Wheel Walker Gait Distance 100' Other Goals Stairs: ascend and descend 2 stairs with 1 railing with CGA Days to Meet Goals 5 Frequency of Treatment Frequency Of Treatment Once a Day Treatment Plan Physical Therapy Treatment Plan Bed Mobility Training,Transfer Training,Gait Training, Therapeutic Exercise Recommendations To Nursing Amount of Assist Needed 1 Person Assist Discharge Recommendations PT Discharge Recommendations Home with Assistance Other Discharge Recommendations Discharge recommendation to home is contingent on his improvement back to his prior baseline Transportation Needs at Discharge Wheelchair/Cabulance
[2024-08-22] MEDS: CALCIUM CARBONATE 500 MG TAB PO (13:53)
--- NOTE | 2024-08-22 15:23 | CM.DANOTE ---
DCP Assessment Note: Pt is a 68yo male, resident of [place], is admitted for pneumonia, respiratory failure, hypoxia. Pt lives in a house with his , Kristine. Pt's Primary Care Provider is Dr. Tyler Khan and insurance is [facility] and Medicare Part A Only. Reviewed chart and team rounds for pt's medical status and initial discharge needs. DCP met w/patient at bedside; introduced self and role. Present in the room is pt's , Kristine, whom pt consented to answer questions on pt's behalf. Patient was found in bed, alert and oriented, cooperative with assessment. Pt confirmed living situation, states pt is typically mobile with the use of FWW, relies on her only for transportation. It was reported that pt has started services with [facility] (RN, PT, EMT DISPATCHER) and utilizes home O2 (2-3L) at baseline. Pt expressed preference in discharge home when medically stable with resumption of HH services. Pt requested list of areas to rent a wheelchair, DCP provided DME agency list and highlighted [facility] [employer] in [place]. Pt does not wish for a prescribed wheelchair at this time as pt typically uses FWW. PT and ST recommending pt to discharge home with assistance. Pt and agreeable to this recommendation at this time. Plan: Anticipating discharge home with spouse when medically cleared. Resumption orders needed for [facility] to continue services post discharge. CM team will follow closely for coordination of discharge plans. DONALD Agee Discharge Planning/Care Management CM Discharge Assessment Start: 08/22/24 14:39 Freq: Status: Active Protocol: Document 08/22/24 15:16 MW (Rec: 08/22/24 15:23 MW [id number]) Discharge Planning Assessment Assigned Snowmaker NOAH Gama DPOA/Assigned Designee Name Kristine, Spouse Advance Directives? No History Provided By Patient,Family Member,Medical Record Prior Living Arrangements House Household Members spouse Type of transporation used prior to Relies on Others admit Independent with ADL's Yes Is patient alert and oriented? Yes Caregiver for Another No Community Services used prior to Home Health Nurse admission: DME Already Rented / Owned Wheelchair,FWW / Walker,Oxygen Patient/Family Preference Home with Home Health Discharge Plan Home with Home Health Community Services Home Health Aid,Home Health Nurse Transportation Arrangement Spouse will transport home Additional Comment Need resumption Orders with [facility] Whiteboard Updated in Patient Room with Yes name and ext. # of Snowmaker Comment [phone] Review Status In Process Please Provide Date Initial DC 08/22/24 Assessment Was Performed Next Review Type Continued Stay Review
[2024-08-22] MEDS: CALCIUM CARBONATE 500 MG TAB 1000 MG PO (16:01)
[2024-08-22] MEDS: VANCOMYCIN 2,500 MG in SODIUM CHLORIDE 0.9% 500 ML 200 MG IV (16:43)
[2024-08-22] MEDS: SODIUM CHLORIDE 0.9% FLUSH 10 ML IV (21:27)
[2024-08-23] VITALS (40 sets, daily range): BP systolic 107–134; BP diastolic 56–75; PULSE 69–100; RESP 9–41; TEMP 35.8–36.9; O2SAT 83–97
[2024-08-23] MEDS: BUDESONIDE 0.5 MG/2 ML NEB INH ×2 (07:10→19:04)
[2024-08-23] MEDS: ALBUTEROL 2.5 MG/3 ML NEB (ADULT) INH ×4 (07:10→19:04)
[2024-08-23] MEDS: PRAVASTATIN 20 MG TABLET PO (08:06)
[2024-08-23] MEDS: TAMSULOSIN 0.4 MG CAPSULE PO (08:06)
[2024-08-23] MEDS: hydroCHLOROthiazide 25 MG TABLET PO (08:06)
[2024-08-23] MEDS: lisinopriL 20 MG TABLET 40 MG PO (08:06)
[2024-08-23] MEDS: BUPRENORPHINE/NALOXONE 8MG/2MG 1 TAB 2 TAB SL (08:07)
[2024-08-23] MEDS: SODIUM CHLORIDE 0.9% FLUSH 10 ML IV ×2 (08:47→20:59)
[2024-08-23] MEDS: CEFEPIME 2 GM in SODIUM CHLORIDE 0.9% 100 ML IV ×2 (08:50→17:01)
--- NOTE | 2024-08-23 09:02 | P.PN_ITS ---
Subjective Subjective Date Patient Seen: 08/23/24 Time Patient Seen: 09:02 Interval history: Patient is a 68-year-old male with a history of COPD chronic respiratory failure obesity hypoventilation due to obesity chronic pressure ulcers diabetes and iron deficiency anemia presented to the hospital with increasing respiratory distress consistent with respiratory failure patient chest x-ray showed pneumonia and pleural effusion with increased vascular congestion. Review of records and discussion with admitting provider. Updates ejection fraction so 60-65% with stage I diastolic dysfunction. Patient received antibiotics cefepime and vancomycin nebulizers oxygen patient refused BiPAP he has not on steroids. Echocardiogram done showing diastolic heart failure oxygen saturations have been stable currently on 2 L previously on 4 L. Discussed with ICU nurse today. Patient is stable vital signs afebrile blood pressures been good. Maintaining sats on 2 L. Anything less than this his oxygen drops. Patient refused BiPAP last night. He is eating. He is currently sitting in a chair. He has oxygen at home he is working on using BiPAP but feels like he is suffocating. Has no complaints of pain. Feels a little bit better he says he feels like he is turned the corner. He was able to keep breakfast down. Exam Vital Signs (past 8 hours): - 08/23/24 05:19 08/23/24 07:11 08/23/24 08:00 Temperature 97.4 F L 98.1 F Pulse Rate 86 90 Respiratory Rate 20 15 Blood Pressure 111/57 L 125/75 Pulse Oximetry 94 92 Oxygen Delivery Method Nasal Cannula Oxygen Flow Rate 2 2 2 Fraction of Inspired Oxygen 95 Fraction of Inspired Oxygen 95 Oxygen Delivery Method Nasal Cannula Oxygen Flow Rate 2 Gen.: Alert and oriented x3 no apparent distress nasal cannula oxygen in place nasal cannula oxygen in place. HEENT: NCAT PERRLA or mucosa is moist neck is supple Cardio: S1-S2 regular rate and rhythm no murmurs appreciated. Respiratory: Lungs shows decreased breath sounds bilaterally. No wheezes. Abdomen: Soft nontender obese Extremities: Generalized weekend this some lower extremity edema Neurologic: Grossly intact. Objective Labs 08/22/24 04:09 08/22/24 04:09 [facility] Medical History (Updated 08/21/24 @ 16:44 by Beth French MD) Obesity hypoventilation syndrome Vascular malformation of lower extremity Microscopic hematuria BPH w urinary obs/LUTS History of bladder stone Renal cyst, right Calculus of right kidney Iron deficiency anemia Sleep apnea Rib fractures (~1974) Chronic back pain Enlarged prostate Constipation Hemorrhoid (~1999) Morbid obesity Diabetes type 2, controlled H/O adenomatous polyp of colon History of nephrolithiasis (~1999) Mixed hyperlipidemia Essential hypertension (~1994) Surgical History H/O umbilical hernia repair Anesthesia Bladder stones (~2016) History of knee surgery (~1979) Family History Mother Cancer Father Myocardial infarct Brother Cancer Social History household members: spouse Smoking Status: Former smoker alcohol intake: former Assessment & Plan Assessment and plan (1) Acute on chronic respiratory failure with hypoxia and hypercapnia: Status: Acute (2) Right lower lobe pneumonia: Qualifiers: Pneumonia type: due to unspecified organism Qualified Code(s): J18.9 - Pneumonia, unspecified organism Status: Acute Plan Acute on chronic respiratory failure. Complicated by patient's history of COPD now pneumonia pleural effusion and pulmonary vascular congestion. Patient initially on 4 L. He is now on 2 L which she uses at home. Will continue with BiPAP and nasal cannula oxygen. Patient is continuing to get education on BiPAP. Patient's respiratory failure appears to be improving. Pneumonia community acquired. Patient on cefepime. We will go ahead and DC vancomycin at this point and continue with just on cefepime for antibiotics. Will monitor white blood cell count and temperature. Encephalopathy patient with mental status changes visual hallucination he is alert oriented. Resolved now that his oxygen status is improved. I think it was due to his underlying hypoxia. COPD. Patient with 40+ pack-year smoking history quit 7 years ago has very limited wheezing on exam. Will continue with nebulizer treatments. He has currently not on prednisone we will hold off on that today. Diastolic heart failure. Patient with the diastolic heart failure echocardiogram completed today. Based on pleural effusions edema and swelling. He would like to give him a couple of doses of IV Lasix today to see how this does with respiratory status and just overall breathing. Morbid obesity. Patient complicating his care. Due to his obesity pressure ulcers with etc.. Pressure ulcers. Chronic present before admission to the hospital getting wound care for these. Type 2 diabetes. Continue with blood sugars diabetic diet. And blood sugar management. Hypertension. Blood pressure medication has been restarted. His blood pressures are well controlled. Hyperlipidemia patient on a statin this will be continued BPH. Continue with Flomax. Urination does not appear to be an issue DVT prophylaxis on SCDs code full code. Plan. Repeat labs tomorrow. Stop vancomycin today. Ambulate with physical therapy. Try Lasix with potassium IV. Floor care. Anticipate discharge 20/4 to 48 hours Time-Based Coding :: [TOTAL MINUTES] spent with patient and on the chart (including review of chart, obtaining history, exam, reviewing outside data, placing orders, documenting exam and treatment plan, and counseling patient) on [DATE]. Quality VTE Deep Vein Thrombosis/Pulmonary Embolism Present on Admission: No
[2024-08-23] MEDS: FUROSEMIDE 40 MG/4 ML VIAL IV (09:33)
[2024-08-23 09:52] LABS: Add Manual Diff / Slide Review NO; Basophils Absolute Auto 0 /uL (0-100); Basophils Percent Auto 0.5 % (0-2); Eosinophils Absolute Auto 100 /uL (0-450); Hemoglobin 9.5 g/dL (13.5-17.5); Lymphocytes Absolute Auto 400 /uL (1100-4500); Lymphocytes Percent Auto 6.3 % (25-40); Mean Corpuscular HGB Conc 31.8 % (30-36); Mean Corpuscular Hemoglobin 26.1 PG (26-34); Mean Corpuscular Volume 82.3 fL (80-100); Monocytes Absolute Auto 500 /uL (0-900); Monocytes Percent Auto 8.5 % (3-14); Neutrophils Absolute Auto 5000 /uL (1500-7000); Neutrophils Percent Auto 83.7 % (50-75); Platelet Count 169 X10^3/uL (150-400); Red Blood Cell Count 3.65 X10^6/uL (4.5-5.9); Red Cell Distribution Width 18.9 % (11.6-14.8)
[2024-08-23 10:01] LABS: BUN Creatinine Ratio 43.3 (6-22); Blood Urea Nitrogen 29 mg/dL (9-20); Calcium 8.5 mg/dL (8.4-10.2); Carbon Dioxide 38 mmol/L (22-32); Chloride 94 mmol/L (98-107); Estimated Glomerular Filt Rate > 60 mL/min (>60); Glucose 239 mg/dL (80-110); HEMOLYSIS < 15 (0-50); Potassium 3.7 mmol/L (3.4-5.1); Sodium 134 mmol/L (137-145)
[2024-08-23 10:04] LABS: Hemoglobin A1C% w Est Avg Glu 5.7 % (4.0-6.0)
--- NOTE | 2024-08-23 10:15 | PT.IPTN ---
Current Diagnoses Pneumonia, unspecified organism (08/21/24) Acute and chronic respiratory failure with hypoxia (08/21/24) Acute and chronic respiratory failure with hypercapnia (08/21/24) Physical Therapy Treatment Note M2 PT-IP Current Condition Start: 08/22/24 12:00 Freq: NEEDED Status: Active Protocol: Document 08/22/24 12:01 AMB (Rec: 08/22/24 12:25 AMB [id number]) Physical Therapy Current Condition Current Condition Evaluation Date 08/22/24 Treatment Diagnosis possible pneumonia, worsening weakness Onset Date 08/21/24 M3 PT-IP Subjective Start: 08/22/24 12:00 Freq: NEEDED Status: Active Protocol: Document 08/23/24 10:33 TS (Rec: 08/23/24 10:48 TS [id number]) Subjective Physical Therapy Visit Type Type Treatment Note Visit Start Time 10:15 Visit Stop Time 10:30 Number of FOOD PREPARATION SUPERVISOR Visits 1 Physical Therapy Visit Comments Patient Comments Pt found resting in the chair, he is agreeable to PT. M4 PT-IP Mobility and Gait Start: 08/22/24 12:00 Freq: NEEDED Status: Active Protocol: Document 08/23/24 10:33 TS (Rec: 08/23/24 10:48 TS [id number]) PT-Transfer Assessment Sit to and From Stand Sit to and from Stand Standby Assistance Equipment Transfer Assistive Device Gait Belt,Front Wheeled Walker Comments Mobility Comments STS with FWW SBA. Pt ambulates ~20' in the room, takes multiple standing rest breaks. Spo2 desats to low 80's with mobility on 2L's. Pt was left back in the chair, all needs met. Gait Assessment Gait Gait Assistance Required: Standby Assistance Distance (Feet) 20 Assistive Devices Assistive Device Front Wheeled Walker Gait Deviations General Gait Pattern Decreased Stride Length, Decreased Feet Clearance,Step- to Gait Factors Limiting Gait Function Factors Limiting Gait Function Decreased Activity Tolerance, Decreased Strength,Poor Balance,Poor Safety Awareness, Respiratory Distress PT-Balance Assessment Sitting Balance and Reactions Static Sitting Balance Ability Good Dynamic Sitting Balance Ability Fair Standing Balance and Reactions Static Standing Balance Ability Fair Dynamic Standing Balance Ability Fair Device Used FWW M5 PT-IP Objective Assessments Start: 08/22/24 12:00 Freq: NEEDED Status: Active Protocol: Document 08/22/24 12:01 AMB (Rec: 08/22/24 12:25 AMB [id number]) Orientation Orientation/Cognition Level of Alertness Alert Gross Range of Motion Lower Extremity ROM Assessment Bilaterally Impaired Impairments limited by body habitus, pt states can't get hip replacement until he loses weight and his hips are painful and limited Strength Lower Extremity Strength Assessment Bilaterally Impaired M7 PT-IP Assessment and Plan Start: 08/22/24 12:00 Freq: NEEDED Status: Active Protocol: Document 08/23/24 10:33 TS (Rec: 08/23/24 10:48 TS [id number]) PT Summary Assessment and Plan Potential Rehabilitation Potential Good Summary Impairments Pain,ROM,Strength,Balance,Bed Mobility,Transfers,Gait, Activity Tolerance Progress Towards Goals Progressing Toward Goals,Slow Progress due to Activity Tolerance Assessment Summary Kofi is making some progress with his mobility, he is limited by poor activity tolerance. He performs STS SBA with use of FWW. He ambulates short distances in the room SBA with FWW. He requires multiple stadning rest breaks due to leg pain and poor activity tolerance. PT is recommending home with assist. Goals Bed Mobility Goal Independent Transfer Goal Independent Gait Goal Standby Assistance,Front Wheel Walker Gait Distance 100' Other Goals Stairs: ascend and descend 2 stairs with 1 railing with CGA Days to Meet Goals 5 Frequency of Treatment Frequency Of Treatment Once a Day Treatment Plan Physical Therapy Treatment Plan Bed Mobility Training,Transfer Training,Gait Training, Therapeutic Exercise Recommendations To Nursing Amount of Assist Needed 1 Person Assist Discharge Recommendations PT Discharge Recommendations Home with Assistance Transportation Needs at Discharge Private Vehicle,Wheelchair/ Cabulance
--- NOTE | 2024-08-23 15:06 | CM.DPNOTE ---
DCP note DIRECTOR OF HEALTH CARE MARKETING reviewed EMR Per Dr. Miranda, pt likely to dc home within 24-48 hours. back on baseline O2 of 2ltrs. Per RN, pt overall doing well. anticipate dc home tomorrow. Per Breanna at [facility], no new clinicals needed. Just need HH order and dc summary at de. DIRECTOR OF HEALTH CARE MARKETING placed HH order. DIRECTOR OF HEALTH CARE MARKETING entered room and introduced self and role. Pt confirmed preference to dc home with spouse and [facility] resumption. Denies other needs or questions. Hopeful to dc home Sunday. P: home with spouse support/to transport when medically stable. LEONARDO Friday 08/24. CM team to fax HH order and dc summary at de. CM team will continue to follow as needed NOAH Burks
[2024-08-24] VITALS (17 sets, daily range): BP systolic 134–178; BP diastolic 66–89; PULSE 52–97; RESP 12–22; TEMP 35.8–36.7; O2SAT 91–96
[2024-08-24] MEDS: CEFEPIME 2 GM in SODIUM CHLORIDE 0.9% 100 ML IV ×4 (00:30→23:29)
[2024-08-24] MEDS: ACETAMINOPHEN 325 MG TABLET 650 MG PO ×2 (04:07→20:17)
[2024-08-24 04:48] LABS: Add Manual Diff / Slide Review NO; Basophils Absolute Auto 0 /uL (0-100); Basophils Percent Auto 0.8 % (0-2); Eosinophils Absolute Auto 100 /uL (0-450); Eosinophils Percent Auto 2.3 % (2-4); Hematocrit 30.1 % (41-53); Hemoglobin 9.5 g/dL (13.5-17.5); Lymphocytes Absolute Auto 600 /uL (1100-4500); Lymphocytes Percent Auto 10.3 % (25-40); Mean Corpuscular HGB Conc 31.8 % (30-36); Mean Corpuscular Hemoglobin 26.1 PG (26-34); Monocytes Absolute Auto 800 /uL (0-900); Monocytes Percent Auto 13.5 % (3-14); Neutrophils Absolute Auto 4200 /uL (1500-7000); Neutrophils Percent Auto 73.1 % (50-75); Platelet Count 190 X10^3/uL (150-400); Red Blood Cell Count 3.67 X10^6/uL (4.5-5.9); Red Cell Distribution Width 19.1 % (11.6-14.8); White Blood Cell Count 5.8 X10^3/uL (4.5-11.0)
[2024-08-24 05:01] LABS: Alanine Aminotransferase 45 IU/L (<50); Albumin 3.2 g/dL (3.5-5.0); Albumin Globulin Ratio 0.9 (1.0-2.8); Alkaline Phosphatase 63 U/L (38-126); Aspartate Aminotransferase 73 IU/L (17-59); BUN Creatinine Ratio 35.3 (6-22); Bilirubin Total 0.4 mg/dL (0.2-1.3); Blood Urea Nitrogen 24 mg/dL (9-20); Calcium 8.6 mg/dL (8.4-10.2); Chloride 93 mmol/L (98-107); Estimated Glomerular Filt Rate > 60 mL/min (>60); Globulin 3.5 g/dL (1.7-4.1); Glucose 111 mg/dL (80-110); HEMOLYSIS < 15 (0-50); Potassium 3.4 mmol/L (3.4-5.1); Sodium 133 mmol/L (137-145); Total Protein 6.7 g/dL (6.3-8.2)
[2024-08-24 05:07] LABS: Carbon Dioxide 38 mmol/L (22-32)
[2024-08-24] MEDS: BUPRENORPHINE/NALOXONE 8MG/2MG 1 TAB 2 TAB SL (08:05)
[2024-08-24] MEDS: lisinopriL 20 MG TABLET 40 MG PO (08:05)
[2024-08-24] MEDS: PRAVASTATIN 20 MG TABLET PO (08:05)
[2024-08-24] MEDS: TAMSULOSIN 0.4 MG CAPSULE PO (08:06)
[2024-08-24] MEDS: POTASSIUM CHLORIDE 20 MEQ TAB PO (08:06)
[2024-08-24] MEDS: hydroCHLOROthiazide 25 MG TABLET PO (08:06)
[2024-08-24] MEDS: SODIUM CHLORIDE 0.9% FLUSH 10 ML IV ×2 (08:10→20:17)
[2024-08-24] MEDS: BUDESONIDE 0.5 MG/2 ML NEB INH (09:08)
[2024-08-24] MEDS: ALBUTEROL 2.5 MG/3 ML NEB (ADULT) INH ×3 (09:08→23:32)
--- NOTE | 2024-08-24 09:23 | PM.PN.1 ---
Subjective Subjective Date Patient Seen: 08/24/24 Time Patient Seen: 10:00 Interval history: Patient seen and evaluated this morning. Patient is sleeping in bed. Tired feels a little bit weak. Although he ambulates yesterday was out of bed. It has a little bit nauseated. Patient has a Cerda catheter in place had about 1800 cc of urine output with 40 mg of IV Lasix. Breathing has been stable on 2 L. had 30 minutes of BiPAP last night which she did not tolerate very well. Today he feels worse than yesterday. Mainly because he did not sleep well. Anticipating going home tomorrow. Surprisingly pretty good when he gets up and moves. Laboratory tests vital signs and care was discussed with the day nurse. Exam Vital Signs (past 8 hours): - 08/24/24 04:00 08/24/24 07:00 08/24/24 08:00 Temperature 97.6 F 97.8 F Pulse Rate 89 94 H Respiratory Rate 21 19 Blood Pressure 136/66 174/89 H Pulse Oximetry 91 95 Oxygen Delivery Method Nasal Cannula Oxygen Flow Rate 2 2 08/24/24 09:08 Temperature Pulse Rate 97 H Respiratory Rate 18 Blood Pressure Pulse Oximetry 94 Oxygen Delivery Method Nasal Cannula Oxygen Flow Rate 2 Fraction of Inspired Oxygen 0.30 SaO2/FiO2 Ratio 328 Oxygen Delivery Method Nasal Cannula Oxygen Flow Rate 2 Narrative Exam Narrative: Gen.: Sleeping in bed arousable alert and oriented HEENT: Pupils equal round and reactive or mucosa is moist Cardio: Regular rate and rhythm slightly tachycardic Respiratory: Normal respiratory effort distant lung sounds. Decreased breath sounds at bases Abdomen: Soft obese Extremities: Warm dry perfused some lower extremity edema Neurologic: No focal deficits Objective Labs 08/24/24 04:02 08/24/24 04:02 Labs: Laboratory Results - last 24 hr 08/23/24 08/24/24 09:40 04:02 WBC 6.0 5.8 RBC 3.65 L 3.67 L Hgb 9.5 L 9.5 L Hct 30.0 L 30.1 L MCV 82.3 82.0 MCH 26.1 26.1 MCHC 31.8 31.8 RDW 18.9 H 19.1 H Plt Count 169 190 Neut % (Auto) 83.7 H 73.1 Lymph % (Auto) 6.3 L 10.3 L Carver % (Auto) 8.5 13.5 Eos % (Auto) 1.0 L 2.3 Baso % (Auto) 0.5 0.8 Neut # (Auto) 5000 4200 Lymph # (Auto) 400 L 600 L Carver # (Auto) 500 800 Eos # (Auto) 100 100 Baso # (Auto) 0 0 Sodium 134 L 133 L Potassium 3.7 3.4 Chloride 94 L 93 L Carbon Dioxide 38 H 38 H BUN 29 H 24 H Creatinine 0.67 0.68 Estimated GFR > 60 > 60 BUN/Creatinine Ratio 43.3 H 35.3 H Glucose 239 H D 111 H D Hemoglobin A1c 5.7 Calcium 8.5 8.6 Total Bilirubin 0.4 AST 73 H ALT 45 Alkaline Phosphatase 63 Total Protein 6.7 Albumin 3.2 L Globulin 3.5 Albumin/Globulin Ratio 0.9 L [facility] Medical History (Updated 08/21/24 @ 16:44 by Beth French MD) Obesity hypoventilation syndrome Vascular malformation of lower extremity Microscopic hematuria BPH w urinary obs/LUTS History of bladder stone Renal cyst, right Calculus of right kidney Iron deficiency anemia Sleep apnea Rib fractures (~1974) Chronic back pain Enlarged prostate Constipation Hemorrhoid (~1999) Morbid obesity Diabetes type 2, controlled H/O adenomatous polyp of colon History of nephrolithiasis (~1999) Mixed hyperlipidemia Essential hypertension (~1994) Surgical History H/O umbilical hernia repair Anesthesia Bladder stones (~2016) History of knee surgery (~1979) Family History Mother Cancer Father Myocardial infarct Brother Cancer Social History household members: spouse Smoking Status: Former smoker alcohol intake: former Assessment & Plan Assessment and plan (1) Acute on chronic respiratory failure with hypoxia and hypercapnia: Status: Acute Plan Acute on chronic respiratory failure. Complicated by patient's history of COPD now pneumonia pleural effusion and pulmonary vascular congestion. Patient on home oxygen dosing. Diuresed well yesterday. Antibiotics were given. Did not tolerate BiPAP. Pneumonia community acquired. Patient on cefepime. Continue with cefepime today. Convert to oral antibiotics tomorrow. Encephalopathy patient's mental status is back to baseline. COPD. Patient on oxygen. Nebulizers currently not getting prednisone. Diastolic heart failur received IV Lasix as he has a little bit fluid overloaded. Given another dose of IV Lasix today of 40 mg with potassium electrolyte and kidney function is normal. Morbid obesity. Patient complicating his care with chronic respiratory failure decubitus dye and generalized weakness Pressure ulcers. Chronic present before admission to the hospital getting wound care for these. Type 2 diabetes. Continue with blood sugars diabetic diet blood sugars are reasonably well controlled at this time. Hypertension. Blood pressure high this morning before lisinopril this will be given continue his hydrochlorothiazide dose of Lasix today Hyperlipidemia patient on a statin this will be continued BPH. Continue with Flomax. Remove Cerda catheter after Lasix this afternoon DVT prophylaxis on SCDs code full code. Plan. Remove Cerda catheter dose of Lasix and potassium today convert to oral antibiotics tomorrow and home tomorrow. Time-Based Coding :: [TOTAL MINUTES] spent with patient and on the chart (including review of chart, obtaining history, exam, reviewing outside data, placing orders, documenting exam and treatment plan, and counseling patient) on [DATE]. Quality VTE Deep Vein Thrombosis/Pulmonary Embolism Present on Admission: No PROFEE Charge codes Subsequent inpatient/observation care: [id number]
[2024-08-24] MEDS: FUROSEMIDE 40 MG/4 ML VIAL IV (10:45)
--- NOTE | 2024-08-24 12:24 | PT-IP ANOTE ---
Attempted to see pt this AM, pt refused PT stating he is able to get out of bed on his own, does not want to right now but will get up to his chair for lunch.
--- NOTE | 2024-08-24 16:21 | PC.NURSE ---
Cerda catheter removed, patient tolerated well.
[2024-08-25] VITALS: BP 124/81; PULSE 79; RESP 19; TEMP 35.7; O2SAT 93
[2024-08-25 04:00] VITALS: BP 148/76; PULSE 88; RESP 18; TEMP 35.8; O2SAT 94
[2024-08-25 05:39] LABS: NT-proBNP (BNP-Adult 18+) 424 pg/mL (<125)
[2024-08-25 07:22] VITALS: PULSE 85; RESP 20; O2SAT 93
[2024-08-25] MEDS: BUDESONIDE 0.5 MG/2 ML NEB INH (07:22)
[2024-08-25] MEDS: ALBUTEROL 2.5 MG/3 ML NEB (ADULT) INH (07:22)
--- NOTE | 2024-08-25 07:48 | PM.DS.1 ---
History of Present Illness History of Present Illness Chief complaint: r/o pneumonia sent by Dr Khan Discharge Providers Provider Date of admission: 08/21/24 17:25 Discharge Date: 08/25/24 Primary care physician: Tyler Khan MD Consults: 08/22/24 07:00 Consult to Physical Therapy Evaluate & Treat Comment: Physician Instructions: Evaluate and Treat Consult to Speech Therapy Evaluate & Treat Comment: marion eval Physician Instructions: Evaluate and treat 08/23/24 13:19 Consult to Home Health Routine Comment: RN/CLOUD OPERATIONS ENGINEER/PT Reason For Exam: resume previous services at discharge Discharge provider: Jeffrey Miranda MD Summary Hospital Course Discharge Diagnosis: Acute on chronic respiratory failure Community-acquired pneumonia Chronic obstructive lung disease Morbid obesity with obesity related hypoventilation syndrome Acute metabolic encephalopathy due to hypoxia Acute diastolic heart failure with elevated BNP echocardiogram showing grade 1 diastolic dysfunction Type 2 diabetes Chronic decubiti ulcer of coccyx Hypertension Hyperlipidemia BPH Hospital Course: Patient admitted to the hospital with acute respiratory failure mental status changes and hallucinations. Patient also had significant weakness 6. Patient was admitted to the hospital after evaluation in the emergency department emergency department evaluation showed pneumonia pulmonary edema and pleural effusion. Patient required high levels of oxygenation to support appropriate O2 saturation. Patient was also tried on BiPAP which she did not tolerate. Over the ensuing 24 hours patient was placed on IV antibiotics given IV diuresis and nebulizers. Patient had improvement of was respiratory distress and oxygen saturation. Over the next 48 hours patient was continued on IV antibiotics had diuresis with IV Lasix. Patient initially had a Cerda catheter in which was eventually removed. At the time of discharge. He was on 2 L nasal cannula oxygen which she is on chronically. He had no wheezing. Patient had good diagnosed recess patient had improvement of his energy level. He was tolerating his diet. During the hospital stay patient was given nebulizer treatments he was counseled on the use of CPAP and CPAP trials were were initiated but not tolerated. Patient will be discharged home with continued oral antibiotics. Inhaler will be prescribed. Patient will follow up with his primary care physician in 7-10 days. Exam Vital Signs (past 8 hours): - 08/25/24 00:00 08/25/24 04:00 08/25/24 07:22 Temperature 96.3 F L 96.5 F L Pulse Rate 79 88 85 Respiratory Rate 19 18 20 Blood Pressure 124/81 148/76 H Pulse Oximetry 93 94 93 Oxygen Delivery Method Nasal Cannula Oxygen Flow Rate 2 2 2 Fraction of Inspired Oxygen 28 Fraction of Inspired Oxygen 28 SaO2/FiO2 Ratio 332 Oxygen Delivery Method Nasal Cannula Oxygen Flow Rate 2 Objective Labs 08/24/24 04:02 08/24/24 04:02 Labs: Laboratory Results - last 24 hr 08/25/24 04:34 NT-Pro-B Natriuret Pep 424 H PFSH Medical History Obesity hypoventilation syndrome Vascular malformation of lower extremity Microscopic hematuria BPH w urinary obs/LUTS History of bladder stone Renal cyst, right Calculus of right kidney Iron deficiency anemia Sleep apnea Rib fractures (~1974) Chronic back pain Enlarged prostate Constipation Hemorrhoid (~1999) Morbid obesity Diabetes type 2, controlled H/O adenomatous polyp of colon History of nephrolithiasis (~1999) Mixed hyperlipidemia Essential hypertension (~1994) Surgical History H/O umbilical hernia repair Anesthesia Bladder stones (~2016) History of knee surgery (~1979) Family History Mother Cancer Father Myocardial infarct Brother Cancer Social History household members: spouse Smoking Status: Former smoker alcohol intake: former Discharge Plan Discharge Plan Patient Disposition: Home Provider Discharge Comment: Discharge home follow-up with Dr. Khan in 10 days Discharge orders & Medications Prescriptions: New cefdinir 300 mg capsule 300 mg PO BID Qty: 14 0RF fluticasone propion-salmeterol [Advair Diskus] 500-50 mcg/dose blister with device 1 inh inhalation BID Qty: 60 1RF Continued tamsulosin 0.4 mg capsule 0.4 mg PO DAILY Qty: 90 3RF lisinopril 40 mg tablet 40 mg PO DAILY Qty: 90 3RF hydrochlorothiazide 25 mg tablet 25 mg PO DAILY Qty: 90 3RF pravastatin 20 mg tablet 20 mg PO DAILY Qty: 90 3RF semaglutide 0.25 mg or 0.5 mg (2 mg/3 mL) pen injector 0.5 mg SUBCUT QWEEK Qty: 3 1RF Rx Instructions: inject 0.5mg once weekly buprenorphine-naloxone 8-2 mg film 2 film buccal Q24H Rx Instructions: place 1 film on inside of (each) cheek // On 16mg/4mg. (DME) Disabled Parking See Rx Instructions .ROUTE .MEDSUPPLY Qty: 1 0RF Rx Instructions: Patient qualifies for disabled parking as per the attached form. acetaminophen 500 mg capsule 500 - 1,000 mg PO Q6H PRN (Reason: Pain (Scale Score 1-3)) Patient Comments: For pain Follow up/Referrals: Tyler Khan MD [Primary Care Provider] - Visit Report/Discharge Packet Stand Alone Forms: Patient Portal/API, Stroke Signs & Symptoms Discharge Data Primary Care Provider: Tyler Khan Quality VTE Deep Vein Thrombosis/Pulmonary Embolism Present on Admission: No IH PROFEE Charge Codes Discharge inpatient/observation: [id number]
[2024-08-25 07:51] LABS: BUN Creatinine Ratio 30.6 (6-22); Blood Urea Nitrogen 22 mg/dL (9-20); Calcium 8.8 mg/dL (8.4-10.2); Chloride 93 mmol/L (98-107); Estimated Glomerular Filt Rate > 60 mL/min (>60); Glucose 109 mg/dL (80-110); HEMOLYSIS < 15 (0-50); Potassium 3.4 mmol/L (3.4-5.1); Sodium 138 mmol/L (137-145)
[2024-08-25 07:59] LABS: Carbon Dioxide 38 mmol/L (22-32)
[2024-08-25 08:00] VITALS: BP 174/84; PULSE 82; RESP 18; TEMP 36.8; O2SAT 93
[2024-08-25] MEDS: TAMSULOSIN 0.4 MG CAPSULE PO (08:47)
[2024-08-25] MEDS: CEFEPIME 2 GM in SODIUM CHLORIDE 0.9% 100 ML IV (08:47)
[2024-08-25] MEDS: BUPRENORPHINE/NALOXONE 8MG/2MG 1 TAB 2 TAB SL (08:47)
[2024-08-25] MEDS: hydroCHLOROthiazide 25 MG TABLET PO (08:47)
[2024-08-25] MEDS: POTASSIUM CHLORIDE 20 MEQ TAB PO (08:47)
[2024-08-25] MEDS: SODIUM CHLORIDE 0.9% FLUSH 10 ML IV (08:48)
[2024-08-25] MEDS: PRAVASTATIN 20 MG TABLET PO (08:48)
[2024-08-25] MEDS: lisinopriL 20 MG TABLET 40 MG PO (08:48)
[2024-08-25] MEDS: ACETAMINOPHEN 325 MG TABLET 650 MG PO (08:55)
--- NOTE | 2024-08-25 09:16 | CM.DPNOTE ---
DCP Note VENTILATION MECHANIC reviewed EMR. Per chart review, pt cleared to dc home today. CC Corrine kindly agreed to send dc summary and order to Veronica from [facility] for HH resumption. VENTILATION MECHANIC alerted TCM team to pt's dc. P: home with spouse support/to transport today with resumption of [facility] for RN/PT/VENTILATION MECHANIC. CM team will continue to follow as needed NOAH Burks
== END 2024-08-25 12:00 | disposition home health service (06) | DRG 193 ==
LOC: ED 16:56 → AC 17:26 → ICU 18:00
PROVIDERS: Family Medicine; Admitting Provider Family Medicine; Emergency Provider Emergency Medicine; PCP Internal Medicine; Referring Provider Emergency Medicine; Visit Provider Family Medicine
DX: J18.9 Pneumonia, unspecified organism (principal); G93.41 Metabolic encephalopathy; J96.21 Acute and chronic respiratory failure with hypoxia; J96.22 Acute and chronic respiratory failure with hypercapnia; I50.31 Acute diastolic (congestive) heart failure; Z68.43 Body mass index [BMI] 50.0-59.9, adult; E66.2 Morbid (severe) obesity with alveolar hypoventilation; J44.0 Chronic obstructive pulmonary disease with (acute) lower respiratory infection; Q27.30 Arteriovenous malformation, site unspecified; E11.9 Type 2 diabetes mellitus without complications; D50.9 Iron deficiency anemia, unspecified; I11.0 Hypertensive heart disease with heart failure; N40.0 Benign prostatic hyperplasia without lower urinary tract symptoms; E78.5 Hyperlipidemia, unspecified; L89.159 Pressure ulcer of sacral region, unspecified stage; Z87.891 Personal history of nicotine dependence; Z99.81 Dependence on supplemental oxygen; Z91.199 Patient's noncompliance with other medical treatment and regimen due to unspecified reason; Z79.85 Long-term (current) use of injectable non-insulin antidiabetic drugs
CPT/HCPCS: 36415; 71045; 80048; 80053; 82805; 82962; 83036; 83605; 83880; 84484; 85025; 85610; 87797; 92610; 93005; 94640; 94660; 94760; 94762; 96365; 96367; 97162; 97530; 99223; 99232; 99238; 99285; 99291; J0692; J1650; J1940; J7613

== ENCOUNTER → 2024-09-04 13:50 | Outpatient (CLI) | payer OTHER, SELFPAY ==
[2024-08-21 16:03] VITALS: PULSE 101; RESP 18; O2SAT 94
[2024-08-21 18:06] VITALS: BMI 52.0
== END ==
PROVIDERS: PCP Internal Medicine; Referring Provider Surgery Vascular Surgery; Visit Provider Surgery
DX: L89.893 Pressure ulcer of other site, stage 3 (principal); R60.0 Localized edema; Q27.32 Arteriovenous malformation of vessel of lower limb; E11.628 Type 2 diabetes mellitus with other skin complications; D64.9 Anemia, unspecified; J44.9 Chronic obstructive pulmonary disease, unspecified; E66.01 Morbid (severe) obesity due to excess calories; Z68.43 Body mass index [BMI] 50.0-59.9, adult; Z74.01 Bed confinement status
CPT/HCPCS: 97602; 99213

== ENCOUNTER → 2024-10-09 14:08 | Outpatient (CLI) | payer OTHER, SELFPAY ==
[2024-08-21 16:03] VITALS: PULSE 101; RESP 18; O2SAT 94
[2024-08-21 18:06] VITALS: BMI 52.0
== END ==
LOC: WC 14:10
PROVIDERS: PCP Internal Medicine; Referring Provider Surgery Vascular Surgery; Visit Provider Surgery
DX: L89.893 Pressure ulcer of other site, stage 3 (principal); E11.628 Type 2 diabetes mellitus with other skin complications; E66.01 Morbid (severe) obesity due to excess calories; Z68.43 Body mass index [BMI] 50.0-59.9, adult
CPT/HCPCS: 97602; 99213

== ENCOUNTER → 2024-10-23 14:45 | Outpatient (CLI) | payer OTHER, SELFPAY ==
[2024-08-21 16:03] VITALS: PULSE 101; RESP 18; O2SAT 94
[2024-08-21 18:06] VITALS: BMI 52.0
--- NOTE | 2024-10-23 | OV.WND_ITS ---
PROGRESS NOTE DETAILS PATIENT NAME: PURNIMA GONZALES PATIENT NUMBER: [id number] CLINICIAN: WENDY NAIDU RN PATIENT DATE OF : 1955 PHYSICIAN / GASOLINE ENGINE INSPECTOR: IVETTE GORMAN PATIENT SUBJECTIVE CHIEF COMPLAINT THIS INFORMATION WAS OBTAINED FROM THE PATIENT. THIGH WOUNDS GENERAL NOTES PRESSURE ULCERS ON BOTH THIGHS. ALLERGIES NO KNOWN ALLERGIES HPI THIS INFORMATION WAS OBTAINED FROM THE PATIENT. THE FOLLOWING HPI ELEMENTS WERE DOCUMENTED FOR THE PATIENT'S WOUND: LOCATION: BILAT POSTERIOR UPPER THIGHS DURATION: R 03/04/24, L 07/24/24 CONTEXT: PRESSURE THE PATIENT IS A 68 YEAR OLD MALE WITH LARGE AVMS INVOLVING THE POSTERIOR MEDIAL UPPER THIGHS, DIABETES TYPE 2, MORBID OBESITY, HTN, HLD, ANEMIA, AND COPD WHO RETURNS TODAY FOR FOLLOW UP OF CHRONIC ULCERS OF THE POSTERIOR THIGHS. THE PATIENT HAD BEEN RECEIVING PALLIATIVE WOUND CARE CONSISTING OF DRESSING CHANGES WITH HYDROFERA BLUE AND ADAPTIC HOWEVER HE DID NOT HAVE A DRESSING IN PLACE WHEN HE CAME TO CLINIC TODAY THE PATIENT HAS PREVIOUSLY HAD MULTIPLE PROCEDURES FOR TREATMENT OF THE AVMS. PATIENT IS PRIMARILY NON AMBULATORY AND USES WHEELCHAIR. HE HAS CHRONIC SOB AND IS CURRENTLY 3L OF OXYGEN. THE PATIENT REPORTS THAT THE PAIN IS UNCHANGED BUT HE IS STILL OCCASIONALLY HAVING SOME BLOODY DRAINAGE. HE HAS BEEN USING A ROHO CUSHION FOR PRESSURE OFFLOADING. HE DENIES FEVERS OR CHILLS OR CHANGES TO UNDERLYING HEALTH. HE HAS RECENTLY STARTED OZEMPIC AND REPORTS THAT HIS APPETITE IS DECREASED. HE HAS BEEN RECEIVING IRON INFUSIONS FOR TREATMENT OF HIS ANEMIA. ON EXAM TODAY THE SCATTERED ULCERS ON THE RIGHT ARE SLIGHTLY IMPROVED. THE LEFT PROXIMAL ULCER IS STABLE. THE PATIENT IS NO LONGER ON PREDNISONE AND IS NOT CURRENTLY ON ANY ANTIBIOTIC THERAPY. SINCE LAST VISIT THE PATIENT DEVELOPED INCREASED PAIN AND TENDERNESS LEFT INDEX FINGER. LABS: 08/24/24: WBC 5.8, HEMOGLOBIN 9.5, HCT 30.1, GFR GREATER THAN 60 04/04/24: CULTURE MODERATE STAPH AUREUS, RX KEFLEX 10/08/23: A1C 6.0, WBC 9.1, HEMOGLOBIN 10.5, HCT 33.2 MEDICAL HISTORY THIS INFORMATION WAS OBTAINED FROM THE PATIENT. PATIENT HAS A MEDICAL HISTORY OF: TYPE II DIABETES PURNIMA GONZALES [id number] 1955 IRON DEFICIENCY ANEMIA (ETIOLOGY TBD) HYPERTENSION (ESSENTIAL, 1994) ADENOMATOUS POLYP OF COLON HYPERLIPIDEMIA MORBID OBESITY (RESTRICTIVE LUNG DISEASE) CHICKEN POX CHRONIC BACK PAIN CONSTIPATION ENLARGED PROSTATE HEMMORRHOID (1999) NEPHROLITHIASIS (HISTORY OF, 1999) MEASLES MUMPS SLEEP APNEA CHRONIC OBSTRUCTIVE PULMONARY DISEASE (COPD) DEPRESSION COLON POLYP PENNICULITIS (BILATERAL, POSTERIOR THIGHS) SURGICAL HISTORY THIS INFORMATION WAS OBTAINED FROM THE PATIENT. PATIENT HAS A SURGICAL HISTORY OF: BLADDER STONES- REMOVED- (2016 MULTIPLE TIMES) RIGHT KNEE ALIGNMENT- (1979) TEETH IMPLANTS- (2018) OBJECTIVE VITALS HEIGHT/LENGTH: 69 IN (175.26 CM), WEIGHT: 341.7 LBS (155.32 KGS), BMI: 50.5, TEMPERATURE: 98.1 ?F (36.72 ?C), PULSE: 88 BPM, RESPIRATORY RATE: 20 BREATHS/MIN, BLOOD PRESSURE: 121/73 MMHG, PULSE OXIMETRY: 93 %. GENERAL NOTES 3L O2 NC. PHYSICAL EXAM CONSTITUTIONAL: VITAL SIGNS REVIEWED AND NOTED. OBESE, WELL NOURISHED, AND IN NO ACUTE DISTRESS. ALERT AND ORIENTED X3. RESPIRATORY: EVEN RESPIRATIONS WITHOUT USE OF ACCESSORY MUSCLES. NO INTERCOASTAL RETRACTIONS NOTED. EVEN AND NON LABORED RESPIRATION. INTEGUMENTARY (HAIR, SKIN): MASSIVE AVM'S POSTERIOR UPPER THIGHS, ERYTHEMA LEFT INDEX FINGER. TENDERNESS LEFT INDEX FINGER. SEE WOUND ASSESSMENT. SKIN WARM AND DRY. NO RASHES. NEUROLOGICAL: SENSATION: SYMMETRIC FUNCTION BY INFORMAL OBSERVATION. PSYCHIATRIC: ORIENTATION TO TIME, PLACE AND PERSON: NORMAL AFFECT WITH NORMAL THOUGHT PATTERN. ADDITIONAL INFORMATION PURNIMA GONZALES [id number] 1955 THE PATIENT'S POTENTIAL TO HEAL IS: FAIR. WOUND ASSESSMENT(S) WOUND #10 LEFT LEG - THIGH IS A CHRONIC STAGE 3 PRESSURE INJURY PRESSURE ULCER ACQUIRED ON 07/24/2024 AND HAS RECEIVED A STATUS OF NOT HEALED. INITIAL WOUND ENCOUNTER MEASUREMENTS ARE 0.6CM LENGTH X 0.7CM WIDTH X 0.7 CM DEPTH, WITH AN AREA OF 0.42 SQ CM AND A VOLUME OF 0.294 CUBIC CM.INITIAL WOUND ENCOUNTER PREVIOUS MEASUREMENTS FROM 10/09/2024 ARE 0.9CM LENGTH X 0.6CM WIDTH X 0.7CM DEPTH, WITH AN AREA OF 0.54 SQ CM AND A VOLUME OF 0.378 CUBIC CM. ADIPOSE IS EXPOSED. NO TUNNELING HAS BEEN NOTED. NO SINUS TRACT HAS BEEN NOTED. UNDERMINING HAS BEEN NOTED AT 12:00 AND ENDS AT 12:00 WITH A MAXIMUM DISTANCE OF 0.3CM. THERE IS A MODERATE AMOUNT OF SEROSANGUINEOUS DRAINAGE NOTED WHICH HAS NO ODOR. THE PATIENT REPORTS A WOUND PAIN OF LEVEL 0/10. THE WOUND MARGIN IS UNATTACHED WOUND BED HAS YES, BRIGHT RED, PINK, FIRM, GRANULATION, YES SLOUGH, NO ESCHAR, NO EPITHELIALIZATION. THE PERIWOUND SKIN EXHIBITED ECCHYMOSIS. THE TEMPERATURE OF THE PERIWOUND SKIN IS WNL. LOCAL PULSE IS N/A. ADDITIONAL INFORMATION OTHER DEVITALIZED TISSUE PRESENT: BIOFILM WOUND #11 RIGHT, POSTERIOR LEG - THIGH IS A CHRONIC STAGE 3 PRESSURE INJURY PRESSURE ULCER ACQUIRED ON 03/04/2024 AND HAS RECEIVED A STATUS OF NOT HEALED. INITIAL WOUND ENCOUNTER MEASUREMENTS ARE 4.5CM LENGTH X 3CM WIDTH X 0.3 CM DEPTH, WITH AN AREA OF 13.5 SQ CM AND A VOLUME OF 4.05 CUBIC CM.INITIAL WOUND ENCOUNTER PREVIOUS MEASUREMENTS FROM 10/09/2024 ARE 6.1CM LENGTH X 5CM WIDTH X 0.3CM DEPTH, WITH AN AREA OF 30.5 SQ CM AND A VOLUME OF 9.15 CUBIC CM. ADIPOSE IS EXPOSED. NO TUNNELING HAS BEEN NOTED. NO SINUS TRACT HAS BEEN NOTED. NO UNDERMINING HAS BEEN NOTED. THERE IS A MODERATE AMOUNT OF SEROSANGUINEOUS DRAINAGE NOTED WHICH HAS NO ODOR. THE PATIENT REPORTS A WOUND PAIN OF LEVEL 4/10. THE WOUND MARGIN IS ROLLED WOUND BED HAS YES, BRIGHT RED, FIRM, GRANULATION, YES SLOUGH, NO ESCHAR, NO EPITHELIALIZATION. THE PERIWOUND SKIN EXHIBITED EDEMA. THE TEMPERATURE OF THE PERIWOUND SKIN IS WNL. LOCAL PULSE IS N/A. ADDITIONAL INFORMATION OTHER DEVITALIZED TISSUE PRESENT: BIOFILM WOUND #12 LEFT FINGER - FOURTH IS AN ACUTE FULL THICKNESS ABSCESS ACQUIRED ON 10/20/2024 AND HAS RECEIVED A STATUS OF NOT HEALED. INITIAL WOUND ENCOUNTER MEASUREMENTS ARE 0.8CM LENGTH X 0.4CM WIDTH X 0.1 CM DEPTH, WITH AN AREA OF 0.32 SQ CM AND A VOLUME OF 0.032 CUBIC CM. ADIPOSE IS EXPOSED. NO TUNNELING HAS BEEN NOTED. NO SINUS TRACT HAS BEEN NOTED. NO UNDERMINING HAS BEEN NOTED. THERE IS A MODERATE AMOUNT OF PURULENT DRAINAGE NOTED WHICH HAS NO ODOR. THE PATIENT REPORTS A WOUND PAIN OF LEVEL 6/10. THE WOUND MARGIN IS ATTACHED WOUND BED HAS NO, GRANULATION, YES SLOUGH, NO ESCHAR, NO EPITHELIALIZATION. THE PERIWOUND SKIN EXHIBITED EDEMA AND ERYTHEMA. THE TEMPERATURE OF THE PERIWOUND SKIN IS WARM. LOCAL PULSE IS PALPABLE. 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 (ENCOUNTER DIAGNOSIS) E66.01 - MORBID (SEVERE) OBESITY DUE TO EXCESS CALORIES (ENCOUNTER DIAGNOSIS) L89.893 - PRESSURE ULCER OF OTHER SITE, STAGE 3 (ENCOUNTER DIAGNOSIS) L03.012 - CELLULITIS OF LEFT FINGER PURNIMA GONZALES [id number] 1955 GENERAL NOTES PRESSURE ULCERS POSTERIOR MEDIAL ASPECTS OF BOTH THIGHS ASSOCIATED WITH OBESITY, IMMOBILITY, AND LARGE AVMS, RIGHT SIDE APPEARS TO BE SLIGHTLY IMPROVED, LEFT SIDE STABLE PARONYCHIA LEFT INDEX FINGER THE FOLLOWING FACTORS HAVE BEEN IDENTIFIED THAT MAY AFFECT WOUND HEALING: DEVITALIZED TISSUE BIOFILM AVMS OBESITY IMMOBILITY ANEMIA COPD PRESSURE IMMUNE SUPPRESSION GOALS: REMOVE DEVITALIZED TISSUE REMOVE AND PREVENT BIOFILM PREVENT INFECTION REDUCE PRESSURE PLAN: MECHANICAL DEBRIDEMENT, CONTINUE PALLIATIVE DRESSING CHANGES WITH ADAPTIC AND HYDROFERA BLUE ON THE LEFT, XEROFORM GAUZE ON THE RIGHT, CONTINUE USING ROHO CUSHION FOR PRESSURE OFFLOADING. START KEFLEX 500 MG P.O. T.I.D. X7 DAYS, SO LEFT INDEX FINGER AND WARM WATER 3 TIMES A DAY THEN PAINT WITH BETADINE. THE PATIENT ADVISED TO GO TO THE EMERGENCY ROOM IF THE PARONYCHIA WORSENS. FOLLOW UP IN 2 WEEKS FOR A RECHECK. PLAN ADDITIONAL ORDERS: PROVIDER REVIEW AND ATTESTATION: REVIEWED AND EVALUATED LABS. REVIEWED HOSPITAL RECORDS. DISCUSSED THE PLAN OF CARE @ BEDSIDE WITH - THE PATIENT AND PLACE PATIENT ON PALLIATIVE CARE DUE TO: - CHRONIC MEDICAL CONDITION I AGREE AND ATTEST TO THE ABOVE INFORMATION PROVIDED FROM OTHER LICENSED PROFESSIONALS. MEDICATIONS PRESCRIBED: CEPHALEXIN - ORAL 500 MG 1 TABLET THREE TIMES DAILY FOR 1 WEEK STARTING 10/23/2024 PLAN OF CARE: 01. ENSURE/ESTABLISH OPTIMAL BLOOD FLOW : - REVIEWED, NOT APPLICABLE 02. ASSESS FOR/TREAT INFECTION : - EVALUATE FOR SIGNS AND SYMPTOMS OF INFECTION AND DOCUMENT FINDINGS. STATUS: CONTINUED DATE: 10/23/2024 03. DEBRIDE WEEKLY OR MORE OFTEN PRN : - EVALUATE PATIENT IN CENTER WEEKLY TO ASSESS WOUND BED AND MARGINS FOR NEED FOR DEBRIDEMENT. STATUS: CONTINUED DATE: 10/23/2024 04. OPTIMIZE GLUCOSE CONTROL AND NUTRITION : - ORDER/REVIEW PERTINENT LABS TO EVALUATE RENAL FUNCTION, GLUCOSE CONTROL, AND NUTRITIONAL STATUS. STATUS: CONTINUED DATE: 10/23/2024 PURNIMA GONZALES [id number] 1955 05. OFFLOADING PLAN : - EVALUATE PLAN FOR OFFLOADING - PRESSURE RELIEF - ROHO CUSHION. STATUS: CONTINUED DATE: 10/23/2024 06. OPTIMIZE HOST FACTORS: - ASSESS AND REVIEW PATIENT HISTORY FOR WOUND ETIOLOGY, CO-MORBID CONDITIONS, MEDICATION REGIME, AND SMOKING HISTORY. STATUS: CONTINUED DATE: 10/23/2024 07. DRESSING SELECTION : - EVALUATE FOR DRESSING-RELATED FACTORS, SUCH AVAILABILITY, WEAR TIME, ADAPTABILITY AND USE TO BETTER OPTIMIZE WOUND HEALING AND PATIENT COMPLIANCE. STATUS: CONTINUED DATE: 10/23/2024 08. ADVANCED MODALITIES : - SET TREATMENT GOALS ACCORDING TO PATIENT AND/OR CAREGIVER?S ABILITY/ COMPLIANCE. STATUS: CONTINUED DATE: 10/23/2024 09. FALL PREVENTION : - COMPLETE FALL ASSESSMENT. STATUS: COMPLETED DATE: 10/09/2024 10. PAIN MANAGEMENT : - COMPLETE PAIN ASSESSMENT STATUS: COMPLETED DATE: 10/09/2024 11. MEASURABLE GOALS FOR WOUND HEALING AND/OR HYPERBARIC OXYGEN THERAPY : - IMPROVE QUALITY OF LIFE STATUS: CONTINUED DATE: 10/23/2024 12. DURATION/FREQUENCY OF WOUND CARE VISITS : - 2X MONTHLY FOR NEXT 30 DAYS STATUS: CONTINUED DATE: 10/23/2024 ELECTRONIC SIGNATURE(S) SIGNED BY: DATE: IVETTE GORMAN MD 10/23/2024 15:58:03 (PT) ENTERED BY: IVETTE GORMAN MD ON 10/23/2024 15:55:13 (PT) PURNIMA GONZALES [id number] 1955
== END ==
PROVIDERS: PCP Internal Medicine; Referring Provider Surgery Vascular Surgery; Visit Provider Surgery
DX: L89.893 Pressure ulcer of other site, stage 3 (principal); L03.012 Cellulitis of left finger; L02.91 Cutaneous abscess, unspecified; Q27.32 Arteriovenous malformation of vessel of lower limb; R60.0 Localized edema; L53.8 Other specified erythematous conditions
CPT/HCPCS: 99213; 99214

== ENCOUNTER → 2024-11-04 14:06 | Outpatient (CLI) | payer OTHER, SELFPAY ==
[2024-08-21 16:03] VITALS: PULSE 101; RESP 18; O2SAT 94
[2024-08-21 18:06] VITALS: BMI 52.0
--- NOTE | 2024-11-04 | OV.WND_ITS ---
PROGRESS NOTE DETAILS PATIENT NAME: PURNIMA GONZALES PATIENT NUMBER: [id number] CLINICIAN: OMER GARCIA R.N. 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 WOUNDS. GENERAL NOTES PRESSURE ULCERS OF BILATERAL THIGHS AND ABSCESS OF LEFT FOURTH FINGER. ALLERGIES NO KNOWN ALLERGIES HPI THIS INFORMATION WAS OBTAINED FROM THE PATIENT. THE FOLLOWING HPI ELEMENTS WERE DOCUMENTED FOR THE PATIENT'S WOUND: LOCATION: BILAT POSTERIOR UPPER THIGHS DURATION: R 03/04/24, L 07/24/24 CONTEXT: PRESSURE THE PATIENT IS A 68 YEAR OLD MALE WITH LARGE AVMS INVOLVING THE POSTERIOR MEDIAL UPPER THIGHS, DIABETES TYPE 2, MORBID OBESITY, HTN, HLD, ANEMIA, AND COPD WHO RETURNS TODAY FOR FOLLOW UP OF CHRONIC ULCERS OF THE POSTERIOR THIGHS AND PARONYCHIA LEFT INDEX FINGER. THE PATIENT HAD BEEN RECEIVING PALLIATIVE WOUND CARE CONSISTING OF DRESSING CHANGES WITH HYDROFERA BLUE AND ADAPTIC HOWEVER HE DID NOT HAVE A DRESSING IN PLACE WHEN HE CAME TO CLINIC TODAY. HE HAS COMPLETED A 1 WEEK COURSE OF KEFLEX. THE PATIENT HAS PREVIOUSLY HAD MULTIPLE PROCEDURES FOR TREATMENT OF THE AVMS. PATIENT IS PRIMARILY NON AMBULATORY AND USES WHEELCHAIR. HE HAS CHRONIC SOB AND IS CURRENTLY 3L OF OXYGEN. THE PATIENT REPORTS THAT THE PAIN IS UNCHANGED BUT HE IS STILL OCCASIONALLY HAVING SOME SEROSANGUINEOUS DRAINAGE. HE HAS BEEN USING A ROHO CUSHION FOR PRESSURE OFFLOADING. HE DENIES FEVERS OR CHILLS OR CHANGES TO UNDERLYING HEALTH. HE HAS RECENTLY STARTED [facility] AND REPORTS THAT HIS APPETITE IS DECREASED. HE HAS BEEN RECEIVING IRON INFUSIONS FOR TREATMENT OF HIS ANEMIA. ON EXAM TODAY THE SCATTERED ULCERS ON THE RIGHT ARE STABLE. THE ULCERS ON THE LEFT ARE ALSO STABLE, NO SIGN OF INFECTION. PARONYCHIA LEFT INDEX FINGER MUCH IMPROVED. LABS: 08/24/24: WBC 5.8, HEMOGLOBIN 9.5, HCT 30.1, GFR GREATER THAN 60 04/04/24: CULTURE MODERATE STAPH AUREUS, RX KEFLEX 10/08/23: A1C 6.0, WBC 9.1, HEMOGLOBIN 10.5, HCT 33.2 FAMILY HISTORY THIS INFORMATION WAS OBTAINED FROM THE PATIENT. CANCER- MOTHER, SIBLING HEART DISEASE- FATHER, S[place] PURNIMA GONZALES [id number] 1955 STROKE- FATHER SOCIAL HISTORY THIS INFORMATION WAS OBTAINED FROM THE PATIENT. 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 PATIENT HAS A MEDICAL HISTORY OF: TYPE II DIABETES IRON DEFICIENCY ANEMIA (ETIOLOGY TBD) HYPERTENSION (ESSENTIAL, 1994) ADENOMATOUS POLYP OF COLON HYPERLIPIDEMIA MORBID OBESITY (RESTRICTIVE LUNG DISEASE) CHICKEN POX CHRONIC BACK PAIN CONSTIPATION ENLARGED PROSTATE HEMMORRHOID (1999) NEPHROLITHIASIS (HISTORY OF, 1999) MEASLES MUMPS SLEEP APNEA CHRONIC OBSTRUCTIVE PULMONARY DISEASE (COPD) DEPRESSION COLON POLYP PENNICULITIS (BILATERAL, POSTERIOR THIGHS) SURGICAL HISTORY THIS INFORMATION WAS OBTAINED FROM THE PATIENT. PATIENT HAS A SURGICAL HISTORY OF: BLADDER STONES- REMOVED- (2016 MULTIPLE TIMES) RIGHT KNEE ALIGNMENT- (1979) TEETH IMPLANTS- (2018) REVIEW OF SYSTEMS (ROS) THIS INFORMATION WAS OBTAINED FROM THE PATIENT. COMPLAINTS AND SYMPTOMS PATIENT COM PLAINS OF: CARDIOVASCULAR (CENTRAL): DYSPNEA ON EXERTION PURNIMA GONZALES [id number] 1955 CO-MORBID CONDITIONS: ANEMIA, DIABETES, OBESITY PRIOR WOUND HISTORY: BLEEDING ( FROM CHRONIC RECURRENT WOUNDS), DRAINAGE, PAIN RESPIRATORY: SHORTNESS OF BREATH PATIENT DENIES COM PLAINTS OR SY M PTOM S RELATED TO: GENERAL NOTES CARDIOVASCULAR (CENTRAL): CHEST PAIN CONSTITUTIONAL SYMPTOMS (GENERAL HEALTH): CHILLS, FEVER, LOSS OF APPETITE HEMATOLOGIC/LYMPHATIC: BLEEDING / CLOTTING DISORDERS ( IRON DEFICIENCY ANEMIA) PRIOR WOUND HISTORY: ERYTHEMA, MALODOR RESPIRATORY: COUGH OBJECTIVE VITALS HEIGHT/LENGTH: 69 IN (175.26 CM), WEIGHT: 335.8 LBS (152.64 KGS), BMI: 49.6, TEMPERATURE: 97.9 ?F (36.61 ?C), PULSE: 96 BPM, RESPIRATORY RATE: 20 BREATHS/MIN, BLOOD PRESSURE: 141/73 MMHG, PULSE OXIMETRY: 96 %. GENERAL NOTES 3L O2 NC PHYSICAL EXAM CONSTITUTIONAL: VITAL SIGNS REVIEWED AND NOTED. OBESE, WELL NOURISHED, AND IN NO ACUTE DISTRESS. ALERT AND ORIENTED X3. RESPIRATORY: EVEN RESPIRATIONS WITHOUT USE OF ACCESSORY MUSCLES. NO INTERCOASTAL RETRACTIONS NOTED. EVEN AND NON LABORED RESPIRATION. INTEGUMENTARY (HAIR, SKIN): MASSIVE AVM'S POSTERIOR UPPER THIGHS. NO TENDERNESS. SEE WOUND ASSESSMENT. SKIN WARM AND DRY. NO RASHES. NEUROLOGICAL: SENSATION: SYMMETRIC FUNCTION BY INFORMAL OBSERVATION. PSYCHIATRIC: ORIENTATION TO TIME, PLACE AND PERSON: NORMAL AFFECT WITH NORMAL THOUGHT PATTERN. ADDITIONAL INFORMATION THE PATIENT'S POTENTIAL TO HEAL IS: POOR. LOWER EXTREMITY ASSESSMENT ASSESSMENT NOT PERFORMED FOR DOCUMENTED REASONS. GENERAL NOTES NO WOUNDS ON LOWER LEGS. WOUND ASSESSMENT(S) WOUND #10 LEFT LEG - THIGH IS A CHRONIC STAGE 3 PRESSURE INJURY PRESSURE ULCER ACQUIRED ON 07/24/2024 AND HAS RECEIVED A STATUS OF NOT HEALED. INITIAL WOUND ENCOUNTER MEASUREMENTS ARE 0.7CM LENGTH X 0.6CM WIDTH X 0.7 CM DEPTH, WITH AN AREA OF 0.42 SQ CM AND A VOLUME OF 0.294 CUBIC CM.INITIAL WOUND ENCOUNTER PREVIOUS MEASUREMENTS FROM 10/23/2024 ARE 0.6CM LENGTH X 0.7CM WIDTH X 0.7CM DEPTH, WITH AN AREA OF 0.42 SQ CM AND A VOLUME OF 0.294 CUBIC CM. ADIPOSE IS EXPOSED. NO TUNNELING HAS BEEN NOTED. NO SINUS TRACT HAS BEEN NOTED. UNDERMINING HAS BEEN NOTED AT 12:00 AND ENDS AT 12:00 WITH A MAXIMUM DISTANCE OF 0.4CM. THERE IS A MODERATE AMOUNT OF SEROSANGUINEOUS DRAINAGE NOTED WHICH HAS NO ODOR. THE PATIENT REPORTS A WOUND PAIN OF LEVEL 0/10. THE WOUND MARGIN IS UNATTACHED WOUND BED HAS YES, BRIGHT RED, PINK, FIRM, GRANULATION, YES SLOUGH, NO ESCHAR, NO RECKERPURNIMA [id number] 1955 EPITHELIALIZATION. THE PERIWOUND SKIN EXHIBITED ECCHYMOSIS. THE TEMPERATURE OF THE PERIWOUND SKIN IS WNL. PERIWOUND SKIN DOES NOT EXHIBIT SIGNS OR SYMPTOMS OF INFECTION. LOCAL PULSE IS N/A. ADDITIONAL INFORMATION OTHER DEVITALIZED TISSUE PRESENT: BIOFILM WOUND #11 RIGHT, POSTERIOR LEG - THIGH IS A CHRONIC STAGE 3 PRESSURE INJURY PRESSURE ULCER ACQUIRED ON 03/04/2024 AND HAS RECEIVED A STATUS OF NOT HEALED. INITIAL WOUND ENCOUNTER MEASUREMENTS ARE 5.5CM LENGTH X 1.7CM WIDTH X 0.2 CM DEPTH, WITH AN AREA OF 9.35 SQ CM AND A VOLUME OF 1.87 CUBIC CM.INITIAL WOUND ENCOUNTER PREVIOUS MEASUREMENTS FROM 10/23/2024 ARE 4.5CM LENGTH X 3CM WIDTH X 0.3CM DEPTH, WITH AN AREA OF 13.5 SQ CM AND A VOLUME OF 4.05 CUBIC CM. ADIPOSE IS EXPOSED. NO TUNNELING HAS BEEN NOTED. NO SINUS TRACT HAS BEEN NOTED. NO UNDERMINING HAS BEEN NOTED. THERE IS A MODERATE AMOUNT OF SEROSANGUINEOUS DRAINAGE NOTED WHICH HAS NO ODOR. THE PATIENT REPORTS A WOUND PAIN OF LEVEL 4/10. THE WOUND MARGIN IS ROLLED WOUND BED HAS YES, BRIGHT RED, FIRM, GRANULATION, YES SLOUGH, NO ESCHAR, NO EPITHELIALIZATION. THE PERIWOUND SKIN EXHIBITED EDEMA. THE TEMPERATURE OF THE PERIWOUND SKIN IS WNL. PERIWOUND SKIN DOES NOT EXHIBIT SIGNS OR SYMPTOMS OF INFECTION. LOCAL PULSE IS N/A. ADDITIONAL INFORMATION OTHER DEVITALIZED TISSUE PRESENT: BIOFILM WOUND #12 LEFT FINGER - FOURTH IS AN ACUTE FULL THICKNESS ABSCESS ACQUIRED ON 10/20/2024 AND HAS RECEIVED A STATUS OF NOT HEALED. INITIAL WOUND ENCOUNTER MEASUREMENTS ARE 0.5CM LENGTH X 0.2CM WIDTH X 0.1 CM DEPTH, WITH AN AREA OF 0.1 SQ CM AND A VOLUME OF 0.01 CUBIC CM.INITIAL WOUND ENCOUNTER PREVIOUS MEASUREMENTS FROM 10/23/2024 ARE 0.8CM LENGTH X 0.4CM WIDTH X 0.1CM DEPTH, WITH AN AREA OF 0.32 SQ CM AND A VOLUME OF 0.032 CUBIC CM. ADIPOSE IS EXPOSED. NO TUNNELING HAS BEEN NOTED. NO SINUS TRACT HAS BEEN NOTED. NO UNDERMINING HAS BEEN NOTED. THERE IS A MODERATE AMOUNT OF PURULENT DRAINAGE NOTED WHICH HAS NO ODOR. THE PATIENT REPORTS A WOUND PAIN OF LEVEL 6/10. THE WOUND MARGIN IS ATTACHED WOUND BED HAS NO, GRANULATION, YES SLOUGH, NO ESCHAR, NO EPITHELIALIZATION. THE PERIWOUND SKIN EXHIBITED EDEMA AND ERYTHEMA. THE TEMPERATURE OF THE PERIWOUND SKIN IS WARM. PERIWOUND SKIN DOES NOT EXHIBIT SIGNS OR SYMPTOMS OF INFECTION. LOCAL PULSE IS PALPABLE. 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 (ENCOUNTER DIAGNOSIS) E66.01 - MORBID (SEVERE) OBESITY DUE TO EXCESS CALORIES (ENCOUNTER DIAGNOSIS) L89.893 - PRESSURE ULCER OF OTHER SITE, STAGE 3 (ENCOUNTER DIAGNOSIS) L03.012 - CELLULITIS OF LEFT FINGER GENERAL NOTES PRESSURE ULCERS POSTERIOR MEDIAL ASPECTS OF BOTH THIGHS ASSOCIATED WITH OBESITY, IMMOBILITY, AND LARGE AVMS, RIGHT SIDE APPEARS TO BE STABLE, LEFT SIDE STABLE PARONYCHIA LEFT INDEX FINGER MUCH IMPROVED THE FOLLOWING FACTORS HAVE BEEN IDENTIFIED THAT MAY AFFECT WOUND HEALING: DEVITALIZED TISSUE BIOFILM AVMS OBESITY IMMOBILITY PURNIMA GONZALES [id number] 1955 ANEMIA COPD PRESSURE IMMUNE SUPPRESSION GOALS: REMOVE DEVITALIZED TISSUE REMOVE AND PREVENT BIOFILM PREVENT INFECTION REDUCE PRESSURE PLAN: DEBRIDEMENT, CONTINUE PALLIATIVE DRESSING CHANGES WITH ADAPTIC AND HYDROFERA BLUE ON THE LEFT, XEROFORM GAUZE ON THE RIGHT, CONTINUE USING ROHO CUSHION FOR PRESSURE OFFLOADING. SOAK LEFT INDEX FINGER AND WARM WATER 3 TIMES A DAY THEN PAINT WITH BETADINE. FOLLOW UP IN 2 WEEKS FOR A RECHECK. PROCEDURES WOUND #11 WOUND #11 (PRESSURE ULCER) IS LOCATED ON THE RIGHT, POSTERIOR LEG - THIGH. A SKIN/SUBCUTANEOUS TISSUE LEVEL SURGICAL DEBRIDEMENT WITH A TOTAL AREA DEBRIDED OF 9.35 SQ CM. WAS PERFORMED BY IVETTE GORMAN MD. SUBCUTANEOUS WAS REMOVED ALONG WITH DEVITALIZED TISSUE: BIOFILM AND SLOUGH. THE FOLLOWING INSTRUMENT(S) WERE USED: CURETTE. PAIN CONTROL WAS ACHIEVED USING EMLA LIDOCAINE/PRILOCAINE 2.5%/2.5%. A TIME OUT WAS CONDUCTED PRIOR TO THE START OF THE PROCEDURE. A MINIMAL AMOUNT OF BLEEDING WAS CONTROLLED WITH PRESSURE. THE PROCEDURE WAS TOLERATED WELL WITH A PAIN LEVEL OF 0 THROUGHOUT AND A PAIN LEVEL OF 0 FOLLOWING THE PROCEDURE. POST DEBRIDEMENT MEASUREMENTS: 5.5CM LENGTH X 1.7CM WIDTH X 0.3CM DEPTH; WITH AN AREA OF 9.35 SQ CM AND A VOLUME OF 2.805 CUBIC CM. ADDITIONAL INFORMATION MUSCLE FASCIA OR BONE REMOVED AND SENT TO PATHOLOGY?: NO PLAN WOUND ORDERS: WOUND #10 LEFT LEG - THIGH HAND HYGIENE HAND HYGIENE - WASH HANDS BEFORE AND AFTER WOUND CARE. CALL THE WOUND CENTER AT [phone] IF YOU HAVE SIGNS OR SYMPTOMS OF INFECTION, FEVER CHILLS OR SHAKES, INCREASED DRAINAGE, INCREASED ODOR OR UNUSUAL REDNESS. AFTER WOUND CENTER HOURS PLEASE NOTIFY YOUR PCP OR GO TO THE EMERGENCY ROOM. CLEANSER CLEANSE WOUND AND ANOOP WOUND WITH A NON-CYTOTOXIC WOUND CLEANSER. - VASHE. PROCEDURE / ANESTHETIC 5% TOPICAL LIDOCAINE TO WOUND BED PRIOR TO PROCEDURE, IN CLINIC ONLY. DRESSING ORDERS APPLY DRESSING(S) AND SECURE WITH: - HYDROFERA BLUE, SILICONE BORDER FOAM. HYDROFERA BLUE READY BORDER FOAM ORDERED FOR HOME USE. DRESSING CHANGE FREQUENCY CHANGE DRESSING EVERY OTHER DAY. WOUND #11 RIGHT, POSTERIOR LEG - THIGH HAND HYGIENE HAND HYGIENE - WASH HANDS BEFORE AND AFTER WOUND CARE. CALL THE WOUND CENTER AT [phone] IF YOU HAVE SIGNS OR SYMPTOMS OF INFECTION, FEVER CHILLS OR SHAKES, INCREASED DRAINAGE, INCREASED ODOR OR UNUSUAL REDNESS. AFTER WOUND CENTER HOURS PLEASE NOTIFY YOUR PCP OR GO TO THE EMERGENCY ROOM. CHHAYA PURNIMA GONZALES [id number] 1955 CLEANSE WOUND AND ANOOP WOUND WITH A NON-CYTOTOXIC WOUND CLEANSER. - VASHE. PROCEDURE / ANESTHETIC 5% TOPICAL LIDOCAINE TO WOUND BED PRIOR TO PROCEDURE, IN CLINIC ONLY. DRESSING ORDERS APPLY DRESSING(S) AND SECURE WITH: - XEROFORM, SILICONE SUPER ABSORBENT BORDER FOAM. PATIENT'S PERSONAL MACIEL WRAP TO REINFORCE. DRESSING CHANGE FREQUENCY CHANGE DRESSING EVERY OTHER DAY. WOUND #12 LEFT FINGER - SUPERVISOR CLEANING AND ANNEALING HYGIENE HAND HYGIENE - WASH HANDS BEFORE AND AFTER WOUND CARE. CALL THE WOUND CENTER AT [phone] IF YOU HAVE SIGNS OR SYMPTOMS OF INFECTION, FEVER CHILLS OR SHAKES, INCREASED DRAINAGE, INCREASED ODOR OR UNUSUAL REDNESS. AFTER WOUND CENTER HOURS PLEASE NOTIFY YOUR PCP OR GO TO THE EMERGENCY ROOM. CLEANSER CLEANSE WOUND AND ANOOP WOUND WITH A NON-CYTOTOXIC WOUND CLEANSER. - VASHE. PROCEDURE / ANESTHETIC 5% TOPICAL LIDOCAINE TO WOUND BED PRIOR TO PROCEDURE, IN CLINIC ONLY. TOPICAL TREATMENTS APPLY ANTIBIOTIC/ANTIMICROBIAL OINTMENT/CREAM TO THE WOUND BED. - BETADINE, LET DRY, LEAVE OPEN TO AIR. DRESSING CHANGE FREQUENCY CHANGE DRESSING DAILY. - APPLY BETADINE DAILY. ADDITIONAL ORDERS: OFF-LOADING / PRESSURE RELIEF WHEELCHAIR CUSHION. - ROHO CUSHION. SEAT LIFTS OR SHIFT POSITION IN CHAIR EVERY 15 MINUTES. TURN EVERY 2 HOURS. AVOID POSITION DIRECTING PRESSURE TO WOUND SITE. LIMIT SIDE LYING TO 30 DEGREE TILT. LIMIT HOB ELEVATION TO 30 DEGREES IN BED. DIETARY TAKE VITAMIN C 1000MG BY MOUTH DAILY. TAKE ZINC 25MG BY MOUTH DAILY. FOLLOW A DIABETIC DIET. INCREASE THE PROTEIN IN YOUR DIET. FOLLOW-UP APPOINTMENTS RETURN APPOINTMENT 2 WEEKS SCRIBING ATTESTATION I ATTEST, THE NURSE, THAT I SCRIBED THESE ORDERS FOR THE WOUND CARE PROVIDER. PROVIDER REVIEW AND ATTESTATION: REVIEWED AND EVALUATED LABS. REVIEWED HOSPITAL RECORDS. DISCUSSED THE PLAN OF CARE @ BEDSIDE WITH - THE PATIENT PLACE PATIENT ON PALLIATIVE CARE DUE TO: - MASSIVE AVM'S, IMMOBILITY, CHRONIC DISEASE I AGREE AND ATTEST TO THE ABOVE INFORMATION PROVIDED FROM OTHER LICENSED PROFESSIONALS. PLAN OF CARE: 01. ENSURE/ESTABLISH OPTIMAL BLOOD FLOW : - REVIEWED, NOT APPLICABLE 02. ASSESS FOR/TREAT INFECTION : - EVALUATE FOR SIGNS AND SYMPTOMS OF INFECTION AND DOCUMENT FINDINGS. STATUS: CONTINUED DATE: 11/04/2024 03. DEBRIDE WEEKLY OR MORE OFTEN PRN : - EVALUATE PATIENT IN CENTER WEEKLY TO ASSESS WOUND BED AND MARGINS FOR NEED FOR DEBRIDEMENT. STATUS: CONTINUED DATE: 11/04/2024 04. OPTIMIZE GLUCOSE CONTROL AND NUTRITION : - ORDER/REVIEW PERTINENT LABS TO EVALUATE RENAL FUNCTION, GLUCOSE CONTROL, AND NUTRITIONAL STATUS. STATUS: CONTINUED DATE: 11/04/2024 05. OFFLOADING PLAN : - EVALUATE PLAN FOR OFFLOADING - PRESSURE RELIEF - ROHO CUSHION. PURNIMA GONZALES [id number] 1955 STATUS: CONTINUED DATE: 11/04/2024 06. OPTIMIZE HOST FACTORS: - ASSESS AND REVIEW PATIENT HISTORY FOR WOUND ETIOLOGY, CO-MORBID CONDITIONS, MEDICATION REGIME, AND SMOKING HISTORY. STATUS: CONTINUED DATE: 11/04/2024 07. DRESSING SELECTION : - EVALUATE FOR DRESSING-RELATED FACTORS, SUCH AVAILABILITY, WEAR TIME, ADAPTABILITY AND USE TO BETTER OPTIMIZE WOUND HEALING AND PATIENT COMPLIANCE. STATUS: CONTINUED DATE: 11/04/2024 08. ADVANCED MODALITIES : - SET TREATMENT GOALS ACCORDING TO PATIENT AND/OR CAREGIVER?S ABILITY/ COMPLIANCE. STATUS: CONTINUED DATE: 11/04/2024 09. FALL PREVENTION : - COMPLETE FALL ASSESSMENT. STATUS: COMPLETED DATE: 10/09/2024 10. PAIN MANAGEMENT : - COMPLETE PAIN ASSESSMENT STATUS: COMPLETED DATE: 10/09/2024 11. MEASURABLE GOALS FOR WOUND HEALING AND/OR HYPERBARIC OXYGEN THERAPY : - IMPROVE QUALITY OF LIFE STATUS: CONTINUED DATE: 11/04/2024 12. DURATION/FREQUENCY OF WOUND CARE VISITS : - 2X MONTHLY FOR NEXT 30 DAYS STATUS: CONTINUED DATE: 11/04/2024 ELECTRONIC SIGNATURE(S) SIGNED BY: DATE: IVETTE GORMAN MD 11/05/2024 16:19:23 (PT) ENTERED BY: IVETTE GORMAN MD ON 11/04/2024 16:09:55 (PT) PURNIMA GONZALES [id number] 1955
== END ==
LOC: WC 14:07
PROVIDERS: PCP Internal Medicine; Referring Provider Surgery Vascular Surgery; Visit Provider Surgery
DX: L89.893 Pressure ulcer of other site, stage 3 (principal); Q27.32 Arteriovenous malformation of vessel of lower limb; L03.012 Cellulitis of left finger; L53.8 Other specified erythematous conditions; E66.01 Morbid (severe) obesity due to excess calories; Z87.891 Personal history of nicotine dependence
CPT/HCPCS: 11042; 99213

== ENCOUNTER → 2024-11-20 14:03 | Outpatient (CLI) | payer OTHER, SELFPAY ==
[2024-08-21 16:03] VITALS: PULSE 101; RESP 18; O2SAT 94
[2024-08-21 18:06] VITALS: BMI 52.0
--- NOTE | 2024-11-20 | OV.WND_ITS ---
PROGRESS NOTE DETAILS PATIENT NAME: PURNIMA GONZALES PATIENT NUMBER: [id number] CLINICIAN: MACY GALARZA RN PATIENT DATE OF : 1955 PHYSICIAN / JUNIOR ESTIMATOR: IVETTE GORMAN PATIENT SUBJECTIVE CHIEF COMPLAINT THIS INFORMATION WAS OBTAINED FROM THE PATIENT. PAIN OF 3 OR 4 (OUT OF 10) GENERAL NOTES : PRESSURE ULCERS OF BILATERAL THIGHS AND ABSCESS OF LEFT FOURTH FINGER. ALLERGIES NO KNOWN ALLERGIES HPI THIS INFORMATION WAS OBTAINED FROM THE PATIENT. THE FOLLOWING HPI ELEMENTS WERE DOCUMENTED FOR THE PATIENT'S WOUND: LOCATION: BILAT POSTERIOR UPPER THIGHS DURATION: R 03/04/24, L 07/24/24 CONTEXT: PRESSURE THE PATIENT IS A 68 YEAR OLD MALE WITH LARGE AVMS INVOLVING THE POSTERIOR MEDIAL UPPER THIGHS, DIABETES TYPE 2, MORBID OBESITY, HTN, HLD, ANEMIA, AND COPD WHO RETURNS TODAY FOR FOLLOW UP OF CHRONIC ULCERS OF THE POSTERIOR THIGHS AND PARONYCHIA LEFT INDEX FINGER. THE PATIENT HAD BEEN RECEIVING PALLIATIVE WOUND CARE CONSISTING OF DRESSING CHANGES WITH HYDROFERA BLUE AND ADAPTIC. HE HAS RECENTLY COMPLETED A 1 WEEK COURSE OF KEFLEX. THE PATIENT HAS PREVIOUSLY HAD MULTIPLE PROCEDURES FOR TREATMENT OF THE AVMS. PATIENT IS PRIMARILY NON AMBULATORY AND USES WHEELCHAIR. HE HAS CHRONIC SOB AND IS CURRENTLY 3L OF OXYGEN. THE PATIENT REPORTS THAT THE PAIN IS UNCHANGED BUT HE IS STILL OCCASIONALLY HAVING SOME SEROSANGUINEOUS DRAINAGE. HE HAS BEEN USING A ROHO CUSHION FOR PRESSURE OFFLOADING. HE DENIES FEVERS OR CHILLS OR CHANGES TO UNDERLYING HEALTH. HE HAS RECENTLY STARTED OZEMPIC AND REPORTS THAT HIS APPETITE IS DECREASED. HE HAS BEEN RECEIVING IRON INFUSIONS FOR TREATMENT OF HIS ANEMIA. ON EXAM TODAY THE SCATTERED ULCERS ON THE RIGHT ARE SLIGHTLY IMPROVED. THE ULCER ON THE LEFT ARE ALSO STABLE, NO SIGN OF INFECTION. PARONYCHIA LEFT INDEX FINGER MUCH IMPROVED BUT THE FINGER IS OIM ARCHITECT. LABS: 08/24/24: WBC 5.8, HEMOGLOBIN 9.5, HCT 30.1, GFR GREATER THAN 60 04/04/24: CULTURE MODERATE STAPH AUREUS, RX KEFLEX 10/08/23: A1C 6.0, WBC 9.1, HEMOGLOBIN 10.5, HCT 33.2 MEDICAL HISTORY THIS INFORMATION WAS OBTAINED FROM THE PATIENT. PATIENT HAS A MEDICAL HISTORY OF: TYPE II DIABETES IRON DEFICIENCY ANEMIA (ETIOLOGY TBD) PURNIMA GONZALES [id number] 1955 HYPERTENSION (ESSENTIAL, 1994) ADENOMATOUS POLYP OF COLON HYPERLIPIDEMIA MORBID OBESITY (RESTRICTIVE LUNG DISEASE) CHICKEN POX CHRONIC BACK PAIN CONSTIPATION ENLARGED PROSTATE HEMMORRHOID (1999) NEPHROLITHIASIS (HISTORY OF, 1999) MEASLES MUMPS SLEEP APNEA CHRONIC OBSTRUCTIVE PULMONARY DISEASE (COPD) DEPRESSION COLON POLYP PENNICULITIS (BILATERAL, POSTERIOR THIGHS) SURGICAL HISTORY THIS INFORMATION WAS OBTAINED FROM THE PATIENT. PATIENT HAS A SURGICAL HISTORY OF: BLADDER STONES- REMOVED- (2016 MULTIPLE TIMES) RIGHT KNEE ALIGNMENT- (1979) TEETH IMPLANTS- (2018) OBJECTIVE VITALS HEIGHT/LENGTH: 69 IN (175.26 CM), WEIGHT: 335.8 LBS (152.64 KGS), BMI: 49.6, TEMPERATURE: 97.8 ?F (36.56 ?C), PULSE: 97 BPM, RESPIRATORY RATE: 20 BREATHS/MIN, BLOOD PRESSURE: 111/59 MMHG, PULSE OXIMETRY: 94 %. GENERAL NOTES 3L O2 NC PHYSICAL EXAM CONSTITUTIONAL: VITAL SIGNS REVIEWED AND NOTED. OBESE, WELL NOURISHED, AND IN NO ACUTE DISTRESS. ALERT AND ORIENTED X3. RESPIRATORY: EVEN RESPIRATIONS WITHOUT USE OF ACCESSORY MUSCLES. NO INTERCOASTAL RETRACTIONS NOTED. EVEN AND NON LABORED RESPIRATION. INTEGUMENTARY (HAIR, SKIN): MASSIVE AVM'S POSTERIOR THIGHS, NO ERYTHEMA . NO SWELLING OR TENDERNESS. SEE WOUND ASSESSMENT. SKIN WARM AND DRY. NO RASHES. NEUROLOGICAL: SENSATION: SYMMETRIC FUNCTION BY INFORMAL OBSERVATION. PSYCHIATRIC: ORIENTATION TO TIME, PLACE AND PERSON: NORMAL AFFECT WITH NORMAL THOUGHT PATTERN. ADDITIONAL INFORMATION THE PATIENT'S POTENTIAL TO HEAL IS: POOR. PURNIMA GONZALES [id number] 1955 WOUND ASSESSMENT(S) WOUND #10 LEFT LEG - THIGH IS A CHRONIC STAGE 3 PRESSURE INJURY PRESSURE ULCER ACQUIRED ON 07/24/2024 AND HAS RECEIVED A STATUS OF NOT HEALED. INITIAL WOUND ENCOUNTER MEASUREMENTS ARE 0.4CM LENGTH X 0.6CM WIDTH X 0.8 CM DEPTH, WITH AN AREA OF 0.24 SQ CM AND A VOLUME OF 0.192 CUBIC CM.INITIAL WOUND ENCOUNTER PREVIOUS MEASUREMENTS FROM 11/04/2024 ARE 0.7CM LENGTH X 0.6CM WIDTH X 0.7CM DEPTH, WITH AN AREA OF 0.42 SQ CM AND A VOLUME OF 0.294 CUBIC CM. ADIPOSE IS EXPOSED. NO TUNNELING HAS BEEN NOTED. NO SINUS TRACT HAS BEEN NOTED. UNDERMINING HAS BEEN NOTED AT 12:00 AND ENDS AT 12:00 WITH A MAXIMUM DISTANCE OF 0.4CM. THERE IS A MODERATE AMOUNT OF SEROSANGUINEOUS DRAINAGE NOTED WHICH HAS NO ODOR. THE PATIENT REPORTS A WOUND PAIN OF LEVEL 0/10. THE WOUND MARGIN IS UNATTACHED WOUND BED HAS YES, BRIGHT RED, PINK, FIRM, GRANULATION, YES SLOUGH, NO ESCHAR, NO EPITHELIALIZATION. THE PERIWOUND SKIN EXHIBITED ECCHYMOSIS. THE PERIWOUND SKIN DID NOT EXHIBIT ATROPHIE MUNDO, CYANOSIS, ERYTHEMA, HEMOSIDEROSIS, PALLOR AND RUBOR. THE TEMPERATURE OF THE PERIWOUND SKIN IS WNL. PERIWOUND SKIN DOES NOT EXHIBIT SIGNS OR SYMPTOMS OF INFECTION. LOCAL PULSE IS N/A. ADDITIONAL INFORMATION OTHER DEVITALIZED TISSUE PRESENT: BIOFILM WOUND #11 RIGHT, POSTERIOR LEG - THIGH IS A CHRONIC STAGE 3 PRESSURE INJURY PRESSURE ULCER ACQUIRED ON 03/04/2024 AND HAS RECEIVED A STATUS OF NOT HEALED. INITIAL WOUND ENCOUNTER MEASUREMENTS ARE 1.5CM LENGTH X 1.6CM WIDTH X 0.1 CM DEPTH, WITH AN AREA OF 2.4 SQ CM AND A VOLUME OF 0.24 CUBIC CM.INITIAL WOUND ENCOUNTER PREVIOUS MEASUREMENTS FROM 11/04/2024 ARE 5.5CM LENGTH X 1.7CM WIDTH X 0.2CM DEPTH, WITH AN AREA OF 9.35 SQ CM AND A VOLUME OF 1.87 CUBIC CM. ADIPOSE IS EXPOSED. NO TUNNELING HAS BEEN NOTED. NO SINUS TRACT HAS BEEN NOTED. NO UNDERMINING HAS BEEN NOTED. THERE IS A MODERATE AMOUNT OF SEROSANGUINEOUS DRAINAGE NOTED WHICH HAS NO ODOR. THE PATIENT REPORTS A WOUND PAIN OF LEVEL 4/10. THE WOUND MARGIN IS ROLLED WOUND BED HAS YES, BRIGHT RED, FIRM, GRANULATION, YES SLOUGH, NO ESCHAR, NO EPITHELIALIZATION. THE PERIWOUND SKIN EXHIBITED EDEMA. THE TEMPERATURE OF THE PERIWOUND SKIN IS WNL. PERIWOUND SKIN DOES NOT EXHIBIT SIGNS OR SYMPTOMS OF INFECTION. LOCAL PULSE IS N/A. GENERAL NOTES LARGEST WOUND MEASURED. 3 SATELLITE ULCERS. ADDITIONAL INFORMATION OTHER DEVITALIZED TISSUE PRESENT: BIOFILM WOUND #12 LEFT FINGER - FOURTH IS AN ACUTE FULL THICKNESS ABSCESS ACQUIRED ON 10/20/2024 AND HAS RECEIVED A STATUS OF NOT HEALED. INITIAL WOUND ENCOUNTER MEASUREMENTS ARE 0.4CM LENGTH X 0.2CM WIDTH X 0.1 CM DEPTH, WITH AN AREA OF 0.08 SQ CM AND A VOLUME OF 0.008 CUBIC CM.INITIAL WOUND ENCOUNTER PREVIOUS MEASUREMENTS FROM 11/04/2024 ARE 0.5CM LENGTH X 0.2CM WIDTH X 0.1CM DEPTH, WITH AN AREA OF 0.1 SQ CM AND A VOLUME OF 0.01 CUBIC CM. ADIPOSE IS EXPOSED. NO TUNNELING HAS BEEN NOTED. NO SINUS TRACT HAS BEEN NOTED. NO UNDERMINING HAS BEEN NOTED. THERE IS A SCANT AMOUNT OF PURULENT DRAINAGE NOTED WHICH HAS NO ODOR. THE PATIENT REPORTS A WOUND PAIN OF LEVEL 6/10. THE WOUND MARGIN IS ATTACHED WOUND BED HAS NO, GRANULATION, YES SLOUGH, NO ESCHAR, NO EPITHELIALIZATION. THE PERIWOUND SKIN EXHIBITED EDEMA AND ERYTHEMA. THE PERIWOUND SKIN DID NOT EXHIBIT BRAWNY INDURATION, EXCORIATION, INDURATION, CALLUS, CREPITUS, FLUCTUANCE, RASH, ATROPHIE MUNDO, CYANOSIS, ECCHYMOSIS, HEMOSIDEROSIS, PALLOR AND RUBOR. THE PERIWOUND SKIN WAS NOT FRIABLE. THE TEMPERATURE OF THE PERIWOUND SKIN IS WARM. PERIWOUND SKIN DOES NOT EXHIBIT SIGNS OR SYMPTOMS OF INFECTION. LOCAL PULSE IS PALPABLE. 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 (ENCOUNTER DIAGNOSIS) E66.01 - MORBID (SEVERE) OBESITY DUE TO EXCESS CALORIES (ENCOUNTER DIAGNOSIS) L89.893 - PRESSURE ULCER OF OTHER SITE, STAGE 3 (ENCOUNTER DIAGNOSIS) L03.012 - CELLULITIS OF LEFT FINGER GENERAL NOTES PRESSURE ULCERS POSTERIOR MEDIAL ASPECTS OF BOTH THIGHS ASSOCIATED WITH OBESITY, IMMOBILITY, AND LARGE AVMS, RIGHT SIDE SLIGHTLY IMPROVED, LEFT SIDE STABLE PARONYCHIA LEFT INDEX FINGER MUCH IMPROVED THE FOLLOWING FACTORS HAVE BEEN IDENTIFIED THAT MAY AFFECT WOUND HEALING: DEVITALIZED TISSUE BIOFILM AVMS OBESITY IMMOBILITY ANEMIA COPD PRESSURE IMMUNE SUPPRESSION GOALS: REMOVE DEVITALIZED TISSUE REMOVE AND PREVENT BIOFILM PREVENT INFECTION REDUCE PRESSURE PLAN: DEBRIDEMENT, CONTINUE PALLIATIVE DRESSING CHANGES WITH ADAPTIC AND HYDROFERA BLUE ON THE LEFT, XEROFORM GAUZE ON THE RIGHT, CONTINUE USING ROHO CUSHION FOR PRESSURE OFFLOADING. SOAK LEFT INDEX FINGER AND WARM WATER 3 TIMES A DAY THEN PAINT WITH BETADINE. FOLLOW UP IN 3 WEEKS FOR A RECHECK. PROCEDURES WOUND #10 WOUND #10 (PRESSURE ULCER) IS LOCATED ON THE LEFT LEG - THIGH. A SKIN/SUBCUTANEOUS TISSUE LEVEL SURGICAL DEBRIDEMENT WITH A TOTAL AREA DEBRIDED OF 0.24 SQ CM. WAS PERFORMED BY IVETTE GORMAN MD. SUBCUTANEOUS WAS REMOVED ALONG WITH DEVITALIZED TISSUE: BIOFILM, EXUDATE AND SLOUGH. THE FOLLOWING INSTRUMENT(S) WERE USED: CURETTE. PAIN CONTROL WAS ACHIEVED USING EMLA LIDOCAINE/PRILOCAINE 2.5%/2.5%. A TIME OUT WAS CONDUCTED PRIOR TO THE START OF THE PROCEDURE. A MODERATE AMOUNT OF BLEEDING WAS CONTROLLED WITH SILVER NITRATE. THE PROCEDURE WAS TOLERATED WELL WITH A PAIN LEVEL OF 0 THROUGHOUT AND A PAIN LEVEL OF 0 FOLLOWING THE PROCEDURE. POST DEBRIDEMENT MEASUREMENTS: 0.4CM LENGTH X 0.6CM WIDTH X 0.9CM DEPTH; WITH AN AREA OF 0.24 SQ CM AND A VOLUME OF 0.216 CUBIC CM. WOUND #11 WOUND #11 (PRESSURE ULCER) IS LOCATED ON THE RIGHT, POSTERIOR LEG - THIGH. A SKIN/SUBCUTANEOUS TISSUE LEVEL SURGICAL DEBRIDEMENT WITH A TOTAL AREA DEBRIDED OF 2.4 SQ CM. WAS PERFORMED BY IVETTE GORMAN MD. SUBCUTANEOUS WAS REMOVED ALONG WITH DEVITALIZED TISSUE: BIOFILM, EXUDATE AND SLOUGH. THE FOLLOWING INSTRUMENT(S) WERE USED: CURETTE. PAIN CONTROL WAS ACHIEVED USING EMLA LIDOCAINE/PRILOCAINE 2.5%/2.5%. A TIME OUT WAS CONDUCTED PRIOR TO THE START OF THE PROCEDURE. A MODERATE AMOUNT OF BLEEDING WAS CONTROLLED WITH SILVER NITRATE. THE PROCEDURE WAS TOLERATED WELL WITH A PAIN LEVEL OF 0 THROUGHOUT AND A PAIN LEVEL OF 0 FOLLOWING THE PROCEDURE. POST DEBRIDEMENT MEASUREMENTS: 1.5CM LENGTH X 1.6CM WIDTH X 0.2CM DEPTH; WITH AN AREA OF 2.4 SQ CM AND A VOLUME OF 0.48 CUBIC CM. PURNIMA GONZALES [id number] 1955 ADDITIONAL INFORMATION MUSCLE FASCIA OR BONE REMOVED AND SENT TO PATHOLOGY?: NO PLAN WOUND ORDERS: WOUND #10 LEFT LEG - THIGH HAND HYGIENE HAND HYGIENE - WASH HANDS BEFORE AND AFTER WOUND CARE. CALL THE WOUND CENTER AT [phone] IF YOU HAVE SIGNS OR SYMPTOMS OF INFECTION, FEVER CHILLS OR SHAKES, INCREASED DRAINAGE, INCREASED ODOR OR UNUSUAL REDNESS. AFTER WOUND CENTER HOURS PLEASE NOTIFY YOUR PCP OR GO TO THE EMERGENCY ROOM. CLEANSER CLEANSE WOUND AND ANOOP WOUND WITH A NON-CYTOTOXIC WOUND CLEANSER. - VASHE. PROCEDURE / ANESTHETIC 5% TOPICAL LIDOCAINE TO WOUND BED PRIOR TO PROCEDURE, IN CLINIC ONLY. DRESSING ORDERS APPLY DRESSING(S) AND SECURE WITH: - HYDROFERA BLUE, SILICONE BORDER FOAM. HYDROFERA BLUE READY BORDER FOAM ORDERED FOR HOME USE. DRESSING CHANGE FREQUENCY CHANGE DRESSING EVERY OTHER DAY. WOUND #11 RIGHT, POSTERIOR LEG - THIGH HAND HYGIENE HAND HYGIENE - WASH HANDS BEFORE AND AFTER WOUND CARE. CALL THE WOUND CENTER AT [phone] IF YOU HAVE SIGNS OR SYMPTOMS OF INFECTION, FEVER CHILLS OR SHAKES, INCREASED DRAINAGE, INCREASED ODOR OR UNUSUAL REDNESS. AFTER WOUND CENTER HOURS PLEASE NOTIFY YOUR PCP OR GO TO THE EMERGENCY ROOM. CLEANSER CLEANSE WOUND AND ANOOP WOUND WITH A NON-CYTOTOXIC WOUND CLEANSER. - VASHE. PROCEDURE / ANESTHETIC 5% TOPICAL LIDOCAINE TO WOUND BED PRIOR TO PROCEDURE, IN CLINIC ONLY. DRESSING ORDERS APPLY DRESSING(S) AND SECURE WITH: - XEROFORM, SILICONE SUPER ABSORBENT BORDER FOAM. PATIENT'S PERSONAL MACIEL WRAP TO REINFORCE. DRESSING CHANGE FREQUENCY CHANGE DRESSING EVERY OTHER DAY. WOUND #12 LEFT FINGER - LINING STUFFER HYGIENE HAND HYGIENE - WASH HANDS BEFORE AND AFTER WOUND CARE. CALL THE WOUND CENTER AT [phone] IF YOU HAVE SIGNS OR SYMPTOMS OF INFECTION, FEVER CHILLS OR SHAKES, INCREASED DRAINAGE, INCREASED ODOR OR UNUSUAL REDNESS. AFTER WOUND CENTER HOURS PLEASE NOTIFY YOUR PCP OR GO TO THE EMERGENCY ROOM. CLEANSER CLEANSE WOUND AND ANOOP WOUND WITH A NON-CYTOTOXIC WOUND CLEANSER. - VASHE. PROCEDURE / ANESTHETIC 5% TOPICAL LIDOCAINE TO WOUND BED PRIOR TO PROCEDURE, IN CLINIC ONLY. TOPICAL TREATMENTS APPLY ANTIBIOTIC/ANTIMICROBIAL OINTMENT/CREAM TO THE WOUND BED. - BETADINE, LET DRY, LEAVE OPEN TO AIR. DRESSING CHANGE FREQUENCY CHANGE DRESSING DAILY. - APPLY BETADINE DAILY. ADDITIONAL ORDERS: OFF-LOADING / PRESSURE RELIEF WHEELCHAIR CUSHION. - ROHO CUSHION. SEAT LIFTS OR SHIFT POSITION IN CHAIR EVERY 15 MINUTES. TURN EVERY 2 HOURS. AVOID POSITION DIRECTING PRESSURE TO WOUND SITE. LIMIT SIDE LYING TO 30 DEGREE TILT. LIMIT HOB ELEVATION TO 30 DEGREES IN BED. DIETARY TAKE VITAMIN C 1000MG BY MOUTH DAILY. TAKE ZINC 25MG BY MOUTH DAILY. PURNIMA GONZALES [id number] 1955 FOLLOW A DIABETIC DIET. INCREASE THE PROTEIN IN YOUR DIET. FOLLOW-UP APPOINTMENTS RETURN APPOINTMENT 3 WEEKS SCRIBING ATTESTATION I ATTEST, THE NURSE, THAT I SCRIBED THESE ORDERS FOR THE WOUND CARE PROVIDER. PROVIDER REVIEW AND ATTESTATION: REVIEWED AND EVALUATED LABS. REVIEWED HOSPITAL RECORDS. DISCUSSED THE PLAN OF CARE @ BEDSIDE WITH - THE PATIENT PLACE PATIENT ON PALLIATIVE CARE DUE TO: - MASSIVE AVM'S, IMMOBILITY, CHRONIC DISEASE I AGREE AND ATTEST TO THE ABOVE INFORMATION PROVIDED FROM OTHER LICENSED PROFESSIONALS. PLAN OF CARE: 01. ENSURE/ESTABLISH OPTIMAL BLOOD FLOW : - REVIEWED, NOT APPLICABLE 02. ASSESS FOR/TREAT INFECTION : - EVALUATE FOR SIGNS AND SYMPTOMS OF INFECTION AND DOCUMENT FINDINGS. STATUS: CONTINUED DATE: 11/04/2024 03. DEBRIDE WEEKLY OR MORE OFTEN PRN : - EVALUATE PATIENT IN CENTER WEEKLY TO ASSESS WOUND BED AND MARGINS FOR NEED FOR DEBRIDEMENT. STATUS: CONTINUED DATE: 11/04/2024 04. OPTIMIZE GLUCOSE CONTROL AND NUTRITION : - ORDER/REVIEW PERTINENT LABS TO EVALUATE RENAL FUNCTION, GLUCOSE CONTROL, AND NUTRITIONAL STATUS. STATUS: CONTINUED DATE: 11/04/2024 05. OFFLOADING PLAN : - EVALUATE PLAN FOR OFFLOADING - PRESSURE RELIEF - ROHO CUSHION. STATUS: CONTINUED DATE: 11/04/2024 06. OPTIMIZE HOST FACTORS: - ASSESS AND REVIEW PATIENT HISTORY FOR WOUND ETIOLOGY, CO-MORBID CONDITIONS, MEDICATION REGIME, AND SMOKING HISTORY. STATUS: CONTINUED DATE: 11/04/2024 07. DRESSING SELECTION : - EVALUATE FOR DRESSING-RELATED FACTORS, SUCH AVAILABILITY, WEAR TIME, ADAPTABILITY AND USE TO BETTER OPTIMIZE WOUND HEALING AND PATIENT COMPLIANCE. STATUS: CONTINUED DATE: 11/04/2024 08. ADVANCED MODALITIES : - SET TREATMENT GOALS ACCORDING TO PATIENT AND/OR CAREGIVER?S ABILITY/ COMPLIANCE. STATUS: CONTINUED DATE: 11/04/2024 09. FALL PREVENTION : - COMPLETE FALL ASSESSMENT. STATUS: COMPLETED DATE: 10/09/2024 10. PAIN MANAGEMENT : - COMPLETE PAIN ASSESSMENT STATUS: COMPLETED DATE: 10/09/2024 11. MEASURABLE GOALS FOR WOUND HEALING AND/OR HYPERBARIC OXYGEN THERAPY : - IMPROVE QUALITY OF LIFE STATUS: CONTINUED DATE: 11/04/2024 12. DURATION/FREQUENCY OF WOUND CARE VISITS : - 2X MONTHLY FOR NEXT 30 DAYS STATUS: CONTINUED DATE: 11/04/2024 PURNIMA GONZALES [id number] 1955 ELECTRONIC SIGNATURE(S) SIGNED BY: DATE: IVETTE GORMAN MD 11/20/2024 16:18:43 (PT) ENTERED BY: IVETTE GORMAN MD ON 11/20/2024 16:14:23 (PT) PURNIMA GONZALES [id number] 1955
== END ==
PROVIDERS: PCP Internal Medicine; Referring Provider Internal Medicine; Visit Provider Surgery
DX: L02.512 Cutaneous abscess of left hand (principal); L89.893 Pressure ulcer of other site, stage 3; Q27.32 Arteriovenous malformation of vessel of lower limb; E66.01 Morbid (severe) obesity due to excess calories; R60.0 Localized edema
CPT/HCPCS: 11042

== ENCOUNTER → 2024-12-10 14:41 | Outpatient (CLI) | payer OTHER, SELFPAY ==
[2024-08-21 16:03] VITALS: PULSE 101; RESP 18; O2SAT 94
[2024-08-21 18:06] VITALS: BMI 52.0
== END ==
PROVIDERS: PCP Internal Medicine; Referring Provider Surgery Vascular Surgery; Visit Provider Surgery
DX: L89.893 Pressure ulcer of other site, stage 3 (principal); Q27.32 Arteriovenous malformation of vessel of lower limb; R60.0 Localized edema
CPT/HCPCS: 11042; 99213

== ENCOUNTER → 2024-12-25 14:31 | Outpatient (CLI) | payer OTHER, SELFPAY ==
[2024-08-21 16:03] VITALS: PULSE 101; RESP 18; O2SAT 94
[2024-08-21 18:06] VITALS: BMI 52.0
== END ==
LOC: WC 14:31
PROVIDERS: PCP Internal Medicine; Referring Provider Internal Medicine; Visit Provider Surgery
DX: E11.628 Type 2 diabetes mellitus with other skin complications (principal); L89.893 Pressure ulcer of other site, stage 3; E66.01 Morbid (severe) obesity due to excess calories; Z68.42 Body mass index [BMI] 45.0-49.9, adult
CPT/HCPCS: 11042

== ENCOUNTER → 2025-01-15 14:22 | Outpatient (CLI) | payer OTHER, SELFPAY ==
[2024-08-21 16:03] VITALS: PULSE 101; RESP 18; O2SAT 94
[2024-08-21 18:06] VITALS: BMI 52.0
== END ==
LOC: WC 14:23
PROVIDERS: PCP Internal Medicine; Referring Provider Internal Medicine; Visit Provider Surgery
DX: E11.628 Type 2 diabetes mellitus with other skin complications (principal); L89.893 Pressure ulcer of other site, stage 3; E66.01 Morbid (severe) obesity due to excess calories; Z68.42 Body mass index [BMI] 45.0-49.9, adult; Q27.32 Arteriovenous malformation of vessel of lower limb; D64.9 Anemia, unspecified
CPT/HCPCS: 11042; 11045; 99213

== ENCOUNTER → 2025-02-05 14:21 | Outpatient (CLI) | payer OTHER, SELFPAY ==
[2024-08-21 16:03] VITALS: PULSE 101; RESP 18; O2SAT 94
[2024-08-21 18:06] VITALS: BMI 52.0
== END ==
LOC: WC 14:25
PROVIDERS: PCP Internal Medicine; Referring Provider Internal Medicine; Visit Provider Surgery
DX: L89.893 Pressure ulcer of other site, stage 3 (principal); L02.512 Cutaneous abscess of left hand; L03.012 Cellulitis of left finger; L53.9 Erythematous condition, unspecified; Q27.32 Arteriovenous malformation of vessel of lower limb; E66.01 Morbid (severe) obesity due to excess calories; Z68.42 Body mass index [BMI] 45.0-49.9, adult
CPT/HCPCS: 11042; 11045; 99213

== ENCOUNTER → 2025-02-11 08:48 | Outpatient (CLI) | payer OTHER, SELFPAY ==
[2024-08-21 16:03] VITALS: PULSE 101; RESP 18; O2SAT 94
[2024-08-21 18:06] VITALS: BMI 52.0
[2025-02-11 10:21] LABS: Add Manual Diff / Slide Review NO; Basophils Absolute Auto 100 /uL (0-100); Basophils Percent Auto 0.7 % (0-2); Eosinophils Absolute Auto 200 /uL (0-450); Eosinophils Percent Auto 2.5 % (2-4); Hematocrit 30.9 % (41-53); Hemoglobin 9.6 g/dL (13.5-17.5); Lymphocytes Absolute Auto 700 /uL (1100-4500); Lymphocytes Percent Auto 8.7 % (25-40); Mean Corpuscular HGB Conc 31.1 % (30-36); Mean Corpuscular Hemoglobin 25.9 PG (26-34); Mean Corpuscular Volume 83.4 fL (80-100); Monocytes Absolute Auto 700 /uL (0-900); Neutrophils Absolute Auto 6500 /uL (1500-7000); Neutrophils Percent Auto 79.1 % (50-75); Platelet Count 231 X10^3/uL (150-400); Red Cell Distribution Width 17.8 % (11.6-14.8); White Blood Cell Count 8.3 X10^3/uL (4.5-11.0)
[2025-02-11 10:30] LABS: Hemoglobin A1C% w Est Avg Glu 5.4 % (4.0-6.0)
[2025-02-11 10:34] LABS: HEMOLYSIS < 15 (0-50); Iron 43 ug/dL (49-181)
[2025-02-11 10:41] LABS: Alanine Aminotransferase 13 IU/L (<50); Albumin 3.6 g/dL (3.5-5.0); Albumin Globulin Ratio 1.2 (1.0-2.8); Alkaline Phosphatase 70 U/L (38-126); Aspartate Aminotransferase 19 IU/L (17-59); Bilirubin Total 0.4 mg/dL (0.2-1.3); Blood Urea Nitrogen 24 mg/dL (9-20); Calcium 8.8 mg/dL (8.4-10.2); Chloride 92 mmol/L (98-107); Cholesterol 157 mg/dL (140-199); Estimated Glomerular Filt Rate > 60 mL/min (>60); Globulin 3.1 g/dL (1.7-4.1); Glucose 108 mg/dL (70-99); HDL Cholesterol 59 mg/dL (40-60); HEMOLYSIS < 15 (0-50); LDL Cholesterol Calculated 79 mg/dL (<100); Potassium 4.3 mmol/L (3.4-5.1); Sodium 138 mmol/L (137-145); Total Protein 6.7 g/dL (6.3-8.2); Triglycerides 97 mg/dL (35-150)
[2025-02-11 10:46] LABS: Percent Iron Saturation 14 % (20-50); Total Iron Binding Capacity 309 ug/dL (261-462); Transferrin 249 mg/dL (206-381)
[2025-02-11 10:47] LABS: Carbon Dioxide 38 mmol/L (22-32)
== END ==
PROVIDERS: PCP Internal Medicine; Referring Provider Internal Medicine; Visit Provider Internal Medicine
DX: I10 Essential (primary) hypertension (principal); E78.2 Mixed hyperlipidemia; E11.9 Type 2 diabetes mellitus without complications; D50.9 Iron deficiency anemia, unspecified
CPT/HCPCS: 36415; 80053; 80061; 83036; 83540; 83550; 85025

== ENCOUNTER → 2025-02-26 15:05 | Outpatient (CLI) | payer OTHER, SELFPAY ==
[2024-08-21 16:03] VITALS: PULSE 101; RESP 18; O2SAT 94
[2024-08-21 18:06] VITALS: BMI 52.0
== END ==
LOC: WC 15:29
PROVIDERS: PCP Internal Medicine; Referring Provider Internal Medicine; Visit Provider Surgery
DX: E11.628 Type 2 diabetes mellitus with other skin complications (principal); L89.893 Pressure ulcer of other site, stage 3; R23.4 Changes in skin texture; Z87.2 Personal history of diseases of the skin and subcutaneous tissue; Q27.32 Arteriovenous malformation of vessel of lower limb; E66.01 Morbid (severe) obesity due to excess calories; Z68.42 Body mass index [BMI] 45.0-49.9, adult
CPT/HCPCS: 99213

== ENCOUNTER → 2025-03-19 13:52 | Outpatient (CLI) | payer OTHER, SELFPAY ==
[2024-08-21 16:03] VITALS: PULSE 101; RESP 18; O2SAT 94
[2024-08-21 18:06] VITALS: BMI 52.0
== END ==
LOC: WC 13:53
PROVIDERS: PCP Internal Medicine; Referring Provider Internal Medicine; Visit Provider Surgery
DX: L89.893 Pressure ulcer of other site, stage 3 (principal); E11.628 Type 2 diabetes mellitus with other skin complications; Q27.32 Arteriovenous malformation of vessel of lower limb; E66.01 Morbid (severe) obesity due to excess calories; Z68.42 Body mass index [BMI] 45.0-49.9, adult; I10 Essential (primary) hypertension; D50.9 Iron deficiency anemia, unspecified; R60.0 Localized edema; J44.9 Chronic obstructive pulmonary disease, unspecified; Z74.09 Other reduced mobility
CPT/HCPCS: 99213

== ENCOUNTER → 2025-05-07 14:21 | Outpatient (CLI) | payer OTHER, SELFPAY ==
[2024-08-21 16:03] VITALS: PULSE 101; RESP 18; O2SAT 94
[2024-08-21 18:06] VITALS: BMI 52.0
== END ==
LOC: WC 14:22
PROVIDERS: PCP Internal Medicine; Referring Provider Internal Medicine; Visit Provider Surgery
DX: L89.893 Pressure ulcer of other site, stage 3 (principal); Q27.32 Arteriovenous malformation of vessel of lower limb; E66.01 Morbid (severe) obesity due to excess calories; Z68.43 Body mass index [BMI] 50.0-59.9, adult; E11.9 Type 2 diabetes mellitus without complications; I10 Essential (primary) hypertension; E78.5 Hyperlipidemia, unspecified; D50.9 Iron deficiency anemia, unspecified; J44.9 Chronic obstructive pulmonary disease, unspecified; Z99.81 Dependence on supplemental oxygen; Z99.3 Dependence on wheelchair
CPT/HCPCS: 99213

== ENCOUNTER → 2025-06-18 14:37 | Outpatient (CLI) | payer OTHER, SELFPAY ==
[2024-08-21 16:03] VITALS: PULSE 101; RESP 18; O2SAT 94
[2024-08-21 18:06] VITALS: BMI 52.0
--- NOTE | 2025-06-18 14:38 | DI.ECHO.S_ITS ---
[facility] : : [id number] : : [place] : : [id number] : : Phone: [phone] Echocardiogram Report + + :Name: PURNIMA GONZALES Study Date: 06/18/2025 Height: 69 in : :[facility] ReadingLocation: Weight: 350 lb: : Gender: Male BSA: 2.6 m2 : :: 1955 Age: 69 yrs : :Reason For Study: SHORTNESS OF BREATH : :Ordering Physician: VEGA, : :XIMENA Performed By: Jeffrey Hill : :Referring: XIMENA FERRARI : + + Interpretation Summary Technically difficult study due to elevated BSA. Patient declined contrast use. Normal LV size and systolic function. LVEF is 60 to 65%. RV cannot be well-visualized. There is mild to moderate aortic stenosis with peak velocity of 2.7 m/s. Previous aortic velocity was 2.4 m/s. No severe valvular dysfunction is noted. Other findings as below. Procedure: A two-dimensional transthoracic echocardiogram with color flow and Doppler was performed. The study quality was technically difficult. Comparison is made with the echocardiogram of 06/26/2024. The patient was in normal sinus rhythm during the exam. Left Ventricle: The left ventricle is normal in size. Left ventricular wall thickness is mildly increased. There is no ventricular septal defect visualized. The ejection fraction is estimated to be 60-65%. Diastolic parameters suggest a relaxation abnormality of the left ventricle, consistent with probable normal filling pressures. Right Ventricle: The right ventricle is not well visualized. Atria: The left atrial size is normal. Right atrium not well visualized. There is no Doppler evidence for an interatrial shunt. Mitral Valve: The mitral valve is grossly normal. There is no mitral regurgitation noted. Aortic Valve: The aortic valve is trileaflet. The aortic valve is mildly calcified. There is mild to moderate aortic stenosis. The peak aortic velocity is 2.7 m/sec. The aortic valve mean gradient is 18 mmHg. No aortic regurgitation is present. Tricuspid Valve: The tricuspid valve is not well visualized. No tricuspid regurgitation. Pulmonic Valve: The pulmonic valve is not well visualized. There is trace pulmonic regurgitation. Great Vessels: The aortic root is normal size. The ascending aorta could not be visualized. The pulmonary is not well visualized. The IVC is of normal diameter and collapses greater than 50% with a sniff. This suggests a low right atrial pressure of 3 mm Hg. Pericardium/ Pleura There is no pericardial effusion. There is no pleural effusion. MMode/2D Measurements & Calculations LVIDd: 4.8 cm LVOT diam: 2.2 cm LVIDs: 3.2 cm Ao root diam: 3.3 cm FS: 34.1 % EPSS: 1.0 cm IVSd: 1.1 cm LVPWd: 1.0 cm LV davis. diameter/BSA (cm/m^2): 1.8 LV sys. diameter/BSA (cm/m^2): 1.2 LA A2 area: 15.0 cm2 IVC diam: 2.0 cm LA A4 area: 25.9 cm2 LA length (vol): 5.9 cm LA vol: 55.6 ml LA vol index: 21.2 ml/m2 TAPSE: 1.4 cm Doppler Measurements & Calculations Ao V2 max: 269.2 cm/sec LVOT Max Richard: 105.4 cm/sec Ao V2 mean: 202.3 cm/sec LV V1 max P.4 mmHg Ao max P.0 mmHg LV V1 VTI: 23.1 cm Ao mean P.1 mmHg JOVAN(I,D): 1.7 cm2 Ao V2 VTI: 53.1 cm JOVAN(V,D): 1.5 cm2 sev ratio: 0.44 JOVAN indexed to BSA (cm^2/m^2): 0.64 MV E max richard: 62.0 cm/sec PA V2 max: 153.1 cm/sec MV A max richard: 100.2 cm/sec PA V2 mean: 104.4 cm/sec MV E/A: 0.62 PA mean P.9 mmHg Med Peak E' Richard: 5.8 cm/sec PA pr(Accel): 43.0 mmHg E/E' med: 10.8 Lat Peak E' Richard: 7.8 cm/sec E/E' lat: 8.0 E/e' average: 9.4 MV dec time: 0.13 sec SV(LVOT): 88.5 ml Reading Physician:04:06 PM
== END ==
LOC: ECHO 14:38
PROVIDERS: PCP Internal Medicine; Referring Provider Internal Medicine; Visit Provider Student in an Organized Health Care Education/Training Program
DX: J96.11 Chronic respiratory failure with hypoxia (principal); R06.02 Shortness of breath; I34.0 Nonrheumatic mitral (valve) insufficiency
CPT/HCPCS: 93306